=== PATIENT | female | born 1985 | race Caucasian/White ===

== ENCOUNTER 2020-03-25 18:42 | Emergency (ER) | payer OTHER, SELFPAY ==
--- NOTE | 2020-03-25 | ECG_ITS ---
Test Reason : CP Blood Pressure : / mmHG Vent. Rate : 082 BPM Atrial Rate : 082 BPM P-R Int : 146 ms QRS Dur : 080 ms QT Int : 382 ms P-R-T Axes : 068 072 067 degrees QTc Int : 446 ms Normal sinus rhythm with sinus arrhythmia Septal infarct , age undetermined Abnormal ECG No previous ECGs available Referred By: Kandis Gonsales Electronically Signed By:James Lozano
[2020-03-25 18:48] VITALS: BP 106/65; BP 114/85; PULSE 75; PULSE 90; RESP 18; TEMP 37.1; O2SAT 98; O2SAT 99; BMI 19.5
[2020-03-25 19:02] LABS: Glucose, Whole Blood 393 mg/dL (60-115)
--- NOTE | 2020-03-25 19:03 | XR_ITS ---
EXAMINATION: PORTABLE CHEST 1 VIEW CLINICAL INFORMATION: CP . COMPARISON: No recent pertinent prior studies are available for comparison. TECHNIQUE: Portable frontal view of the chest was obtained. FINDINGS: The lungs are well expanded. No focal infiltrate, effusion, edema, or pneumothorax. Cardiac and mediastinal silhouettes are within normal limits for technique. No acute bony abnormality seen. XR/XR chest 1V IMPRESSION: No evidence of acute disease.
--- NOTE | 2020-03-25 19:08 | ED_ITS ---
HPI - Chest Pain General Chief Complaint: Chest Pain Stated Complaint: MID STERNAL CHEST PAIN X'S 2 HOURS Time Seen by Provider: 03/25/20 18:52 Source: patient Mode of arrival: EMS Limitations: no limitations History of Present Illness HPI narrative: Patient comes to the emergency room complaining of substernal chest pain. Patient states it started 2 hours prior to arrival. Patient states that she knows that whenever she gets chest pain, it is likely that she is in diabetic ketoacidosis. Patient states that she has not had any insulin today because she has not been hungry and has not eaten anything today. On the way to the emergency room, EMS gave the patient 1 time dose of 325 aspirin. At this time, patient complaining of substernal chest pain, epigastric pain, generalized malaise. Patient also very anxious, states that if she has Coronavirus, ?her body won't taken and she will . Related Data Allergies Allergy/AdvReac Type Severity Reaction Status Date / Time No Known Allergies Allergy Verified 03/25/20 19:03 Review of Systems Review of Systems: Constitutional : Patient complaining fatigue, generalized malaise, no fever or chills ENT/Mouth : No Hearing loss, No Ear Pain, No Nasal Congestion, No Sinus Pain, No Hoarseness, No sore throat, No Rhinorrhea, No Swallowing Difficulty Eyes: No Eye Pain, No Swelling, No Redness, No Foreign Body, No Discharge, No Vision Changes Cardiovascular : Complaining of substernal Chest Pain, No SOB, No Dyspnea on Exertion, No Orthopnea, No Edema, No Palpitations Respiratory : No Cough, No Sputum, No Wheezing, No Smoke Exposure, No Dyspnea Gastrointestinal : No Nausea, No Vomiting, No Diarrhea, complaining of epigastric pain Genitourinary : no irregular bleeding, No Dysuria, No Urinary Frequency, No Hematuria, No Urinary Incontinence, No Urgency, No Flank Pain, No Urinary Flow Changes, No Hesitancy Musculoskeletal : No joint pain, No Myalgias, No Joint Swelling Skin : No Skin Lesions, No rash Neuro : No Weakness, No Numbness, No Paresthesias, No Loss of Consciousness, No Dizziness, No Headache Psych : Complaining of feeling anxious due to fear of possibly having COVID-19, No Depression, No SI/HI/AH/VH, No Social Issues, Heme/Lymph: No Bruising, No Bleeding,No Lymphadenopathy Endocrine : No Polyuria, No Polydipsia, No Temperature Intolerance [facility] Past Medical History Medical History (Updated 03/26/20 @ 00:00 by Shannan Mcfarlane) Diabetes DKA (diabetic ketoacidoses) Surgical History (Updated 03/25/20 @ 18:56 by Jessie Elaine) History of Social History Social History Alcohol intake: never Smoked in Last 30 Days: No Use of substances other than those prescribed or required for medical reasons: Yes Substance Use Type: Marijuana Substance Use Frequency: Daily Last Used Substance: Days (ago) Advance Directives: No Advance Directives Information Provided: No Physical Exam Vital Signs: Vital Signs: Last Vital Signs Temp 98.8 F 03/25/20 21:16 Pulse 91 03/25/20 21:16 Resp 18 03/25/20 21:16 BP 108/61 03/25/20 21:16 Pulse Ox 100 03/25/20 20:08 Body Mass Index 19.5 Appearance: Alert. Oriented X3. No acute distress but anxious. Eyes: Pupils equal, round and reactive to light. ENT: Pharynx normal. Neck: Normal inspection. Neck supple. No lymph nodes noted. No crepitus CVS: Normal heart rate and rhythm. Pulses normal. Normal S1 and S2, not reproducible chest pain on palpation on the chest Respiratory: No respiratory distress. Breath sounds normal. No Wheezing. No rales Abdomen: Soft , mildly tender in the epigastric area No rigidity. No distention. good BS x4 Skin: Skin warm, slightly pale, clammy Extremities: No lower extremity edema. No lower extremity edema. No Lacerations. No Rash Neuro: Oriented X 3. No motor deficit. No sensory deficit. Moving all extermities. No slurred speech. Course Course Course Narrative: I discussed the labs with the patient, she is not in DKA, current glucose level 215, patient states she feels better. Patient tested negative for COVID-19 MDM - Chest Pain Lab Data Result diagrams: 03/25/20 19:28 03/25/20 19:28 Labs: Lab Results 03/25/20 03/25/20 03/25/20 Range/Units 18:57 19:28 19:28 WBC 5.7 (4.8-10.8) X10*3/uL RBC 3.75 L (4.20-5.50) X10*6/uL Hgb 12.2 (12.0-16.0) g/dl Hct 34.8 L (37-47) % MCV 92.8 (80-98) fL MCH 32.5 (27.0-33.0) pg MCHC 35.1 H (31.0-35.0) g/dl RDW 11.6 (11.0-16.0) % Plt Count 173 (160-400) X10*3/uL MPV 10.6 (9.4-12.3) fL Immature Gran % (Auto) 0.2 (0.0-0.4) % Neut % (Auto) 48.6 (45-73) % Lymph % (Auto) 40.9 H (20-40) % Davison % (Auto) 8.2 (2-11) % Eos % (Auto) 1.6 (0-4) % Baso % (Auto) 0.5 (0-2) % Lymph # (Auto) 2.3 (1.2-4.9) X10*3/uL Davison # (Auto) 0.5 (0.1-1.2) X10*3/uL Eos # (Auto) 0.1 (0.0-0.4) X10*3/uL Baso # (Auto) 0.0 (0.0-0.2) X10*3/uL Abs Immat Gran (auto) 0.01 (0.00-0.03) X10*3/uL Absolute Neuts (auto) 2.8 (2.0-8.3) X10*3/uL Absolute Nucleated RBC 0.000 (0.0-0.012) X10*3/uL Nucleated RBC % (auto) 0.0 (0.0-0.2) /100WBC Sodium 132 L (135-145) mmol/L Potassium 4.6 (3.3-5.1) mmol/l Chloride 101 (96-108) mmol/L Carbon Dioxide 26 (22-29) mmol/L Anion Gap 10 L (12-20) BUN 10 (9-16) mg/dL Creatinine 0.82 (0.5-1.4) mg/dL Estim Creat Clear Calc 70.7 Estimated GFR > 60 POC Glucose 393 H* (60-115) mg/dL Random Glucose 430 H* (60-115) mg/dL Lactic Acid (0.5-2.0) mmol/L Calcium 8.4 (8.4-10.2) mg/dL Total Bilirubin 0.5 (0.0-1.0) mg/dL Direct Bilirubin 0.2 (0.0-0.5) mg/dL AST 18 (5-31) U/L ALT 15 (0-31) U/L Alkaline Phosphatase 64 (39-117) U/L Troponin I High Sens (<3.5-17.0) ng/L Total Protein 6.0 L (6.5-8.0) g/dL Albumin 3.7 (3.5-5.0) g/dL Lipase 28 (8-78) U/L Urine Color Urine Appearance Urine pH (5.0-8.0) Ur Specific [place] (1.005-1.025) Urine Protein (NEG-TRACE) MG/DL Urine Glucose (UA) (NEG) MG/DL Urine Ketones (NEG) MG/DL Urine Blood (NEG) Urine Nitrite (NEG) Ur Leukocyte Esterase (NEG) Urine RBC (0) /HPF Urine WBC (0-4) /HPF Ur Squamous Epith Cells /LPF Urine Bacteria /LPF Urine Test (NEGATIVE) Urine Opiates Screen (Not Detect) Ur Barbiturates Screen (Not Detect) Ur Phencyclidine Scrn (Not Detect) Ur Amphetamines Screen (Not Detect) U Benzodiazepines Scrn (Not Detect) Urine Cocaine Screen (Not Detect) U Marijuana (THC) Screen (Not Detect) Acetone, Qual Negative (Negative) COVID-19 (ISHA) (Negative) COVID-19 Clin Com 03/25/20 03/25/20 03/25/20 Range/Units 19:28 19:28 19:28 WBC (4.8-10.8) X10*3/uL RBC (4.20-5.50) X10*6/uL Hgb (12.0-16.0) g/dl Hct (37-47) % MCV (80-98) fL MCH (27.0-33.0) pg MCHC (31.0-35.0) g/dl RDW (11.0-16.0) % Plt Count (160-400) X10*3/uL MPV (9.4-12.3) fL Immature Gran % (Auto) (0.0-0.4) % Neut % (Auto) (45-73) % Lymph % (Auto) (20-40) % Davison % (Auto) (2-11) % Eos % (Auto) (0-4) % Baso % (Auto) (0-2) % Lymph # (Auto) (1.2-4.9) X10*3/uL Davison # (Auto) (0.1-1.2) X10*3/uL Eos # (Auto) (0.0-0.4) X10*3/uL Baso # (Auto) (0.0-0.2) X10*3/uL Abs Immat Gran (auto) (0.00-0.03) X10*3/uL Absolute Neuts (auto) (2.0-8.3) X10*3/uL Absolute Nucleated RBC (0.0-0.012) X10*3/uL Nucleated RBC % (auto) (0.0-0.2) /100WBC Sodium (135-145) mmol/L Potassium (3.3-5.1) mmol/l Chloride (96-108) mmol/L Carbon Dioxide (22-29) mmol/L Anion Gap (12-20) BUN (9-16) mg/dL Creatinine (0.5-1.4) mg/dL Estim Creat Clear Calc Estimated GFR POC Glucose (60-115) mg/dL Random Glucose (60-115) mg/dL Lactic Acid 1.2 (0.5-2.0) mmol/L Calcium (8.4-10.2) mg/dL Total Bilirubin (0.0-1.0) mg/dL Direct Bilirubin (0.0-0.5) mg/dL AST (5-31) U/L ALT (0-31) U/L Alkaline Phosphatase (39-117) U/L Troponin I High Sens < 3.5 (<3.5-17.0) ng/L Total Protein (6.5-8.0) g/dL Albumin (3.5-5.0) g/dL Lipase (8-78) U/L Urine Color Urine Appearance Urine pH (5.0-8.0) Ur Specific [place] (1.005-1.025) Urine Protein (NEG-TRACE) MG/DL Urine Glucose (UA) (NEG) MG/DL Urine Ketones (NEG) MG/DL Urine Blood (NEG) Urine Nitrite (NEG) Ur Leukocyte Esterase (NEG) Urine RBC (0) /HPF Urine WBC (0-4) /HPF Ur Squamous Epith Cells /LPF Urine Bacteria /LPF Urine Test (NEGATIVE) Urine Opiates Screen (Not Detect) Ur Barbiturates Screen (Not Detect) Ur Phencyclidine Scrn (Not Detect) Ur Amphetamines Screen (Not Detect) U Benzodiazepines Scrn (Not Detect) Urine Cocaine Screen (Not Detect) U Marijuana (THC) Screen (Not Detect) Acetone, Qual (Negative) COVID-19 (ISHA) Negative (Negative) COVID-19 Clin Com See Note 03/25/20 03/25/20 03/25/20 Range/Units 19:48 19:48 21:13 WBC (4.8-10.8) X10*3/uL RBC (4.20-5.50) X10*6/uL Hgb (12.0-16.0) g/dl Hct (37-47) % MCV (80-98) fL MCH (27.0-33.0) pg MCHC (31.0-35.0) g/dl RDW (11.0-16.0) % Plt Count (160-400) X10*3/uL MPV (9.4-12.3) fL Immature Gran % (Auto) (0.0-0.4) % Neut % (Auto) (45-73) % Lymph % (Auto) (20-40) % Davison % (Auto) (2-11) % Eos % (Auto) (0-4) % Baso % (Auto) (0-2) % Lymph # (Auto) (1.2-4.9) X10*3/uL Davison # (Auto) (0.1-1.2) X10*3/uL Eos # (Auto) (0.0-0.4) X10*3/uL Baso # (Auto) (0.0-0.2) X10*3/uL Abs Immat Gran (auto) (0.00-0.03) X10*3/uL Absolute Neuts (auto) (2.0-8.3) X10*3/uL Absolute Nucleated RBC (0.0-0.012) X10*3/uL Nucleated RBC % (auto) (0.0-0.2) /100WBC Sodium (135-145) mmol/L Potassium (3.3-5.1) mmol/l Chloride (96-108) mmol/L Carbon Dioxide (22-29) mmol/L Anion Gap (12-20) BUN (9-16) mg/dL Creatinine (0.5-1.4) mg/dL Estim Creat Clear Calc Estimated GFR POC Glucose 215 H (60-115) mg/dL Random Glucose (60-115) mg/dL Lactic Acid (0.5-2.0) mmol/L Calcium (8.4-10.2) mg/dL Total Bilirubin (0.0-1.0) mg/dL Direct Bilirubin (0.0-0.5) mg/dL AST (5-31) U/L ALT (0-31) U/L Alkaline Phosphatase (39-117) U/L Troponin I High Sens (<3.5-17.0) ng/L Total Protein (6.5-8.0) g/dL Albumin (3.5-5.0) g/dL Lipase (8-78) U/L Urine Color YELLOW Urine Appearance CLEAR Urine pH 6.5 (5.0-8.0) Ur Specific [place] 1.010 (1.005-1.025) Urine Protein NEG (NEG-TRACE) MG/DL Urine Glucose (UA) >=1000 H (NEG) MG/DL Urine Ketones NEG (NEG) MG/DL Urine Blood NEG (NEG) Urine Nitrite NEG (NEG) Ur Leukocyte Esterase NEG (NEG) Urine RBC 0 (0) /HPF Urine WBC 0 (0-4) /HPF Ur Squamous Epith Cells 1+ /LPF Urine Bacteria NONE /LPF Urine Test NEGATIVE (NEGATIVE) Urine Opiates Screen Not Detected (Not Detect) Ur Barbiturates Screen Not Detected (Not Detect) Ur Phencyclidine Scrn Not Detected (Not Detect) Ur Amphetamines Screen Not Detected (Not Detect) U Benzodiazepines Scrn Not Detected (Not Detect) Urine Cocaine Screen Not Detected (Not Detect) U Marijuana (THC) Screen POSITIVE H (Not Detect) Acetone, Qual (Negative) COVID-19 (ISHA) (Negative) COVID-19 Clin Com Imaging Data Chest x-ray: Radiologist's impression: The lungs are well expanded. No focal infiltrate, effusion, edema, or pneumothorax. Cardiac and mediastinal silhouettes are within normal limits for technique. No acute bony abnormality seen. XR/XR chest 1V IMPRESSION: No evidence of acute disease. ECG Data ECG #1: Attestation: I personally reviewed and interpreted this ECG as follows: (Heart rate 82, sinus rhythm, nonspecific ST segment changes, no T-wave inversions) Discharge Plan Discharge Clinical Impression: Hyperglycemia, Atypical chest pain Patient Disposition: Home, Self-Care Instructions: Chest Pain (ED), Diabetic Hyperglycemia (ED) Additional Instructions: You tested negative for COVID-19. Please follow-up with your primary care physician tomorrow. If you have any worsening or new symptoms, please return to the emergency room or call 911 Interventions: ED Discharge Assessment Last Done: 03/25/20 21:48 Discharge Date/Time: 03/25/20 21:48
[2020-03-25] MEDS: 0.9 % Sodium Chloride 1,000 ML 999 ML IVCONT ×2 (19:34)
[2020-03-25 19:35] LABS: Basophils Percent Auto 0.5 % (0-2); Eosinophils Absolute Auto 0.1 X10*3/uL (0.0-0.4); Eosinophils Percent Auto 1.6 % (0-4); Hematocrit 34.8 % (37-47); Hemoglobin 12.2 g/dl (12.0-16.0); Imm Gran Abs Auto 0.01 X10*3/uL (0.00-0.03); Imm Gran Pct Auto 0.2 % (0.0-0.4); Lymphocytes Absolute Auto 2.3 X10*3/uL (1.2-4.9); Lymphocytes Percent Auto 40.9 % (20-40); MANUAL DIFF FLAG NO; Mean Corpuscular HGB Conc 35.1 g/dl (31.0-35.0); Mean Corpuscular Hemoglobin 32.5 pg (27.0-33.0); Mean Corpuscular Volume 92.8 fL (80-98); Mean Platelet Volume 10.6 fL (9.4-12.3); Monocytes Absolute Auto 0.5 X10*3/uL (0.1-1.2); Monocytes Percent Auto 8.2 % (2-11); Neutrophils Absolute Auto 2.8 X10*3/uL (2.0-8.3); Neutrophils Percent Auto 48.6 % (45-73); Platelet Count 173 X10*3/uL (160-400); Red Blood Count 3.75 X10*6/uL (4.20-5.50); Red Cell Distribution Width 11.6 % (11.0-16.0); White Blood Count 5.7 X10*3/uL (4.8-10.8)
[2020-03-25] MEDS: Insulin Regular, Human 100 UNIT/ML 3 ML VIAL 10 UNIT IVPUSH (19:43)
--- NOTE | 2020-03-25 19:48 | PC.NURSE ---
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
[2020-03-25 19:52] LABS: COVID-19 Test Negative (Negative)
[2020-03-25 19:59] LABS: Glucose Urine UA >=1000 MG/DL (NEG); Leukocyte Esterase Urine NEG (NEG); Nitrite Urine NEG (NEG); PH 6.5 (5.0-8.0); Urine Blood NEG (NEG); Urine Ketones NEG (NEG); Urine Protein NEG (NEG-TRACE)
[2020-03-25 20:00] LABS: Appearance Urine CLEAR; Color Urine YELLOW
[2020-03-25 20:03] LABS: Lactic Acid 1.2 mmol/L (0.5-2.0)
[2020-03-25 20:08] VITALS: BP 104/60; PULSE 74; RESP 18; TEMP 36.8; O2SAT 100
[2020-03-25 20:08] LABS: RBC Urine 0 /HPF (0); Squamous Epithelial Cell Urine 1+ /LPF; WBC Urine 0 /HPF (0-4)
[2020-03-25 20:11] LABS: Troponin-I High Sensitivity < 3.5 ng/L (<3.5-17.0)
[2020-03-25 20:12] LABS: UPreg QC Valid YES; Urine Pregnancy NEGATIVE (NEGATIVE)
[2020-03-25 20:16] LABS: Alanine Aminotransferase 15 U/L (0-31); Albumin Level 3.7 g/dL (3.5-5.0); Alkaline Phosphatase 64 U/L (39-117); Anion Gap 10 (12-20); Aspartate Amino Transferase 18 U/L (5-31); Bilirubin Direct 0.2 mg/dL (0.0-0.5); Bilirubin Total 0.5 mg/dL (0.0-1.0); Blood Urea Nitrogen 10 mg/dL (9-16); Calcium 8.4 mg/dL (8.4-10.2); Carbon Dioxide 26 mmol/L (22-29); Chloride 101 mmol/L (96-108); Creatinine Clr Calc Pharmacy 70.7; Estimated Glomerular Filt Rate > 60; Glucose Random 430 mg/dL (60-115); Lipase 28 U/L (8-78); Potassium 4.6 mmol/l (3.3-5.1); Sodium 132 mmol/L (135-145)
[2020-03-25 20:21] LABS: Amphetamine Screen Urine Not Detected (Not Detect); Barbiturates, Urine Not Detected (Not Detect); Benzodiazepines Screen Urine Not Detected (Not Detect); Cannabinoid Screen Urine POSITIVE (Not Detect); Cocaine Screen Urine Not Detected (Not Detect); Opiate Screen Urine Not Detected (Not Detect); Phencyclidine Screen Urine Not Detected (Not Detect)
[2020-03-25 20:40] LABS: Acetone, serum QL Negative (Negative)
[2020-03-25 21:16] VITALS: BP 108/61; PULSE 91; RESP 18; TEMP 37.1
[2020-03-25 21:17] LABS: Glucose, Whole Blood 215 mg/dL (60-115)
--- NOTE | 2020-03-25 21:17 | PC.NURSE ---
patient a&ox3, pt currently denies pain, vitals stable, pt nsr 90s on monitor, poc repeated was 215, will continue to monitor
--- NOTE | 2020-03-25 21:28 | PC.NURSE ---
report given to [facility], will transport the patient [place]
== END 2020-03-25 21:48 | disposition home or self-care (01) ==
PROVIDERS: Emergency Provider Emergency Medicine
DX: R07.89 Other chest pain (principal); E11.65 Type 2 diabetes mellitus with hyperglycemia; Z20.828 Contact with and (suspected) exposure to other viral communicable diseases; F12.90 Cannabis use, unspecified, uncomplicated
CPT/HCPCS: 36415; 71045; 80048; 80076; 80307; 81001; 81025; 82009; 82947; 83605; 83690; 84484; 85025; 87635; 93005; 96361; 96374; 99284

== ENCOUNTER 2021-12-06 19:43 | Inpatient (IN) | payer OTHER, SELFPAY ==
--- NOTE | ~2021-12-06 | CT_ITS ---
EXAM: CT scan of the chest, abdomen, and pelvis. INDICATION: DKA. Intractable vomiting. COMPARISON: No similar prior imaging available for comparison at this institution. TECHNIQUE: Multidetector helical imaging of the chest, abdomen, and pelvis was obtained from the thoracic inlet through the pubic symphysis. Coronal and sagittal reformatted images that were obtained were also reviewed. Today's examination is limited by lack of IV contrast and paucity of intra-abdominal fat. DLP: 456 mGy-cm FINDINGS: CHEST: Central airways are patent. Lungs are well aerated. There is no lobar consolidation, pleural effusion or pneumothorax. Minimal biapical architectural distortion/scarring. No suspicious pulmonary nodules. The heart is normal in size. There is no pericardial effusion. Normal caliber thoracic aorta. No gross mediastinal or hilar lymphadenopathy appreciated on today's noncontrast imaging. No pathologically enlarged axillary lymph nodes. ABDOMEN/PELVIS: The liver is normal in size but demonstrates diffusely decreased attenuation. The gallbladder is not definitively visualized, likely contracted. The pancreas, spleen and adrenal glands are unremarkable. Symmetrically sized kidneys. No renal calculi or hydronephrosis bilaterally. Normal caliber loops of small and large bowel. Normal caliber abdominal aorta. The bladder is well-distended and normal in appearance. Unremarkable CT appearance of the uterus. Small amount of free pelvic fluid, often times physiologic. No inguinal lymphadenopathy. OSSEOUS STRUCTURES No acute osseous abnormality. CT/CT abdomen pelvis wo IV con IMPRESSION: No CT evidence for acute abnormality within the abdomen or pelvis. This CT examination was performed using dose optimization techniques as appropriate, variously including the following: *Automated exposure control *Adjustment of mA and/or kV according to patient size (this includes techniques or standardized protocols for targeted exams where dose is matched to indication/reason for exam; i.e. extremities or head) *Use of iterative reconstruction technique
[2021-12-06 19:51] VITALS: BP 108/68; PULSE 116; RESP 20; TEMP 36.7; O2SAT 100; BMI 18.8
[2021-12-06] MEDS: Ondansetron ODT 4 MG TAB.RAPDIS TRANSLINGU (20:03)
[2021-12-06 20:04] LABS: Glucose, Whole Blood 424 mg/dL (60-115)
[2021-12-06 20:40] VITALS: BP 129/68; PULSE 108; RESP 18; TEMP 36.7; O2SAT 100
--- NOTE | 2021-12-06 21:00 | ED.GENADULT ---
HPI - General Adult General Chief complaint: General Medical Stated complaint: abd pain Time Seen by Provider: 12/06/21 21:00 Source: patient Mode of arrival: ambulatory Limitations: no limitations History of Present Illness HPI narrative: Patient type 1 diabetic on insulin for last 4- 5 days not feeling well checked her sugar was less than 100 not eating because of nausea got worse for last 2 days started vomiting today patient with taking her Lantus insulin daily today patient had mid abdominal pain with vomiting, multiple episodes on arrival POC was 424. No fever no chills no urinary complaints Related Data Previous Rx's Medication Instructions Recorded metoclopramide HCl 10 mg tablet 10 mg PO Q6H PRN nausea and 12/07/21 (Reglan) vomiting #30 tabs Allergies Allergy/AdvReac Type Severity Reaction Status Date / Time No Known Allergies Allergy Verified 12/06/21 19:50 Review of Systems Review of Systems: Yes all other systems are reviewed and are negative PMFSH Past Medical History Medical History Diabetes DKA (diabetic ketoacidoses) Surgical History History of Social History Social History Alcohol intake: never Substance Use Type: Marijuana Advance Directives: No Advance Directives Information Provided: Yes Physical Exam ED Vital Signs: Vital Signs - 24 hr 12/06/21 19:51 12/06/21 20:40 12/07/21 00:40 Temperature 98.1 F 98.0 F 97.7 F Pulse Rate 116 H 108 H 110 H Respiratory Rate 20 18 15 Blood Pressure 108/68 129/68 98/56 L Pulse Oximetry 100 100 100 Oxygen Delivery Method Room Air Room Air Room Air BMI result Body Mass Index 18.8 Appearance: Alert. Oriented X3. Looks sick Eyes: PERRLA, No Nystagmus ENT: Pharynx normal. Oral Mucosa dry Neck: Normal inspection. Neck supple. CVS: Normal heart rate and rhythm. Pulses normal. Respiratory: No respiratory distress. Equal air entry bilateral, no wheezing/rales/rhonchi Abdomen: Soft mild epigastric tenderness. Bowel sounds are present, no mass palpable, no CVA tenderness Skin: Skin warm and dry. Normal skin color. Normal skin turgor. Extremities: No lower extremity edema. No calf tenderness Neuro: Oriented X 3. No motor deficit. No sensory deficit Course Reevaluation(s) Reevaluation #1: Patient received IV Versed and Compazine at this time patient is sleeping comfortable will try p.o. challenge after 3 L of IV fluid will check chemistry again anticipated discharge the patient, but if continues to vomit will plan to admit Time: 01:34 Medical Decision Making MDM Narrative Medical decision making narrative: Patient with anxiety, eating disorder with history of similar episodes of vomiting noncompliant to diet or insulin comes in with similar complaints for last few days patient smokes cannabis which she did yesterday very anxious in the ER refusing to accept cannabis as a role for vomiting has not seen a search marketing analyst yet possibly patient might a gastroparesis which getting worse with eating disorder and cannabis use. Patient already received 2 L of IV fluids no ketoacidosis was seen. Will give another L of fluid Compazine and Versed , patient has slight anion gap of 24 without ketoacidosis will repeat chemistry Lab Data Lab results reviewed: Yes I reviewed the patient's lab results. Result diagrams: 12/06/21 21:21 12/06/21 21:12 Labs: Lab Results 12/06/21 12/06/21 12/06/21 Range/Units 20:00 21:12 21:21 WBC 6.9 (4.8-10.8) X10*3/uL RBC 4.08 L (4.20-5.50) X10*6/uL Hgb 13.2 (12.0-16.0) g/dl Hct 38.0 (37.0-47.0) % MCV 93.1 (80.0-98.0) fL MCH 32.4 (27.0-33.0) pg MCHC 34.7 (31.0-35.0) g/dl RDW 11.9 (11.0-16.0) % Plt Count 182 (160-400) X10*3/uL MPV 10.7 (9.4-12.3) fL Immature Gran % (Auto) 0.3 (0.0-0.4) % Neut % (Auto) 74.0 H (45-73) % Lymph % (Auto) 19.0 L (20-40) % Bureau % (Auto) 6.0 (2-11) % Eos % (Auto) 0.0 (0-4) % Baso % (Auto) 0.7 (0-2) % Lymph # (Auto) 1.3 (1.2-4.9) X10*3/uL Bureau # (Auto) 0.4 (0.1-1.2) X10*3/uL Eos # (Auto) 0.0 (0.0-0.4) X10*3/uL Baso # (Auto) 0.1 (0.0-0.2) X10*3/uL Abs Immat Gran (auto) 0.02 (0.00-0.03) X10*3/uL Absolute Neuts (auto) 5.1 (2.0-8.3) x10*3/uL Absolute Nucleated RBC 0.000 (0.0-0.012) X10*3/uL Nucleated RBC % (auto) 0.0 (0.0-0.2) /100WBC VBG pH (7.32-7.43) VBG pCO2 mmHg VBG pO2 mmHg VBG HCO3 (22-26) mmol/L VBG O2 Saturation % VBG Base Excess mmol/L Sodium 138 (135-145) mmol/L Potassium 4.6 (3.3-5.1) mmol/L Chloride 101 (96-108) mmol/L Carbon Dioxide 18 L (22-29) mmol/L Anion Gap 24 H (12-20) BUN 11 (9-16) mg/dL Creatinine 1.00 (0.5-1.4) mg/dL Estim Creat Clear Calc 55.1 Estimated GFR > 60 POC Glucose 424 H* (60-115) mg/dL Random Glucose 491 H* (60-115) mg/dL Calcium 9.2 D (8.4-10.2) mg/dL Total Bilirubin 0.9 (0.0-1.0) mg/dL AST 26 D (5-31) U/L ALT 18 (0-31) U/L Alkaline Phosphatase 78 D (39-117) U/L Total Protein 6.9 (6.5-8.0) g/dL Albumin 4.1 (3.5-5.0) g/dL Lipase 12 (8-78) U/L Acetone, Qual Negative (Negative) COVID-19 (ISHA) (Negative) COVID-19 Clin Com 12/06/21 12/06/21 12/07/21 Range/Units 21:21 21:27 00:22 WBC (4.8-10.8) X10*3/uL RBC (4.20-5.50) X10*6/uL Hgb (12.0-16.0) g/dl Hct (37.0-47.0) % MCV (80.0-98.0) fL MCH (27.0-33.0) pg MCHC (31.0-35.0) g/dl RDW (11.0-16.0) % Plt Count (160-400) X10*3/uL MPV (9.4-12.3) fL Immature Gran % (Auto) (0.0-0.4) % Neut % (Auto) (45-73) % Lymph % (Auto) (20-40) % Bureau % (Auto) (2-11) % Eos % (Auto) (0-4) % Baso % (Auto) (0-2) % Lymph # (Auto) (1.2-4.9) X10*3/uL Bureau # (Auto) (0.1-1.2) X10*3/uL Eos # (Auto) (0.0-0.4) X10*3/uL Baso # (Auto) (0.0-0.2) X10*3/uL Abs Immat Gran (auto) (0.00-0.03) X10*3/uL Absolute Neuts (auto) (2.0-8.3) x10*3/uL Absolute Nucleated RBC (0.0-0.012) X10*3/uL Nucleated RBC % (auto) (0.0-0.2) /100WBC VBG pH 7.32 (7.32-7.43) VBG pCO2 38 mmHg VBG pO2 61 mmHg VBG HCO3 20 L (22-26) mmol/L VBG O2 Saturation 86.0 % VBG Base Excess -5.4 mmol/L Sodium (135-145) mmol/L Potassium (3.3-5.1) mmol/L Chloride (96-108) mmol/L Carbon Dioxide (22-29) mmol/L Anion Gap (12-20) BUN (9-16) mg/dL Creatinine (0.5-1.4) mg/dL Estim Creat Clear Calc Estimated GFR POC Glucose 241 H (60-115) mg/dL Random Glucose (60-115) mg/dL Calcium (8.4-10.2) mg/dL Total Bilirubin (0.0-1.0) mg/dL AST (5-31) U/L ALT (0-31) U/L Alkaline Phosphatase (39-117) U/L Total Protein (6.5-8.0) g/dL Albumin (3.5-5.0) g/dL Lipase (8-78) U/L Acetone, Qual (Negative) COVID-19 (ISHA) Negative (Negative) COVID-19 Clin Com See Note Discharge Plan Discharge Clinical Impression: Cyclical vomiting, intractable, Diabetic gastroparesis, Anxiety Patient Disposition: Still a Patient Instructions: Diabetic Gastroparesis (DC), Anxiety (ED), Cyclic Vomiting Syndrome (ED) Additional Instructions: Drink plenty of fluids Have proper diet as advised Take insulin as instructed by your PCP Follow-up with search marketing analyst and endocrinology for further workup Prescriptions: New metoclopramide HCl [Reglan] 10 mg tablet 10 mg PO Q6H PRN (Reason: nausea and vomiting) Qty: 30 0RF Referrals: Gerardo Kirk MD [Physician] - 2 weeks Khadijah Alanis MD [Physician] - 2 weeks
[2021-12-06 21:26] LABS: MANUAL DIFF FLAG NO
[2021-12-06] MEDS: ondansetron HCL 4 MG/2 ML VIAL IVPUSH (21:31)
[2021-12-06] MEDS: Insulin Regular, Human 100 UNIT/ML 3 ML VIAL 10 UNIT IVPUSH (21:31)
[2021-12-06 21:32] LABS: VBG Base Excess -5.4 mmol/L; VBG HCO3 20 mmol/L (22-26); VBG pCO2 38 mmHg; VBG pH 7.32 (7.32-7.43); VBG pO2 61 mmHg
[2021-12-06 21:33] LABS: Venous Blood Gas Refer to POC result
[2021-12-06] MEDS: 0.9 % Sodium Chloride 1,000 ML 999 ML IV ×2 (21:34)
[2021-12-06 21:52] LABS: COVID-19 Test Negative (Negative)
[2021-12-06 21:58] LABS: Acetone, serum QL Negative (Negative)
[2021-12-06 21:59] LABS: Basophils Absolute Auto 0.1 X10*3/uL (0.0-0.2); Basophils Percent Auto 0.7 % (0-2); Hemoglobin 13.2 g/dl (12.0-16.0); Imm Gran Abs Auto 0.02 X10*3/uL (0.00-0.03); Imm Gran Pct Auto 0.3 % (0.0-0.4); Lymphocytes Absolute Auto 1.3 X10*3/uL (1.2-4.9); Mean Corpuscular HGB Conc 34.7 g/dl (31.0-35.0); Mean Corpuscular Hemoglobin 32.4 pg (27.0-33.0); Mean Corpuscular Volume 93.1 fL (80.0-98.0); Mean Platelet Volume 10.7 fL (9.4-12.3); Monocytes Absolute Auto 0.4 X10*3/uL (0.1-1.2); Neutrophils Absolute Auto 5.1 x10*3/uL (2.0-8.3); Platelet Count 182 X10*3/uL (160-400); Red Blood Count 4.08 X10*6/uL (4.20-5.50); Red Cell Distribution Width 11.9 % (11.0-16.0); White Blood Count 6.9 X10*3/uL (4.8-10.8)
[2021-12-06 22:01] LABS: Alanine Aminotransferase 18 U/L (0-31); Albumin Level 4.1 g/dL (3.5-5.0); Alkaline Phosphatase 78 U/L (39-117); Anion Gap 24 (12-20); Aspartate Amino Transferase 26 U/L (5-31); Bilirubin Total 0.9 mg/dL (0.0-1.0); Blood Urea Nitrogen 11 mg/dL (9-16); Calcium 9.2 mg/dL (8.4-10.2); Carbon Dioxide 18 mmol/L (22-29); Chloride 101 mmol/L (96-108); Creatinine Clr Calc Pharmacy 55.1; Estimated Glomerular Filt Rate > 60; Glucose Random 491 mg/dL (60-115); Lipase 12 U/L (8-78); Potassium 4.6 mmol/L (3.3-5.1); Sodium 138 mmol/L (135-145); Total Protein 6.9 g/dL (6.5-8.0)
[2021-12-07] VITALS (17 sets, daily range): BP systolic 86–112; BP diastolic 41–59; PULSE 102–122; RESP 12–25; TEMP 36.5–37.6; O2SAT 94–100
[2021-12-07 00:26] LABS: Glucose, Whole Blood 241 mg/dL (60-115)
[2021-12-07] MEDS: Prochlorperazine Edisylate 10 MG/2 ML VIAL IVPUSH (00:50)
[2021-12-07] MEDS: Midazolam HCl/PF 2 MG/2 ML VIAL 1 MG IVPUSH ×2 (00:50→10:51)
[2021-12-07] MEDS: Famotidine/PF 20 MG/2 ML VIAL IVPUSH ×3 (00:51→22:32)
[2021-12-07] MEDS: 0.9 % Sodium Chloride 1,000 ML 999 ML IV (00:51)
[2021-12-07 02:30] LABS: Anion Gap 22 (12-20); Blood Urea Nitrogen 12 mg/dL (9-16); Calcium 7.9 mg/dL (8.4-10.2); Carbon Dioxide 14 mmol/L (22-29); Chloride 109 mmol/L (96-108); Creatinine Clr Calc Pharmacy 72.5; Estimated Glomerular Filt Rate > 60; Glucose Random 364 mg/dL (60-115); Potassium 4.3 mmol/L (3.3-5.1); Sodium 141 mmol/L (135-145)
[2021-12-07] MEDS: Insulin Regular, Human 100 UNIT/ML 3 ML VIAL 10 UNIT IVPUSH (03:49)
[2021-12-07] MEDS: 0.9 % Sodium Chloride 1,000 ML 999 ML IVCONT (03:51)
[2021-12-07] MEDS: ondansetron HCL 4 MG/2 ML VIAL IVPUSH ×2 (03:51→10:51)
[2021-12-07 03:54] LABS: Appearance Urine Clear; Color Urine Yellow; Glucose Urine UA >=1000 mg/dL (Negative); Leukocyte Esterase Urine Negative (Negative); Nitrite Urine Negative (Negative); Urine Blood Negative (Negative); Urine Ketones >=80 mg/dL (Negative); Urine Protein Negative (Neg-Trace)
[2021-12-07 03:56] LABS: Bacteria Urine None Seen (None Seen); Hyaline Casts Urine 0-2 /LPF (0-2); RBC Urine 0-2 /HPF (0-2); Squamous Epithelial Cell Urine 0-2 /HPF (0-2); WBC Urine 0-5 /HPF (0-5)
[2021-12-07 05:21] LABS: Anion Gap 22 (12-20); Blood Urea Nitrogen 13 mg/dL (9-16); Calcium 8.1 mg/dL (8.4-10.2); Carbon Dioxide 11 mmol/L (22-29); Chloride 111 mmol/L (96-108); Creatinine Clr Calc Pharmacy 69.8; Estimated Glomerular Filt Rate > 60; Glucose Random 331 mg/dL (60-115); Potassium 3.8 mmol/L (3.3-5.1); Sodium 140 mmol/L (135-145)
[2021-12-07 05:33] LABS: Amphetamine Screen Urine Not Detected (Not Detect); Barbiturates, Urine Not Detected (Not Detect); Benzodiazepines Screen Urine POSITIVE (Not Detect); Cannabinoid Screen Urine POSITIVE (Not Detect); Cocaine Screen Urine Not Detected (Not Detect); Fentanyl, urine Not Detected (Not Detect); Opiate Screen Urine Not Detected (Not Detect); Phencyclidine Screen Urine Not Detected (Not Detect)
[2021-12-07] MEDS: Insulin Regular, Human 100 UNIT/ML 3 ML VIAL IVPUSH (06:06)
[2021-12-07] MEDS: KCl 20 mEq in 0.45% Sod 20 MEQ/1,000 ML IV.SOLN 150 MEQ IVCONT (06:07)
[2021-12-07 06:26] LABS: Lactic Acid 1.9 mmol/L (0.5-2.0)
[2021-12-07 06:36] LABS: Acetaminophen LAB < 1 mcg/mL (<30); Salicylate < 5.0 mg/dL (15-30)
[2021-12-07 08:49] LABS: Glucose, Whole Blood 250 mg/dL (60-115)
[2021-12-07 09:01] LABS: Amylase 47 U/L (28-100); Lipase 8 U/L (8-78)
[2021-12-07 09:07] LABS: HCG Quantitative < 2 mIU/mL
[2021-12-07] MEDS: Insulin Regular/NS 100 UNIT/100 ML PLAST..BAG IVCONT (09:08)
--- NOTE | 2021-12-07 09:27 | PHA.MEDREC ---
Pharmacy Consult ? Medication Reconciliation Pharmacy has completed the medication reconciliation. Patient also reported gabapentin however per PDMP it has not been filled since march 2020. Jacey Herrera, PharmD
[2021-12-07 09:58] LABS: Glucose, Whole Blood 354 mg/dL (60-115)
[2021-12-07 10:43] LABS: Glucose, Whole Blood 351 mg/dL (60-115)
--- NOTE | 2021-12-07 11:45 | PC.NURSE ---
Patient has K+CL and insulin running. 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
[2021-12-07 11:53] LABS: Glucose, Whole Blood 361 mg/dL (60-115)
--- NOTE | 2021-12-07 11:55 | PC.NURSE ---
per dr. riggs he requested that we titrate the insulin drip to 5 and recheck poc in 1 hr
[2021-12-07 12:17] LABS: Venous Blood Gas Refer to POC result
[2021-12-07 12:18] LABS: VBG Base Excess -12.6 mmol/L; VBG HCO3 10 mmol/L (22-26); VBG pCO2 19 mmHg; VBG pH 7.34 (7.32-7.43); VBG pO2 199 mmHg
[2021-12-07 12:34] LABS: Anion Gap 22 (12-20); Blood Urea Nitrogen 14 mg/dL (9-16); Calcium 8.1 mg/dL (8.4-10.2); Carbon Dioxide 10 mmol/L (22-29); Chloride 110 mmol/L (96-108); Creatinine Clr Calc Pharmacy 61.2; Estimated Glomerular Filt Rate > 60; Glucose Random 375 mg/dL (60-115); Potassium 4.6 mmol/L (3.3-5.1); Sodium 137 mmol/L (135-145)
--- NOTE | 2021-12-07 12:49 | PM.CCHP ---
History of Present Illness Date of Service: 12/07/21 Attending physician on admission: Mony Castillo Chief Complaint: Weakness with nausea and vomiting 36-year-old female with a progressive weakness anorexia nausea and vomiting presents metabolically with diabetic ketoacidosis with just a mild increase in anion gap and a mild bicarb deficit which unfortunately is deteriorating while treating in the emergency room on currently half normal saline after several boluses of 1 L each of normal saline and after a boluses of IV insulin including a continuous IV insulin drip and part of the metabolic acidosis and diminishing neck bicarb store is on the basis of hyperchloremia but nonetheless fluids of course will be adjusted and IV insulin will continue to be administered she did not have any other specific complaints and I did a CT scan of her abdomen showing the hepatobiliary system and pancreas all normal and normal serum amylase she does have a nonspecific ileus pattern with a moderate distension of her transverse colon Bedside echo demonstrated normal left and right ventricular function with no significant primary valvular or pericardial disease but there was evidence of mitral and tricuspid regurgitation Review of Systems Review of Systems: No complaints of altered urinary or bowel function and no fever chills or constitutional complaints and no dyspnea no productive cough Yes all other systems are reviewed and are negative [facility] Past Medical History Medical History Diabetes DKA (diabetic ketoacidoses) Surgical History Surgical History History of Social History Social History Alcohol intake: never Substance Use Type: Marijuana Advance Directives: No Advance Directives Information Provided: Yes Patient : No Meds Allergies Allergy/AdvReac Type Severity Reaction Status Date / Time No Known Allergies Allergy Verified 12/06/21 19:50 Active Medications: Current Medications Famotidine (Famotidine/Pf 20 Mg/2 Ml Vial) 20 mg IVPUSH BID KWAKU Heparin Sodium (Porcine) (Heparin Sodium,Porcine 5,000 Unit/Ml Vial) 5,000 unit SUBCUT Q12H KW[facility] Insulin Human Regular (Myxredlin) 100 unit in 100 mls @ 0 mls/hr IVCONT .Q0M KWAKU; Protocol Last Titration: 12/07/21 11:53 Dose: 5 unit/hr, 5 mls/hr Lactated Ringer's (Lr) 1,000 mls @ 150 mls/hr IVCONT .Q6H40M KWAK[facility] Ondansetron HCl (Ondansetron Hcl 4 Mg/2 Ml Vial) 4 mg IVPUSH Q8H PRN PRN Reason: Nausea and Vomiting Home Medications Medication Instructions Recorded Confirmed Last Taken Type insulin glargine 100 unit/mL (3 15 unit subcut BEDTIME 12/07/21 12/07/21 Unknown History mL) subcutaneous pen (Lantus Solostar U-100 Insulin) insulin lispro 100 unit/mL 3 - 6 unit subcut TIDAC 12/07/21 12/07/21 Unknown History subcutaneous pen Physical Exam Vital Signs: Vital Signs: Last Vital Signs Temp 99.7 F 12/07/21 11:39 Pulse 109 H 12/07/21 12:03 Resp 21 H 12/07/21 12:03 BP 103/54 L 12/07/21 12:03 Pulse Ox 97 12/07/21 12:03 O2 Del Method 12/07/21 12:03 BMI result Body Mass Index 18.8 Awake but lethargic probably is is simply awake through the night in the emergency room but nonfocal neurologically and alert and oriented Skin was intact no cellulitis Abdomen soft with no organomegaly Lungs clear and clear by CT scan as well And cardiac exam with normal LV and RV function by bedside echo Results Labs CBC and Chem 7: 12/06/21 21:21 12/07/21 12:07 Labs: Laboratory Results - last 24 hr 12/06/21 12/06/21 12/06/21 20:00 21:12 21:21 MCV 93.1 MCH 32.4 MCHC 34.7 RDW 11.9 Plt Count 182 MPV 10.7 Immature Gran % (Auto) 0.3 Neut % (Auto) 74.0 H Lymph % (Auto) 19.0 L [place] % (Auto) 6.0 Eos % (Auto) 0.0 Baso % (Auto) 0.7 Lymph # (Auto) 1.3 [place] # (Auto) 0.4 Eos # (Auto) 0.0 Baso # (Auto) 0.1 Abs Immat Gran (auto) 0.02 Absolute Neuts (auto) 5.1 Absolute Nucleated RBC 0.000 Nucleated RBC % (auto) 0.0 O2 Saturation ABG pH at Pt Temp ABG pH (Temp Correct) ABG pCO2 at Pt Temp ABG pCO2 (Temp Corrct ABG pO2 at Pt Temp ABG pO2 (Temp Correct ABG HCO3 ABG Base Excess (Actual) VBG pH VBG pCO2 VBG pO2 VBG HCO3 VBG O2 Saturation VBG Base Excess Anion Gap 24 H Estim Creat Clear Calc 55.1 Estimated GFR > 60 POC Glucose 424 H* Random Glucose 491 H* Lactic Acid Calcium 9.2 D Total Bilirubin 0.9 AST 26 D ALT 18 Alkaline Phosphatase 78 D Total Protein 6.9 Albumin 4.1 Amylase Lipase 12 Beta HCG, Quant Urine Color Urine Appearance Urine pH Ur Specific [place] Urine Protein Urine Glucose (UA) Urine Ketones Urine Blood Urine Nitrite Ur Leukocyte Esterase Urine RBC Urine WBC Ur Squamous Epith Cells Urine Bacteria Hyaline Casts Salicylates Urine Opiates Screen Urine Fentanyl Screen Acetaminophen Ur Barbiturates Screen Ur Phencyclidine Scrn Ur Amphetamines Screen U Benzodiazepines Scrn Urine Cocaine Screen U Marijuana (THC) Screen Acetone, Qual Negative COVID-19 (ISHA) COVID-19 Clin Com 12/06/21 12/06/21 12/07/21 21:21 21:27 00:22 MCV MCH MCHC RDW Plt Count MPV Immature Gran % (Auto) Neut % (Auto) Lymph % (Auto) [place] % (Auto) Eos % (Auto) Baso % (Auto) Lymph # (Auto) [place] # (Auto) Eos # (Auto) Baso # (Auto) Abs Immat Gran (auto) Absolute Neuts (auto) Absolute Nucleated RBC Nucleated RBC % (auto) O2 Saturation ABG pH at Pt Temp ABG pH (Temp Correct) ABG pCO2 at Pt Temp ABG pCO2 (Temp Corrct ABG pO2 at Pt Temp ABG pO2 (Temp Correct ABG HCO3 ABG Base Excess (Actual) VBG pH 7.32 VBG pCO2 38 VBG pO2 61 VBG HCO3 20 L VBG O2 Saturation 86.0 VBG Base Excess -5.4 Anion Gap Estim Creat Clear Calc Estimated GFR POC Glucose 241 H Random Glucose Lactic Acid Calcium Total Bilirubin AST ALT Alkaline Phosphatase Total Protein Albumin Amylase Lipase Beta HCG, Quant Urine Color Urine Appearance Urine pH Ur Specific [place] Urine Protein Urine Glucose (UA) Urine Ketones Urine Blood Urine Nitrite Ur Leukocyte Esterase Urine RBC Urine WBC Ur Squamous Epith Cells Urine Bacteria Hyaline Casts Salicylates Urine Opiates Screen Urine Fentanyl Screen Acetaminophen Ur Barbiturates Screen Ur Phencyclidine Scrn Ur Amphetamines Screen U Benzodiazepines Scrn Urine Cocaine Screen U Marijuana (THC) Screen Acetone, Qual COVID-19 (ISHA) Negative COVID-19 Clin Com See Note 12/07/21 12/07/21 12/07/21 01:57 03:49 03:49 MCV MCH MCHC RDW Plt Count MPV Immature Gran % (Auto) Neut % (Auto) Lymph % (Auto) [place] % (Auto) Eos % (Auto) Baso % (Auto) Lymph # (Auto) [place] # (Auto) Eos # (Auto) Baso # (Auto) Abs Immat Gran (auto) Absolute Neuts (auto) Absolute Nucleated RBC Nucleated RBC % (auto) O2 Saturation ABG pH at Pt Temp ABG pH (Temp Correct) ABG pCO2 at Pt Temp ABG pCO2 (Temp Corrct ABG pO2 at Pt Temp ABG pO2 (Temp Correct ABG HCO3 ABG Base Excess (Actual) VBG pH VBG pCO2 VBG pO2 VBG HCO3 VBG O2 Saturation VBG Base Excess Anion Gap 22 H Estim Creat Clear Calc 72.5 Estimated GFR > 60 POC Glucose Random Glucose 364 H* Lactic Acid Calcium 7.9 L D Total Bilirubin AST ALT Alkaline Phosphatase Total Protein Albumin Amylase Lipase Beta HCG, Quant Urine Color Yellow Urine Appearance Clear Urine pH 6.0 Ur Specific [place] 1.020 Urine Protein Negative Urine Glucose (UA) >=1000 H Urine Ketones >=80 Urine Blood Negative Urine Nitrite Negative Ur Leukocyte Esterase Negative Urine RBC 0-2 Urine WBC 0-5 Ur Squamous Epith Cells 0-2 Urine Bacteria None Seen Hyaline Casts 0-2 Salicylates Urine Opiates Screen Not Detected Urine Fentanyl Screen Not Detected Acetaminophen Ur Barbiturates Screen Not Detected Ur Phencyclidine Scrn Not Detected Ur Amphetamines Screen Not Detected U Benzodiazepines Scrn POSITIVE H Urine Cocaine Screen Not Detected U Marijuana (THC) Screen POSITIVE H Acetone, Qual COVID-19 (ISHA) COVID-19 Clin Com 12/07/21 12/07/21 12/07/21 04:57 06:04 06:04 MCV MCH MCHC RDW Plt Count MPV Immature Gran % (Auto) Neut % (Auto) Lymph % (Auto) [place] % (Auto) Eos % (Auto) Baso % (Auto) Lymph # (Auto) [place] # (Auto) Eos # (Auto) Baso # (Auto) Abs Immat Gran (auto) Absolute Neuts (auto) Absolute Nucleated RBC Nucleated RBC % (auto) O2 Saturation ABG pH at Pt Temp ABG pH (Temp Correct) ABG pCO2 at Pt Temp ABG pCO2 (Temp Corrct ABG pO2 at Pt Temp ABG pO2 (Temp Correct ABG HCO3 ABG Base Excess (Actual) VBG pH VBG pCO2 VBG pO2 VBG HCO3 VBG O2 Saturation VBG Base Excess Anion Gap 22 H Estim Creat Clear Calc 69.8 Estimated GFR > 60 POC Glucose Random Glucose 331 H Lactic Acid 1.9 Calcium 8.1 L Total Bilirubin AST ALT Alkaline Phosphatase Total Protein Albumin Amylase Lipase Beta HCG, Quant Urine Color Urine Appearance Urine pH Ur Specific [place] Urine Protein Urine Glucose (UA) Urine Ketones Urine Blood Urine Nitrite Ur Leukocyte Esterase Urine RBC Urine WBC Ur Squamous Epith Cells Urine Bacteria Hyaline Casts Salicylates < 5.0 L Urine Opiates Screen Urine Fentanyl Screen Acetaminophen < 1 Ur Barbiturates Screen Ur Phencyclidine Scrn Ur Amphetamines Screen U Benzodiazepines Scrn Urine Cocaine Screen U Marijuana (THC) Screen Acetone, Qual COVID-19 (ISHA) COVID-19 Clin Com 12/07/21 12/07/21 12/07/21 08:37 08:37 08:43 MCV MCH MCHC RDW Plt Count MPV Immature Gran % (Auto) Neut % (Auto) Lymph % (Auto) [place] % (Auto) Eos % (Auto) Baso % (Auto) Lymph # (Auto) [place] # (Auto) Eos # (Auto) Baso # (Auto) Abs Immat Gran (auto) Absolute Neuts (auto) Absolute Nucleated RBC Nucleated RBC % (auto) O2 Saturation ABG pH at Pt Temp ABG pH (Temp Correct) ABG pCO2 at Pt Temp ABG pCO2 (Temp Corrct ABG pO2 at Pt Temp ABG pO2 (Temp Correct ABG HCO3 ABG Base Excess (Actual) VBG pH VBG pCO2 VBG pO2 VBG HCO3 VBG O2 Saturation VBG Base Excess Anion Gap Estim Creat Clear Calc Estimated GFR POC Glucose 250 H Random Glucose Lactic Acid Calcium Total Bilirubin AST ALT Alkaline Phosphatase Total Protein Albumin Amylase 47 Lipase 8 Beta HCG, Quant < 2 Urine Color Urine Appearance Urine pH Ur Specific [place] Urine Protein Urine Glucose (UA) Urine Ketones Urine Blood Urine Nitrite Ur Leukocyte Esterase Urine RBC Urine WBC Ur Squamous Epith Cells Urine Bacteria Hyaline Casts Salicylates Urine Opiates Screen Urine Fentanyl Screen Acetaminophen Ur Barbiturates Screen Ur Phencyclidine Scrn Ur Amphetamines Screen U Benzodiazepines Scrn Urine Cocaine Screen U Marijuana (THC) Screen Acetone, Qual COVID-19 (ISHA) COVID-19 [facility] Com 12/07/21 12/07/21 12/07/21 09:55 10:38 11:40 MCV MCH MCHC RDW Plt Count MPV Immature Gran % (Auto) Neut % (Auto) Lymph % (Auto) [place] % (Auto) Eos % (Auto) Baso % (Auto) Lymph # (Auto) [place] # (Auto) Eos # (Auto) Baso # (Auto) Abs Immat Gran (auto) Absolute Neuts (auto) Absolute Nucleated RBC Nucleated RBC % (auto) O2 Saturation ABG pH at Pt Temp ABG pH (Temp Correct) ABG pCO2 at Pt Temp ABG pCO2 (Temp Corrct ABG pO2 at Pt Temp ABG pO2 (Temp Correct ABG HCO3 ABG Base Excess (Actual) VBG pH VBG pCO2 VBG pO2 VBG HCO3 VBG O2 Saturation VBG Base Excess Anion Gap Estim Creat Clear Calc Estimated GFR POC Glucose 354 H* 351 H* 361 H* Random Glucose Lactic Acid Calcium Total Bilirubin AST ALT Alkaline Phosphatase Total Protein Albumin Amylase Lipase Beta HCG, Quant Urine Color Urine Appearance Urine pH Ur Specific [place] Urine Protein Urine Glucose (UA) Urine Ketones Urine Blood Urine Nitrite Ur Leukocyte Esterase Urine RBC Urine WBC Ur Squamous Epith Cells Urine Bacteria Hyaline Casts Salicylates Urine Opiates Screen Urine Fentanyl Screen Acetaminophen Ur Barbiturates Screen Ur Phencyclidine Scrn Ur Amphetamines Screen U Benzodiazepines Scrn Urine Cocaine Screen U Marijuana (THC) Screen Acetone, Qual COVID-19 (ISHA) COVID-19 [facility] 12/07/21 12/07/21 12/07/21 12:07 12:07 12:11 MCV MCH MCHC RDW Plt Count MPV Immature Gran % (Auto) Neut % (Auto) Lymph % (Auto) [place] % (Auto) Eos % (Auto) Baso % (Auto) Lymph # (Auto) [place] # (Auto) Eos # (Auto) Baso # (Auto) Abs Immat Gran (auto) Absolute Neuts (auto) Absolute Nucleated RBC Nucleated RBC % (auto) O2 Saturation Cancelled ABG pH at Pt Temp Cancelled ABG pH (Temp Correct) Cancelled ABG pCO2 at Pt Temp Cancelled ABG pCO2 (Temp Corrct Cancelled ABG pO2 at Pt Temp Cancelled ABG pO2 (Temp Correct Cancelled ABG HCO3 Cancelled ABG Base Excess (Actual) Cancelled VBG pH 7.34 VBG pCO2 19 VBG pO2 199 VBG HCO3 10 L VBG O2 Saturation 100.0 VBG Base Excess -12.6 Anion Gap 22 H Estim Creat Clear Calc 61.2 Estimated GFR > 60 POC Glucose Random Glucose 375 H* Lactic Acid Calcium 8.1 L Total Bilirubin AST ALT Alkaline Phosphatase Total Protein Albumin Amylase Lipase Beta HCG, Quant Urine Color Urine Appearance Urine pH Ur Specific [place] Urine Protein Urine Glucose (UA) Urine Ketones Urine Blood Urine Nitrite Ur Leukocyte Esterase Urine RBC Urine WBC Ur Squamous Epith Cells Urine Bacteria Hyaline Casts Salicylates Urine Opiates Screen Urine Fentanyl Screen Acetaminophen Ur Barbiturates Screen Ur Phencyclidine Scrn Ur Amphetamines Screen U Benzodiazepines Scrn Urine Cocaine Screen U Marijuana (THC) Screen Acetone, Qual COVID-19 (ISHA) COVID-19 Clin Com Imaging Radiologist's Impressions: Impressions Abdomen/Pelvis CT 12/07/21 09:37 IMPRESSION: No CT evidence for acute abnormality within the abdomen or pelvis. This CT examination was performed using dose optimization techniques as appropriate, variously including the following: *Automated exposure control *Adjustment of mA and/or kV according to patient size (this includes techniques or standardized protocols for targeted exams where dose is matched to indication/reason for exam; i.e. extremities or head) *Use of iterative reconstruction technique Chest CT 12/07/21 09:37 IMPRESSION: No CT evidence for acute abnormality within the abdomen or pelvis. This CT examination was performed using dose optimization techniques as appropriate, variously including the following: *Automated exposure control *Adjustment of mA and/or kV according to patient size (this includes techniques or standardized protocols for targeted exams where dose is matched to indication/reason for exam; i.e. extremities or head) *Use of iterative reconstruction technique Assessment and Plan (1) Diabetic ketoacidosis: Status: Acute (2) Hyperchloremic metabolic acidosis: Status: Acute Plan So the plan is to switch fluid to Ringer's lactate at increased the rate to 150 cc an hour and titrate up on her insulin drip and continue to follow her BMP and VBG
[2021-12-07 13:29] LABS: Glucose, Whole Blood 264 mg/dL (60-115)
[2021-12-07 13:39] LABS: Lactic Acid 1.2 mmol/L (0.5-2.0)
[2021-12-07 14:15] LABS: Glucose, Whole Blood 200 mg/dL (60-115)
[2021-12-07] MEDS: Lactated Ringers 1,000 ML 150 ML IVCONT (15:26)
[2021-12-07] MEDS: Heparin Sodium,Porcine 5,000 UNIT/ML VIAL 5000 UNIT SUBCUT ×2 (15:27→22:34)
[2021-12-07 15:40] LABS: Glucose, Whole Blood 219 mg/dL (60-115)
[2021-12-07 16:22] LABS: VBG Base Excess -10.6 mmol/L; VBG HCO3 12 mmol/L (22-26); VBG pCO2 21 mmHg; VBG pH 7.37 (7.32-7.43); VBG pO2 139 mmHg
[2021-12-07 16:28] LABS: Venous Blood Gas Refer to POC result
[2021-12-07 16:36] LABS: Glucose, Whole Blood 177 mg/dL (60-115)
[2021-12-07 16:40] LABS: Anion Gap 18 (12-20); Blood Urea Nitrogen 14 mg/dL (9-16); Carbon Dioxide 13 mmol/L (22-29); Chloride 110 mmol/L (96-108); Creatinine Clr Calc Pharmacy 66.4; Estimated Glomerular Filt Rate > 60; Glucose Random 210 mg/dL (60-115); Potassium 3.6 mmol/L (3.3-5.1); Sodium 137 mmol/L (135-145)
[2021-12-07 17:46] LABS: Glucose, Whole Blood 118 mg/dL (60-115)
[2021-12-07] MEDS: KCl 20 mEq in 5 % Dex/Lact Rin 20 MEQ/1,000 ML IV.SOLN 125 MEQ IVCONT (17:57)
[2021-12-07 18:36] LABS: Glucose, Whole Blood 108 mg/dL (60-115)
[2021-12-07 19:25] LABS: Venous Blood Gas Refer to POC result
[2021-12-07 19:26] LABS: VBG Base Excess -4.8 mmol/L; VBG HCO3 18 mmol/L (22-26); VBG pCO2 30 mmHg; VBG pH 7.39 (7.32-7.43); VBG pO2 46 mmHg
[2021-12-07 19:45] LABS: Anion Gap 14 (12-20); Blood Urea Nitrogen 13 mg/dL (9-16); Calcium 8.3 mg/dL (8.4-10.2); Carbon Dioxide 17 mmol/L (22-29); Chloride 110 mmol/L (96-108); Creatinine Clr Calc Pharmacy 66.4; Estimated Glomerular Filt Rate > 60; Glucose Random 121 mg/dL (60-115); Potassium 3.8 mmol/L (3.3-5.1); Sodium 137 mmol/L (135-145)
[2021-12-07 20:07] LABS: Glucose, Whole Blood 187 mg/dL (60-115)
[2021-12-07 20:54] LABS: Phosphorus 1.8 mg/dL (2.7-4.5)
[2021-12-07 21:34] LABS: Glucose, Whole Blood 142 mg/dL (60-115)
[2021-12-07 22:35] LABS: Glucose, Whole Blood 121 mg/dL (60-115)
[2021-12-08] VITALS (22 sets, daily range): BP systolic 81–130; BP diastolic 46–87; PULSE 70–111; RESP 11–29; TEMP 36.4–36.9; O2SAT 95–100; BMI 19.8
[2021-12-08 00:24] LABS: VBG Base Excess -3.9 mmol/L; VBG HCO3 19 mmol/L (22-26); VBG pCO2 29 mmHg; VBG pH 7.42 (7.32-7.43); VBG pO2 44 mmHg
[2021-12-08 00:47] LABS: Alanine Aminotransferase 11 U/L (0-31); Albumin Level 2.8 g/dL (3.5-5.0); Alkaline Phosphatase 51 U/L (39-117); Anion Gap 9 (12-20); Aspartate Amino Transferase 14 U/L (5-31); Bilirubin Total 0.5 mg/dL (0.0-1.0); Blood Urea Nitrogen 13 mg/dL (9-16); Calcium 7.9 mg/dL (8.4-10.2); Carbon Dioxide 21 mmol/L (22-29); Chloride 111 mmol/L (96-108); Creatinine Clr Calc Pharmacy 67.2; Estimated Glomerular Filt Rate > 60; Glucose Random 97 mg/dL (60-115); Magnesium 1.7 mg/dL (1.6-2.6); Phosphorus 1.4 mg/dL (2.7-4.5); Potassium 3.5 mmol/L (3.3-5.1); Sodium 137 mmol/L (135-145); Total Protein 4.5 g/dL (6.5-8.0)
[2021-12-08 01:02] LABS: Glucose, Whole Blood 85 mg/dL (60-115)
[2021-12-08] MEDS: Albumin Human 25 % 100 ML IV ×2 (01:41→03:02)
[2021-12-08] MEDS: KCl 20 mEq in 5 % Dex/Lact Rin 20 MEQ/1,000 ML IV.SOLN 125 MEQ IVCONT (01:45)
[2021-12-08 02:00] LABS: Venous Blood Gas Refer to POC result
[2021-12-08 02:12] LABS: Glucose, Whole Blood 73 mg/dL (60-115)
[2021-12-08 03:06] LABS: Glucose, Whole Blood 81 mg/dL (60-115)
[2021-12-08 04:03] LABS: Glucose, Whole Blood 84 mg/dL (60-115)
--- NOTE | 2021-12-08 05:03 | PC.NURSE ---
PT A&O X3. DENIES PAIN AND DENIES NAUSEA. ATE SOUP FOR DINNER AND TAKING SIPS OF KIM ABHAY. AT HS ATE A VANILLA PUDDING. INSULIN DRIP WAS RESTARTED AT 1999 AT 3 UNITS/HR. SEE INSULIN FLOW SHEET FOR POC. CHEM PROFILE WAS DONE AT 1900 AND REPEATED AT 0000. ANION GAP WAS 9. POC 70'S-90'S OVERNIGHT AND INSULIN DRIP INFUSING AT 0.5 UNITS/HR SINCE 0200. MARCE LOYD AWARE OF POC. D5LR WITH 20 MEQ KCL INFUSING AT 125 ML/HR. SHE RECEIVED 2 BOTTLES OF ALBUMIN OVERNIGHT FOR ALB LEVEL OF 2.8. SBP 80'S-90'S OVERNIGHT, PRESENTLY 101/55. AM LABS DRAWN AT THIS TIME. PLAN OF CARE WILL DEPEND ON LAB RESULTS.
[2021-12-08 05:09] LABS: Glucose, Whole Blood 172 mg/dL (60-115)
[2021-12-08 05:21] LABS: VBG Base Excess -7.7 mmol/L; VBG HCO3 15 mmol/L (22-26); VBG pCO2 22 mmHg; VBG pH 7.42 (7.32-7.43); VBG pO2 81 mmHg
[2021-12-08 05:25] LABS: Venous Blood Gas Refer to POC result
[2021-12-08 05:33] LABS: MANUAL DIFF FLAG NO
[2021-12-08 05:37] LABS: Basophils Percent Auto 0.3 % (0-2); Eosinophils Percent Auto 0.2 % (0-4); Hematocrit 26.1 % (37.0-47.0); Imm Gran Abs Auto 0.04 X10*3/uL (0.00-0.03); Imm Gran Pct Auto 0.4 % (0.0-0.4); Lymphocytes Absolute Auto 2.9 X10*3/uL (1.2-4.9); Lymphocytes Percent Auto 26.9 % (20-40); Mean Corpuscular HGB Conc 34.5 g/dl (31.0-35.0); Mean Corpuscular Hemoglobin 32.3 pg (27.0-33.0); Mean Corpuscular Volume 93.5 fL (80.0-98.0); Mean Platelet Volume 10.6 fL (9.4-12.3); Monocytes Absolute Auto 0.8 X10*3/uL (0.1-1.2); Monocytes Percent Auto 7.1 % (2-11); Neutrophils Percent Auto 65.1 % (45-73); Platelet Count 122 X10*3/uL (160-400); Red Blood Count 2.79 X10*6/uL (4.20-5.50); Red Cell Distribution Width 12.4 % (11.0-16.0); White Blood Count 10.8 X10*3/uL (4.8-10.8)
[2021-12-08 06:02] LABS: Alanine Aminotransferase 9 U/L (0-31); Albumin Level 3.5 g/dL (3.5-5.0); Alkaline Phosphatase 45 U/L (39-117); Anion Gap 14 (12-20); Aspartate Amino Transferase 12 U/L (5-31); Bilirubin Total 0.7 mg/dL (0.0-1.0); Blood Urea Nitrogen 12 mg/dL (9-16); Calcium 8.1 mg/dL (8.4-10.2); Carbon Dioxide 18 mmol/L (22-29); Chloride 110 mmol/L (96-108); Creatinine Clr Calc Pharmacy 70.7; Estimated Glomerular Filt Rate > 60; Glucose Random 190 mg/dL (60-115); Magnesium 1.8 mg/dL (1.6-2.6); Phosphorus 1.7 mg/dL (2.7-4.5); Potassium 4.1 mmol/L (3.3-5.1); Sodium 138 mmol/L (135-145)
[2021-12-08 06:04] LABS: Glucose, Whole Blood 176 mg/dL (60-115)
[2021-12-08 07:03] LABS: Glucose, Whole Blood 167 mg/dL (60-115)
[2021-12-08] MEDS: Potassium Phosphate/NS 15 MMOL/250 ML PLAST..BAG 62.5 MMOL IV (07:40)
[2021-12-08] MEDS: Famotidine/PF 20 MG/2 ML VIAL IVPUSH ×2 (07:41→20:35)
[2021-12-08] MEDS: Heparin Sodium,Porcine 5,000 UNIT/ML VIAL 5000 UNIT SUBCUT ×2 (07:41→20:37)
[2021-12-08] MEDS: Sodium Bicarbonate 8.4% 100 MEQ in Dextrose 5 % 900 ML IV ×2 (07:48→16:53)
[2021-12-08 07:58] LABS: Glucose, Whole Blood 137 mg/dL (60-115)
[2021-12-08 09:16] LABS: Glucose, Whole Blood 89 mg/dL (60-115)
[2021-12-08 10:07] LABS: Glucose, Whole Blood 94 mg/dL (60-115)
[2021-12-08 11:27] LABS: VBG Base Excess -5.9 mmol/L; VBG HCO3 16 mmol/L (22-26); VBG pCO2 23 mmHg; VBG pH 7.45 (7.32-7.43); VBG pO2 80 mmHg
[2021-12-08 11:38] LABS: Glucose, Whole Blood 249 mg/dL (60-115)
[2021-12-08] MEDS: ondansetron HCL 4 MG/2 ML VIAL IVPUSH ×2 (11:47→14:43)
--- NOTE | 2021-12-08 11:48 | P.PNCC_ITS ---
Subjective Subjective Date of Service: 12/08/21 Interval History: A 36-year-old type 1 diabetic presented with diabetic ketoacidosis with the associated intractable nausea and vomiting which have since resolved and she is tolerating oral intake who was mildly hypokalemic and hypophosphatemic that also has since been repleted no apparent precipitating event or infection and she had plain scans of chest and abdomen and pelvis all of which were benign and at this point she no longer has a positive anion gap that seems to have resolved but she is persistently in a non anion gap metabolic acidosis with a compensatory respiratory alkalosis compensated pH I believe she probably has a component of renal tubular acidosis and we changed fluids now to a bicarb drip and her last bicarb from her blood gas is at 16 which is slightly improved and I think as the hyperchloremia resolves the whole acidosis will but the degree of of negative base excess is diminishing and she certainly appears to be volume repleted and her pressure for the 1st time his exceeding 100 systolic and so will rate await the rest of the basic chemistry results and if it looks comfortable I think we can stop the IV insulin drip and switch her to a combination of Lantus and and short-acting coverage and let her go to the floor in continue the covert Critical Care Time (minutes): 35 Physical Exam Vital Signs: Vital Signs: Last Vital Signs Temp 97.6 F 12/08/21 08:00 Pulse 92 12/08/21 11:00 Resp 18 12/08/21 11:00 BP 107/58 L 12/08/21 11:00 Pulse Ox 97 12/08/21 11:00 O2 Del Method 12/08/21 11:00 BMI result Body Mass Index 19.8 Awake and nonfocal neurologically Abdomen benign no organomegaly Cardiac exam normal LV function by echo Lungs clear no adventitious sounds Objective Data Labs CBC & Chem 7: 12/08/21 05:11 12/08/21 05:11 Labs: Laboratory Results - last 24 hr 12/07/21 12/07/21 12/07/21 11:40 12:07 12:07 WBC RBC Hgb Hct MCV MCH MCHC RDW Plt Count MPV Immature Gran % (Auto) Neut % (Auto) Lymph % (Auto) [place] % (Auto) Eos % (Auto) Baso % (Auto) Lymph # (Auto) [place] # (Auto) Eos # (Auto) Baso # (Auto) Abs Immat Gran (auto) Absolute Neuts (auto) Absolute Nucleated RBC Nucleated RBC % (auto) O2 Saturation ABG pH at Pt Temp ABG pH (Temp Correct) ABG pCO2 at Pt Temp ABG pCO2 (Temp Corrct ABG pO2 at Pt Temp ABG pO2 (Temp Correct ABG HCO3 ABG Base Excess (Actual) VBG pH 7.34 VBG pCO2 19 VBG pO2 199 VBG HCO3 10 L VBG O2 Saturation 100.0 VBG Base Excess -12.6 Sodium 137 Potassium 4.6 D Chloride 110 H Carbon Dioxide 10 L* Anion Gap 22 H BUN 14 Creatinine 0.90 Estim Creat Clear Calc 61.2 Estimated GFR > 60 POC Glucose 361 H* Random Glucose 375 H* Lactic Acid Calcium 8.1 L Phosphorus Magnesium Total Bilirubin AST ALT Alkaline Phosphatase Total Protein Albumin 12/07/21 12/07/21 12/07/21 12:11 12:43 13:19 WBC RBC Hgb Hct MCV MCH MCHC RDW Plt Count MPV Immature Gran % (Auto) Neut % (Auto) Lymph % (Auto) [place] % (Auto) Eos % (Auto) Baso % (Auto) Lymph # (Auto) [place] # (Auto) Eos # (Auto) Baso # (Auto) Abs Immat Gran (auto) Absolute Neuts (auto) Absolute Nucleated RBC Nucleated RBC % (auto) O2 Saturation Cancelled ABG pH at Pt Temp Cancelled ABG pH (Temp Correct) Cancelled ABG pCO2 at Pt Temp Cancelled ABG pCO2 (Temp Corrct Cancelled ABG pO2 at Pt Temp Cancelled ABG pO2 (Temp Correct Cancelled ABG HCO3 Cancelled ABG Base Excess (Actual) Cancelled VBG pH VBG pCO2 VBG pO2 VBG HCO3 VBG O2 Saturation VBG Base Excess Sodium Potassium Chloride Carbon Dioxide Anion Gap BUN Creatinine Estim Creat Clear Calc Estimated GFR POC Glucose 264 H Random Glucose Lactic Acid 1.2 Calcium Phosphorus Magnesium Total Bilirubin AST ALT Alkaline Phosphatase Total Protein Albumin 12/07/21 12/07/21 12/07/21 14:12 15:37 16:12 WBC RBC Hgb Hct MCV MCH MCHC RDW Plt Count MPV Immature Gran % (Auto) Neut % (Auto) Lymph % (Auto) [place] % (Auto) Eos % (Auto) Baso % (Auto) Lymph # (Auto) [place] # (Auto) Eos # (Auto) Baso # (Auto) Abs Immat Gran (auto) Absolute Neuts (auto) Absolute Nucleated RBC Nucleated RBC % (auto) O2 Saturation ABG pH at Pt Temp ABG pH (Temp Correct) ABG pCO2 at Pt Temp ABG pCO2 (Temp Corrct ABG pO2 at Pt Temp ABG pO2 (Temp Correct ABG HCO3 ABG Base Excess (Actual) VBG pH VBG pCO2 VBG pO2 VBG HCO3 VBG O2 Saturation VBG Base Excess Sodium 137 Potassium 3.6 D Chloride 110 H Carbon Dioxide 13 L Anion Gap 18 BUN 14 Creatinine 0.83 Estim Creat Clear Calc 66.4 Estimated GFR > 60 POC Glucose 200 H 219 H Random Glucose 210 H Lactic Acid Calcium 8.0 L Phosphorus Magnesium Total Bilirubin AST ALT Alkaline Phosphatase Total Protein Albumin 12/07/21 12/07/21 12/07/21 16:17 16:32 17:42 WBC RBC Hgb Hct MCV MCH MCHC RDW Plt Count MPV Immature Gran % (Auto) Neut % (Auto) Lymph % (Auto) [place] % (Auto) Eos % (Auto) Baso % (Auto) Lymph # (Auto) [place] # (Auto) Eos # (Auto) Baso # (Auto) Abs Immat Gran (auto) Absolute Neuts (auto) Absolute Nucleated RBC Nucleated RBC % (auto) O2 Saturation ABG pH at Pt Temp ABG pH (Temp Correct) ABG pCO2 at Pt Temp ABG pCO2 (Temp Corrct ABG pO2 at Pt Temp ABG pO2 (Temp Correct ABG HCO3 ABG Base Excess (Actual) VBG pH 7.37 VBG pCO2 21 VBG pO2 139 VBG HCO3 12 L VBG O2 Saturation 100.0 VBG Base Excess -10.6 Sodium Potassium Chloride Carbon Dioxide Anion Gap BUN Creatinine Estim Creat Clear Calc Estimated GFR POC Glucose 177 H 118 H Random Glucose Lactic Acid Calcium Phosphorus Magnesium Total Bilirubin AST ALT Alkaline Phosphatase Total Protein Albumin 12/07/21 12/07/21 12/07/21 18:33 19:14 19:14 WBC RBC Hgb Hct MCV MCH MCHC RDW Plt Count MPV Immature Gran % (Auto) Neut % (Auto) Lymph % (Auto) [place] % (Auto) Eos % (Auto) Baso % (Auto) Lymph # (Auto) [place] # (Auto) Eos # (Auto) Baso # (Auto) Abs Immat Gran (auto) Absolute Neuts (auto) Absolute Nucleated RBC Nucleated RBC % (auto) O2 Saturation ABG pH at Pt Temp ABG pH (Temp Correct) ABG pCO2 at Pt Temp ABG pCO2 (Temp Corrct ABG pO2 at Pt Temp ABG pO2 (Temp Correct ABG HCO3 ABG Base Excess (Actual) VBG pH Cancelled VBG pCO2 Cancelled VBG pO2 Cancelled VBG HCO3 Cancelled VBG O2 Saturation Cancelled VBG Base Excess Cancelled Sodium 137 Potassium 3.8 Chloride 110 H Carbon Dioxide 17 L Anion Gap 14 BUN 13 Creatinine 0.83 Estim Creat Clear Calc 66.4 Estimated GFR > 60 POC Glucose 108 Random Glucose 121 H Lactic Acid Calcium 8.3 L Phosphorus 1.8 L Magnesium Total Bilirubin AST ALT Alkaline Phosphatase Total Protein Albumin 12/07/21 12/07/21 12/07/21 19:21 20:03 21:30 WBC RBC Hgb Hct MCV MCH MCHC RDW Plt Count MPV Immature Gran % (Auto) Neut % (Auto) Lymph % (Auto) [place] % (Auto) Eos % (Auto) Baso % (Auto) Lymph # (Auto) [place] # (Auto) Eos # (Auto) Baso # (Auto) Abs Immat Gran (auto) Absolute Neuts (auto) Absolute Nucleated RBC Nucleated RBC % (auto) O2 Saturation ABG pH at Pt Temp ABG pH (Temp Correct) ABG pCO2 at Pt Temp ABG pCO2 (Temp Corrct ABG pO2 at Pt Temp ABG pO2 (Temp Correct ABG HCO3 ABG Base Excess (Actual) VBG pH 7.39 VBG pCO2 30 VBG pO2 46 VBG HCO3 18 L VBG O2 Saturation 80.0 VBG Base Excess -4.8 Sodium Potassium Chloride Carbon Dioxide Anion Gap BUN Creatinine Estim Creat Clear Calc Estimated GFR POC Glucose 187 H 142 H Random Glucose Lactic Acid Calcium Phosphorus Magnesium Total Bilirubin AST ALT Alkaline Phosphatase Total Protein Albumin 12/07/21 12/08/21 12/08/21 22:32 00:15 00:18 WBC RBC Hgb Hct MCV MCH MCHC RDW Plt Count MPV Immature Gran % (Auto) Neut % (Auto) Lymph % (Auto) [place] % (Auto) Eos % (Auto) Baso % (Auto) Lymph # (Auto) [place] # (Auto) Eos # (Auto) Baso # (Auto) Abs Immat Gran (auto) Absolute Neuts (auto) Absolute Nucleated RBC Nucleated RBC % (auto) O2 Saturation ABG pH at Pt Temp ABG pH (Temp Correct) ABG pCO2 at Pt Temp ABG pCO2 (Temp Corrct ABG pO2 at Pt Temp ABG pO2 (Temp Correct ABG HCO3 ABG Base Excess (Actual) VBG pH 7.42 VBG pCO2 29 VBG pO2 44 VBG HCO3 19 L VBG O2 Saturation 79.0 VBG Base Excess -3.9 Sodium 137 Potassium 3.5 Chloride 111 H Carbon Dioxide 21 L Anion Gap 9 L BUN 13 Creatinine 0.82 Estim Creat Clear Calc 67.2 Estimated GFR > 60 POC Glucose 121 H Random Glucose 97 Lactic Acid Calcium 7.9 L Phosphorus 1.4 L Magnesium 1.7 Total Bilirubin 0.5 AST 14 D ALT 11 Alkaline Phosphatase 51 D Total Protein 4.5 L D Albumin 2.8 L D 12/08/21 12/08/21 12/08/21 00:59 02:08 03:03 WBC RBC Hgb Hct MCV MCH MCHC RDW Plt Count MPV Immature Gran % (Auto) Neut % (Auto) Lymph % (Auto) [place] % (Auto) Eos % (Auto) Baso % (Auto) Lymph # (Auto) [place] # (Auto) Eos # (Auto) Baso # (Auto) Abs Immat Gran (auto) Absolute Neuts (auto) Absolute Nucleated RBC Nucleated RBC % (auto) O2 Saturation ABG pH at Pt Temp ABG pH (Temp Correct) ABG pCO2 at Pt Temp ABG pCO2 (Temp Corrct ABG pO2 at Pt Temp ABG pO2 (Temp Correct ABG HCO3 ABG Base Excess (Actual) VBG pH VBG pCO2 VBG pO2 VBG HCO3 VBG O2 Saturation VBG Base Excess Sodium Potassium Chloride Carbon Dioxide Anion Gap BUN Creatinine Estim Creat Clear Calc Estimated GFR POC Glucose 85 73 81 Random Glucose Lactic Acid Calcium Phosphorus Magnesium Total Bilirubin AST ALT Alkaline Phosphatase Total Protein Albumin 12/08/21 12/08/21 12/08/21 03:59 05:04 05:11 WBC 10.8 RBC 2.79 L D Hgb 9.0 L D Hct 26.1 L D MCV 93.5 MCH 32.3 MCHC 34.5 RDW 12.4 Plt Count 122 L D MPV 10.6 Immature Gran % (Auto) 0.4 Neut % (Auto) 65.1 Lymph % (Auto) 26.9 [place] % (Auto) 7.1 Eos % (Auto) 0.2 Baso % (Auto) 0.3 Lymph # (Auto) 2.9 [place] # (Auto) 0.8 Eos # (Auto) 0.0 Baso # (Auto) 0.0 Abs Immat Gran (auto) 0.04 H Absolute Neuts (auto) 7.0 Absolute Nucleated RBC 0.000 Nucleated RBC % (auto) 0.0 O2 Saturation ABG pH at Pt Temp ABG pH (Temp Correct) ABG pCO2 at Pt Temp ABG pCO2 (Temp Corrct ABG pO2 at Pt Temp ABG pO2 (Temp Correct ABG HCO3 ABG Base Excess (Actual) VBG pH VBG pCO2 VBG pO2 VBG HCO3 VBG O2 Saturation VBG Base Excess Sodium Potassium Chloride Carbon Dioxide Anion Gap BUN Creatinine Estim Creat Clear Calc Estimated GFR POC Glucose 84 172 H Random Glucose Lactic Acid Calcium Phosphorus Magnesium Total Bilirubin AST ALT Alkaline Phosphatase Total Protein Albumin 12/08/21 12/08/21 12/08/21 05:11 05:16 05:58 WBC RBC Hgb Hct MCV MCH MCHC RDW Plt Count MPV Immature Gran % (Auto) Neut % (Auto) Lymph % (Auto) [place] % (Auto) Eos % (Auto) Baso % (Auto) Lymph # (Auto) [place] # (Auto) Eos # (Auto) Baso # (Auto) Abs Immat Gran (auto) Absolute Neuts (auto) Absolute Nucleated RBC Nucleated RBC % (auto) O2 Saturation ABG pH at Pt Temp ABG pH (Temp Correct) ABG pCO2 at Pt Temp ABG pCO2 (Temp Corrct ABG pO2 at Pt Temp ABG pO2 (Temp Correct ABG HCO3 ABG Base Excess (Actual) VBG pH 7.42 VBG pCO2 22 VBG pO2 81 VBG HCO3 15 L VBG O2 Saturation 99.0 VBG Base Excess -7.7 Sodium 138 Potassium 4.1 Chloride 110 H Carbon Dioxide 18 L Anion Gap 14 BUN 12 Creatinine 0.82 Estim Creat Clear Calc 70.7 Estimated GFR > 60 POC Glucose 176 H Random Glucose 190 H Lactic Acid Calcium 8.1 L Phosphorus 1.7 L Magnesium 1.8 Total Bilirubin 0.7 AST 12 ALT 9 Alkaline Phosphatase 45 Total Protein 5.0 L Albumin 3.5 D 12/08/21 12/08/21 12/08/21 06:58 07:55 09:12 WBC RBC Hgb Hct MCV MCH MCHC RDW Plt Count MPV Immature Gran % (Auto) Neut % (Auto) Lymph % (Auto) [place] % (Auto) Eos % (Auto) Baso % (Auto) Lymph # (Auto) [place] # (Auto) Eos # (Auto) Baso # (Auto) Abs Immat Gran (auto) Absolute Neuts (auto) Absolute Nucleated RBC Nucleated RBC % (auto) O2 Saturation ABG pH at Pt Temp ABG pH (Temp Correct) ABG pCO2 at Pt Temp ABG pCO2 (Temp Corrct ABG pO2 at Pt Temp ABG pO2 (Temp Correct ABG HCO3 ABG Base Excess (Actual) VBG pH VBG pCO2 VBG pO2 VBG HCO3 VBG O2 Saturation VBG Base Excess Sodium Potassium Chloride Carbon Dioxide Anion Gap BUN Creatinine Estim Creat Clear Calc Estimated GFR POC Glucose 167 H 137 H 89 Random Glucose Lactic Acid Calcium Phosphorus Magnesium Total Bilirubin AST ALT Alkaline Phosphatase Total Protein Albumin 12/08/21 12/08/21 12/08/21 10:03 11:21 11:34 WBC RBC Hgb Hct MCV MCH MCHC RDW Plt Count MPV Immature Gran % (Auto) Neut % (Auto) Lymph % (Auto) [place] % (Auto) Eos % (Auto) Baso % (Auto) Lymph # (Auto) [place] # (Auto) Eos # (Auto) Baso # (Auto) Abs Immat Gran (auto) Absolute Neuts (auto) Absolute Nucleated RBC Nucleated RBC % (auto) O2 Saturation ABG pH at Pt Temp ABG pH (Temp Correct) ABG pCO2 at Pt Temp ABG pCO2 (Temp Corrct ABG pO2 at Pt Temp ABG pO2 (Temp Correct ABG HCO3 ABG Base Excess (Actual) VBG pH 7.45 H VBG pCO2 23 VBG pO2 80 VBG HCO3 16 L VBG O2 Saturation 99.0 VBG Base Excess -5.9 Sodium Potassium Chloride Carbon Dioxide Anion Gap BUN Creatinine Estim Creat Clear Calc Estimated GFR POC Glucose 94 249 H Random Glucose Lactic Acid Calcium Phosphorus Magnesium Total Bilirubin AST ALT Alkaline Phosphatase Total Protein Albumin Progress Note: A&P Assessment and plan (1) Hyperchloremic metabolic acidosis: Status: Acute (2) Diabetic ketoacidosis: Status: Acute (3) Cyclical vomiting, intractable: Status: Acute (4) Diabetic gastroparesis: Status: Acute (5) Anxiety: Status: Acute Plan Plan is continuing bicarb drip and making a decision about at discontinuation of IV insulin drip in switching to subcutaneous long-acting and short-acting coverage Quality Stroke Does the patient have a stroke diagnosis?: No VTE Prior VTE?: No VTE Risk Level:: Medical - moderate - high VTE Device Contraindication: N/A - Device Ordered VTE Drug Contraindication: N/A - Med Ordered
[2021-12-08 11:56] LABS: Venous Blood Gas Refer to POC result
[2021-12-08 12:01] LABS: Anion Gap 14 (12-20); Blood Urea Nitrogen 12 mg/dL (9-16); Calcium 8.1 mg/dL (8.4-10.2); Carbon Dioxide 18 mmol/L (22-29); Chloride 109 mmol/L (96-108); Creatinine Clr Calc Pharmacy 78.4; Estimated Glomerular Filt Rate > 60; Glucose Random 203 mg/dL (60-115); Potassium 4.4 mmol/L (3.3-5.1); Sodium 137 mmol/L (135-145)
[2021-12-08 12:43] LABS: Glucose, Whole Blood 313 mg/dL (60-115)
[2021-12-08 13:32] LABS: Glucose, Whole Blood 293 mg/dL (60-115)
[2021-12-08 14:14] LABS: Anion Gap 16 (12-20); Blood Urea Nitrogen 11 mg/dL (9-16); Calcium 7.9 mg/dL (8.4-10.2); Carbon Dioxide 17 mmol/L (22-29); Chloride 106 mmol/L (96-108); Creatinine Clr Calc Pharmacy 75.3; Estimated Glomerular Filt Rate > 60; Glucose Random 322 mg/dL (60-115); Sodium 135 mmol/L (135-145)
[2021-12-08 14:39] LABS: Glucose, Whole Blood 239 mg/dL (60-115)
[2021-12-08] MEDS: Pantoprazole Sodium 40 MG/10 ML VIAL IVPUSH (14:42)
[2021-12-08] MEDS: Doxycycline Hyclate 100 MG in 0.9 % Sodium Chloride 250 ML 166.67 MG IV (14:47)
[2021-12-08] MEDS: Midazolam HCl/PF 2 MG/2 ML VIAL IVPUSH (15:40)
[2021-12-08 15:50] LABS: Glucose, Whole Blood 188 mg/dL (60-115)
[2021-12-08] MEDS: metroNIDAZOLE/NS 500 MG/100 ML PIGGYBACK 100 MG IV (15:56)
[2021-12-08 16:46] LABS: Glucose, Whole Blood 152 mg/dL (60-115)
[2021-12-08] MEDS: Insulin Regular/NS 100 UNIT/100 ML PLAST..BAG IVCONT (16:57)
[2021-12-08 17:47] LABS: Glucose, Whole Blood 125 mg/dL (60-115)
[2021-12-08 18:52] LABS: Glucose, Whole Blood 108 mg/dL (60-115)
[2021-12-08 20:02] LABS: Glucose, Whole Blood 105 mg/dL (60-115)
[2021-12-08] MEDS: LORazepam 1 MG TABLET PO (20:34)
[2021-12-08 21:09] LABS: Glucose, Whole Blood 113 mg/dL (60-115)
[2021-12-08 21:41] LABS: VBG Base Excess -3.1 mmol/L; VBG HCO3 20 mmol/L (22-26); VBG pCO2 31 mmHg; VBG pH 7.41 (7.32-7.43); VBG pO2 37 mmHg
[2021-12-08 22:02] LABS: Glucose, Whole Blood 130 mg/dL (60-115)
[2021-12-08 22:04] LABS: Alanine Aminotransferase 18 U/L (0-31); Albumin Level 3.8 g/dL (3.5-5.0); Alkaline Phosphatase 56 U/L (39-117); Anion Gap 15 (12-20); Aspartate Amino Transferase 25 U/L (5-31); Bilirubin Total 0.8 mg/dL (0.0-1.0); Blood Urea Nitrogen 11 mg/dL (9-16); Calcium 8.3 mg/dL (8.4-10.2); Carbon Dioxide 23 mmol/L (22-29); Chloride 105 mmol/L (96-108); Creatinine Clr Calc Pharmacy 80.5; Estimated Glomerular Filt Rate > 60; Glucose Random 125 mg/dL (60-115); Sodium 139 mmol/L (135-145); Total Protein 5.7 g/dL (6.5-8.0)
[2021-12-08] MEDS: Insulin Glargine,Hum.rec.anlog 100 UNIT/ML 10 ML VIAL 15 UNIT SUBCUT (22:40)
[2021-12-08] MEDS: Lactated Ringers 1,000 ML 125 ML IVCONT (22:42)
[2021-12-08 23:18] LABS: Venous Blood Gas Refer to POC result
[2021-12-09] VITALS (7 sets, daily range): BP systolic 113–142; BP diastolic 55–88; PULSE 58–73; RESP 14–22; TEMP 36.2–37.1; O2SAT 93–99; BMI 19.8
[2021-12-09 01:03] LABS: Glucose, Whole Blood 110 mg/dL (60-115)
[2021-12-09] MEDS: Doxycycline Hyclate 100 MG in 0.9 % Sodium Chloride 250 ML 166.67 MG IV ×2 (04:40→15:14)
[2021-12-09] MEDS: metroNIDAZOLE/NS 500 MG/100 ML PIGGYBACK 100 MG IV ×2 (04:40→13:45)
[2021-12-09 05:44] LABS: Basophils Percent Auto 0.2 % (0-2); Hemoglobin 9.5 g/dl (12.0-16.0); Imm Gran Abs Auto 0.04 X10*3/uL (0.00-0.03); Imm Gran Pct Auto 0.4 % (0.0-0.4); Mean Corpuscular Hemoglobin 32.1 pg (27.0-33.0); PLT CLUMP 1; Red Blood Count 2.96 X10*6/uL (4.20-5.50); SCAN SMEAR FLAG 1
[2021-12-09 05:46] LABS: Hematocrit 27.2 % (37.0-47.0); Lymphocytes Absolute Auto 2.6 X10*3/uL (1.2-4.9); Lymphocytes Percent Auto 26.6 % (20-40); Mean Corpuscular HGB Conc 34.9 g/dl (31.0-35.0); Mean Corpuscular Volume 91.9 fL (80.0-98.0); Mean Platelet Volume 10.7 fL (9.4-12.3); Monocytes Absolute Auto 0.8 X10*3/uL (0.1-1.2); Monocytes Percent Auto 7.9 % (2-11); Neutrophils Absolute Auto 6.3 x10*3/uL (2.0-8.3); Neutrophils Percent Auto 64.9 % (45-73); Red Cell Distribution Width 12.2 % (11.0-16.0)
[2021-12-09 05:50] LABS: VBG Base Excess 0.1 mmol/L; VBG HCO3 21 mmol/L (22-26); VBG pCO2 26 mmHg; VBG pH 7.52 (7.32-7.43); VBG pO2 122 mmHg
[2021-12-09 05:52] LABS: MANUAL DIFF FLAG NO; Platelet Count 102 X10*3/uL (160-400); White Blood Count 9.8 X10*3/uL (4.8-10.8)
[2021-12-09 06:05] LABS: Alanine Aminotransferase 15 U/L (0-31); Alkaline Phosphatase 43 U/L (39-117); Anion Gap 12 (12-20); Aspartate Amino Transferase 24 U/L (5-31); Bilirubin Direct 0.2 mg/dL (0.0-0.5); Bilirubin Total 0.6 mg/dL (0.0-1.0); Blood Urea Nitrogen 8 mg/dL (9-16); Calcium 7.7 mg/dL (8.4-10.2); Carbon Dioxide 23 mmol/L (22-29); Chloride 106 mmol/L (96-108); Creatinine Clr Calc Pharmacy 85.3; Estimated Glomerular Filt Rate > 60; Glucose Random 64 mg/dL (60-115); Magnesium 1.5 mg/dL (1.6-2.6); Phosphorus 3.3 mg/dL (2.7-4.5); Sodium 137 mmol/L (135-145); Total Protein 4.8 g/dL (6.5-8.0)
--- NOTE | 2021-12-09 06:39 | PC.NURSE ---
ASSUMED CARE OF PT AT 1900. PT NAUSEOUS. PER MARCE CRESPO, THIS CYCLIC N&V IS SECONDARY TO MARIJUANA WITHDRAWAL. PT HAD SCHEDULED PEPCID IV AND THEN RECEIVED ATIVAN 1 MG SUBLINGUAL. SHE FELT BETTER AND NO FURTHER NAUSEA OR VOMITTING. LABS WERE DRAWN THIS MORNING AND RESULTS WITHIN NORMAL LIMITS. PT STARTED ON LANTUS INSULIN AND THEN INSULIN GTT OFF AT 2245. REPEAT POC AT 0100 WAS 110. PT SLEPT MOST OF NIGHT. USED COMMODE TO VOID ONCE FOR 150 ML. SPONGE BATH GIVEN AT THAT TIME.
--- NOTE | 2021-12-09 06:58 | PM.CCPN ---
Subjective Subjective Date of Service: 12/09/21 Interval History: 36-year-old type 1 diabetic brought in with mild DKA in addition to a non-anion gap metabolic acidosis from a probable renal tubular acidosis contribution who has finally normalized her serum bicarb at 23 no longer has an anion gap and the physical issue that she came in with was intractable nausea and vomiting with upper abdominal pain with a negative exam and negative CT scan of her abdomen pelvis and chest and she has carried a diagnosis of course of a diabetic got gastropathy but is never really responded to Reglan also here did not respond to just antacids and I sent off a workup for H pylori in just empirically started her at least on partial treatment with Pepto-Bismol and metronidazole and doxycycline but in addition was giving her IV Versed but thinking of just trying to put her to sleep to avoid the nausea but she and she is also very heavy marijuana user and she might have 1 of those hyperemesis syndromes from withdrawing from the marijuana so the benzodiazepine which is now a sublingual form of Ativan seems to be working well for her and so she has been off the IV insulin drip and is now taking Lantus and lispro Critical Care Time (minutes): 35 Physical Exam Vital Signs: Vital Signs: Last Vital Signs Temp 98.0 F 12/09/21 00:00 Pulse 73 12/09/21 03:53 Resp 14 12/09/21 03:53 BP 118/71 12/09/21 03:53 Pulse Ox 99 12/09/21 03:53 O2 Del Method 12/09/21 03:53 BMI result Body Mass Index 19.8 Alert oriented and nonfocal neurologically Cardiovascular is normal but bedside echo Abdomen with benign exam soft no organomegaly HS without adventitious sounds Objective Data Labs CBC & Chem 7: 12/09/21 05:27 12/09/21 05:27 Labs: Laboratory Results - last 24 hr 12/08/21 12/08/21 12/08/21 06:58 07:55 09:12 WBC RBC Hgb Hct MCV MCH MCHC RDW Plt Count MPV Immature Gran % (Auto) Neut % (Auto) Lymph % (Auto) [place] % (Auto) Eos % (Auto) Baso % (Auto) Lymph # (Auto) [place] # (Auto) Eos # (Auto) Baso # (Auto) Abs Immat Gran (auto) Absolute Neuts (auto) Absolute Nucleated RBC Nucleated RBC % (auto) VBG pH VBG pCO2 VBG pO2 VBG HCO3 VBG O2 Saturation VBG Base Excess Sodium Potassium Chloride Carbon Dioxide Anion Gap BUN Creatinine Estim Creat Clear Calc Estimated GFR POC Glucose 167 H 137 H 89 Random Glucose Calcium Phosphorus Magnesium Total Bilirubin Direct Bilirubin AST ALT Alkaline Phosphatase Total Protein Albumin H. pylori Source H. pylori Cult Result 12/08/21 12/08/21 12/08/21 10:03 11:18 11:21 WBC RBC Hgb Hct MCV MCH MCHC RDW Plt Count MPV Immature Gran % (Auto) Neut % (Auto) Lymph % (Auto) [place] % (Auto) Eos % (Auto) Baso % (Auto) Lymph # (Auto) [place] # (Auto) Eos # (Auto) Baso # (Auto) Abs Immat Gran (auto) Absolute Neuts (auto) Absolute Nucleated RBC Nucleated RBC % (auto) VBG pH 7.45 H VBG pCO2 23 VBG pO2 80 VBG HCO3 16 L VBG O2 Saturation 99.0 VBG Base Excess -5.9 Sodium 137 Potassium 4.4 Chloride 109 H Carbon Dioxide 18 L Anion Gap 14 BUN 12 Creatinine 0.74 Estim Creat Clear Calc 78.4 Estimated GFR > 60 POC Glucose 94 Random Glucose 203 H Calcium 8.1 L Phosphorus Magnesium Total Bilirubin Direct Bilirubin AST ALT Alkaline Phosphatase Total Protein Albumin H. pylori Source H. pylori Cult Result 12/08/21 12/08/21 12/08/21 11:34 12:39 13:28 WBC RBC Hgb Hct MCV MCH MCHC RDW Plt Count MPV Immature Gran % (Auto) Neut % (Auto) Lymph % (Auto) [place] % (Auto) Eos % (Auto) Baso % (Auto) Lymph # (Auto) [place] # (Auto) Eos # (Auto) Baso # (Auto) Abs Immat Gran (auto) Absolute Neuts (auto) Absolute Nucleated RBC Nucleated RBC % (auto) VBG pH VBG pCO2 VBG pO2 VBG HCO3 VBG O2 Saturation VBG Base Excess Sodium Potassium Chloride Carbon Dioxide Anion Gap BUN Creatinine Estim Creat Clear Calc Estimated GFR POC Glucose 249 H 313 H 293 H Random Glucose Calcium Phosphorus Magnesium Total Bilirubin Direct Bilirubin AST ALT Alkaline Phosphatase Total Protein Albumin H. pylori Source H. pylori Cult Result 12/08/21 12/08/21 12/08/21 13:40 14:33 14:40 WBC RBC Hgb Hct MCV MCH MCHC RDW Plt Count MPV Immature Gran % (Auto) Neut % (Auto) Lymph % (Auto) [place] % (Auto) Eos % (Auto) Baso % (Auto) Lymph # (Auto) [place] # (Auto) Eos # (Auto) Baso # (Auto) Abs Immat Gran (auto) Absolute Neuts (auto) Absolute Nucleated RBC Nucleated RBC % (auto) VBG pH VBG pCO2 VBG pO2 VBG HCO3 VBG O2 Saturation VBG Base Excess Sodium 135 Potassium 4.0 Chloride 106 Carbon Dioxide 17 L Anion Gap 16 BUN 11 Creatinine 0.77 Estim Creat Clear Calc 75.3 Estimated GFR > 60 POC Glucose 239 H Random Glucose 322 H Calcium 7.9 L Phosphorus Magnesium Total Bilirubin Direct Bilirubin AST ALT Alkaline Phosphatase Total Protein Albumin H. pylori Source Cancelled H. pylori Cult Result Cancelled 12/08/21 12/08/21 12/08/21 15:47 16:43 17:44 WBC RBC Hgb Hct MCV MCH MCHC RDW Plt Count MPV Immature Gran % (Auto) Neut % (Auto) Lymph % (Auto) [place] % (Auto) Eos % (Auto) Baso % (Auto) Lymph # (Auto) [place] # (Auto) Eos # (Auto) Baso # (Auto) Abs Immat Gran (auto) Absolute Neuts (auto) Absolute Nucleated RBC Nucleated RBC % (auto) VBG pH VBG pCO2 VBG pO2 VBG HCO3 VBG O2 Saturation VBG Base Excess Sodium Potassium Chloride Carbon Dioxide Anion Gap BUN Creatinine Estim Creat Clear Calc Estimated GFR POC Glucose 188 H 152 H 125 H Random Glucose Calcium Phosphorus Magnesium Total Bilirubin Direct Bilirubin AST ALT Alkaline Phosphatase Total Protein Albumin H. pylori Source H. pylori Cult Result 12/08/21 12/08/21 12/08/21 18:47 19:58 21:06 WBC RBC Hgb Hct MCV MCH MCHC RDW Plt Count MPV Immature Gran % (Auto) Neut % (Auto) Lymph % (Auto) [place] % (Auto) Eos % (Auto) Baso % (Auto) Lymph # (Auto) [place] # (Auto) Eos # (Auto) Baso # (Auto) Abs Immat Gran (auto) Absolute Neuts (auto) Absolute Nucleated RBC Nucleated RBC % (auto) VBG pH VBG pCO2 VBG pO2 VBG HCO3 VBG O2 Saturation VBG Base Excess Sodium Potassium Chloride Carbon Dioxide Anion Gap BUN Creatinine Estim Creat Clear Calc Estimated GFR POC Glucose 108 105 113 Random Glucose Calcium Phosphorus Magnesium Total Bilirubin Direct Bilirubin AST ALT Alkaline Phosphatase Total Protein Albumin H. pylori Source H. pylori Cult Result 12/08/21 12/08/21 12/08/21 21:30 21:35 21:58 WBC RBC Hgb Hct MCV MCH MCHC RDW Plt Count MPV Immature Gran % (Auto) Neut % (Auto) Lymph % (Auto) [place] % (Auto) Eos % (Auto) Baso % (Auto) Lymph # (Auto) [place] # (Auto) Eos # (Auto) Baso # (Auto) Abs Immat Gran (auto) Absolute Neuts (auto) Absolute Nucleated RBC Nucleated RBC % (auto) VBG pH 7.41 VBG pCO2 31 VBG pO2 37 VBG HCO3 20 L VBG O2 Saturation 64.0 VBG Base Excess -3.1 Sodium 139 Potassium 4.0 Chloride 105 Carbon Dioxide 23 Anion Gap 15 BUN 11 Creatinine 0.72 Estim Creat Clear Calc 80.5 Estimated GFR > 60 POC Glucose 130 H Random Glucose 125 H Calcium 8.3 L Phosphorus Magnesium Total Bilirubin 0.8 Direct Bilirubin AST 25 D ALT 18 Alkaline Phosphatase 56 D Total Protein 5.7 L Albumin 3.8 H. pylori Source H. pylori Cult Result 12/09/21 12/09/21 12/09/21 00:59 05:27 05:27 WBC 9.8 RBC 2.96 L Hgb 9.5 L Hct 27.2 L MCV 91.9 MCH 32.1 MCHC 34.9 RDW 12.2 Plt Count 102 L MPV 10.7 Immature Gran % (Auto) 0.4 Neut % (Auto) 64.9 Lymph % (Auto) 26.6 [place] % (Auto) 7.9 Eos % (Auto) 0.0 Baso % (Auto) 0.2 Lymph # (Auto) 2.6 [place] # (Auto) 0.8 Eos # (Auto) 0.0 Baso # (Auto) 0.0 Abs Immat Gran (auto) 0.04 H Absolute Neuts (auto) 6.3 Absolute Nucleated RBC 0.000 Nucleated RBC % (auto) 0.0 VBG pH VBG pCO2 VBG pO2 VBG HCO3 VBG O2 Saturation VBG Base Excess Sodium 137 Potassium 4.0 Chloride 106 Carbon Dioxide 23 Anion Gap 12 BUN 8 L Creatinine 0.68 Estim Creat Clear Calc 85.3 Estimated GFR > 60 POC Glucose 110 Random Glucose 64 Calcium 7.7 L D Phosphorus 3.3 Magnesium 1.5 L Total Bilirubin 0.6 Direct Bilirubin 0.2 AST 24 ALT 15 Alkaline Phosphatase 43 D Total Protein 4.8 L Albumin 3.0 L D H. pylori Source H. pylori Cult Result 12/09/21 05:42 WBC RBC Hgb Hct MCV MCH MCHC RDW Plt Count MPV Immature Gran % (Auto) Neut % (Auto) Lymph % (Auto) [place] % (Auto) Eos % (Auto) Baso % (Auto) Lymph # (Auto) [place] # (Auto) Eos # (Auto) Baso # (Auto) Abs Immat Gran (auto) Absolute Neuts (auto) Absolute Nucleated RBC Nucleated RBC % (auto) VBG pH 7.52 H VBG pCO2 26 VBG pO2 122 VBG HCO3 21 L VBG O2 Saturation 99.0 VBG Base Excess 0.1 Sodium Potassium Chloride Carbon Dioxide Anion Gap BUN Creatinine Estim Creat Clear Calc Estimated GFR POC Glucose Random Glucose Calcium Phosphorus Magnesium Total Bilirubin Direct Bilirubin AST ALT Alkaline Phosphatase Total Protein Albumin H. pylori Source H. pylori Cult Result Progress Note: A&P Assessment and plan (1) Hyperchloremic metabolic acidosis: Status: Acute (2) Diabetic ketoacidosis: Status: Acute (3) Cyclical vomiting, intractable: Status: Acute (4) Diabetic gastroparesis: Status: Acute (5) Anxiety: Status: Acute Plan Encourage slowly p.o. intake and discharged to the floor and with p.r.n. use of benzodiazepines for her emesis Quality Stroke Does the patient have a stroke diagnosis?: No VTE Prior VTE?: No VTE Risk Level:: Medical - moderate - high VTE Device Contraindication: N/A - Device Ordered VTE Drug Contraindication: N/A - Med Ordered
[2021-12-09 07:18] LABS: Glucose, Whole Blood 43 mg/dL (60-115)
[2021-12-09] MEDS: Lactated Ringers 1,000 ML 80 ML IVCONT ×2 (07:18→19:54)
[2021-12-09 07:41] LABS: Glucose, Whole Blood 55 mg/dL (60-115)
[2021-12-09 07:54] LABS: Glucose, Whole Blood 72 mg/dL (60-115)
[2021-12-09 08:14] LABS: Glucose, Whole Blood 117 mg/dL (60-115)
[2021-12-09] MEDS: Heparin Sodium,Porcine 5,000 UNIT/ML VIAL 5000 UNIT SUBCUT ×2 (08:44→19:51)
[2021-12-09] MEDS: Famotidine/PF 20 MG/2 ML VIAL IVPUSH ×2 (08:44→19:57)
[2021-12-09] MEDS: Magnesium Sulfate/D5W 1 GM/100 ML PIGGYBACK IV (08:44)
[2021-12-09 08:46] LABS: Glucose, Whole Blood 109 mg/dL (60-115)
[2021-12-09] MEDS: LORazepam 1 MG TABLET PO ×2 (08:50→18:04)
--- NOTE | 2021-12-09 09:02 | PM.EVENT ---
Event Note Date of Service: 12/09/21 Event Note: 36F with pmh DMI, presented with intractable N/V found to have DKA, admitted to ICU, gap closed, vomitting improved, downgraded to medicine
[2021-12-09 09:23] LABS: Venous Blood Gas Refer to POC result
[2021-12-09] MEDS: ondansetron HCL 4 MG/2 ML VIAL IVPUSH ×2 (10:51→19:50)
[2021-12-09 11:04] LABS: Glucose, Whole Blood 102 mg/dL (60-115)
[2021-12-09 15:09] LABS: Glucose, Whole Blood 72 mg/dL (60-115)
[2021-12-09 16:38] LABS: Glucose, Whole Blood 104 mg/dL (60-115)
[2021-12-09] MEDS: Bismuth Subsalicylate Liquid 524 MG/30 ML ORAL.SUSP 262 MG PO (17:59)
[2021-12-09 18:31] LABS: Glucose, Whole Blood 85 mg/dL (60-115)
[2021-12-09 20:52] LABS: Glucose, Whole Blood 87 mg/dL (60-115)
[2021-12-10] MEDS: metroNIDAZOLE/NS 500 MG/100 ML PIGGYBACK 100 MG IV (01:02)
[2021-12-10] MEDS: Doxycycline Hyclate 100 MG in 0.9 % Sodium Chloride 250 ML 166.67 MG IV (01:57)
[2021-12-10 04:00] VITALS: BP 156/81; PULSE 66; RESP 17; TEMP 37.2; O2SAT 95
[2021-12-10] MEDS: LORazepam 1 MG TABLET PO ×2 (06:12→15:03)
[2021-12-10] MEDS: ondansetron HCL 4 MG/2 ML VIAL IVPUSH ×2 (06:14→15:03)
[2021-12-10 06:16] LABS: Hematocrit 28.2 % (37.0-47.0); Mean Corpuscular HGB Conc 35.5 g/dl (31.0-35.0); Mean Corpuscular Hemoglobin 32.7 pg (27.0-33.0); Mean Corpuscular Volume 92.2 fL (80.0-98.0); Mean Platelet Volume 10.8 fL (9.4-12.3); Platelet Count 103 X10*3/uL (160-400); Red Blood Count 3.06 X10*6/uL (4.20-5.50); Red Cell Distribution Width 12.1 % (11.0-16.0); White Blood Count 6.5 X10*3/uL (4.8-10.8)
[2021-12-10 06:30] LABS: Anion Gap 12 (12-20); Blood Urea Nitrogen 9 mg/dL (9-16); Calcium 7.8 mg/dL (8.4-10.2); Carbon Dioxide 23 mmol/L (22-29); Chloride 107 mmol/L (96-108); Creatinine Clr Calc Pharmacy 87.5; Estimated Glomerular Filt Rate > 60; Glucose Fasting 62 mg/dL (60-99); Potassium 3.4 mmol/L (3.3-5.1); Sodium 139 mmol/L (135-145)
[2021-12-10 06:55] VITALS: BP 158/79; PULSE 68; RESP 16; TEMP 36.1; O2SAT 98
[2021-12-10 07:16] LABS: Glucose, Whole Blood 67 mg/dL (60-115)
[2021-12-10] MEDS: Famotidine/PF 20 MG/2 ML VIAL IVPUSH ×2 (08:51→19:32)
[2021-12-10] MEDS: Lactated Ringers 1,000 ML 80 ML IVCONT (08:51)
[2021-12-10] MEDS: Heparin Sodium,Porcine 5,000 UNIT/ML VIAL 5000 UNIT SUBCUT ×2 (08:51→19:32)
--- NOTE | 2021-12-10 09:10 | P.PNIM_ITS ---
Subjective Subjective Date of Service: 12/10/21 Interval History: cc: n/v interval history: still no appetite Cardiovascular Cardiovascular: Reports no additional cardiovascular complaints Respiratory Respiratory: Reports no additional respiratory complaints Physical Exam Vital Signs: Vital Signs: Last Vital Signs Temp 97 F 12/10/21 06:55 Pulse 68 12/10/21 06:55 Resp 16 12/10/21 06:55 BP 158/79 H 12/10/21 06:55 Pulse Ox 98 12/10/21 06:55 O2 Del Method 12/10/21 06:55 BMI result Body Mass Index 19.8 General: AO X 3, no acute distress Resp: CTA bilateral, no accessory muscles used CVS: S1,S2,RRR GI: soft, non tender, non distended Neuro: motor grossly intact, alert Psych: appropriate affect, appropriate insight Objective Data Active Medications Bismuth Subsalicylate (Bismuth Subsalicylate Liquid 524 Mg/30 Ml Oral.Susp) 262 mg PO QID PRN PRN Reason: Nausea Last Admin: 12/09/21 17:59 Dose: 262 mg Documented By: BRENDAN Capsaicin (Capsaicin 0.025% Cream 60 Gm Tube) 1 appl TOPICAL TID PRN; Protocol PRN Reason: nausea Dextrose (Dextrose 50 % 25 Gm/50 Ml Syringe) 25 gm IVPUSH Q15M PRN; Protocol PRN Reason: per Hypoglycemia Standing Ord. Famotidine (Famotidine/Pf 20 Mg/2 Ml Vial) 20 mg IVPUSH BID [facility] Last Admin: 12/10/21 08:51 Dose: 20 mg Documented By: ELA Glucose (Glucose Gel 15 Gm Gel..Gram.) 15 gm PO Q15M PRN; Protocol PRN Reason: per Hypoglycemia Standing Ord. Heparin Sodium (Porcine) (Heparin Sodium,Porcine 5,000 Unit/Ml Vial) 5,000 unit SUBCUT BID [facility] Last Admin: 12/10/21 08:51 Dose: 5,000 unit Documented By: ELA Lactated Ringer's (Lr) 1,000 mls @ 80 mls/hr IVCONT .[id number] [facility] Last Admin: 12/10/21 08:51 Dose: 80 mls/hr Documented By: ELA Insulin Glargine (Insulin Glargine,Hum.Rec.Anlog 100 Unit/Ml 10 Ml Vial) 15 unit SUBCUT BEDTIME [facility] Last Admin: 12/09/21 20:50 Dose: Not Given Documented By: XENA Non-Admin Reason: Patient Refused Insulin Human Lispro (Insulin Lispro 100 Unit/Ml 3 Ml Vial) 0 unit SUBCUT QIDACHS [facility]; Protocol Last Admin: 12/10/21 07:25 Dose: Not Given Documented By: ELA Non-Admin Reason: No Insulin Coverage Lorazepam (Lorazepam 1 Mg Tablet) 1 mg PO Q4H PRN PRN Reason: Anxiety Last Admin: 12/10/21 06:12 Dose: 1 mg Documented By: XENA Ondansetron HCl (Ondansetron Hcl 4 Mg/2 Ml Vial) 4 mg IVPUSH Q8H PRN PRN Reason: Nausea and Vomiting Last Admin: 12/10/21 06:14 Dose: 4 mg Documented By: XENA Labs CBC & Chem 7: 12/10/21 05:49 12/10/21 05:49 Labs: Laboratory Results - last 24 hr 12/09/21 12/09/21 12/09/21 10:52 15:05 16:34 MCV MCH MCHC RDW Plt Count MPV Absolute Nucleated RBC Nucleated RBC % (auto) Anion Gap Estim Creat Clear Calc Estimated GFR POC Glucose 102 72 104 Fasting Glucose Calcium 12/09/21 12/09/21 12/10/21 18:27 20:47 05:49 MCV 92.2 MCH 32.7 MCHC 35.5 H RDW 12.1 Plt Count 103 L MPV 10.8 Absolute Nucleated RBC 0.000 Nucleated RBC % (auto) 0.0 Anion Gap Estim Creat Clear Calc Estimated GFR POC Glucose 85 87 Fasting Glucose Calcium 12/10/21 12/10/21 05:49 06:54 MCV MCH MCHC RDW Plt Count MPV Absolute Nucleated RBC Nucleated RBC % (auto) Anion Gap 12 Estim Creat Clear Calc 87.5 Estimated GFR > 60 POC Glucose 67 Fasting Glucose 62 Calcium 7.8 L Assessment and Plan (1) Hyperchloremic metabolic acidosis: Status: Acute Plan 36F presented with N/V found to be in DKA, now closed and downgraded to medical floor DKA in DM1 gap closed, continue insulin, advance diet cyclic vomitting capsacin, avoid cannabis reason for continued hospitalization: not tolerating po Quality Stroke Does the patient have a stroke diagnosis?: No VTE Prior VTE?: No VTE Risk Level:: Medical - moderate - high VTE Device Contraindication: N/A - Device Ordered VTE Drug Contraindication: N/A - Med Ordered
[2021-12-10] MEDS: Capsaicin 0.025% Cream 60 GM TUBE 1 APPL TOPICAL ×3 (10:23→19:42)
--- NOTE | 2021-12-10 10:37 | MHC.CM.PN ---
PT REPORTS SHE LIVES WITH HER S/O AND KIDS SHE REPORTS SHE IS INDEPENDENT SHE REPORTS SHE USES DM SUPPLIES AND HAS NO SERVICES SHE REPORTS SHE SEES A PCP AT [address] [place] [address] IN [place], SHE DOES NOT KNOW THE NAME SHE REPORTS SHE IS COVID VACCINATED PT DECLINES TO COMPLETE A HCP DCP HOME NO SERVICES PT WILL ARRANGE TRANSPORT
[2021-12-10 11:14] VITALS: BP 152/78; PULSE 71; RESP 16; TEMP 36.6; O2SAT 97
[2021-12-10 11:20] LABS: Glucose, Whole Blood 130 mg/dL (60-115)
--- NOTE | 2021-12-10 14:03 | P.CNGI_ITS ---
History of Present Illness Data of Consult Service Date: 12/10/21 Requesting physician: Jamie An Primary Care Provider: Nonstaff Physician HPI Reason for consult: nausea, vomiting 36-year-old female with hx of self confessed poorly controlled DM type 1 who I am seeing for assessment for nausea and vomiting She said she has had issues with nausea, vomiting and epigastric twisting pain going into the back for months, but got worse within the last week. She came to the ED and was found to be in DKA so she went to ICU for treatment and monitoring with eventual closing of anion gap. She has been down graded to medicine floor. She has ongoing issues with severe epigastric pain as above, and satiety with nausea, vomiting and regurgitation. Pain is worse with food, temporarily reli eved with capsaicin cream which she got only once. She does have hx of daily THC use at night for 17 yrsor so to help her sleep at night. she had diarrhea and admission but now no stools for last few days, passing gas. She said her DM has never been in control and sugars always high prior to admission her weight had been stable. She had been told she has eating d/o, sees psychiatrist for stress. Imaging: ct chest, abdo, pelvis no acute findings Review of Systems Review of Systems: Constitutional : No Weight loss, No Fever, No Chills ENT/Mouth : No sore throat, No Rhinorrhea Eyes: No Swelling, No Redness Cardiovascular : No Chest Pain, No SOB, No Edema Respiratory : No Cough, No Sputum, No Wheezing Gastrointestinal : see HPI Genitourinary : NO Dysuria, No Urinary Frequency, No Hematuria, No Urgency Musculoskeletal : No joint pain, No Myalgias, No Joint Swelling Skin : No Skin Lesions, No rash Neuro : + Weakness, No Numbness, No Dizziness, No Headache Psych : No Anxiety/Panic, No Depression, + stress Heme/Lymph: No Bruising, No Lymphadenopathy Endocrine : No Polyuria, No Polydipsia All other systems reviewed and are negative.l [facility] Past Medical History Medical History Diabetes DKA (diabetic ketoacidoses) Family History Pertinent family history: No family hx of gastric cancer Surgical History Surgical History History of Social History Social History Household Members: Children and Other Household Members Other:: Son's father Housing: Apartment Do you presently have visiting nurse or other home services: No Unable to assess alcohol history related to: Refusing to respond Alcohol intake: never Patient Tobacco Use Status: Never used Tobacco e-Cigarette/Vaping Use: Never Used Substance Use Type: Marijuana service: No Current occupational status: unemployed Meds Allergies Allergy/AdvReac Type Severity Reaction Status Date / Time No Known Allergies Allergy Verified 12/06/21 19:50 Active Medications: Current Medications Bismuth Subsalicylate (Bismuth Subsalicylate Liquid 524 Mg/30 Ml Oral.Susp) 262 mg PO QID PRN PRN Reason: Nausea Last Admin: 12/09/21 17:59 Dose: 262 mg Capsaicin (Capsaicin 0.025% Cream 60 Gm Tube) 1 appl TOPICAL Q4H [facility]; Protocol Last Admin: 12/10/21 12:26 Dose: Not Given Dextrose (Dextrose 50 % 25 Gm/50 Ml Syringe) 25 gm IVPUSH Q15M PRN; Protocol PRN Reason: per Hypoglycemia Standing Ord. Famotidine (Famotidine/Pf 20 Mg/2 Ml Vial) 20 mg IVPUSH BID [facility] Last Admin: 12/10/21 08:51 Dose: 20 mg Glucose (Glucose Gel 15 Gm Gel..Gram.) 15 gm PO Q15M PRN; Protocol PRN Reason: per Hypoglycemia Standing Ord. Heparin Sodium (Porcine) (Heparin Sodium,Porcine 5,000 Unit/Ml Vial) 5,000 unit SUBCUT BID [facility] Last Admin: 12/10/21 08:51 Dose: 5,000 unit Lactated Ringer's (Lr) 1,000 mls @ 80 mls/hr IVCONT .[id number] [facility] Last Admin: 12/10/21 08:51 Dose: 80 mls/hr Insulin Glargine (Insulin Glargine,Hum.Rec.Anlog 100 Unit/Ml 10 Ml Vial) 15 unit SUBCUT BEDTIME [facility] Last Admin: 12/09/21 20:50 Dose: Not Given Insulin Human Lispro (Insulin Lispro 100 Unit/Ml 3 Ml Vial) 0 unit SUBCUT QIDACHS [facility]; Protocol Last Admin: 12/10/21 11:39 Dose: Not Given Lorazepam (Lorazepam 1 Mg Tablet) 1 mg PO Q4H PRN PRN Reason: Anxiety Last Admin: 12/10/21 06:12 Dose: 1 mg Ondansetron HCl (Ondansetron Hcl 4 Mg/2 Ml Vial) 4 mg IVPUSH Q8H PRN PRN Reason: Nausea and Vomiting Last Admin: 12/10/21 06:14 Dose: 4 mg Pantoprazole Sodium (Pantoprazole Sodium 40 Mg/10 Ml Vial) 40 mg IVPUSH BID@0630,1630 [facility] Prochlorperazine (Prochlorperazine 25 Mg Supp.Rect) 25 mg PA Q12H PRN PRN Reason: nasuea Sucralfate (Sucralfate Oral Suspension 1 Gm/10 Ml [facility].Susp) [facility] Medications Medication Instructions Recorded Confirmed Last Taken Type insulin glargine 100 unit/mL (3 15 unit subcut BEDTIME 12/07/21 12/07/21 Unknown History mL) subcutaneous pen (Lantus Solostar U-100 Insulin) insulin lispro 100 unit/mL 3 - 6 unit subcut TIDAC 12/07/21 12/07/21 Unknown History subcutaneous pen Physical Exam Vital Signs: Vital Signs: Last Vital Signs Temp 98 F 12/10/21 11:14 Pulse 71 12/10/21 11:14 Resp 16 12/10/21 11:14 BP 152/78 H 12/10/21 11:14 Pulse Ox 97 12/10/21 11:14 O2 Del Method 12/10/21 11:14 BMI result Body Mass Index 19.8 EXAM: GENERAL: The patient is thin, ill looking, uncomfortable VITAL SIGNS:see workflow HEENT: Nonicteric sclerae, PERRLA, EOMI. Oropharynx clear. Moist mucous membr anes. Conjunctivae appear well perfused. No thyroid mass. CHEST: Chest wall is nontender. HEART: Regular rate and rhythm without murmurs. LUNGS: Clear to auscultation bilaterally. ABDOMEN: Soft, positive bowel sounds, tender epigastrium, no organomegaly.no flank tenderness SKIN: No rash, no excessive bruising, petechiae, or purpura. NEUROLOGIC: Cranial nerves II-XII intact without motor/sensory deficit. psych- low affect Results Labs CBC & Chem 7: 12/10/21 05:49 12/10/21 05:49 Labs: Short CBC 12/10/21 Range/Units 05:49 WBC 6.5 (4.8-10.8) X10*3/uL Hgb 10.0 L (12.0-16.0) g/dl Hct 28.2 L (37.0-47.0) % Plt Count 103 L (160-400) X10*3/uL BMP 12/10/21 05:49 Sodium 139 Potassium 3.4 Chloride 107 Carbon Dioxide 23 BUN 9 Creatinine 0.66 Calcium 7.8 L Assessment and Plan (1) Nausea & vomiting: Qualifiers: Vomiting type: unspecified Qualified Code(s): R11.2 - Nausea with vomiting, unspecified Status: Acute Plan 1/ Persistent nausea, vomiting, satiety ddx: canniboid hyperemesis, GOO, PUD< esophagitis, gastroparesis, pancreatic disease, addisons disease 2/ low plts and HGB, possibly dilutional or due to heparin, nutritional defc, less likely HIV< SLE, bone marrow failure PLAN: 1/ recommend stop reglan for the moment, scheduled anti emetic, can use stemetil and zofran IV or ODT 2/ High dose PPI e.g pantoprazole 40 mg bid, wih carafate 1 g QID 3/ EGD tomorrow if neg then GES 4/ check folate, b12, iron studies, Hep B,C, HIV< [facility] Procedures Date of Service Date of Service: 12/10/21
[2021-12-10 15:03] VITALS: BP 149/89; PULSE 80; RESP 15; TEMP 37.2; O2SAT 97
[2021-12-10] MEDS: Pantoprazole Sodium 40 MG/10 ML VIAL IVPUSH (15:32)
[2021-12-10] MEDS: Sucralfate Oral Suspension 1 GM/10 ML ORAL.SUSP PO ×2 (15:33→19:32)
[2021-12-10 15:56] LABS: Glucose, Whole Blood 233 mg/dL (60-115)
[2021-12-10] MEDS: Insulin Lispro 100 UNIT/ML 3 ML VIAL SUBCUT (17:02)
[2021-12-10 19:18] VITALS: BP 134/85; PULSE 79; RESP 15; TEMP 36.6; O2SAT 98
[2021-12-10 20:39] LABS: Glucose, Whole Blood 125 mg/dL (60-115)
[2021-12-10] MEDS: Insulin Glargine,Hum.rec.anlog 100 UNIT/ML 10 ML VIAL 15 UNIT SUBCUT (20:59)
[2021-12-10 23:14] VITALS: BP 121/73; PULSE 81; RESP 17; TEMP 37.1; O2SAT 95
[2021-12-11] VITALS (8 sets, daily range): BP systolic 112–157; BP diastolic 63–84; PULSE 66–95; RESP 16–20; TEMP 36.6–37.6; O2SAT 96–99
[2021-12-11 04:58] LABS: Glucose, Whole Blood 96 mg/dL (60-115)
[2021-12-11] MEDS: ondansetron HCL 4 MG/2 ML VIAL IVPUSH ×2 (05:01→17:25)
--- NOTE | 2021-12-11 05:03 | PC.NURSE ---
Pt woke up at 0448 with diaphoresis, random POC done=96, pt given apple juice and tolerated, no other symptom presented.
[2021-12-11] MEDS: Pantoprazole Sodium 40 MG/10 ML VIAL IVPUSH ×2 (06:00→16:16)
[2021-12-11 06:29] LABS: Hematocrit 31.3 % (37.0-47.0); Hemoglobin 11.3 g/dl (12.0-16.0); Mean Corpuscular HGB Conc 36.1 g/dl (31.0-35.0); Mean Corpuscular Hemoglobin 32.6 pg (27.0-33.0); Mean Corpuscular Volume 90.2 fL (80.0-98.0); Mean Platelet Volume 11.1 fL (9.4-12.3); Platelet Count 128 X10*3/uL (160-400); Red Blood Count 3.47 X10*6/uL (4.20-5.50); Red Cell Distribution Width 11.6 % (11.0-16.0); White Blood Count 6.6 X10*3/uL (4.8-10.8)
[2021-12-11 06:45] LABS: Anion Gap 13 (12-20); Blood Urea Nitrogen 6 mg/dL (9-16); Carbon Dioxide 25 mmol/L (22-29); Chloride 104 mmol/L (96-108); Creatinine Clr Calc Pharmacy 84.9; Estimated Glomerular Filt Rate > 60; Glucose Fasting 92 mg/dL (60-99); Potassium 3.4 mmol/L (3.3-5.1); Sodium 139 mmol/L (135-145)
[2021-12-11 07:01] LABS: Glucose, Whole Blood 98 mg/dL (60-115)
[2021-12-11] MEDS: Capsaicin 0.025% Cream 60 GM TUBE 1 APPL TOPICAL ×2 (07:56→11:32)
[2021-12-11] MEDS: Famotidine/PF 20 MG/2 ML VIAL IVPUSH ×2 (07:56→19:22)
--- NOTE | 2021-12-11 08:40 | HO.PM.IMPN ---
Subjective Subjective Date of Service: 12/11/21 Interval History: cc: n/v interval history: still with nausea, though some improvement over last 24hrs Cardiovascular Cardiovascular: Reports no additional cardiovascular complaints Respiratory Respiratory: Reports no additional respiratory complaints Physical Exam Vital Signs: Vital Signs: Last Vital Signs Temp 99.6 F 12/11/21 06:43 Pulse 75 12/11/21 06:43 Resp 18 12/11/21 06:43 BP 112/74 12/11/21 06:43 Pulse Ox 97 12/11/21 06:43 O2 Del Method 12/11/21 06:43 BMI result Body Mass Index 19.8 General: AO X 3, no acute distress Resp: CTA bilateral, no accessory muscles used CVS: S1,S2,RRR GI: soft, non tender, non distended Neuro: motor grossly intact, alert Psych: appropriate affect, appropriate insight Objective Data Active Medications Bismuth Subsalicylate (Bismuth Subsalicylate Liquid 524 Mg/30 Ml Oral.Susp) 262 mg PO QID PRN PRN Reason: Nausea Last Admin: 12/09/21 17:59 Dose: 262 mg Documented By: BRENDAN Capsaicin (Capsaicin 0.025% Cream 60 Gm Tube) 1 appl TOPICAL Q4H [facility]; Protocol Last Admin: 12/11/21 07:56 Dose: 1 appl Documented By: RAY Dextrose (Dextrose 50 % 25 Gm/50 Ml Syringe) 25 gm IVPUSH Q15M PRN; Protocol PRN Reason: per Hypoglycemia Standing Ord. Famotidine (Famotidine/Pf 20 Mg/2 Ml Vial) 20 mg IVPUSH BID [facility] Last Admin: 12/11/21 07:56 Dose: 20 mg Documented By: RAY Glucose (Glucose Gel 15 Gm Gel..Gram.) 15 gm PO Q15M PRN; Protocol PRN Reason: per Hypoglycemia Standing Ord. Heparin Sodium (Porcine) (Heparin Sodium,Porcine 5,000 Unit/Ml Vial) 5,000 unit SUBCUT BID [facility] Last Admin: 12/11/21 08:06 Dose: Not Given Documented By: RAY Non-Admin Reason: pre op Insulin Glargine (Insulin Glargine,Hum.Rec.Anlog 100 Unit/Ml 10 Ml Vial) 15 unit SUBCUT BEDTIME [facility] Last Admin: 12/10/21 20:59 Dose: 15 unit Documented By: EDWAR Insulin Human Lispro (Insulin Lispro 100 Unit/Ml 3 Ml Vial) 0 unit SUBCUT [facility]; Protocol Last Admin: 12/11/21 07:46 Dose: Not Given Documented By: RAY Non-Admin Reason: No Insulin Coverage Lorazepam (Lorazepam 1 Mg Tablet) 1 mg PO Q4H PRN PRN Reason: Anxiety Last Admin: 12/10/21 15:03 Dose: 1 mg Documented By: ELA Ondansetron HCl (Ondansetron Hcl 4 Mg/2 Ml Vial) 4 mg IVPUSH Q8H PRN PRN Reason: Nausea and Vomiting Last Admin: 12/11/21 05:01 Dose: 4 mg Documented By: EDWAR Pantoprazole Sodium (Pantoprazole Sodium 40 Mg/10 Ml Vial) 40 mg IVPUSH BID@0630,1630 [facility] Last Admin: 12/11/21 06:00 Dose: 40 mg Documented By: EDWAR Prochlorperazine (Prochlorperazine 25 Mg Supp.Rect) 25 mg DC Q12H PRN PRN Reason: nasuea Sucralfate (Sucralfate Oral Suspension 1 Gm/10 Ml Oral.Susp) 1 gm PO [facility] Last Admin: 12/11/21 08:06 Dose: Not Given Documented By: RAY Non-Admin Reason: NPO Labs CBC & Chem 7: 12/11/21 05:11 12/11/21 05:11 Labs: Laboratory Results - last 24 hr 12/10/21 12/10/21 12/10/21 11:14 15:51 20:29 MCV MCH MCHC RDW Plt Count MPV Absolute Nucleated RBC Nucleated RBC % (auto) Anion Gap Estim Creat Clear Calc Estimated GFR POC Glucose 130 H 233 H 125 H Fasting Glucose Calcium 12/11/21 12/11/21 12/11/21 04:52 05:11 05:11 MCV 90.2 MCH 32.6 MCHC 36.1 H RDW 11.6 Plt Count 128 L MPV 11.1 Absolute Nucleated RBC 0.000 Nucleated RBC % (auto) 0.0 Anion Gap 13 Estim Creat Clear Calc 84.9 Estimated GFR > 60 POC Glucose 96 Fasting Glucose 92 Calcium 8.0 L 12/11/21 06:44 MCV MCH MCHC RDW Plt Count MPV Absolute Nucleated RBC Nucleated RBC % (auto) Anion Gap Estim Creat Clear Calc Estimated GFR POC Glucose 98 Fasting Glucose Calcium Assessment and Plan (1) Hyperchloremic metabolic acidosis: Status: Acute Plan 36F presented with N/V found to be in DKA, now closed and downgraded to medical floor, patient continues to have nausea and vomitting with poor po intake DKA in DM1 gap closed, continue insulin, advance diet as tolerated cyclic vomitting likely multifactorial, with diabetic gastroparesis, cannabis hyperemesis, GI appreciated, capsacin, avoid cannabis, ppi, compazine, carafate, plan for EGD today reason for continued hospitalization: not tolerating po Quality Stroke Does the patient have a stroke diagnosis?: No VTE Prior VTE?: No VTE Risk Level:: Medical - moderate - high VTE Device Contraindication: N/A - Device Ordered VTE Drug Contraindication: N/A - Med Ordered
[2021-12-11 11:09] LABS: Glucose, Whole Blood 65 mg/dL (60-115)
[2021-12-11] MEDS: Dextrose 5 % and 0.45 % NaCl 1,000 ML 80 ML IVCONT (11:27)
[2021-12-11] MEDS: Sucralfate Oral Suspension 1 GM/10 ML ORAL.SUSP PO ×3 (11:27→20:43)
[2021-12-11 13:14] LABS: Glucose, Whole Blood 94 mg/dL (60-115)
--- NOTE | 2021-12-11 13:19 | MHC.SHP ---
Pre-Procedural Eval Section A Date of Service: 12/11/21 The patient is an INPATIENT: Yes The History & Physical has been completed within 30 days and I have reviewed it.: Yes Section B Chief Complaint: Diabetic ketoacidosis Allergies: Allergies Allergy/AdvReac Type Severity Reaction Status Date / Time No Known Allergies Allergy Verified 12/06/21 19:50 Plan I have reviewed the history and physical and performed a pertinent physical examination on my patient. No changes have occurred unless specified.
[2021-12-11 13:56] LABS: Glucose, Whole Blood 82 mg/dL (60-115)
--- NOTE | 2021-12-11 14:32 | W.PM.OPN ---
Operative Note Operative Note Date of Service: 12/11/21 Narrative: Procedure Description: EGD Indication: nausea, vomiting Anesthesia: MAC FLEXIBLE TRANSORAL UPPER GASTROINTESTINAL ENDOSCOPY UPPER ENDOSCOPY Consent: Indications for the procedure and potential complications of bleeding, perforation, reaction to medications and missed diagnosis were discussed with the patient and informed consent was obtained. Instrument: Olympus GIF H 190 J mid size upper endoscope Monitoring: Vital signs and clinical assessment, continuous EKG monitoring, Pulse oximetry, Carbon Dioxide monitoring and blood pressure monitoring were done throughout the procedure. Procedure: The patient was placed in the left lateral decubitis position and pre-procedure medications were administered and a bite block was placed. The endoscope was inserted into the mouth and advanced under direct vision to the third part of duodenum. A careful inspection was made as the upper endoscope was withdrawn including a retroflexed examination of the proximal stomach; Findings and interventions are described below. Findings: Larynx:normal Esophagus: GE junction at 35 cm, diaphragm hiatus at 35 cm, mild esophagitis, bx taken from GEJ, distal and proximal esophagus in separate jars. Stomach: Patchy gastric erythema. Biopsies were obtained. Grade 2 flap valve on retroflexed examination of the cardia. The distal stomach seemed to be compressed. Duodenum: Normal bulb and descending duodenum, bx taken Intervention: Biopsies as noted above Impression/Findings: gastritis esophagitis PLAN: recommend gastric emtpying study if ongoing sx as well as mesenteric duplex to r/o SMA syndrome should be on PPI
--- NOTE | 2021-12-11 14:44 | HO.ANESPROP2 ---
Documented by User: Harmeet Morrow MD 12/11/21 15:03 [facility] Past Medical History Medical History Diabetes DKA (diabetic ketoacidoses) Family History Family history of problems with anesthesia: No Surgical History Surgical History History of History of Problems with Anesthesia: No Social History Social History Household Members: Children and Other Household Members Other:: Son's father Housing: Apartment Do you presently have visiting nurse or other home services: No Unable to assess alcohol history related to: Refusing to respond Alcohol intake: never Patient Tobacco Use Status: Former Tobacco user Quit Date: 3 years ago Tobacco use type: Cigarette e-Cigarette/Vaping Use: Never Used Second Hand Smoke Exposure: No Substance Use Type: Marijuana service: No Current occupational status: unemployed Meds Allergies Allergy/AdvReac Type Severity Reaction Status Date / Time No Known Allergies Allergy Verified 12/06/21 19:50 Home Medications Medication Instructions Recorded Confirmed Last Taken Type insulin glargine 100 unit/mL (3 15 unit subcut BEDTIME 12/07/21 12/07/21 Unknown History mL) subcutaneous pen (Lantus Solostar U-100 Insulin) insulin lispro 100 unit/mL 3 - 6 unit subcut TIDAC 12/07/21 12/07/21 Unknown History subcutaneous pen Exam Airway Mallampati Class: II Neck ROM: Full Loose/Missing/Broken Teeth: No Heart: [id number] Lungs: cta b/l Assessment and Plan Assessment Anesthesia Assessment: Anesthesia Plan Discussed and Chart Reviewed Final Anesthetic Review Family History of Problems with Anesthesia: No History of Problems with Anesthesia: No NPO: Yes ASA Class: III Final Preanesthetic Review: No Changes in Pt Med Stat, Meds/Allgs Chart Reviewed, Consent Obtained/Reviewed and Anes Risks/Benef Reviewed Patient Risk: Intermediate Procedure Risk: Intermediate Assessment/Block/Sedation in SS: Assess/Block/Sedation-SS Anesthetic Plan Anesthetic Plan: MAC: and Agree w/ Assess. and Plan Disposition: Standard PACU Documented by User: Alan Nichols MD [facility] Active Problems Active Problems: All Active Problems (Updated 12/10/21 @ 14:21 by Gerardo Kirk MD) Nausea & vomiting (Acute) Hyperchloremic metabolic acidosis (Acute) Diabetic ketoacidosis (Acute) Cyclical vomiting, intractable (Acute) Diabetic gastroparesis (Acute) Anxiety (Acute) Past Medical History Medical History Diabetes DKA (diabetic ketoacidoses) Surgical History Surgical History History of Social History Social History Household Members: Children and Other Household Members Other:: Son's father Housing: Apartment Do you presently have visiting nurse or other home services: No Unable to assess alcohol history related to: Refusing to respond Alcohol intake: never Patient Tobacco Use Status: Former Tobacco user Quit Date: 3 years ago Tobacco use type: Cigarette e-Cigarette/Vaping Use: Never Used Second Hand Smoke Exposure: No Substance Use Type: Marijuana service: No Current occupational status: unemployed Meds Allergies Allergy/AdvReac Type Severity Reaction Status Date / Time No Known Allergies Allergy Verified 12/06/21 19:50 Active Medications: Current Medications Bismuth Subsalicylate (Bismuth Subsalicylate Liquid 524 Mg/30 Ml Oral.Susp) 262 mg PO QID PRN PRN Reason: Nausea Last Admin: 12/09/21 17:59 Dose: 262 mg Capsaicin (Capsaicin 0.025% Cream 60 Gm Tube) 1 appl TOPICAL Q4H KWAKU; Protocol Last Admin: 12/11/21 11:32 Dose: 1 appl Dextrose (Dextrose 50 % 25 Gm/50 Ml Syringe) 25 gm IVPUSH Q15M PRN; Protocol PRN Reason: per Hypoglycemia Standing Ord. Famotidine (Famotidine/Pf 20 Mg/2 Ml Vial) 20 mg IVPUSH BID [facility] Last Admin: 12/11/21 07:56 Dose: 20 mg Glucose (Glucose Gel 15 Gm Gel..Gram.) 15 gm PO Q15M PRN; Protocol PRN Reason: per Hypoglycemia Standing Ord. Heparin Sodium (Porcine) (Heparin Sodium,Porcine 5,000 Unit/Ml Vial) 5,000 unit SUBCUT BID [facility] Last Admin: 12/11/21 08:06 Dose: Not Given Dextrose/Sodium Chloride (D51/2ns) 1,000 mls @ 80 mls/hr IVCONT .[id number] [facility] Last Admin: 12/11/21 11:27 Dose: 80 mls/hr Insulin Glargine (Insulin Glargine,Hum.Rec.Anlog 100 Unit/Ml 10 Ml Vial) 15 unit SUBCUT BEDTIME [facility] Last Admin: 12/10/21 20:59 Dose: 15 unit Insulin Human Lispro (Insulin Lispro 100 Unit/Ml 3 Ml Vial) 0 unit SUBCUT QIDACHS [facility]; Protocol Last Admin: 12/11/21 11:33 Dose: Not Given Lorazepam (Lorazepam 1 Mg Tablet) 1 mg PO Q4H PRN PRN Reason: Anxiety Last Admin: 12/10/21 15:03 Dose: 1 mg Ondansetron HCl (Ondansetron Hcl 4 Mg/2 Ml Vial) 4 mg IVPUSH Q8H PRN PRN Reason: Nausea and Vomiting Last Admin: 12/11/21 05:01 Dose: 4 mg Pantoprazole Sodium (Pantoprazole Sodium 40 Mg/10 Ml Vial) 40 mg IVPUSH BID@0630,1630 [facility] Last Admin: 12/11/21 06:00 Dose: 40 mg Prochlorperazine (Prochlorperazine 25 Mg Supp.Rect) 25 mg MA Q12H PRN PRN Reason: nasuea Sucralfate (Sucralfate Oral Suspension 1 Gm/10 Ml Oral.Susp) 1 gm PO QIDACHS [facility] Last Admin: 12/11/21 11:27 Dose: 1 gm Home Medications Medication Instructions Recorded Confirmed Last Taken Type insulin glargine 100 unit/mL (3 15 unit subcut BEDTIME 12/07/21 12/07/21 Unknown History mL) subcutaneous pen (Lantus Solostar U-100 Insulin) insulin lispro 100 unit/mL 3 - 6 unit subcut TIDAC 12/07/21 12/07/21 Unknown History subcutaneous pen Exam Exam Date and Time: December 11, 2021 1444 Height,Weight and Vital Signs: Height 5 ft 1 in Weight 47.5 kg Last Vital Signs Temp 98.5 F 12/11/21 13:24 Pulse 66 12/11/21 13:24 Resp 18 12/11/21 13:24 BP 121/77 12/11/21 13:24 Pulse Ox 98 12/11/21 13:24 O2 Del Method 12/11/21 13:24 Pertinent Lab Results Pertinent Lab Results: Laboratory Tests 12/06/21 12/06/21 12/06/21 20:00 21:12 21:21 WBC 6.9 RBC 4.08 L Hgb 13.2 Hct 38.0 MCV 93.1 MCH 32.4 MCHC 34.7 RDW 11.9 Plt Count 182 MPV 10.7 Immature Gran % (Auto) 0.3 Neut % (Auto) 74.0 H Lymph % (Auto) 19.0 L [place] % (Auto) 6.0 Eos % (Auto) 0.0 Baso % (Auto) 0.7 Lymph # (Auto) 1.3 [place] # (Auto) 0.4 Eos # (Auto) 0.0 Baso # (Auto) 0.1 Abs Immat Gran (auto) 0.02 Absolute Neuts (auto) 5.1 Absolute Nucleated RBC 0.000 Nucleated RBC % (auto) 0.0 O2 Saturation ABG pH at Pt Temp ABG pH (Temp Correct) ABG pCO2 at Pt Temp ABG pCO2 (Temp Corrct ABG pO2 at Pt Temp ABG pO2 (Temp Correct ABG HCO3 ABG Base Excess (Actual) VBG pH VBG pCO2 VBG pO2 VBG HCO3 VBG O2 Saturation VBG Base Excess Sodium 138 Potassium 4.6 Chloride 101 Carbon Dioxide 18 L Anion Gap 24 H BUN 11 Creatinine 1.00 Estim Creat Clear Calc 55.1 Estimated GFR > 60 POC Glucose 424 H* Random Glucose 491 H* Fasting Glucose Lactic Acid Calcium 9.2 D Phosphorus Magnesium Total Bilirubin 0.9 Direct Bilirubin AST 26 D ALT 18 Alkaline Phosphatase 78 D Total Protein 6.9 Albumin 4.1 Amylase Lipase 12 Beta HCG, Quant Urine Color Urine Appearance Urine pH Ur Specific [place] Urine Protein Urine Glucose (UA) Urine Ketones Urine Blood Urine Nitrite Ur Leukocyte Esterase Urine RBC Urine WBC Ur Squamous Epith Cells Urine Bacteria Hyaline Casts Salicylates Urine Opiates Screen Urine Fentanyl Screen Acetaminophen Ur Barbiturates Screen Ur Phencyclidine Scrn Ur Amphetamines Screen U Benzodiazepines Scrn Urine Cocaine Screen U Marijuana (THC) Screen Acetone, Qual Negative COVID-19 ([facility]HA) COVID-19 Clin Com H. pylori Source H. pylori Cult Result 12/06/21 12/06/21 12/07/21 21:21 21:27 00:22 WBC RBC Hgb Hct MCV MCH MCHC RDW Plt Count MPV Immature Gran % (Auto) Neut % (Auto) Lymph % (Auto) [place] % (Auto) Eos % (Auto) Baso % (Auto) Lymph # (Auto) [place] # (Auto) Eos # (Auto) Baso # (Auto) Abs Immat Gran (auto) Absolute Neuts (auto) Absolute Nucleated RBC Nucleated RBC % (auto) O2 Saturation ABG pH at Pt Temp ABG pH (Temp Correct) ABG pCO2 at Pt Temp ABG pCO2 (Temp Corrct ABG pO2 at Pt Temp ABG pO2 (Temp Correct ABG HCO3 ABG Base Excess (Actual) VBG pH 7.32 VBG pCO2 38 VBG pO2 61 VBG HCO3 20 L VBG O2 Saturation 86.0 VBG Base Excess -5.4 Sodium Potassium Chloride Carbon Dioxide Anion Gap BUN Creatinine Estim Creat Clear Calc Estimated GFR POC Glucose 241 H Random Glucose Fasting Glucose Lactic Acid Calcium Phosphorus Magnesium Total Bilirubin Direct Bilirubin AST ALT Alkaline Phosphatase Total Protein Albumin Amylase Lipase Beta HCG, Quant Urine Color Urine Appearance Urine pH Ur Specific [place] Urine Protein Urine Glucose (UA) Urine Ketones Urine Blood Urine Nitrite Ur Leukocyte Esterase Urine RBC Urine WBC Ur Squamous Epith Cells Urine Bacteria Hyaline Casts Salicylates Urine Opiates Screen Urine Fentanyl Screen Acetaminophen Ur Barbiturates Screen Ur Phencyclidine Scrn Ur Amphetamines Screen U Benzodiazepines Scrn Urine Cocaine Screen U Marijuana (THC) Screen Acetone, Qual COVID-19 (ISHA) Negative COVID-19 Clin Com See Note H. pylori Source H. pylori Cult Result 12/07/21 12/07/21 12/07/21 01:57 03:49 03:49 WBC RBC Hgb Hct MCV MCH MCHC RDW Plt Count MPV Immature Gran % (Auto) Neut % (Auto) Lymph % (Auto) [place] % (Auto) Eos % (Auto) Baso % (Auto) Lymph # (Auto) [place] # (Auto) Eos # (Auto) Baso # (Auto) Abs Immat Gran (auto) Absolute Neuts (auto) Absolute Nucleated RBC Nucleated RBC % (auto) O2 Saturation ABG pH at Pt Temp ABG pH (Temp Correct) ABG pCO2 at Pt Temp ABG pCO2 (Temp Corrct ABG pO2 at Pt Temp ABG pO2 (Temp Correct ABG HCO3 ABG Base Excess (Actual) VBG pH VBG pCO2 VBG pO2 VBG HCO3 VBG O2 Saturation VBG Base Excess Sodium 141 Potassium 4.3 Chloride 109 H Carbon Dioxide 14 L Anion Gap 22 H BUN 12 Creatinine 0.76 Estim Creat Clear Calc 72.5 Estimated GFR > 60 POC Glucose Random Glucose 364 H* Fasting Glucose Lactic Acid Calcium 7.9 L D Phosphorus Magnesium Total Bilirubin Direct Bilirubin AST ALT Alkaline Phosphatase Total Protein Albumin Amylase Lipase Beta HCG, Quant Urine Color Yellow Urine Appearance Clear Urine pH 6.0 Ur Specific [place] 1.020 Urine Protein Negative Urine Glucose (UA) >=1000 H Urine Ketones >=80 Urine Blood Negative Urine Nitrite Negative Ur Leukocyte Esterase Negative Urine RBC 0-2 Urine WBC 0-5 Ur Squamous Epith Cells 0-2 Urine Bacteria None Seen Hyaline Casts 0-2 Salicylates Urine Opiates Screen Not Detected Urine Fentanyl Screen Not Detected Acetaminophen Ur Barbiturates Screen Not Detected Ur Phencyclidine Scrn Not Detected Ur Amphetamines Screen Not Detected U Benzodiazepines Scrn POSITIVE H Urine Cocaine Screen Not Detected U Marijuana (THC) Screen POSITIVE H Acetone, Qual COVID-19 (ISHA) COVID-19 Clin Com H. pylori Source H. pylori Cult Result 12/07/21 12/07/21 12/07/21 04:57 06:04 06:04 WBC RBC Hgb Hct MCV MCH MCHC RDW Plt Count MPV Immature Gran % (Auto) Neut % (Auto) Lymph % (Auto) [place] % (Auto) Eos % (Auto) Baso % (Auto) Lymph # (Auto) [place] # (Auto) Eos # (Auto) Baso # (Auto) Abs Immat Gran (auto) Absolute Neuts (auto) Absolute Nucleated RBC Nucleated RBC % (auto) O2 Saturation ABG pH at Pt Temp ABG pH (Temp Correct) ABG pCO2 at Pt Temp ABG pCO2 (Temp Corrct ABG pO2 at Pt Temp ABG pO2 (Temp Correct ABG HCO3 ABG Base Excess (Actual) VBG pH VBG pCO2 VBG pO2 VBG HCO3 VBG O2 Saturation VBG Base Excess Sodium 140 Potassium 3.8 Chloride 111 H Carbon Dioxide 11 L Anion Gap 22 H BUN 13 Creatinine 0.79 Estim Creat Clear Calc 69.8 Estimated GFR > 60 POC Glucose Random Glucose 331 H Fasting Glucose Lactic Acid 1.9 Calcium 8.1 L Phosphorus Magnesium Total Bilirubin Direct Bilirubin AST ALT Alkaline Phosphatase Total Protein Albumin Amylase Lipase Beta HCG, Quant Urine Color Urine Appearance Urine pH Ur Specific [place] Urine Protein Urine Glucose (UA) Urine Ketones Urine Blood Urine Nitrite Ur Leukocyte Esterase Urine RBC Urine WBC Ur Squamous Epith Cells Urine Bacteria Hyaline Casts Salicylates < 5.0 L Urine Opiates Screen Urine Fentanyl Screen Acetaminophen < 1 Ur Barbiturates Screen Ur Phencyclidine Scrn Ur Amphetamines Screen U Benzodiazepines Scrn Urine Cocaine Screen U Marijuana (THC) Screen Acetone, Qual COVID-19 (ISHA) COVID-19 Clin Com H. pylori Source H. pylori Cult Result 12/07/21 12/07/21 12/07/21 08:37 08:37 08:43 WBC RBC Hgb Hct MCV MCH MCHC RDW Plt Count MPV Immature Gran % (Auto) Neut % (Auto) Lymph % (Auto) [place] % (Auto) Eos % (Auto) Baso % (Auto) Lymph # (Auto) [place] # (Auto) Eos # (Auto) Baso # (Auto) Abs Immat Gran (auto) Absolute Neuts (auto) Absolute Nucleated RBC Nucleated RBC % (auto) O2 Saturation ABG pH at Pt Temp ABG pH (Temp Correct) ABG pCO2 at Pt Temp ABG pCO2 (Temp Corrct ABG pO2 at Pt Temp ABG pO2 (Temp Correct ABG HCO3 ABG Base Excess (Actual) VBG pH VBG pCO2 VBG pO2 VBG HCO3 VBG O2 Saturation VBG Base Excess Sodium Potassium Chloride Carbon Dioxide Anion Gap BUN Creatinine Estim Creat Clear Calc Estimated GFR POC Glucose 250 H Random Glucose Fasting Glucose Lactic Acid Calcium Phosphorus Magnesium Total Bilirubin Direct Bilirubin AST ALT Alkaline Phosphatase Total Protein Albumin Amylase 47 Lipase 8 Beta HCG, Quant < 2 Urine Color Urine Appearance Urine pH Ur Specific [place] Urine Protein Urine Glucose (UA) Urine Ketones Urine Blood Urine Nitrite Ur Leukocyte Esterase Urine RBC Urine WBC Ur Squamous Epith Cells Urine Bacteria Hyaline Casts Salicylates Urine Opiates Screen Urine Fentanyl Screen Acetaminophen Ur Barbiturates Screen Ur Phencyclidine Scrn Ur Amphetamines Screen U Benzodiazepines Scrn Urine Cocaine Screen U Marijuana (THC) Screen Acetone, Qual COVID-19 (ISHA) COVID-19 Clin Com H. pylori Source H. pylori Cult Result 12/07/21 12/07/21 12/07/21 09:55 10:38 11:40 WBC RBC Hgb Hct MCV MCH MCHC RDW Plt Count MPV Immature Gran % (Auto) Neut % (Auto) Lymph % (Auto) [place] % (Auto) Eos % (Auto) Baso % (Auto) Lymph # (Auto) [place] # (Auto) Eos # (Auto) Baso # (Auto) Abs Immat Gran (auto) Absolute Neuts (auto) Absolute Nucleated RBC Nucleated RBC % (auto) O2 Saturation ABG pH at Pt Temp ABG pH (Temp Correct) ABG pCO2 at Pt Temp ABG pCO2 (Temp Corrct ABG pO2 at Pt Temp ABG pO2 (Temp Correct ABG HCO3 ABG Base Excess (Actual) VBG pH VBG pCO2 VBG pO2 VBG HCO3 VBG O2 Saturation VBG Base Excess Sodium Potassium Chloride Carbon Dioxide Anion Gap BUN Creatinine Estim Creat Clear Calc Estimated GFR POC Glucose 354 H* 351 H* 361 H* Random Glucose Fasting Glucose Lactic Acid Calcium Phosphorus Magnesium Total Bilirubin Direct Bilirubin AST ALT Alkaline Phosphatase Total Protein Albumin Amylase Lipase Beta HCG, Quant Urine Color Urine Appearance Urine pH Ur Specific [place] Urine Protein Urine Glucose (UA) Urine Ketones Urine Blood Urine Nitrite Ur Leukocyte Esterase Urine RBC Urine WBC Ur Squamous Epith Cells Urine Bacteria Hyaline Casts Salicylates Urine Opiates Screen Urine Fentanyl Screen Acetaminophen Ur Barbiturates Screen Ur Phencyclidine Scrn Ur Amphetamines Screen U Benzodiazepines Scrn Urine Cocaine Screen U Marijuana (THC) Screen Acetone, Qual COVID-19 (ISHA) COVID-19 Clin Com H. pylori Source H. pylori Cult Result 12/07/21 12/07/21 12/07/21 12:07 12:07 12:11 WBC RBC Hgb Hct MCV MCH MCHC RDW Plt Count MPV Immature Gran % (Auto) Neut % (Auto) Lymph % (Auto) [place] % (Auto) Eos % (Auto) Baso % (Auto) Lymph # (Auto) [place] # (Auto) Eos # (Auto) Baso # (Auto) Abs Immat Gran (auto) Absolute Neuts (auto) Absolute Nucleated RBC Nucleated RBC % (auto) O2 Saturation Cancelled ABG pH at Pt Temp Cancelled ABG pH (Temp Correct) Cancelled ABG pCO2 at Pt Temp Cancelled ABG pCO2 (Temp Corrct Cancelled ABG pO2 at Pt Temp Cancelled ABG pO2 (Temp Correct Cancelled ABG HCO3 Cancelled ABG Base Excess (Actual) Cancelled VBG pH 7.34 VBG pCO2 19 VBG pO2 199 VBG HCO3 10 L VBG O2 Saturation 100.0 VBG Base Excess -12.6 Sodium 137 Potassium 4.6 D Chloride 110 H Carbon Dioxide 10 L* Anion Gap 22 H BUN 14 Creatinine 0.90 Estim Creat Clear Calc 61.2 Estimated GFR > 60 POC Glucose Random Glucose 375 H* Fasting Glucose Lactic Acid Calcium 8.1 L Phosphorus Magnesium Total Bilirubin Direct Bilirubin AST ALT Alkaline Phosphatase Total Protein Albumin Amylase Lipase Beta HCG, Quant Urine Color Urine Appearance Urine pH Ur Specific [place] Urine Protein Urine Glucose (UA) Urine Ketones Urine Blood Urine Nitrite Ur Leukocyte Esterase Urine RBC Urine WBC Ur Squamous Epith Cells Urine Bacteria Hyaline Casts Salicylates Urine Opiates Screen Urine Fentanyl Screen Acetaminophen Ur Barbiturates Screen Ur Phencyclidine Scrn Ur Amphetamines Screen U Benzodiazepines Scrn Urine Cocaine Screen U Marijuana (THC) Screen Acetone, Qual COVID-19 (ISHA) COVID-19 Clin Com H. pylori Source H. pylori Cult Result 12/07/21 12/07/21 12/07/21 12:43 13:19 14:12 WBC RBC Hgb Hct MCV MCH MCHC RDW Plt Count MPV Immature Gran % (Auto) Neut % (Auto) Lymph % (Auto) [place] % (Auto) Eos % (Auto) Baso % (Auto) Lymph # (Auto) [place] # (Auto) Eos # (Auto) Baso # (Auto) Abs Immat Gran (auto) Absolute Neuts (auto) Absolute Nucleated RBC Nucleated RBC % (auto) O2 Saturation ABG pH at Pt Temp ABG pH (Temp Correct) ABG pCO2 at Pt Temp ABG pCO2 (Temp Corrct ABG pO2 at Pt Temp ABG pO2 (Temp Correct ABG HCO3 ABG Base Excess (Actual) VBG pH VBG pCO2 VBG pO2 VBG HCO3 VBG O2 Saturation VBG Base Excess Sodium Potassium Chloride Carbon Dioxide Anion Gap BUN Creatinine Estim Creat Clear Calc Estimated GFR POC Glucose 264 H 200 H Random Glucose Fasting Glucose Lactic Acid 1.2 Calcium Phosphorus Magnesium Total Bilirubin Direct Bilirubin AST ALT Alkaline Phosphatase Total Protein Albumin Amylase Lipase Beta HCG, Quant Urine Color Urine Appearance Urine pH Ur Specific [place] Urine Protein Urine Glucose (UA) Urine Ketones Urine Blood Urine Nitrite Ur Leukocyte Esterase Urine RBC Urine WBC Ur Squamous Epith Cells Urine Bacteria Hyaline Casts Salicylates Urine Opiates Screen Urine Fentanyl Screen Acetaminophen Ur Barbiturates Screen Ur Phencyclidine Scrn Ur Amphetamines Screen U Benzodiazepines Scrn Urine Cocaine Screen U Marijuana (THC) Screen Acetone, Qual COVID-19 (ISHA) COVID-19 Clin Com H. pylori Source H. pylori Cult Result 12/07/21 12/07/21 12/07/21 15:37 16:12 16:17 WBC RBC Hgb Hct MCV MCH MCHC RDW Plt Count MPV Immature Gran % (Auto) Neut % (Auto) Lymph % (Auto) [place] % (Auto) Eos % (Auto) Baso % (Auto) Lymph # (Auto) [place] # (Auto) Eos # (Auto) Baso # (Auto) Abs Immat Gran (auto) Absolute Neuts (auto) Absolute Nucleated RBC Nucleated RBC % (auto) O2 Saturation ABG pH at Pt Temp ABG pH (Temp Correct) ABG pCO2 at Pt Temp ABG pCO2 (Temp Corrct ABG pO2 at Pt Temp ABG pO2 (Temp Correct ABG HCO3 ABG Base Excess (Actual) VBG pH 7.37 VBG pCO2 21 VBG pO2 139 VBG HCO3 12 L VBG O2 Saturation 100.0 VBG Base Excess -10.6 Sodium 137 Potassium 3.6 D Chloride 110 H Carbon Dioxide 13 L Anion Gap 18 BUN 14 Creatinine 0.83 Estim Creat Clear Calc 66.4 Estimated GFR > 60 POC Glucose 219 H Random Glucose 210 H Fasting Glucose Lactic Acid Calcium 8.0 L Phosphorus Magnesium Total Bilirubin Direct Bilirubin AST ALT Alkaline Phosphatase Total Protein Albumin Amylase Lipase Beta HCG, Quant Urine Color Urine Appearance Urine pH Ur Specific [place] Urine Protein Urine Glucose (UA) Urine Ketones Urine Blood Urine Nitrite Ur Leukocyte Esterase Urine RBC Urine WBC Ur Squamous Epith Cells Urine Bacteria Hyaline Casts Salicylates Urine Opiates Screen Urine Fentanyl Screen Acetaminophen Ur Barbiturates Screen Ur Phencyclidine Scrn Ur Amphetamines Screen U Benzodiazepines Scrn Urine Cocaine Screen U Marijuana (THC) Screen Acetone, Qual COVID-19 (ISHA) COVID-19 Clin Com H. pylori Source H. pylori Cult Result 12/07/21 12/07/21 12/07/21 16:32 17:42 18:33 WBC RBC Hgb Hct MCV MCH MCHC RDW Plt Count MPV Immature Gran % (Auto) Neut % (Auto) Lymph % (Auto) [place] % (Auto) Eos % (Auto) Baso % (Auto) Lymph # (Auto) [place] # (Auto) Eos # (Auto) Baso # (Auto) Abs Immat Gran (auto) Absolute Neuts (auto) Absolute Nucleated RBC Nucleated RBC % (auto) O2 Saturation ABG pH at Pt Temp ABG pH (Temp Correct) ABG pCO2 at Pt Temp ABG pCO2 (Temp Corrct ABG pO2 at Pt Temp ABG pO2 (Temp Correct ABG HCO3 ABG Base Excess (Actual) VBG pH VBG pCO2 VBG pO2 VBG HCO3 VBG O2 Saturation VBG Base Excess Sodium Potassium Chloride Carbon Dioxide Anion Gap BUN Creatinine Estim Creat Clear Calc Estimated GFR POC Glucose 177 H 118 H 108 Random Glucose Fasting Glucose Lactic Acid Calcium Phosphorus Magnesium Total Bilirubin Direct Bilirubin AST ALT Alkaline Phosphatase Total Protein Albumin Amylase Lipase Beta HCG, Quant Urine Color Urine Appearance Urine pH Ur Specific [place] Urine Protein Urine Glucose (UA) Urine Ketones Urine Blood Urine Nitrite Ur Leukocyte Esterase Urine RBC Urine WBC Ur Squamous Epith Cells Urine Bacteria Hyaline Casts Salicylates Urine Opiates Screen Urine Fentanyl Screen Acetaminophen Ur Barbiturates Screen Ur Phencyclidine Scrn Ur Amphetamines Screen U Benzodiazepines Scrn Urine Cocaine Screen U Marijuana (THC) Screen Acetone, Qual COVID-19 (ISHA) COVID-19 Clin Com H. pylori Source H. pylori Cult Result 12/07/21 12/07/21 12/07/21 19:14 19:14 19:21 WBC RBC Hgb Hct MCV MCH MCHC RDW Plt Count MPV Immature Gran % (Auto) Neut % (Auto) Lymph % (Auto) [place] % (Auto) Eos % (Auto) Baso % (Auto) Lymph # (Auto) [place] # (Auto) Eos # (Auto) Baso # (Auto) Abs Immat Gran (auto) Absolute Neuts (auto) Absolute Nucleated RBC Nucleated RBC % (auto) O2 Saturation ABG pH at Pt Temp ABG pH (Temp Correct) ABG pCO2 at Pt Temp ABG pCO2 (Temp Corrct ABG pO2 at Pt Temp ABG pO2 (Temp Correct ABG HCO3 ABG Base Excess (Actual) VBG pH Cancelled 7.39 VBG pCO2 Cancelled 30 VBG pO2 Cancelled 46 VBG HCO3 Cancelled 18 L VBG O2 Saturation Cancelled 80.0 VBG Base Excess Cancelled -4.8 Sodium 137 Potassium 3.8 Chloride 110 H Carbon Dioxide 17 L Anion Gap 14 BUN 13 Creatinine 0.83 Estim Creat Clear Calc 66.4 Estimated GFR > 60 POC Glucose Random Glucose 121 H Fasting Glucose Lactic Acid Calcium 8.3 L Phosphorus 1.8 L Magnesium Total Bilirubin Direct Bilirubin AST ALT Alkaline Phosphatase Total Protein Albumin Amylase Lipase Beta HCG, Quant Urine Color Urine Appearance Urine pH Ur Specific [place] Urine Protein Urine Glucose (UA) Urine Ketones Urine Blood Urine Nitrite Ur Leukocyte Esterase Urine RBC Urine WBC Ur Squamous Epith Cells Urine Bacteria Hyaline Casts Salicylates Urine Opiates Screen Urine Fentanyl Screen Acetaminophen Ur Barbiturates Screen Ur Phencyclidine Scrn Ur Amphetamines Screen U Benzodiazepines Scrn Urine Cocaine Screen U Marijuana (THC) Screen Acetone, Qual COVID-19 (ISHA) COVID-19 Clin Com H. pylori Source H. pylori Cult Result 12/07/21 12/07/21 12/07/21 20:03 21:30 22:32 WBC RBC Hgb Hct MCV MCH MCHC RDW Plt Count MPV Immature Gran % (Auto) Neut % (Auto) Lymph % (Auto) [place] % (Auto) Eos % (Auto) Baso % (Auto) Lymph # (Auto) [place] # (Auto) Eos # (Auto) Baso # (Auto) Abs Immat Gran (auto) Absolute Neuts (auto) Absolute Nucleated RBC Nucleated RBC % (auto) O2 Saturation ABG pH at Pt Temp ABG pH (Temp Correct) ABG pCO2 at Pt Temp ABG pCO2 (Temp Corrct ABG pO2 at Pt Temp ABG pO2 (Temp Correct ABG HCO3 ABG Base Excess (Actual) VBG pH VBG pCO2 VBG pO2 VBG HCO3 VBG O2 Saturation VBG Base Excess Sodium Potassium Chloride Carbon Dioxide Anion Gap BUN Creatinine Estim Creat Clear Calc Estimated GFR POC Glucose 187 H 142 H 121 H Random Glucose Fasting Glucose Lactic Acid Calcium Phosphorus Magnesium Total Bilirubin Direct Bilirubin AST ALT Alkaline Phosphatase Total Protein Albumin Amylase Lipase Beta HCG, Quant Urine Color Urine Appearance Urine pH Ur Specific [place] Urine Protein Urine Glucose (UA) Urine Ketones Urine Blood Urine Nitrite Ur Leukocyte Esterase Urine RBC Urine WBC Ur Squamous Epith Cells Urine Bacteria Hyaline Casts Salicylates Urine Opiates Screen Urine Fentanyl Screen Acetaminophen Ur Barbiturates Screen Ur Phencyclidine Scrn Ur Amphetamines Screen U Benzodiazepines Scrn Urine Cocaine Screen U Marijuana (THC) Screen Acetone, Qual COVID-19 (ISHA) COVID-19 Clin Com H. pylori Source H. pylori Cult Result 12/08/21 12/08/21 12/08/21 00:15 00:18 00:59 WBC RBC Hgb Hct MCV MCH MCHC RDW Plt Count MPV Immature Gran % (Auto) Neut % (Auto) Lymph % (Auto) [place] % (Auto) Eos % (Auto) Baso % (Auto) Lymph # (Auto) [place] # (Auto) Eos # (Auto) Baso # (Auto) Abs Immat Gran (auto) Absolute Neuts (auto) Absolute Nucleated RBC Nucleated RBC % (auto) O2 Saturation ABG pH at Pt Temp ABG pH (Temp Correct) ABG pCO2 at Pt Temp ABG pCO2 (Temp Corrct ABG pO2 at Pt Temp ABG pO2 (Temp Correct ABG HCO3 ABG Base Excess (Actual) VBG pH 7.42 VBG pCO2 29 VBG pO2 44 VBG HCO3 19 L VBG O2 Saturation 79.0 VBG Base Excess -3.9 Sodium 137 Potassium 3.5 Chloride 111 H Carbon Dioxide 21 L Anion Gap 9 L BUN 13 Creatinine 0.82 Estim Creat Clear Calc 67.2 Estimated GFR > 60 POC Glucose 85 Random Glucose 97 Fasting Glucose Lactic Acid Calcium 7.9 L Phosphorus 1.4 L Magnesium 1.7 Total Bilirubin 0.5 Direct Bilirubin AST 14 D ALT 11 Alkaline Phosphatase 51 D Total Protein 4.5 L D Albumin 2.8 L D Amylase Lipase Beta HCG, Quant Urine Color Urine Appearance Urine pH Ur Specific [place] Urine Protein Urine Glucose (UA) Urine Ketones Urine Blood Urine Nitrite Ur Leukocyte Esterase Urine RBC Urine WBC Ur Squamous Epith Cells Urine Bacteria Hyaline Casts Salicylates Urine Opiates Screen Urine Fentanyl Screen Acetaminophen Ur Barbiturates Screen Ur Phencyclidine Scrn Ur Amphetamines Screen U Benzodiazepines Scrn Urine Cocaine Screen U Marijuana (THC) Screen Acetone, Qual COVID-19 (ISHA) COVID-19 Clin Com H. pylori Source H. pylori Cult Result 12/08/21 12/08/21 12/08/21 02:08 03:03 03:59 WBC RBC Hgb Hct MCV MCH MCHC RDW Plt Count MPV Immature Gran % (Auto) Neut % (Auto) Lymph % (Auto) [place] % (Auto) Eos % (Auto) Baso % (Auto) Lymph # (Auto) [place] # (Auto) Eos # (Auto) Baso # (Auto) Abs Immat Gran (auto) Absolute Neuts (auto) Absolute Nucleated RBC Nucleated RBC % (auto) O2 Saturation ABG pH at Pt Temp ABG pH (Temp Correct) ABG pCO2 at Pt Temp ABG pCO2 (Temp Corrct ABG pO2 at Pt Temp ABG pO2 (Temp Correct ABG HCO3 ABG Base Excess (Actual) VBG pH VBG pCO2 VBG pO2 VBG HCO3 VBG O2 Saturation VBG Base Excess Sodium Potassium Chloride Carbon Dioxide Anion Gap BUN Creatinine Estim Creat Clear Calc Estimated GFR POC Glucose 73 81 84 Random Glucose Fasting Glucose Lactic Acid Calcium Phosphorus Magnesium Total Bilirubin Direct Bilirubin AST ALT Alkaline Phosphatase Total Protein Albumin Amylase Lipase Beta HCG, Quant Urine Color Urine Appearance Urine pH Ur Specific [place] Urine Protein Urine Glucose (UA) Urine Ketones Urine Blood Urine Nitrite Ur Leukocyte Esterase Urine RBC Urine WBC Ur Squamous Epith Cells Urine Bacteria Hyaline Casts Salicylates Urine Opiates Screen Urine Fentanyl Screen Acetaminophen Ur Barbiturates Screen Ur Phencyclidine Scrn Ur Amphetamines Screen U Benzodiazepines Scrn Urine Cocaine Screen U Marijuana (THC) Screen Acetone, Qual COVID-19 (ISHA) COVID-19 Clin Com H. pylori Source H. pylori Cult Result 12/08/21 12/08/21 12/08/21 05:04 05:11 05:11 WBC 10.8 RBC 2.79 L D Hgb 9.0 L D Hct 26.1 L D MCV 93.5 MCH 32.3 MCHC 34.5 RDW 12.4 Plt Count 122 L D MPV 10.6 Immature Gran % (Auto) 0.4 Neut % (Auto) 65.1 Lymph % (Auto) 26.9 [place] % (Auto) 7.1 Eos % (Auto) 0.2 Baso % (Auto) 0.3 Lymph # (Auto) 2.9 [place] # (Auto) 0.8 Eos # (Auto) 0.0 Baso # (Auto) 0.0 Abs Immat Gran (auto) 0.04 H Absolute Neuts (auto) 7.0 Absolute Nucleated RBC 0.000 Nucleated RBC % (auto) 0.0 O2 Saturation ABG pH at Pt Temp ABG pH (Temp Correct) ABG pCO2 at Pt Temp ABG pCO2 (Temp Corrct ABG pO2 at Pt Temp ABG pO2 (Temp Correct ABG HCO3 ABG Base Excess (Actual) VBG pH VBG pCO2 VBG pO2 VBG HCO3 VBG O2 Saturation VBG Base Excess Sodium 138 Potassium 4.1 Chloride 110 H Carbon Dioxide 18 L Anion Gap 14 BUN 12 Creatinine 0.82 Estim Creat Clear Calc 70.7 Estimated GFR > 60 POC Glucose 172 H Random Glucose 190 H Fasting Glucose Lactic Acid Calcium 8.1 L Phosphorus 1.7 L Magnesium 1.8 Total Bilirubin 0.7 Direct Bilirubin AST 12 ALT 9 Alkaline Phosphatase 45 Total Protein 5.0 L Albumin 3.5 D Amylase Lipase Beta HCG, Quant Urine Color Urine Appearance Urine pH Ur Specific [place] Urine Protein Urine Glucose (UA) Urine Ketones Urine Blood Urine Nitrite Ur Leukocyte Esterase Urine RBC Urine WBC Ur Squamous Epith Cells Urine Bacteria Hyaline Casts Salicylates Urine Opiates Screen Urine Fentanyl Screen Acetaminophen Ur Barbiturates Screen Ur Phencyclidine Scrn Ur Amphetamines Screen U Benzodiazepines Scrn Urine Cocaine Screen U Marijuana (THC) Screen Acetone, Qual COVID-19 (ISHA) COVID-19 Clin Com H. pylori Source H. pylori Cult Result 12/08/21 12/08/21 12/08/21 05:16 05:58 06:58 WBC RBC Hgb Hct MCV MCH MCHC RDW Plt Count MPV Immature Gran % (Auto) Neut % (Auto) Lymph % (Auto) [place] % (Auto) Eos % (Auto) Baso % (Auto) Lymph # (Auto) [place] # (Auto) Eos # (Auto) Baso # (Auto) Abs Immat Gran (auto) Absolute Neuts (auto) Absolute Nucleated RBC Nucleated RBC % (auto) O2 Saturation ABG pH at Pt Temp ABG pH (Temp Correct) ABG pCO2 at Pt Temp ABG pCO2 (Temp Corrct ABG pO2 at Pt Temp ABG pO2 (Temp Correct ABG HCO3 ABG Base Excess (Actual) VBG pH 7.42 VBG pCO2 22 VBG pO2 81 VBG HCO3 15 L VBG O2 Saturation 99.0 VBG Base Excess -7.7 Sodium Potassium Chloride Carbon Dioxide Anion Gap BUN Creatinine Estim Creat Clear Calc Estimated GFR POC Glucose 176 H 167 H Random Glucose Fasting Glucose Lactic Acid Calcium Phosphorus Magnesium Total Bilirubin Direct Bilirubin AST ALT Alkaline Phosphatase Total Protein Albumin Amylase Lipase Beta HCG, Quant Urine Color Urine Appearance Urine pH Ur Specific [place] Urine Protein Urine Glucose (UA) Urine Ketones Urine Blood Urine Nitrite Ur Leukocyte Esterase Urine RBC Urine WBC Ur Squamous Epith Cells Urine Bacteria Hyaline Casts Salicylates Urine Opiates Screen Urine Fentanyl Screen Acetaminophen Ur Barbiturates Screen Ur Phencyclidine Scrn Ur Amphetamines Screen U Benzodiazepines Scrn Urine Cocaine Screen U Marijuana (THC) Screen Acetone, Qual COVID-19 (ISHA) COVID-19 Clin Com H. pylori Source H. pylori Cult Result 12/08/21 12/08/21 12/08/21 07:55 09:12 10:03 WBC RBC Hgb Hct MCV MCH MCHC RDW Plt Count MPV Immature Gran % (Auto) Neut % (Auto) Lymph % (Auto) [place] % (Auto) Eos % (Auto) Baso % (Auto) Lymph # (Auto) [place] # (Auto) Eos # (Auto) Baso # (Auto) Abs Immat Gran (auto) Absolute Neuts (auto) Absolute Nucleated RBC Nucleated RBC % (auto) O2 Saturation ABG pH at Pt Temp ABG pH (Temp Correct) ABG pCO2 at Pt Temp ABG pCO2 (Temp Corrct ABG pO2 at Pt Temp ABG pO2 (Temp Correct ABG HCO3 ABG Base Excess (Actual) VBG pH VBG pCO2 VBG pO2 VBG HCO3 VBG O2 Saturation VBG Base Excess Sodium Potassium Chloride Carbon Dioxide Anion Gap BUN Creatinine Estim Creat Clear Calc Estimated GFR POC Glucose 137 H 89 94 Random Glucose Fasting Glucose Lactic Acid Calcium Phosphorus Magnesium Total Bilirubin Direct Bilirubin AST ALT Alkaline Phosphatase Total Protein Albumin Amylase Lipase Beta HCG, Quant Urine Color Urine Appearance Urine pH Ur Specific [place] Urine Protein Urine Glucose (UA) Urine Ketones Urine Blood Urine Nitrite Ur Leukocyte Esterase Urine RBC Urine WBC Ur Squamous Epith Cells Urine Bacteria Hyaline Casts Salicylates Urine Opiates Screen Urine Fentanyl Screen Acetaminophen Ur Barbiturates Screen Ur Phencyclidine Scrn Ur Amphetamines Screen U Benzodiazepines Scrn Urine Cocaine Screen U Marijuana (THC) Screen Acetone, Qual COVID-19 (ISHA) COVID-19 Clin Com H. pylori Source H. pylori Cult Result 12/08/21 12/08/21 12/08/21 11:18 11:21 11:34 WBC RBC Hgb Hct MCV MCH MCHC RDW Plt Count MPV Immature Gran % (Auto) Neut % (Auto) Lymph % (Auto) [place] % (Auto) Eos % (Auto) Baso % (Auto) Lymph # (Auto) [place] # (Auto) Eos # (Auto) Baso # (Auto) Abs Immat Gran (auto) Absolute Neuts (auto) Absolute Nucleated RBC Nucleated RBC % (auto) O2 Saturation ABG pH at Pt Temp ABG pH (Temp Correct) ABG pCO2 at Pt Temp ABG pCO2 (Temp Corrct ABG pO2 at Pt Temp ABG pO2 (Temp Correct ABG HCO3 ABG Base Excess (Actual) VBG pH 7.45 H VBG pCO2 23 VBG pO2 80 VBG HCO3 16 L VBG O2 Saturation 99.0 VBG Base Excess -5.9 Sodium 137 Potassium 4.4 Chloride 109 H Carbon Dioxide 18 L Anion Gap 14 BUN 12 Creatinine 0.74 Estim Creat Clear Calc 78.4 Estimated GFR > 60 POC Glucose 249 H Random Glucose 203 H Fasting Glucose Lactic Acid Calcium 8.1 L Phosphorus Magnesium Total Bilirubin Direct Bilirubin AST ALT Alkaline Phosphatase Total Protein Albumin Amylase Lipase Beta HCG, Quant Urine Color Urine Appearance Urine pH Ur Specific [place] Urine Protein Urine Glucose (UA) Urine Ketones Urine Blood Urine Nitrite Ur Leukocyte Esterase Urine RBC Urine WBC Ur Squamous Epith Cells Urine Bacteria Hyaline Casts Salicylates Urine Opiates Screen Urine Fentanyl Screen Acetaminophen Ur Barbiturates Screen Ur Phencyclidine Scrn Ur Amphetamines Screen U Benzodiazepines Scrn Urine Cocaine Screen U Marijuana (THC) Screen Acetone, Qual COVID-19 (ISHA) COVID-19 Clin Com H. pylori Source H. pylori Cult Result 12/08/21 12/08/21 12/08/21 12:39 13:28 13:40 WBC RBC Hgb Hct MCV MCH MCHC RDW Plt Count MPV Immature Gran % (Auto) Neut % (Auto) Lymph % (Auto) [place] % (Auto) Eos % (Auto) Baso % (Auto) Lymph # (Auto) [place] # (Auto) Eos # (Auto) Baso # (Auto) Abs Immat Gran (auto) Absolute Neuts (auto) Absolute Nucleated RBC Nucleated RBC % (auto) O2 Saturation ABG pH at Pt Temp ABG pH (Temp Correct) ABG pCO2 at Pt Temp ABG pCO2 (Temp Corrct ABG pO2 at Pt Temp ABG pO2 (Temp Correct ABG HCO3 ABG Base Excess (Actual) VBG pH VBG pCO2 VBG pO2 VBG HCO3 VBG O2 Saturation VBG Base Excess Sodium 135 Potassium 4.0 Chloride 106 Carbon Dioxide 17 L Anion Gap 16 BUN 11 Creatinine 0.77 Estim Creat Clear Calc 75.3 Estimated GFR > 60 POC Glucose 313 H 293 H Random Glucose 322 H Fasting Glucose Lactic Acid Calcium 7.9 L Phosphorus Magnesium Total Bilirubin Direct Bilirubin AST ALT Alkaline Phosphatase Total Protein Albumin Amylase Lipase Beta HCG, Quant Urine Color Urine Appearance Urine pH Ur Specific [place] Urine Protein Urine Glucose (UA) Urine Ketones Urine Blood Urine Nitrite Ur Leukocyte Esterase Urine RBC Urine WBC Ur Squamous Epith Cells Urine Bacteria Hyaline Casts Salicylates Urine Opiates Screen Urine Fentanyl Screen Acetaminophen Ur Barbiturates Screen Ur Phencyclidine Scrn Ur Amphetamines Screen U Benzodiazepines Scrn Urine Cocaine Screen U Marijuana (THC) Screen Acetone, Qual COVID-19 (ISHA) COVID-19 Clin Com H. pylori Source H. pylori Cult Result 12/08/21 12/08/21 12/08/21 14:33 14:40 15:47 WBC RBC Hgb Hct MCV MCH MCHC RDW Plt Count MPV Immature Gran % (Auto) Neut % (Auto) Lymph % (Auto) [place] % (Auto) Eos % (Auto) Baso % (Auto) Lymph # (Auto) [place] # (Auto) Eos # (Auto) Baso # (Auto) Abs Immat Gran (auto) Absolute Neuts (auto) Absolute Nucleated RBC Nucleated RBC % (auto) O2 Saturation ABG pH at Pt Temp ABG pH (Temp Correct) ABG pCO2 at Pt Temp ABG pCO2 (Temp Corrct ABG pO2 at Pt Temp ABG pO2 (Temp Correct ABG HCO3 ABG Base Excess (Actual) VBG pH VBG pCO2 VBG pO2 VBG HCO3 VBG O2 Saturation VBG Base Excess Sodium Potassium Chloride Carbon Dioxide Anion Gap BUN Creatinine Estim Creat Clear Calc Estimated GFR POC Glucose 239 H 188 H Random Glucose Fasting Glucose Lactic Acid Calcium Phosphorus Magnesium Total Bilirubin Direct Bilirubin AST ALT Alkaline Phosphatase Total Protein Albumin Amylase Lipase Beta HCG, Quant Urine Color Urine Appearance Urine pH Ur Specific [place] Urine Protein Urine Glucose (UA) Urine Ketones Urine Blood Urine Nitrite Ur Leukocyte Esterase Urine RBC Urine WBC Ur Squamous Epith Cells Urine Bacteria Hyaline Casts Salicylates Urine Opiates Screen Urine Fentanyl Screen Acetaminophen Ur Barbiturates Screen Ur Phencyclidine Scrn Ur Amphetamines Screen U Benzodiazepines Scrn Urine Cocaine Screen U Marijuana (THC) Screen Acetone, Qual COVID-19 (ISHA) COVID-19 Clin Com H. pylori Source Cancelled H. pylori Cult Result Cancelled 12/08/21 12/08/21 12/08/21 16:43 17:44 18:47 WBC RBC Hgb Hct MCV MCH MCHC RDW Plt Count MPV Immature Gran % (Auto) Neut % (Auto) Lymph % (Auto) [place] % (Auto) Eos % (Auto) Baso % (Auto) Lymph # (Auto) [place] # (Auto) Eos # (Auto) Baso # (Auto) Abs Immat Gran (auto) Absolute Neuts (auto) Absolute Nucleated RBC Nucleated RBC % (auto) O2 Saturation ABG pH at Pt Temp ABG pH (Temp Correct) ABG pCO2 at Pt Temp ABG pCO2 (Temp Corrct ABG pO2 at Pt Temp ABG pO2 (Temp Correct ABG HCO3 ABG Base Excess (Actual) VBG pH VBG pCO2 VBG pO2 VBG HCO3 VBG O2 Saturation VBG Base Excess Sodium Potassium Chloride Carbon Dioxide Anion Gap BUN Creatinine Estim Creat Clear Calc Estimated GFR POC Glucose 152 H 125 H 108 Random Glucose Fasting Glucose Lactic Acid Calcium Phosphorus Magnesium Total Bilirubin Direct Bilirubin AST ALT Alkaline Phosphatase Total Protein Albumin Amylase Lipase Beta HCG, Quant Urine Color Urine Appearance Urine pH Ur Specific [place] Urine Protein Urine Glucose (UA) Urine Ketones Urine Blood Urine Nitrite Ur Leukocyte Esterase Urine RBC Urine WBC Ur Squamous Epith Cells Urine Bacteria Hyaline Casts Salicylates Urine Opiates Screen Urine Fentanyl Screen Acetaminophen Ur Barbiturates Screen Ur Phencyclidine Scrn Ur Amphetamines Screen U Benzodiazepines Scrn Urine Cocaine Screen U Marijuana (THC) Screen Acetone, Qual COVID-19 (ISHA) COVID-19 Clin Com H. pylori Source H. pylori Cult Result 12/08/21 12/08/21 12/08/21 19:58 21:06 21:30 WBC RBC Hgb Hct MCV MCH MCHC RDW Plt Count MPV Immature Gran % (Auto) Neut % (Auto) Lymph % (Auto) [place] % (Auto) Eos % (Auto) Baso % (Auto) Lymph # (Auto) [place] # (Auto) Eos # (Auto) Baso # (Auto) Abs Immat Gran (auto) Absolute Neuts (auto) Absolute Nucleated RBC Nucleated RBC % (auto) O2 Saturation ABG pH at Pt Temp ABG pH (Temp Correct) ABG pCO2 at Pt Temp ABG pCO2 (Temp Corrct ABG pO2 at Pt Temp ABG pO2 (Temp Correct ABG HCO3 ABG Base Excess (Actual) VBG pH VBG pCO2 VBG pO2 VBG HCO3 VBG O2 Saturation VBG Base Excess Sodium 139 Potassium 4.0 Chloride 105 Carbon Dioxide 23 Anion Gap 15 BUN 11 Creatinine 0.72 Estim Creat Clear Calc 80.5 Estimated GFR > 60 POC Glucose 105 113 Random Glucose 125 H Fasting Glucose Lactic Acid Calcium 8.3 L Phosphorus Magnesium Total Bilirubin 0.8 Direct Bilirubin AST 25 D ALT 18 Alkaline Phosphatase 56 D Total Protein 5.7 L Albumin 3.8 Amylase Lipase Beta HCG, Quant Urine Color Urine Appearance Urine pH Ur Specific [place] Urine Protein Urine Glucose (UA) Urine Ketones Urine Blood Urine Nitrite Ur Leukocyte Esterase Urine RBC Urine WBC Ur Squamous Epith Cells Urine Bacteria Hyaline Casts Salicylates Urine Opiates Screen Urine Fentanyl Screen Acetaminophen Ur Barbiturates Screen Ur Phencyclidine Scrn Ur Amphetamines Screen U Benzodiazepines Scrn Urine Cocaine Screen U Marijuana (THC) Screen Acetone, Qual COVID-19 (ISHA) COVID-19 Clin Com H. pylori Source H. pylori Cult Result 12/08/21 12/08/21 12/09/21 21:35 21:58 00:59 WBC RBC Hgb Hct MCV MCH MCHC RDW Plt Count MPV Immature Gran % (Auto) Neut % (Auto) Lymph % (Auto) [place] % (Auto) Eos % (Auto) Baso % (Auto) Lymph # (Auto) [place] # (Auto) Eos # (Auto) Baso # (Auto) Abs Immat Gran (auto) Absolute Neuts (auto) Absolute Nucleated RBC Nucleated RBC % (auto) O2 Saturation ABG pH at Pt Temp ABG pH (Temp Correct) ABG pCO2 at Pt Temp ABG pCO2 (Temp Corrct ABG pO2 at Pt Temp ABG pO2 (Temp Correct ABG HCO3 ABG Base Excess (Actual) VBG pH 7.41 VBG pCO2 31 VBG pO2 37 VBG HCO3 20 L VBG O2 Saturation 64.0 VBG Base Excess -3.1 Sodium Potassium Chloride Carbon Dioxide Anion Gap BUN Creatinine Estim Creat Clear Calc Estimated GFR POC Glucose 130 H 110 Random Glucose Fasting Glucose Lactic Acid Calcium Phosphorus Magnesium Total Bilirubin Direct Bilirubin AST ALT Alkaline Phosphatase Total Protein Albumin Amylase Lipase Beta HCG, Quant Urine Color Urine Appearance Urine pH Ur Specific [place] Urine Protein Urine Glucose (UA) Urine Ketones Urine Blood Urine Nitrite Ur Leukocyte Esterase Urine RBC Urine WBC Ur Squamous Epith Cells Urine Bacteria Hyaline Casts Salicylates Urine Opiates Screen Urine Fentanyl Screen Acetaminophen Ur Barbiturates Screen Ur Phencyclidine Scrn Ur Amphetamines Screen U Benzodiazepines Scrn Urine Cocaine Screen U Marijuana (THC) Screen Acetone, Qual COVID-19 (ISHA) COVID-19 Clin Com H. pylori Source H. pylori Cult Result 12/09/21 12/09/21 12/09/21 05:27 05:27 05:42 WBC 9.8 RBC 2.96 L Hgb 9.5 L Hct 27.2 L MCV 91.9 MCH 32.1 MCHC 34.9 RDW 12.2 Plt Count 102 L MPV 10.7 Immature Gran % (Auto) 0.4 Neut % (Auto) 64.9 Lymph % (Auto) 26.6 [place] % (Auto) 7.9 Eos % (Auto) 0.0 Baso % (Auto) 0.2 Lymph # (Auto) 2.6 [place] # (Auto) 0.8 Eos # (Auto) 0.0 Baso # (Auto) 0.0 Abs Immat Gran (auto) 0.04 H Absolute Neuts (auto) 6.3 Absolute Nucleated RBC 0.000 Nucleated RBC % (auto) 0.0 O2 Saturation ABG pH at Pt Temp ABG pH (Temp Correct) ABG pCO2 at Pt Temp ABG pCO2 (Temp Corrct ABG pO2 at Pt Temp ABG pO2 (Temp Correct ABG HCO3 ABG Base Excess (Actual) VBG pH 7.52 H VBG pCO2 26 VBG pO2 122 VBG HCO3 21 L VBG O2 Saturation 99.0 VBG Base Excess 0.1 Sodium 137 Potassium 4.0 Chloride 106 Carbon Dioxide 23 Anion Gap 12 BUN 8 L Creatinine 0.68 Estim Creat Clear Calc 85.3 Estimated GFR > 60 POC Glucose Random Glucose 64 Fasting Glucose Lactic Acid Calcium 7.7 L D Phosphorus 3.3 Magnesium 1.5 L Total Bilirubin 0.6 Direct Bilirubin 0.2 AST 24 ALT 15 Alkaline Phosphatase 43 D Total Protein 4.8 L Albumin 3.0 L D Amylase Lipase Beta HCG, Quant Urine Color Urine Appearance Urine pH Ur Specific [place] Urine Protein Urine Glucose (UA) Urine Ketones Urine Blood Urine Nitrite Ur Leukocyte Esterase Urine RBC Urine WBC Ur Squamous Epith Cells Urine Bacteria Hyaline Casts Salicylates Urine Opiates Screen Urine Fentanyl Screen Acetaminophen Ur Barbiturates Screen Ur Phencyclidine Scrn Ur Amphetamines Screen U Benzodiazepines Scrn Urine Cocaine Screen U Marijuana (THC) Screen Acetone, Qual COVID-19 (ISHA) COVID-19 Clin Com H. pylori Source H. pylori Cult Result 12/09/21 12/09/21 12/09/21 07:13 07:37 07:50 WBC RBC Hgb Hct MCV MCH MCHC RDW Plt Count MPV Immature Gran % (Auto) Neut % (Auto) Lymph % (Auto) [place] % (Auto) Eos % (Auto) Baso % (Auto) Lymph # (Auto) [place] # (Auto) Eos # (Auto) Baso # (Auto) Abs Immat Gran (auto) Absolute Neuts (auto) Absolute Nucleated RBC Nucleated RBC % (auto) O2 Saturation ABG pH at Pt Temp ABG pH (Temp Correct) ABG pCO2 at Pt Temp ABG pCO2 (Temp Corrct ABG pO2 at Pt Temp ABG pO2 (Temp Correct ABG HCO3 ABG Base Excess (Actual) VBG pH VBG pCO2 VBG pO2 VBG HCO3 VBG O2 Saturation VBG Base Excess Sodium Potassium Chloride Carbon Dioxide Anion Gap BUN Creatinine Estim Creat Clear Calc Estimated GFR POC Glucose 43 L* 55 L* 72 Random Glucose Fasting Glucose Lactic Acid Calcium Phosphorus Magnesium Total Bilirubin Direct Bilirubin AST ALT Alkaline Phosphatase Total Protein Albumin Amylase Lipase Beta HCG, Quant Urine Color Urine Appearance Urine pH Ur Specific [place] Urine Protein Urine Glucose (UA) Urine Ketones Urine Blood Urine Nitrite Ur Leukocyte Esterase Urine RBC Urine WBC Ur Squamous Epith Cells Urine Bacteria Hyaline Casts Salicylates Urine Opiates Screen Urine Fentanyl Screen Acetaminophen Ur Barbiturates Screen Ur Phencyclidine Scrn Ur Amphetamines Screen U Benzodiazepines Scrn Urine Cocaine Screen U Marijuana (THC) Screen Acetone, Qual COVID-19 (ISHA) COVID-19 Clin Com H. pylori Source H. pylori Cult Result 12/09/21 12/09/21 12/09/21 08:09 08:42 10:52 WBC RBC Hgb Hct MCV MCH MCHC RDW Plt Count MPV Immature Gran % (Auto) Neut % (Auto) Lymph % (Auto) [place] % (Auto) Eos % (Auto) Baso % (Auto) Lymph # (Auto) [place] # (Auto) Eos # (Auto) Baso # (Auto) Abs Immat Gran (auto) Absolute Neuts (auto) Absolute Nucleated RBC Nucleated RBC % (auto) O2 Saturation ABG pH at Pt Temp ABG pH (Temp Correct) ABG pCO2 at Pt Temp ABG pCO2 (Temp Corrct ABG pO2 at Pt Temp ABG pO2 (Temp Correct ABG HCO3 ABG Base Excess (Actual) VBG pH VBG pCO2 VBG pO2 VBG HCO3 VBG O2 Saturation VBG Base Excess Sodium Potassium Chloride Carbon Dioxide Anion Gap BUN Creatinine Estim Creat Clear Calc Estimated GFR POC Glucose 117 H 109 102 Random Glucose Fasting Glucose Lactic Acid Calcium Phosphorus Magnesium Total Bilirubin Direct Bilirubin AST ALT Alkaline Phosphatase Total Protein Albumin Amylase Lipase Beta HCG, Quant Urine Color Urine Appearance Urine pH Ur Specific [place] Urine Protein Urine Glucose (UA) Urine Ketones Urine Blood Urine Nitrite Ur Leukocyte Esterase Urine RBC Urine WBC Ur Squamous Epith Cells Urine Bacteria Hyaline Casts Salicylates Urine Opiates Screen Urine Fentanyl Screen Acetaminophen Ur Barbiturates Screen Ur Phencyclidine Scrn Ur Amphetamines Screen U Benzodiazepines Scrn Urine Cocaine Screen U Marijuana (THC) Screen Acetone, Qual COVID-19 (ISHA) COVID-19 Clin Com H. pylori Source H. pylori Cult Result 12/09/21 12/09/21 12/09/21 15:05 16:34 18:27 WBC RBC Hgb Hct MCV MCH MCHC RDW Plt Count MPV Immature Gran % (Auto) Neut % (Auto) Lymph % (Auto) [place] % (Auto) Eos % (Auto) Baso % (Auto) Lymph # (Auto) [place] # (Auto) Eos # (Auto) Baso # (Auto) Abs Immat Gran (auto) Absolute Neuts (auto) Absolute Nucleated RBC Nucleated RBC % (auto) O2 Saturation ABG pH at Pt Temp ABG pH (Temp Correct) ABG pCO2 at Pt Temp ABG pCO2 (Temp Corrct ABG pO2 at Pt Temp ABG pO2 (Temp Correct ABG HCO3 ABG Base Excess (Actual) VBG pH VBG pCO2 VBG pO2 VBG HCO3 VBG O2 Saturation VBG Base Excess Sodium Potassium Chloride Carbon Dioxide Anion Gap BUN Creatinine Estim Creat Clear Calc Estimated GFR POC Glucose 72 104 85 Random Glucose Fasting Glucose Lactic Acid Calcium Phosphorus Magnesium Total Bilirubin Direct Bilirubin AST ALT Alkaline Phosphatase Total Protein Albumin Amylase Lipase Beta HCG, Quant Urine Color Urine Appearance Urine pH Ur Specific [place] Urine Protein Urine Glucose (UA) Urine Ketones Urine Blood Urine Nitrite Ur Leukocyte Esterase Urine RBC Urine WBC Ur Squamous Epith Cells Urine Bacteria Hyaline Casts Salicylates Urine Opiates Screen Urine Fentanyl Screen Acetaminophen Ur Barbiturates Screen Ur Phencyclidine Scrn Ur Amphetamines Screen U Benzodiazepines Scrn Urine Cocaine Screen U Marijuana (THC) Screen Acetone, Qual COVID-19 (ISHA) COVID-19 Clin Com H. pylori Source H. pylori Cult Result 12/09/21 12/10/21 12/10/21 20:47 05:49 05:49 WBC 6.5 RBC 3.06 L Hgb 10.0 L Hct 28.2 L MCV 92.2 MCH 32.7 MCHC 35.5 H RDW 12.1 Plt Count 103 L MPV 10.8 Immature Gran % (Auto) Neut % (Auto) Lymph % (Auto) [place] % (Auto) Eos % (Auto) Baso % (Auto) Lymph # (Auto) [place] # (Auto) Eos # (Auto) Baso # (Auto) Abs Immat Gran (auto) Absolute Neuts (auto) Absolute Nucleated RBC 0.000 Nucleated RBC % (auto) 0.0 O2 Saturation ABG pH at Pt Temp ABG pH (Temp Correct) ABG pCO2 at Pt Temp ABG pCO2 (Temp Corrct ABG pO2 at Pt Temp ABG pO2 (Temp Correct ABG HCO3 ABG Base Excess (Actual) VBG pH VBG pCO2 VBG pO2 VBG HCO3 VBG O2 Saturation VBG Base Excess Sodium 139 Potassium 3.4 Chloride 107 Carbon Dioxide 23 Anion Gap 12 BUN 9 Creatinine 0.66 Estim Creat Clear Calc 87.5 Estimated GFR > 60 POC Glucose 87 Random Glucose Fasting Glucose 62 Lactic Acid Calcium 7.8 L Phosphorus Magnesium Total Bilirubin Direct Bilirubin AST ALT Alkaline Phosphatase Total Protein Albumin Amylase Lipase Beta HCG, Quant Urine Color Urine Appearance Urine pH Ur Specific [place] Urine Protein Urine Glucose (UA) Urine Ketones Urine Blood Urine Nitrite Ur Leukocyte Esterase Urine RBC Urine WBC Ur Squamous Epith Cells Urine Bacteria Hyaline Casts Salicylates Urine Opiates Screen Urine Fentanyl Screen Acetaminophen Ur Barbiturates Screen Ur Phencyclidine Scrn Ur Amphetamines Screen U Benzodiazepines Scrn Urine Cocaine Screen U Marijuana (THC) Screen Acetone, Qual COVID-19 (ISHA) COVID-19 Clin Com H. pylori Source H. pylori Cult Result 12/10/21 12/10/21 12/10/21 06:54 11:14 15:51 WBC RBC Hgb Hct MCV MCH MCHC RDW Plt Count MPV Immature Gran % (Auto) Neut % (Auto) Lymph % (Auto) [place] % (Auto) Eos % (Auto) Baso % (Auto) Lymph # (Auto) [place] # (Auto) Eos # (Auto) Baso # (Auto) Abs Immat Gran (auto) Absolute Neuts (auto) Absolute Nucleated RBC Nucleated RBC % (auto) O2 Saturation ABG pH at Pt Temp ABG pH (Temp Correct) ABG pCO2 at Pt Temp ABG pCO2 (Temp Corrct ABG pO2 at Pt Temp ABG pO2 (Temp Correct ABG HCO3 ABG Base Excess (Actual) VBG pH VBG pCO2 VBG pO2 VBG HCO3 VBG O2 Saturation VBG Base Excess Sodium Potassium Chloride Carbon Dioxide Anion Gap BUN Creatinine Estim Creat Clear Calc Estimated GFR POC Glucose 67 130 H 233 H Random Glucose Fasting Glucose Lactic Acid Calcium Phosphorus Magnesium Total Bilirubin Direct Bilirubin AST ALT Alkaline Phosphatase Total Protein Albumin Amylase Lipase Beta HCG, Quant Urine Color Urine Appearance Urine pH Ur Specific [place] Urine Protein Urine Glucose (UA) Urine Ketones Urine Blood Urine Nitrite Ur Leukocyte Esterase Urine RBC Urine WBC Ur Squamous Epith Cells Urine Bacteria Hyaline Casts Salicylates Urine Opiates Screen Urine Fentanyl Screen Acetaminophen Ur Barbiturates Screen Ur Phencyclidine Scrn Ur Amphetamines Screen U Benzodiazepines Scrn Urine Cocaine Screen U Marijuana (THC) Screen Acetone, Qual COVID-19 (ISHA) COVID-19 Clin Com H. pylori Source H. pylori Cult Result 12/10/21 12/11/21 12/11/21 20:29 04:52 05:11 WBC 6.6 RBC 3.47 L Hgb 11.3 L Hct 31.3 L MCV 90.2 MCH 32.6 MCHC 36.1 H RDW 11.6 Plt Count 128 L MPV 11.1 Immature Gran % (Auto) Neut % (Auto) Lymph % (Auto) [place] % (Auto) Eos % (Auto) Baso % (Auto) Lymph # (Auto) [place] # (Auto) Eos # (Auto) Baso # (Auto) Abs Immat Gran (auto) Absolute Neuts (auto) Absolute Nucleated RBC 0.000 Nucleated RBC % (auto) 0.0 O2 Saturation ABG pH at Pt Temp ABG pH (Temp Correct) ABG pCO2 at Pt Temp ABG pCO2 (Temp Corrct ABG pO2 at Pt Temp ABG pO2 (Temp Correct ABG HCO3 ABG Base Excess (Actual) VBG pH VBG pCO2 VBG pO2 VBG HCO3 VBG O2 Saturation VBG Base Excess Sodium Potassium Chloride Carbon Dioxide Anion Gap BUN Creatinine Estim Creat Clear Calc Estimated GFR POC Glucose 125 H 96 Random Glucose Fasting Glucose Lactic Acid Calcium Phosphorus Magnesium Total Bilirubin Direct Bilirubin AST ALT Alkaline Phosphatase Total Protein Albumin Amylase Lipase Beta HCG, Quant Urine Color Urine Appearance Urine pH Ur Specific [place] Urine Protein Urine Glucose (UA) Urine Ketones Urine Blood Urine Nitrite Ur Leukocyte Esterase Urine RBC Urine WBC Ur Squamous Epith Cells Urine Bacteria Hyaline Casts Salicylates Urine Opiates Screen Urine Fentanyl Screen Acetaminophen Ur Barbiturates Screen Ur Phencyclidine Scrn Ur Amphetamines Screen U Benzodiazepines Scrn Urine Cocaine Screen U Marijuana (THC) Screen Acetone, Qual COVID-19 (ISHA) COVID-19 Clin Com H. pylori Source H. pylori Cult Result 12/11/21 12/11/21 12/11/21 05:11 06:44 10:56 WBC RBC Hgb Hct MCV MCH MCHC RDW Plt Count MPV Immature Gran % (Auto) Neut % (Auto) Lymph % (Auto) [place] % (Auto) Eos % (Auto) Baso % (Auto) Lymph # (Auto) [place] # (Auto) Eos # (Auto) Baso # (Auto) Abs Immat Gran (auto) Absolute Neuts (auto) Absolute Nucleated RBC Nucleated RBC % (auto) O2 Saturation ABG pH at Pt Temp ABG pH (Temp Correct) ABG pCO2 at Pt Temp ABG pCO2 (Temp Corrct ABG pO2 at Pt Temp ABG pO2 (Temp Correct ABG HCO3 ABG Base Excess (Actual) VBG pH VBG pCO2 VBG pO2 VBG HCO3 VBG O2 Saturation VBG Base Excess Sodium 139 Potassium 3.4 Chloride 104 Carbon Dioxide 25 Anion Gap 13 BUN 6 L Creatinine 0.68 Estim Creat Clear Calc 84.9 Estimated GFR > 60 POC Glucose 98 65 Random Glucose Fasting Glucose 92 Lactic Acid Calcium 8.0 L Phosphorus Magnesium Total Bilirubin Direct Bilirubin AST ALT Alkaline Phosphatase Total Protein Albumin Amylase Lipase Beta HCG, Quant Urine Color Urine Appearance Urine pH Ur Specific [place] Urine Protein Urine Glucose (UA) Urine Ketones Urine Blood Urine Nitrite Ur Leukocyte Esterase Urine RBC Urine WBC Ur Squamous Epith Cells Urine Bacteria Hyaline Casts Salicylates Urine Opiates Screen Urine Fentanyl Screen Acetaminophen Ur Barbiturates Screen Ur Phencyclidine Scrn Ur Amphetamines Screen U Benzodiazepines Scrn Urine Cocaine Screen U Marijuana (THC) Screen Acetone, Qual COVID-19 (ISHA) COVID-19 Clin Com H. pylori Source H. pylori Cult Result 12/11/21 12/11/21 13:07 13:37 WBC RBC Hgb Hct MCV MCH MCHC RDW Plt Count MPV Immature Gran % (Auto) Neut % (Auto) Lymph % (Auto) [place] % (Auto) Eos % (Auto) Baso % (Auto) Lymph # (Auto) [place] # (Auto) Eos # (Auto) Baso # (Auto) Abs Immat Gran (auto) Absolute Neuts (auto) Absolute Nucleated RBC Nucleated RBC % (auto) O2 Saturation ABG pH at Pt Temp ABG pH (Temp Correct) ABG pCO2 at Pt Temp ABG pCO2 (Temp Corrct ABG pO2 at Pt Temp ABG pO2 (Temp Correct ABG HCO3 ABG Base Excess (Actual) VBG pH VBG pCO2 VBG pO2 VBG HCO3 VBG O2 Saturation VBG Base Excess Sodium Potassium Chloride Carbon Dioxide Anion Gap BUN Creatinine Estim Creat Clear Calc Estimated GFR POC Glucose 94 82 Random Glucose Fasting Glucose Lactic Acid Calcium Phosphorus Magnesium Total Bilirubin Direct Bilirubin AST ALT Alkaline Phosphatase Total Protein Albumin Amylase Lipase Beta HCG, Quant Urine Color Urine Appearance Urine pH Ur Specific [place] Urine Protein Urine Glucose (UA) Urine Ketones Urine Blood Urine Nitrite Ur Leukocyte Esterase Urine RBC Urine WBC Ur Squamous Epith Cells Urine Bacteria Hyaline Casts Salicylates Urine Opiates Screen Urine Fentanyl Screen Acetaminophen Ur Barbiturates Screen Ur Phencyclidine Scrn Ur Amphetamines Screen U Benzodiazepines Scrn Urine Cocaine Screen U Marijuana (THC) Screen Acetone, Qual COVID-19 (ISHA) COVID-19 Clin Com H. pylori Source H. pylori Cult Result
[2021-12-11 16:35] LABS: Glucose, Whole Blood 70 mg/dL (60-115)
[2021-12-11] MEDS: Prochlorperazine 25 MG SUPP.RECT PR (19:32)
[2021-12-11 20:12] LABS: Glucose, Whole Blood 147 mg/dL (60-115)
[2021-12-11] MEDS: Heparin Sodium,Porcine 5,000 UNIT/ML VIAL 5000 UNIT SUBCUT (20:44)
[2021-12-11] MEDS: Insulin Glargine,Hum.rec.anlog 100 UNIT/ML 10 ML VIAL 15 UNIT SUBCUT (20:44)
[2021-12-11 23:55] LABS: Glucose, Whole Blood 192 mg/dL (60-115)
[2021-12-12] VITALS: BP 155/81; PULSE 73; RESP 18; TEMP 36.6; O2SAT 99
[2021-12-12] MEDS: Dextrose 5 % and 0.45 % NaCl 1,000 ML 80 ML IVCONT (00:05)
[2021-12-12 03:30] VITALS: BP 135/74; PULSE 76; RESP 18; TEMP 36.8; O2SAT 97
[2021-12-12] MEDS: Pantoprazole Sodium 40 MG/10 ML VIAL IVPUSH (06:01)
[2021-12-12 06:34] LABS: Hematocrit 29.7 % (37.0-47.0); Hemoglobin 10.7 g/dl (12.0-16.0); Mean Corpuscular Hemoglobin 32.4 pg (27.0-33.0); Mean Platelet Volume 10.5 fL (9.4-12.3); Platelet Count 134 X10*3/uL (160-400); Red Cell Distribution Width 11.9 % (11.0-16.0); White Blood Count 7.7 X10*3/uL (4.8-10.8)
[2021-12-12 06:47] VITALS: BP 119/63; PULSE 80; RESP 18; TEMP 36.6; O2SAT 97
[2021-12-12 07:04] LABS: Anion Gap 12 (12-20); Blood Urea Nitrogen 4 mg/dL (9-16); Calcium 8.1 mg/dL (8.4-10.2); Carbon Dioxide 26 mmol/L (22-29); Chloride 104 mmol/L (96-108); Creatinine Clr Calc Pharmacy 87.5; Estimated Glomerular Filt Rate > 60; Glucose Fasting 170 mg/dL (60-99); Sodium 139 mmol/L (135-145)
[2021-12-12 07:15] LABS: Glucose, Whole Blood 157 mg/dL (60-115)
[2021-12-12] MEDS: Heparin Sodium,Porcine 5,000 UNIT/ML VIAL 5000 UNIT SUBCUT (07:41)
[2021-12-12] MEDS: Sucralfate Oral Suspension 1 GM/10 ML ORAL.SUSP PO ×2 (07:41→12:03)
[2021-12-12] MEDS: Famotidine/PF 20 MG/2 ML VIAL IVPUSH (07:41)
[2021-12-12] MEDS: Insulin Lispro 100 UNIT/ML 3 ML VIAL SUBCUT ×2 (07:41→12:03)
[2021-12-12] MEDS: ondansetron HCL 4 MG/2 ML VIAL IVPUSH (07:50)
--- NOTE | 2021-12-12 08:43 | HO.POSTANES ---
Post Anesthesia Evaluation Post Anesthesia Evaluation Vital Signs: Vital Signs Temp Pulse Resp BP Pulse Ox O2 Del Method 12/12/21 06:47 98 F 80 18 119/63 97 Room Air 12/12/21 03:30 98.3 F 76 18 135/74 97 Room Air 12/12/21 00:00 98 F 73 18 155/81 H 99 Room Air Anesthesia: Monitored Mental Status: Awake Pain Control: Satisfactory Nausea/Vomiting: None Hydration: Adequate Anesthesia-Related Issues: No Anes. Related Issues
[2021-12-12 11:15] VITALS: BP 124/70; PULSE 84; RESP 16; TEMP 36; O2SAT 100
[2021-12-12 11:31] LABS: Glucose, Whole Blood 171 mg/dL (60-115)
--- NOTE | 2021-12-12 12:12 | PM.DS ---
DS: Providers Provider Date of Service: 12/12/21 Date of admission: 12/07/21 12:43 Primary care physician: Nonstaff Physician Consults: 12/10/21 12:02 Consult to Gastroenterology Routine Consulting Provider: Gerardo Kirk Reason for consultation: DM1, cyclic vomitting, unable to tolerate po DS: Diagnosis Discharge Diagnosis (1) Hyperchloremic metabolic acidosis: Status: Acute (2) Diabetic ketoacidosis: Status: Acute (3) Cyclical vomiting, intractable: Status: Acute (4) Diabetic gastroparesis: Status: Acute DS: Summary Hospital Course Hospital Course: Admission note HPI by ICU attending 36-year-old female with a progressive weakness anorexia nausea and vomiting presents metabolically with diabetic ketoacidosis with just a mild increase in anion gap and a mild bicarb deficit which unfortunately is deteriorating while treating in the emergency room on currently half normal saline after several boluses of 1 L each of normal saline and after a boluses of IV insulin including a continuous IV insulin drip and part of the metabolic acidosis and diminishing neck bicarb store is on the basis of hyperchloremia but nonetheless fluids of course will be adjusted and IV insulin will continue to be administered she did not have any other specific complaints and I did a CT scan of her abdomen showing the hepatobiliary system and pancreas all normal and normal serum amylase she does have a nonspecific ileus pattern with a moderate distension of her transverse colon Bedside echo demonstrated normal left and right ventricular function with no significant primary valvular or pericardial disease but there was evidence of mitral and tricuspid regurgitation Hospital course A 36 years old lady with PMH of type 1 diabetes who presented to the hospital with nausea and vomiting and found to have an evidence of diabetic ketoacidosis. Admitted to ICU for IV fluid and IV insulin treatment until the gap closed and vomiting improved. Restarted on diet and home dose insulin. Evaluated by equal opportunity assistant for cycling vomiting which believed to be related to gastroparesis. EGD was done showing and evidence of gastritis and esophagitis. GI recommended PPI treatment and uses of Reglan for nausea and gastroparesis with a plan to follow-up as outpatient for gastric motility testing. The patient symptoms improved significantly as she was able to tolerate diet and ambulate around. GI recommended to hold on any further duplex for SMA given patient improvement. Take omeprazole twice Daily Use Reglan for nausea Use Reglan with meals to help with gastroparesis To follow-up as outpatient with Dr. Kirk To do gastric emptying study Time Spent with Patient Time attestation: Total time spent providing and/or coordinating discharge services: Discharge coordination time: Greater than 30 minutes Quality: Safe Use of Opioids Does Pt have an Active Cancer Diagnosis on the Problem List?: No Quality: Stroke Does the patient have a stroke diagnosis?: No Physical Exam Vital Signs: Vital Signs: Last Vital Signs Temp 96.8 F 12/12/21 11:15 Pulse 84 12/12/21 11:15 Resp 16 12/12/21 11:15 BP 124/70 12/12/21 11:15 Pulse Ox 100 12/12/21 11:15 O2 Del Method 12/12/21 11:15 BMI result Body Mass Index 19.8 Const: Other: Constitutional : Alert, oriented, not in distress Neck : Normal inspection, Supple Cardiovascular : RRR, no JVP, no lower extremity edema Respiratory : fair bilateral air entry, no crackles, wheezes or rhonchi Gastrointestinal: soft, lax, Normal bowel sounds, Non tender Skin : Warm, Dry Neurological : Alert & oriented x3, No focal deficit , CN 2-12 within normal DS: Data Data Completed and Pending Pending studies at discharge: Pending at discharge 12/11/21 15:27 Surgical [PTH] Routine Labs on day of discharge: Laboratory Results - last 24 hr 12/11/21 12/11/21 12/11/21 13:07 13:37 16:23 WBC RBC Hgb Hct MCV MCH MCHC RDW Plt Count MPV Absolute Nucleated RBC Nucleated RBC % (auto) Sodium Potassium Chloride Carbon Dioxide Anion Gap BUN Creatinine Estim Creat Clear Calc Estimated GFR POC Glucose 94 82 70 Fasting Glucose Calcium 12/11/21 12/11/21 12/12/21 19:42 23:46 05:10 WBC 7.7 RBC 3.30 L Hgb 10.7 L Hct 29.7 L MCV 90.0 MCH 32.4 MCHC 36.0 H RDW 11.9 Plt Count 134 L MPV 10.5 Absolute Nucleated RBC 0.000 Nucleated RBC % (auto) 0.0 Sodium Potassium Chloride Carbon Dioxide Anion Gap BUN Creatinine Estim Creat Clear Calc Estimated GFR POC Glucose 147 H 192 H Fasting Glucose Calcium 12/12/21 12/12/21 12/12/21 05:10 06:47 11:14 WBC RBC Hgb Hct MCV MCH MCHC RDW Plt Count MPV Absolute Nucleated RBC Nucleated RBC % (auto) Sodium 139 Potassium 3.0 L Chloride 104 Carbon Dioxide 26 Anion Gap 12 BUN 4 L Creatinine 0.66 Estim Creat Clear Calc 87.5 Estimated GFR > 60 POC Glucose 157 H 171 H Fasting Glucose 170 H Calcium 8.1 L Imaging Chest x-ray: Radiologist's impression: ITS Impressions Abdomen/Pelvis CT 12/07/21 09:37 IMPRESSION: No CT evidence for acute abnormality within the abdomen or pelvis. This CT examination was performed using dose optimization techniques as appropriate, variously including the following: *Automated exposure control *Adjustment of mA and/or kV according to patient size (this includes techniques or standardized protocols for targeted exams where dose is matched to indication/reason for exam; i.e. extremities or head) *Use of iterative reconstruction technique Chest CT 12/07/21 09:37 IMPRESSION: No CT evidence for acute abnormality within the abdomen or pelvis. This CT examination was performed using dose optimization techniques as appropriate, variously including the following: *Automated exposure control *Adjustment of mA and/or kV according to patient size (this includes techniques or standardized protocols for targeted exams where dose is matched to indication/reason for exam; i.e. extremities or head) *Use of iterative reconstruction technique Discharge Plan Discharge Patient Disposition: Home, Self-Care Discharge Diagnosis: Diabetic ketoacidosis Referrals: Physician,Nonstaff [Primary Care Provider] - 1 Week Gerardo Kirk MD [Physician] - 2 weeks Khadijah Alanis MD [Physician] - 2 weeks Discharge Medications: New metoclopramide HCl [Reglan] 10 mg tablet 10 mg PO Q6H PRN (Reason: nausea and vomiting) Qty: 30 0RF omeprazole 40 mg capsule,delayed release(DR/EC) 40 mg PO BID Qty: 60 0RF Continued insulin lispro 100 unit/mL insulin pen 3 - 6 unit subcut TIDAC insulin glargine [Lantus Solostar U-100 Insulin] 100 unit/mL (3 mL) insulin pen 15 unit subcut BEDTIME Discharge Orders: Discharge Order (Routine); Ordered 12/12/21 Ordered By: Sal Chao Diet: Advance to usual diet Activity on Discharge: As tolerated Stand Alone Forms: Patient Portal Discharge page Other Ambulatory Orders: NM gastric emptying study (Routine) Timeframe: 2 Weeks Facility: [facility] - Location: Nuclear Medicine Ordered By: Sal Chao Activity Restrictions/Additional Instructions: Drink plenty of fluids Have proper diet as advised Take insulin as instructed by your PCP Follow-up with equal opportunity assistant and endocrinology for further workup Care Plan Goals: Read below Health Concerns: Read below Plan of Treatment: Read below Assessment: You were admitted to the hospital for evaluation of nausea and vomiting. Found to have diabetic ketoacidosis that was treated with IV fluids and insulin with good response. Evaluated by equal opportunity assistant who did an upper endoscopy recommending omeprazole and Reglan. Take omeprazole twice Daily Use Reglan for nausea Use Reglan with meals to help with gastroparesis To follow-up as outpatient with Dr. Kirk To do gastric emptying study Patient Instructions: Diabetic Gastroparesis (DC), Anxiety (ED), Cyclic Vomiting Syndrome (ED)
[2021-12-12] MEDS: Potassium Chloride ER 20 MEQ TAB.ER.PRT PO (12:26)
--- NOTE | 2021-12-12 12:37 | MHC.CM.PN ---
PATIENT HAS BEEN MEDICALLY CLEARED FOR DISCHARGE TODAY; DISCHARGE DISPOSITION IS HOME SELF-CARE. PATIENT WILL ARRANGE TRANSPORT.
== END 2021-12-12 12:58 | disposition home or self-care (01) | DRG 420 ==
LOC: HO.ED 12-07 01:41 → HO.EDOVER 12-07 12:54 → HO.ICU 12-07 13:02 → HO.S3 12-09 17:05
PROVIDERS: Internal Medicine; Internal Medicine Gastroenterology; Physician Assistant; Admitting Provider Internal Medicine Cardiovascular Disease; Emergency Provider Emergency Medicine; PCP Student in an Organized Health Care Education/Training Program; Visit Provider Student in an Organized Health Care Education/Training Program
PROC: 0DJ08ZZ Inspection of Upper Intestinal Tract, Via Natural or Artificial Opening Endoscopic (ICD-10-PCS; CPT 43235; principal; 2021-12-11 15:30)
DX: E10.10 Type 1 diabetes mellitus with ketoacidosis without coma (principal); E10.43 Type 1 diabetes mellitus with diabetic autonomic (poly)neuropathy; K31.84 Gastroparesis; E83.39 Other disorders of phosphorus metabolism; Z56.0 Unemployment, unspecified; Z20.822 Contact with and (suspected) exposure to COVID-19; E87.6 Hypokalemia; F17.210 Nicotine dependence, cigarettes, uncomplicated; Z71.6 Tobacco abuse counseling; K29.70 Gastritis, unspecified, without bleeding; K20.90 Esophagitis, unspecified without bleeding
CPT/HCPCS: 36415; 71250; 74176; 80048; 80053; 80143; 80179; 80307; 81001; 82009; 82150; 82248; 82803; 82947; 83605; 83690; 83735; 84100; 84702; 85025; 85027; 87635; 88305; 88342; 99285; J2250; J2405; J3475; P9047

== ENCOUNTER 2023-09-24 15:31 | Emergency (ER) | payer OTHER, SELFPAY ==
[2023-09-24 15:39] VITALS: BP 111/77; BP 118/78; PULSE 105; PULSE 106; RESP 16; TEMP 36.9; O2SAT 100; O2SAT 96; BMI 18.7
--- NOTE | 2023-09-24 16:21 | PC.NURSE ---
Pt comes from home for nausea/vomiting/abdominal pain since this morning. Pt states she is unable to keep food/liquids down, denies cp/sob/dizziness, endorses 8/10 abdominal pain that feels like pressure radiating to her back, last night had fried pork for dinner and thinks it possibly wasn't fully cooked. Vomiting yellow/clear emesis. A/ox4, lung sounds cta bilaterally, S1 and S2 heard, abdomen soft, tender with palpation. Resting quietly in bed, call santillan within reach, awaiting lab results at this time.
[2023-09-24 16:36] LABS: MANUAL DIFF FLAG NO
[2023-09-24] MEDS: Famotidine/PF 20 MG/2 ML VIAL IVPUSH (16:38)
[2023-09-24] MEDS: ondansetron HCL 4 MG/2 ML VIAL IVPUSH (16:38)
[2023-09-24] MEDS: Magnesium Hydrox/Alum Hydrox 30 ML ORAL.SUSP PO (16:39)
[2023-09-24] MEDS: Lidocaine HCl Viscous 2 % 15 ML SOLUTION MUCOUS MEM (16:39)
[2023-09-24] MEDS: 0.9 % Sodium Chloride 1,000 ML 999 ML IV (16:39)
[2023-09-24 16:43] LABS: Basophils Percent Auto 0.7 % (0-2); Eosinophils Absolute Auto 0.1 X10*3/uL (0.0-0.4); Eosinophils Percent Auto 1.5 % (0-4); Hematocrit 36.4 % (37.0-47.0); Hemoglobin 13.1 g/dl (12.0-16.0); Imm Gran Abs Auto 0.01 X10*3/uL (0.00-0.03); Imm Gran Pct Auto 0.2 % (0.0-0.4); Lymphocytes Absolute Auto 1.1 X10*3/uL (1.2-4.9); Lymphocytes Percent Auto 21.1 % (20-40); Mean Corpuscular Hemoglobin 32.8 pg (27.0-33.0); Mean Platelet Volume 10.6 fL (9.4-12.3); Monocytes Absolute Auto 0.2 X10*3/uL (0.1-1.2); Monocytes Percent Auto 4.4 % (2-11); Neutrophils Absolute Auto 3.9 x10*3/uL (2.0-8.3); Neutrophils Percent Auto 72.1 % (45-73); Platelet Count 180 X10*3/uL (160-400); Red Cell Distribution Width 11.9 % (11.0-16.0); White Blood Count 5.4 X10*3/uL (4.8-10.8)
[2023-09-24 16:52] LABS: Alanine Aminotransferase 17 U/L (0-31); Albumin Level 3.9 g/dL (3.5-5.0); Alkaline Phosphatase 65 U/L (39-117); Anion Gap 14 (12-20); Aspartate Amino Transferase 21 U/L (5-31); Bilirubin Total 1.1 mg/dL (0.0-1.0); Blood Urea Nitrogen 17 mg/dL (9-16); Calcium 9.1 mg/dL (8.4-10.2); Carbon Dioxide 23 mmol/L (22-29); Chloride 106 mmol/L (96-108); Creatinine Clr Calc Pharmacy 73.9; Estimated Glomerular Filt Rate > 60; Glucose Random 278 mg/dL (60-115); Magnesium 1.7 mg/dL (1.6-2.6); Potassium 3.9 mmol/L (3.3-5.1); Sodium 139 mmol/L (135-145); Total Protein 6.6 g/dL (6.5-8.0)
[2023-09-24 17:00] LABS: HCG Quantitative < 2 mIU/mL
--- NOTE | 2023-09-24 17:01 | ED.GENADULT ---
HPI - General Adult General Chief complaint: Nausea/Vomiting/Diarrhea Stated complaint: abd pain,vomiting Time Seen by Provider: 09/24/23 16:18 Source: patient Mode of arrival: EMS Limitations: no limitations History of Present Illness HPI narrative: Patient is a 37-year-old female who presents to the emergency department for evaluation of vomiting. She reports at least 10 episodes of large volume biliary emesis today, reporting ?it has like a faucet?, with onset of symptoms at 0500. She has attempted to drink water as well as eliminate today but is unable to tolerate either, she attempted to eat a sandwich from [employer] but was vomiting afterwards. She does state that last night she cooked pork for dinner, she states she is uncertain whether she cooked it long enough and thinks that this may be attributing to her symptoms. She endorses epigastric discomfort that she feels into her back, and pain across the lateral upper sides of her abdomen that is made worse while she is vomiting. When asked, she reports a history of similar symptoms in the past, she states that she was supposed to have a procedure with Gastroenterology, but they were ?tube hooked up? and this was approximately 2 years ago and she never followed up as she ?did not have been number?. She denies associated fevers, chills, URI symptoms, chest pain, shortness of breath, symptoms, known sick contacts. Related Data Home Medications ?Medication ?Instructions ?Recorded ?Confirmed insulin glargine 100 unit/mL (3 15 unit subcut BEDTIME 12/07/21 12/07/21 mL) subcutaneous pen (Lantus Solostar U-100 Insulin) insulin lispro 100 unit/mL 3 - 6 unit subcut TIDAC 12/07/21 12/07/21 subcutaneous pen Previous Rx's ?Medication ?Instructions ?Recorded metoclopramide HCl 10 mg tablet 10 mg PO Q6H PRN nausea and 12/07/21 (Reglan) vomiting #30 tabs omeprazole 40 mg capsule,delayed 40 mg PO BID #60 caps 12/12/21 release ondansetron 4 mg disintegrating 4 mg PO Q8H PRN nausea and 09/24/23 tablet vomiting #10 tabs Allergies Allergy/AdvReac Type Severity Reaction Status Date / Time No Known Allergies Allergy Verified 09/24/23 15:42 Review of Systems Review of Systems: Yes all other systems are reviewed and are negative [facility] Past Medical History Attestation statement: The following information was validated with the patient. Source: old records reviewed Medical History Anxiety Diabetic gastroparesis DKA (diabetic ketoacidoses) Diabetes Surgical History History of Social History Social History Household Members: Children and Other Household Members Other:: Son's father Housing: Apartment Do you presently have visiting nurse or other home services: No Unable to assess alcohol history related to: Refusing to respond Alcohol intake: never Patient Tobacco Use Status: Former Tobacco user Tobacco use type: Cigarette e-Cigarette/Vaping Use: Never Used Second Hand Smoke Exposure: No Substance Use Type: Marijuana Advance Directives: No Advance Directives Information Provided: No service: No Current occupational status: unemployed Physical Exam ED Vital Signs: Vital Signs - 24 hr 09/24/23 15:39 09/24/23 18:09 Temperature 98.5 F 99.0 F Pulse Rate 105 H 104 H Respiratory Rate 16 14 Blood Pressure 111/77 95/53 L Pulse Oximetry 100 99 Oxygen Delivery Method Room Air BMI result Body Mass Index 18.7 Appearance: Alert.?Oriented to person, place and time. No acute distress.?Normal affect. Eyes: Pupils equal, round and reactive to light.? ENT: Pharynx normal.?? Neck: Normal inspection.? Neck supple.?? CVS: Heart sounds normal. Normal heart rate and rhythm.? Pulses normal.?? Respiratory: No respiratory distress.? Lung sounds clear to auscultation bilaterally?? Abdomen: Soft with tenderness over the epigastrium. Negative Miller sign. No rebound tenderness. No rigidity. No guarding. No CVA tenderness. Normoactive bowel sounds. No pulsatile mass.?? Skin: Skin warm and dry.? Normal skin color.??? Extremities: No lower extremity edema.? Neuro: Moves all extremities spontaneously. Sensation intact bilaterally. Ambulates with normal steady gait. Course Reevaluation(s) Reevaluation #1: She reports improvement in her symptoms after receiving medications. Tolerated p.o. trial without vomiting. Requesting discharge home which I feel is reasonable at this time. Will send a prescription for Sebastian to pharmacy, advised that she should follow-up with gastroenterology if her symptoms continue to persist, as they may consider again having gastric motility studies. Discussed worrisome signs and symptoms that would warrant re-evaluation in the emergency department. All questions answered. Time: 19:03 Medications Administered Discontinued Medications Generic Name Dose Route Start Last Admin Trade Name Toribio PRN Reason Stop Dose Admin Al Hydroxide/Mg Hydroxide 30 ml 09/24/23 16:30 09/24/23 16:39 Magnesium Hydrox/Alum Hydrox 30 Ml Oral.Susp PO 09/24/23 16:31 30 ml ONCE ONE Administration Famotidine 20 mg 09/24/23 16:30 09/24/23 16:38 Famotidine/Pf 20 Mg/2 Ml Vial IVPUSH 09/24/23 16:31 20 mg ONCE ONE Administration Sodium Chloride 1,000 mls @ 999 mls/hr 09/24/23 16:30 09/24/23 17:48 Ns IV 09/24/23 17:30 Infused .Q1H1M KWAKU Infusion Lidocaine HCl 15 ml 09/24/23 16:30 09/24/23 16:39 Lidocaine Hcl Viscous 2 % 15 Ml Solution MUCOUS MEM 09/24/23 16:31 15 ml ONCE ONE Administration Ondansetron HCl 4 mg 09/24/23 16:30 09/24/23 16:38 Ondansetron Hcl 4 Mg/2 Ml Vial IVPUSH 09/24/23 16:31 4 mg ONCE ONE Administration Medical Decision Making Medical Decision Making MDM Narrative: Patient is a 37-year-old female with past medical history of diabetes, DKA, gastroparesis, anxiety presenting to emergency department for evaluation of vomiting and mild epigastric pain as per HPI. Overall she appears fatigued, she is afebrile without hypoxia or tachypnea, arrived mildly tachycardic. She is mild tenderness over the epigastrium upon palpation otherwise unremarkable abdominal examination. Discussed with patient's symptoms may be secondary to food-borne illness versus gastroparesis versus gastritis versus pancreatitis. Will review prior documentation from GI as she is experienced similar symptoms in the past. Will trial antiemetic in addition to GI cocktail for symptom management at this time. Differential Diagnosis Differential Diagnoses: The differential diagnosis associated with the presentation includes (See narrative above) Admission/Observation Consideration of admission/observation: Escalation of care including admission/observation considered Lab Data MDM Lab Attestation statement: I reviewed the patient's lab results. CBC is without leukocytosis or left shift or thrombocytopenia. Electrolytes within normal range non-anion gap hyperglycemia of 278. No SANIA. Mildly elevated total bili Garcia 1.1 otherwise unremarkable LFTs. 09/24/23 16:31 09/24/23 16:31 Labs: Lab Results 09/24/23 09/24/23 Range/Units 16:31 18:21 WBC 5.4 (4.8-10.8) X10*3/uL RBC 4.00 L D (4.20-5.50) X10*6/uL Hgb 13.1 D (12.0-16.0) g/dl Hct 36.4 L D (37.0-47.0) % MCV 91.0 (80.0-98.0) fL MCH 32.8 (27.0-33.0) pg MCHC 36.0 H (31.0-35.0) g/dl RDW 11.9 (11.0-16.0) % Plt Count 180 D (160-400) X10*3/uL MPV 10.6 (9.4-12.3) fL Immature Gran % (Auto) 0.2 (0.0-0.4) % Neut % (Auto) 72.1 (45-73) % Lymph % (Auto) 21.1 (20-40) % Page % (Auto) 4.4 (2-11) % Eos % (Auto) 1.5 (0-4) % Baso % (Auto) 0.7 (0-2) % Lymph # (Auto) 1.1 L (1.2-4.9) X10*3/uL Page # (Auto) 0.2 (0.1-1.2) X10*3/uL Eos # (Auto) 0.1 (0.0-0.4) X10*3/uL Baso # (Auto) 0.0 (0.0-0.2) X10*3/uL Abs Immat Gran (auto) 0.01 (0.00-0.03) X10*3/uL Absolute Neuts (auto) 3.9 (2.0-8.3) x10*3/uL Absolute Nucleated RBC 0.000 (0.0-0.012) X10*3/uL Nucleated RBC % (auto) 0.0 (0.0-0.2) /100WBC Sodium 139 (135-145) mmol/L Potassium 3.9 (3.3-5.1) mmol/L Chloride 106 (96-108) mmol/L Carbon Dioxide 23 (22-29) mmol/L Anion Gap 14 (12-20) BUN 17 H (9-16) mg/dL Creatinine 0.73 (0.5-1.4) mg/dL Estim Creat Clear Calc 73.9 Estimated GFR > 60 Random Glucose 278 H (60-115) mg/dL Calcium 9.1 D (8.4-10.2) mg/dL Magnesium 1.7 (1.6-2.6) mg/dL Total Bilirubin 1.1 H (0.0-1.0) mg/dL AST 21 (5-31) U/L ALT 17 (0-31) U/L Alkaline Phosphatase 65 (39-117) U/L Total Protein 6.6 (6.5-8.0) g/dL Albumin 3.9 (3.5-5.0) g/dL Lipase 14 (8-78) U/L Beta HCG, Quant < 2 mIU/mL Urine Color Yellow Urine Appearance Clear Urine pH 5.5 (5.0-9.0) Ur Specific [place] >= 1.030 H (1.005-1.025) Urine Protein Trace (Neg-Trace) mg/dL Urine Glucose (UA) >=1000 H (Negative) mg/dL Urine Ketones >=160 (Negative) mg/dL Urine Blood Negative (Negative) Urine Nitrite Negative (Negative) Ur Leukocyte Esterase Negative (Negative) Urine RBC 0-2 (0-2) /HPF Urine WBC 0-5 (0-5) /HPF Ur Squamous Epith Cells 0-2 (0-2) /HPF Urine Bacteria None Seen (None Seen) Hyaline Casts 0-2 (0-2) /LPF Influenza Type A (PCR) NEGATIVE (Negative) Influenza Type B (PCR) NEGATIVE (Negative) RSV RNA Qual (PCR) NEGATIVE (Negative) SARS-CoV-2 RNA (RT-PCR) NEGATIVE (Negative) External Record Review External record reviewed: Inpatient record and Outpatient record 12/2021 - had hospital admission for nausea vomiting weakness anorexia; GI evaluation for cyclical vomiting thought to be related to gastroparesis, she underwent upper endoscopy; findings consistent with gastritis esophagitis, recommended gastric emptying study is she continued to have ongoing symptoms as well as mesenteric duplex to rule out SMA syndrome, and recommended that she be on a PPI; discharged on Reglan [address] and om[address] 40 mg daily. Prescription Management I considered prescription management with: Other Discharge Plan Discharge Clinical Impression: Nausea and vomiting Patient Disposition: Home, Self-Care Instructions: Acute Nausea and Vomiting (ED) Additional Instructions: As discussed, your symptoms may be due to food-borne illness. However, as you have experienced similar symptoms in the past, if your symptoms do not improve over the next few days I would consider following up with GI. I have provided their contact information. Introduce a bland diet including crackers, bananas, rice, soup, toast, and boiled vegetables. This may progress to plain baked or boiled chicken or turkey. Avoid dairy products or foods high in fat or grease. Return back to emergency department any new or worsening symptoms or concerns. Prescriptions: New ondansetron 4 mg tablet,disintegrating 4 mg PO Q8H PRN (Reason: nausea and vomiting) Qty: 10 0RF No Action metoclopramide HCl [Reglan] 10 mg tablet 10 mg PO Q6H PRN (Reason: nausea and vomiting) Qty: 30 0RF insulin lispro 100 unit/mL insulin pen 3 - 6 unit subcut TIDAC insulin glargine [Lantus Solostar U-100 Insulin] 100 unit/mL (3 mL) insulin pen 15 unit subcut BEDTIME omeprazole 40 mg capsule,delayed release(DR/EC) 40 mg PO BID Qty: 60 0RF Referrals: Gerardo Kirk MD [Physician] - Print Language: Barbadian
[2023-09-24 17:22] LABS: Influenza A PCR NEGATIVE (Negative); Influenza B PCR NEGATIVE (Negative); Resp Syncy Virus RNA Qual PCR NEGATIVE (Negative); SARS COV2 PCR INHOUSE NEGATIVE (Negative)
[2023-09-24 17:29] LABS: Lipase 14 U/L (8-78)
[2023-09-24 18:09] VITALS: BP 95/53; PULSE 104; RESP 14; TEMP 37.2; O2SAT 99
[2023-09-24 18:28] LABS: Appearance Urine Clear; Color Urine Yellow; Glucose Urine UA >=1000 mg/dL (Negative); Leukocyte Esterase Urine Negative (Negative); Nitrite Urine Negative (Negative); PH 5.5 (5.0-9.0); Specific Gravity - Urine >= 1.030 (1.005-1.025); UMIC TRIGGER UACC YES; Urine Blood Negative (Negative); Urine Ketones >=160 mg/dL (Negative); Urine Protein Trace mg/dL (Neg-Trace)
[2023-09-24 18:45] LABS: Bacteria Urine None Seen (None Seen); Hyaline Casts Urine 0-2 /LPF (0-2); RBC Urine 0-2 /HPF (0-2); Squamous Epithelial Cell Urine 0-2 /HPF (0-2); WBC Urine 0-5 /HPF (0-5)
[2023-09-24 19:14] VITALS: BP 95/53; PULSE 104; RESP 14; TEMP 37.2
== END 2023-09-24 19:15 | disposition home or self-care (01) ==
PROVIDERS: Nurse Practitioner Family; Physician Assistant Medical; Emergency Provider Internal Medicine
DX: R11.2 Nausea with vomiting, unspecified (principal); E11.9 Type 2 diabetes mellitus without complications; R10.13 Epigastric pain; Z79.4 Long term (current) use of insulin; Z03.818 Encounter for observation for suspected exposure to other biological agents ruled out; Z87.891 Personal history of nicotine dependence
CPT/HCPCS: 0241U; 36415; 80053; 81001; 83690; 83735; 84702; 85025; 96361; 96374; 96375; 99284; J2405

== ENCOUNTER 2023-09-25 20:46 | Emergency (ER) | payer OTHER, SELFPAY ==
[2023-09-25 20:51] VITALS: BP 120/77; BP 122/74; PULSE 106; PULSE 98; RESP 18; TEMP 37.3; O2SAT 99; BMI 18.5
--- NOTE | 2023-09-25 20:51 | ED.NAVMDI ---
HPI - Nausea/Vomiting/Diarrhea General Chief complaint: Nausea/Vomiting/Diarrhea Stated complaint: N/V X48 HRS, NO RELIEF FROM [facility] Time Seen by Provider: 09/25/23 23:04 Source: patient Mode of arrival: ambulatory Limitations: no limitations History of Present Illness ED Provider: kailee MILLAN Narrative: Patient with history of eating disorder with cyclic vomiting syndrome for while with increased anxiety was seen here yesterday for similar episode of increased anxiety and vomiting for last few days unable to hold any food down not eating at all also smokes marijuana which she smoked 3 days ago Related Data Home Medications ?Medication ?Instructions ?Recorded ?Confirmed insulin glargine 100 unit/mL (3 15 unit subcut BEDTIME 12/07/21 12/07/21 mL) subcutaneous pen (Lantus Solostar U-100 Insulin) insulin lispro 100 unit/mL 3 - 6 unit subcut TIDAC 12/07/21 12/07/21 subcutaneous pen Previous Rx's ?Medication ?Instructions ?Recorded metoclopramide HCl 10 mg tablet 10 mg PO Q6H PRN nausea and 12/07/21 (Reglan) vomiting #30 tabs omeprazole 40 mg capsule,delayed 40 mg PO BID #60 caps 12/12/21 release ondansetron 4 mg disintegrating 4 mg PO Q8H PRN nausea and 09/24/23 tablet vomiting #10 tabs lorazepam 1 mg tablet (Ativan) 1 mg PO BEDTIME PRN anxiety #14 09/26/23 tabs Allergies Allergy/AdvReac Type Severity Reaction Status Date / Time No Known Allergies Allergy Verified 09/25/23 20:53 Review of Systems Review of Systems: Yes all other systems are reviewed and are negative [facility] Past Medical History Medical History Anxiety Diabetic gastroparesis DKA (diabetic ketoacidoses) Diabetes Surgical History History of Social History Social History Household Members: Children and Other Household Members Other:: Son's father Housing: Apartment Do you presently have visiting nurse or other home services: No Unable to assess alcohol history related to: Refusing to respond Alcohol intake: never Patient Tobacco Use Status: Former Tobacco user Tobacco use type: Cigarette e-Cigarette/Vaping Use: Never Used Second Hand Smoke Exposure: No Substance Use Type: Marijuana Advance Directives: No Advance Directives Information Provided: No Do you have a plan to hurt others: No Plan service: No Current occupational status: unemployed Physical Exam Vital Signs: Vital Signs: Last Vital Signs Temp 99.7 F 09/25/23 22:31 Pulse 95 09/25/23 22:31 Resp 18 09/25/23 22:31 BP 118/72 09/25/23 22:31 Pulse Ox 99 09/25/23 22:31 O2 Del Method Room Air 09/25/23 22:31 BMI result Body Mass Index 18.5 Appearance: Alert. Oriented X3. No acute distress. Thin emaciated Eyes: PERRLA, No Nystagmus ENT: Pharynx normal. Oral Mucosa dry Neck: Normal inspection. Neck supple. CVS: Normal heart rate and rhythm. Pulses normal. Respiratory: No respiratory distress. Equal air entry bilateral, no wheezing/rales/rhonchi Abdomen: Soft and nontender. Bowel sounds are present, no mass palpable, no CVA tenderness Skin: Skin warm and dry. Normal skin color. Normal skin turgor. Extremities: No lower extremity edema. No calf tenderness Neuro: Oriented X 3. No motor deficit. Course Course Course Narrative: This is a Rapid Medical Exam performed in triage by Tiffanie Guan PA-C. Full HPI, ROS and PE to be performed by primary ED provider. 37 year-old F w/ PMHx DM presenting to the ED c/o persistent N/V since yesterday w/abdominal pain and constipation x5 days. Was seen in ED last night for similar sx. Is passing gas. Admits to Marijuana use, hasnt smoked in 2 days. PE: in wheelchair, abdomen soft w/epigastric ttp Plan: Labs, UA, tox screen ordered Medications Administered Discontinued Medications Generic Name Dose Route Start Last Admin Trade Name Freq PRN Reason Stop Dose Admin Sodium Chloride 1,000 mls @ 999 mls/hr 09/25/23 23:31 09/25/23 23:50 Ns IV 09/26/23 00:31 999 mls/hr .Q1H1M ONE Administration Sodium Chloride 1,000 mls @ 999 mls/hr 09/25/23 23:31 09/25/23 23:50 Ns IV 09/26/23 00:31 999 mls/hr .Q1H1M ONE Administration Lorazepam 2 mg 09/25/23 23:31 09/25/23 23:51 Lorazepam 2 Mg/Ml Vial IVPUSH 09/25/23 23:32 2 mg ONCE ONE Administration Prochlorperazine Edisylate 10 mg 09/25/23 23:31 09/25/23 23:50 Prochlorperazine Edisylate 10 Mg/2 Ml Vial IVPUSH 09/25/23 23:32 10 mg ONCE ONE Administration Medical Decision Making Medical Decision Making MDM Narrative: Patient diabetic with cyclic vomiting syndrome will give her IV Compazine and Ativan and IV fluids labs are stable urine showed ketones no acidosis Lab Data [facility] Lab Attestation statement: I reviewed the patient's lab results. 09/25/23 21:12 09/25/23 21:12 Labs: Lab Results 09/25/23 Range/Units 21:12 WBC 5.2 (4.8-10.8) X10*3/uL RBC 4.03 L (4.20-5.50) X10*6/uL Hgb 13.2 (12.0-16.0) g/dl Hct 36.5 L (37.0-47.0) % MCV 90.6 (80.0-98.0) fL MCH 32.8 (27.0-33.0) pg MCHC 36.2 H (31.0-35.0) g/dl RDW 11.9 (11.0-16.0) % Plt Count 195 (160-400) X10*3/uL MPV 10.3 (9.4-12.3) fL Immature Gran % (Auto) 0.2 (0.0-0.4) % Neut % (Auto) 56.0 (45-73) % Lymph % (Auto) 33.7 (20-40) % Cassia % (Auto) 9.3 (2-11) % Eos % (Auto) 0.2 (0-4) % Baso % (Auto) 0.6 (0-2) % Lymph # (Auto) 1.7 (1.2-4.9) X10*3/uL Cassia # (Auto) 0.5 (0.1-1.2) X10*3/uL Eos # (Auto) 0.0 (0.0-0.4) X10*3/uL Baso # (Auto) 0.0 (0.0-0.2) X10*3/uL Abs Immat Gran (auto) 0.01 (0.00-0.03) X10*3/uL Absolute Neuts (auto) 2.9 (2.0-8.3) x10*3/uL Absolute Nucleated RBC 0.000 (0.0-0.012) X10*3/uL Nucleated RBC % (auto) 0.0 (0.0-0.2) /100WBC Sodium 138 (135-145) mmol/L Potassium 3.9 (3.3-5.1) mmol/L Chloride 104 (96-108) mmol/L Carbon Dioxide 22 (22-29) mmol/L Anion Gap 16 (12-20) BUN 15 (9-16) mg/dL Creatinine 0.78 (0.5-1.4) mg/dL Estim Creat Clear Calc 68.6 Estimated GFR > 60 Random Glucose 219 H (60-115) mg/dL Calcium 9.1 (8.4-10.2) mg/dL Magnesium 1.9 (1.6-2.6) mg/dL Total Bilirubin 1.2 H (0.0-1.0) mg/dL Direct Bilirubin 0.3 (0.0-0.5) mg/dL AST 18 (5-31) U/L ALT 15 (0-31) U/L Alkaline Phosphatase 65 (39-117) U/L Total Protein 6.9 (6.5-8.0) g/dL Albumin 4.1 (3.5-5.0) g/dL Lipase 14 (8-78) U/L Urine Color Dark Yellow Urine Appearance Cloudy Urine pH 6.0 (5.0-9.0) Ur Specific [place] >= 1.030 H (1.005-1.025) Urine Protein 30 (1+) H (Neg-Trace) mg/dL Urine Glucose (UA) >=1000 H (Negative) mg/dL Urine Ketones 80 (Negative) mg/dL Urine Blood Negative (Negative) Urine Nitrite Negative (Negative) Ur Leukocyte Esterase Negative (Negative) Urine RBC 0-2 (0-2) /HPF Urine WBC 0-5 (0-5) /HPF Ur Squamous Epith Cells 3-5 (0-2) /HPF Calcium Oxalate Crystal Present Urine Bacteria None Seen (None Seen) Hyaline Casts 0-2 (0-2) /LPF Urine Test NEGATIVE (NEGATIVE) Urine Opiates Screen Not Detected (Not Detect) Ur Buprenorphine Scrn Not Detected (Not Detect) ng/mL Ur Oxycodone Screen Not Detected (Not Detect) ng/mL Urine Methadone Screen Not Detected (Not Detect) ng/mL Urine Fentanyl Screen Not Detected (Not Detect) Ur Barbiturates Screen Not Detected (Not Detect) Ur Phencyclidine Scrn Not Detected (Not Detect) Ur Amphetamines Screen Not Detected (Not Detect) U Benzodiazepines Scrn Not Detected (Not Detect) Urine Cocaine Screen Not Detected (Not Detect) U Marijuana (THC) Screen POSITIVE H (Not Detect) Discharge Plan Discharge Clinical Impression: Cyclic vomiting syndrome, Anxiety Patient Disposition: Home, Self-Care Instructions: Anxiety (ED), Cyclic Vomiting Syndrome (ED) Additional Instructions: Drink plenty of fluids Take medication for anxiety and nausea as prescribed Follow up with your PCP Prescriptions: New lorazepam [Ativan] 1 mg tablet 1 mg PO BEDTIME PRN (Reason: anxiety) Qty: 14 0RF No Action metoclopramide HCl [Reglan] 10 mg tablet 10 mg PO Q6H PRN (Reason: nausea and vomiting) Qty: 30 0RF insulin lispro 100 unit/mL insulin pen 3 - 6 unit subcut TIDAC insulin glargine [Lantus Solostar U-100 Insulin] 100 unit/mL (3 mL) insulin pen 15 unit subcut BEDTIME omeprazole 40 mg capsule,delayed release(DR/EC) 40 mg PO BID Qty: 60 0RF ondansetron 4 mg tablet,disintegrating 4 mg PO Q8H PRN (Reason: nausea and vomiting) Qty: 10 0RF Print Language: Icelandic
[2023-09-25 21:19] LABS: MANUAL DIFF FLAG NO
[2023-09-25 21:26] LABS: Appearance Urine Cloudy; Color Urine Dark Yellow; Glucose Urine UA >=1000 mg/dL (Negative); Leukocyte Esterase Urine Negative (Negative); Nitrite Urine Negative (Negative); Specific Gravity - Urine >= 1.030 (1.005-1.025); UMIC TRIGGER UACC YES; Urine Blood Negative (Negative); Urine Ketones 80 mg/dL (Negative); Urine Protein 30 (1+) mg/dL (Neg-Trace)
[2023-09-25 21:27] LABS: Basophils Percent Auto 0.6 % (0-2); Eosinophils Percent Auto 0.2 % (0-4); Hematocrit 36.5 % (37.0-47.0); Hemoglobin 13.2 g/dl (12.0-16.0); Imm Gran Abs Auto 0.01 X10*3/uL (0.00-0.03); Imm Gran Pct Auto 0.2 % (0.0-0.4); Lymphocytes Absolute Auto 1.7 X10*3/uL (1.2-4.9); Lymphocytes Percent Auto 33.7 % (20-40); Mean Corpuscular HGB Conc 36.2 g/dl (31.0-35.0); Mean Corpuscular Hemoglobin 32.8 pg (27.0-33.0); Mean Corpuscular Volume 90.6 fL (80.0-98.0); Mean Platelet Volume 10.3 fL (9.4-12.3); Monocytes Absolute Auto 0.5 X10*3/uL (0.1-1.2); Monocytes Percent Auto 9.3 % (2-11); Neutrophils Absolute Auto 2.9 x10*3/uL (2.0-8.3); Platelet Count 195 X10*3/uL (160-400); Red Blood Count 4.03 X10*6/uL (4.20-5.50); Red Cell Distribution Width 11.9 % (11.0-16.0); White Blood Count 5.2 X10*3/uL (4.8-10.8)
[2023-09-25 21:28] LABS: UPreg QC Valid YES; Urine Pregnancy NEGATIVE (NEGATIVE)
[2023-09-25 21:31] LABS: Amphetamine Screen Urine Not Detected (Not Detect); Barbiturates, Urine Not Detected (Not Detect); Benzodiazepines Screen Urine Not Detected (Not Detect); Buprenorphine Scr Not Detected (Not Detect); Cannabinoid Screen Urine POSITIVE (Not Detect); Cocaine Screen Urine Not Detected (Not Detect); Fentanyl, urine Not Detected (Not Detect); Methadone Screen, Urine Not Detected (Not Detect); Opiate Screen Urine Not Detected (Not Detect); Oxycodone Screen Urine Not Detected (Not Detect); Phencyclidine Screen Urine Not Detected (Not Detect)
[2023-09-25 21:35] LABS: Alanine Aminotransferase 15 U/L (0-31); Albumin Level 4.1 g/dL (3.5-5.0); Alkaline Phosphatase 65 U/L (39-117); Anion Gap 16 (12-20); Aspartate Amino Transferase 18 U/L (5-31); Bilirubin Direct 0.3 mg/dL (0.0-0.5); Bilirubin Total 1.2 mg/dL (0.0-1.0); Blood Urea Nitrogen 15 mg/dL (9-16); Calcium 9.1 mg/dL (8.4-10.2); Carbon Dioxide 22 mmol/L (22-29); Chloride 104 mmol/L (96-108); Creatinine Clr Calc Pharmacy 68.6; Estimated Glomerular Filt Rate > 60; Glucose Random 219 mg/dL (60-115); Lipase 14 U/L (8-78); Magnesium 1.9 mg/dL (1.6-2.6); Potassium 3.9 mmol/L (3.3-5.1); Sodium 138 mmol/L (135-145); Total Protein 6.9 g/dL (6.5-8.0)
[2023-09-25 21:41] LABS: Bacteria Urine None Seen (None Seen); Calcium Oxalate Crystals Urine Present; Hyaline Casts Urine 0-2 /LPF (0-2); RBC Urine 0-2 /HPF (0-2); WBC Urine 0-5 /HPF (0-5)
[2023-09-25 22:31] VITALS: BP 118/72; PULSE 95; RESP 18; TEMP 37.6; O2SAT 99
[2023-09-25] MEDS: Prochlorperazine Edisylate 10 MG/2 ML VIAL IVPUSH (23:50)
[2023-09-25] MEDS: 0.9 % Sodium Chloride 1,000 ML 999 ML IV ×2 (23:50)
[2023-09-25] MEDS: LORazepam 2 MG/ML VIAL IVPUSH (23:51)
[2023-09-26 04:14] VITALS: BP 104/62; PULSE 83; RESP 16; TEMP 36.9; O2SAT 96
[2023-09-26 04:24] LABS: Glucose, Whole Blood 47 mg/dL (60-115)
[2023-09-26 04:57] LABS: Glucose, Whole Blood 145 mg/dL (60-115)
[2023-09-26 06:04] VITALS: BP 112/68; PULSE 76; RESP 16; TEMP 36.6; O2SAT 99
== END 2023-09-26 05:45 | disposition home or self-care (01) ==
PROVIDERS: Physician Assistant; Emergency Provider Internal Medicine
DX: R11.15 Cyclical vomiting syndrome unrelated to migraine (principal); F41.9 Anxiety disorder, unspecified; E11.9 Type 2 diabetes mellitus without complications; Z79.4 Long term (current) use of insulin
CPT/HCPCS: 36415; 80048; 80076; 80307; 81001; 81025; 82947; 83690; 83735; 85025; 96361; 96374; 96375; 99285; J0737; J2060

== ENCOUNTER 2023-12-24 16:44 | Emergency (ER) | payer OTHER, SELFPAY ==
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
[2023-12-24 17:17] VITALS: BP 107/70; BP 114/73; PULSE 97; PULSE 98; RESP 16; TEMP 37.2; O2SAT 100; O2SAT 99; BMI 17.5
[2023-12-24 19:19] LABS: Glucose, Whole Blood 115 mg/dL (60-115)
[2023-12-24 19:31] LABS: MANUAL DIFF FLAG NO
[2023-12-24 19:49] LABS: Basophils Percent Auto 0.5 % (0-2); Eosinophils Percent Auto 0.1 % (0-4); Hematocrit 40.6 % (37.0-47.0); Hemoglobin 14.6 g/dl (12.0-16.0); Imm Gran Abs Auto 0.03 X10*3/uL (0.00-0.03); Imm Gran Pct Auto 0.4 % (0.0-0.4); Lymphocytes Absolute Auto 2.9 X10*3/uL (1.2-4.9); Lymphocytes Percent Auto 35.3 % (20-40); Mean Corpuscular Hemoglobin 33.1 pg (27.0-33.0); Mean Corpuscular Volume 92.1 fL (80.0-98.0); Mean Platelet Volume 10.4 fL (9.4-12.3); Monocytes Absolute Auto 0.4 X10*3/uL (0.1-1.2); Monocytes Percent Auto 4.9 % (2-11); Neutrophils Absolute Auto 4.8 x10*3/uL (2.0-8.3); Neutrophils Percent Auto 58.8 % (45-73); Platelet Count 215 X10*3/uL (160-400); Red Blood Count 4.41 X10*6/uL (4.20-5.50); Red Cell Distribution Width 12.1 % (11.0-16.0); White Blood Count 8.2 X10*3/uL (4.8-10.8)
[2023-12-24 19:53] LABS: Alanine Aminotransferase 16 U/L (0-31); Albumin Level 4.6 g/dL (3.5-5.0); Alkaline Phosphatase 75 U/L (39-117); Anion Gap 16 (12-20); Aspartate Amino Transferase 20 U/L (5-31); Beta-Hydroxybutyrate 0.51 mmol/L (0.02-0.27); Bilirubin Total 1.1 mg/dL (0.0-1.0); Blood Urea Nitrogen 14 mg/dL (9-16); Calcium 9.8 mg/dL (8.4-10.2); Carbon Dioxide 24 mmol/L (22-29); Chloride 107 mmol/L (96-108); Creatinine Clr Calc Pharmacy 68.7; Estimated Glomerular Filt Rate > 60; Glucose Random 123 mg/dL (60-115); Potassium 3.5 mmol/L (3.3-5.1); Sodium 143 mmol/L (135-145); Total Protein 7.9 g/dL (6.5-8.0)
[2023-12-24 20:03] LABS: HCG Quantitative < 2 mIU/mL
== END 2023-12-24 23:11 | disposition left against medical advice (07) ==
PROVIDERS: Registered Nurse Emergency; Emergency Provider Emergency Medicine
DX: R11.2 Nausea with vomiting, unspecified (principal); F43.20 Adjustment disorder, unspecified; Z79.899 Other long term (current) drug therapy; Z87.891 Personal history of nicotine dependence
CPT/HCPCS: 36415; 80053; 82010; 82947; 83735; 84702; 85025; 99281; 99283

== ENCOUNTER 2023-12-24 22:53 | Emergency (ER) | payer OTHER, SELFPAY ==
[2023-12-24 23:31] VITALS: BP 108/72; BP 148/88; PULSE 104; PULSE 107; RESP 20; TEMP 36.8; O2SAT 98; BMI 17.0
== END 2023-12-25 05:50 | disposition left against medical advice (07) ==
LOC: HO.ED 12-25 04:40
PROVIDERS: Emergency Provider Emergency Medicine
DX: R10.9 Unspecified abdominal pain (principal); R11.2 Nausea with vomiting, unspecified; R19.7 Diarrhea, unspecified
CPT/HCPCS: 99281

== ENCOUNTER 2024-04-22 14:56 | Emergency (ER) | payer OTHER, SELFPAY ==
[2024-04-22 15:06] VITALS: BP 142/89; PULSE 110; O2SAT 99
[2024-04-22 15:15] VITALS: BP 138/77; PULSE 92; RESP 16; TEMP 36.7; O2SAT 99; BMI 20.7
--- NOTE | 2024-04-22 15:20 | ECG_ITS ---
Test Reason : ABD PAIN Blood Pressure : */* mmHG Vent. Rate : 94 BPM Atrial Rate : 94 BPM P-R Int : 134 ms QRS Dur : 82 ms QT Int : 356 ms P-R-T Axes : 73 64 40 degrees QTcB Int : 445 ms Normal sinus rhythm Septal infarct (cited on or before 25-Mar-2020) Abnormal ECG When compared with ECG of 25-Mar-2020 18:51, No significant change was found Referred By: Generic ED Physician Electronically Signed By: GABY DEL ROSARIO MD
[2024-04-22 15:26] LABS: MANUAL DIFF FLAG NO
[2024-04-22 15:29] LABS: Basophils Absolute Auto 0.1 X10*3/uL (0.0-0.2); Eosinophils Percent Auto 0.6 % (0-4); Hematocrit 37.6 % (37.0-47.0); Imm Gran Abs Auto 0.01 X10*3/uL (0.00-0.03); Imm Gran Pct Auto 0.2 % (0.0-0.4); Lymphocytes Absolute Auto 1.3 X10*3/uL (1.2-4.9); Lymphocytes Percent Auto 25.7 % (20-40); Mean Corpuscular HGB Conc 34.6 g/dl (31.0-35.0); Mean Corpuscular Hemoglobin 32.2 pg (27.0-33.0); Mean Corpuscular Volume 93.1 fL (80.0-98.0); Monocytes Absolute Auto 0.4 X10*3/uL (0.1-1.2); Monocytes Percent Auto 6.9 % (2-11); Neutrophils Absolute Auto 3.4 x10*3/uL (2.0-8.3); Neutrophils Percent Auto 65.6 % (45-73); Platelet Count 217 X10*3/uL (160-400); Red Blood Count 4.04 X10*6/uL (4.20-5.50); Red Cell Distribution Width 12.3 % (11.0-16.0); White Blood Count 5.1 X10*3/uL (4.8-10.8)
[2024-04-22 17:22] LABS: Influenza A PCR NEGATIVE (Negative); Influenza B PCR NEGATIVE (Negative); Resp Syncy Virus RNA Qual PCR NEGATIVE (Negative); SARS COV2 PCR INHOUSE NEGATIVE (Negative)
[2024-04-22 17:50] LABS: Alanine Aminotransferase 15 U/L (0-31); Alkaline Phosphatase 86 U/L (39-117); Anion Gap 12 (12-20); Aspartate Amino Transferase 25 U/L (5-31); Beta-Hydroxybutyrate 1.13 mmol/L (0.02-0.27); Blood Urea Nitrogen 12 mg/dL (9-16); Calcium 8.8 mg/dL (8.4-10.2); Carbon Dioxide 25 mmol/L (22-29); Chloride 107 mmol/L (96-108); Creatinine Clr Calc Pharmacy 80.2; Estimated Glomerular Filt Rate > 60; Glucose Random 287 mg/dL (60-115); Lipase 13 U/L (8-78); Potassium 3.9 mmol/L (3.3-5.1); Sodium 140 mmol/L (135-145); Total Protein 7.2 g/dL (6.5-8.0)
--- NOTE | 2024-04-22 18:41 | ED_ITS ---
HPI - Nausea/Vomiting/Diarrhea General Chief complaint: Nausea/Vomiting/Diarrhea Stated complaint: ABD PAIN,NAUSEA,NO PO INTAKE X3D PER EMS Time Seen by Provider: 04/22/24 15:57 History of Present Illness ED Provider: Gene Lao MD HPI Narrative: 38-year-old female with history of type 1 diabetes says her glucometer fell off yesterday she reports being nauseated with nonbloody nonbilious vomiting for several days at least. She is unsure if her sugars have been controlled well over the past few days. She has a history of gastroparesis diagnosed by gastric emptying study. She denies any lower abdominal pain but has some upper abdominal discomfort/GERD like cramping symptoms. She feels subjectively dehydrated Related Data Home Medications ?Medication ?Instructions ?Recorded ?Confirmed insulin glargine 100 unit/mL (3 15 unit subcut BEDTIME 12/07/21 12/07/21 mL) subcutaneous pen (Lantus Solostar U-100 Insulin) insulin lispro 100 unit/mL 3 - 6 unit subcut TIDAC 12/07/21 12/07/21 subcutaneous pen Previous Rx's ?Medication ?Instructions ?Recorded metoclopramide HCl 10 mg tablet 10 mg PO Q6H PRN nausea and 12/07/21 (Reglan) vomiting #30 tabs omeprazole 40 mg capsule,delayed 40 mg PO BID #60 caps 12/12/21 release ondansetron 4 mg disintegrating 4 mg PO Q8H PRN nausea and 09/24/23 tablet vomiting #10 tabs lorazepam 1 mg tablet (Ativan) 1 mg PO BEDTIME PRN anxiety #14 09/26/23 tabs metoclopramide HCl 10 mg tablet 10 mg PO Q6H PRN nausea and 04/22/24 (Reglan) vomiting 3 weeks #14 tabs Allergies Allergy/AdvReac Type Severity Reaction Status Date / Time No Known Allergies Allergy Verified 04/22/24 15:19 [facility] Past Medical History Medical History Anxiety Diabetic gastroparesis DKA (diabetic ketoacidoses) Diabetes Surgical History History of Social History Social History Household Members: Children and Other Household Members Other:: Son's father Housing: Apartment Do you presently have visiting nurse or other home services: No Unable to assess alcohol history related to: Refusing to respond Alcohol intake: never Patient Tobacco Use Status: Former Tobacco user Tobacco use type: Cigarette Smoked in Last 30 Days: No e-Cigarette/Vaping Use: Never Used Second Hand Smoke Exposure: No Use of substances other than those prescribed or required for medical reasons: No Substance Use Type: Marijuana Advance Directives: No Advance Directives Information Provided: No service: No Current occupational status: unemployed Physical Exam 2 Vital Signs: Vital Signs: Last Vital Signs Temp 98.6 F 04/22/24 22:26 Pulse 101 H 04/22/24 22:26 Resp 20 04/22/24 22:26 BP 113/70 04/22/24 22:26 Pulse Ox 96 04/22/24 22:26 O2 Del Method Room Air 04/22/24 22:26 BMI result Body Mass Index 20.7 Const: Other: EXAM: Gen: Alert, awake, oriented, mildly pale Head: Atraumatic Eyes: Anicteric, mildly pale ENT: Moist mucosa, no pallor. ? Neck: Supple. Respiratory: Breathing comfortably, No distress.Clear to auscultation bilaterally, symmetric chest expansion, No wheeze, rales, ronchi. Cardiovascular: Tachycardic, regular rate is 110.. No murmurs or rub. Well perfused periphery, warm extremities. No edema. ? Abdominal: Soft, no objective distension. No palpable masses or obvious organomegaly. No focal tenderness, no guarding, no rebound tenderness or other peritoneal findings. : No flank tenderness. Neuro: Alert. Gross movement of all extremities intact. ? Vital signs: See flowsheet Medications Administered Discontinued Medications Generic Name Dose Route Start Last Admin Trade Name Freq PRN Reason Stop Dose Admin Droperidol 0.625 mg 04/22/24 18:43 04/22/24 19:28 Droperidol 5 Mg/2 Ml Vial IVPUSH 04/22/24 18:44 Not Given ONCE ONE Sodium Chloride 1,000 mls @ 999 mls/hr 04/22/24 18:45 04/22/24 21:08 Ns IV 04/22/24 19:45 Infused .Q1H1M KWAKU Infusion Metoclopramide HCl 10 mg 04/22/24 19:37 04/22/24 19:42 Metoclopramide Hcl 10 Mg/2 Ml Vial IVPUSH 04/22/24 19:38 10 mg ONCE ONE Administration Medical Decision Making Medical Decision Making [facility] Narrative: [age] female type 1 diabetes with nausea vomiting nonbloody nonbilious no diarrhea. No blood in the stool Patient's lab work is reassuring there is hyperglycemia no evidence of DKA no actionable electrolyte derangements. Her abdomen is minimally tender in the epigastric region mostly consistent with her underlying gastroparesis. Doubt acute surgical pathology. She has no rigidity. No indication at this time for imaging. The patient felt much better after IV fluid and IV Reglan. Given the underlying gastroparesis I will prescribe her this and advised close follow up with PCP and GI Admission/Observation Consideration of admission/observation: Escalation of care including admission/observation considered Lab Data [facility] Lab Attestation statement: I reviewed the patient's lab results. 04/22/24 15:21 04/22/24 15:21 Labs: Lab Results 04/22/24 04/22/24 04/22/24 Range/Units 15:21 16:26 19:45 WBC 5.1 (4.8-10.8) X10*3/uL RBC 4.04 L (4.20-5.50) X10*6/uL Hgb 13.0 (12.0-16.0) g/dl Hct 37.6 (37.0-47.0) % MCV 93.1 (80.0-98.0) fL MCH 32.2 (27.0-33.0) pg MCHC 34.6 (31.0-35.0) g/dl RDW 12.3 (11.0-16.0) % Plt Count 217 (160-400) X10*3/uL MPV 10.0 (9.4-12.3) fL Immature Gran % (Auto) 0.2 (0.0-0.4) % Neut % (Auto) 65.6 (45-73) % Lymph % (Auto) 25.7 (20-40) % Clarke % (Auto) 6.9 (2-11) % Eos % (Auto) 0.6 (0-4) % Baso % (Auto) 1.0 (0-2) % Lymph # (Auto) 1.3 (1.2-4.9) X10*3/uL Clarke # (Auto) 0.4 (0.1-1.2) X10*3/uL Eos # (Auto) 0.0 (0.0-0.4) X10*3/uL Baso # (Auto) 0.1 (0.0-0.2) X10*3/uL Abs Immat Gran (auto) 0.01 (0.00-0.03) X10*3/uL Absolute Neuts (auto) 3.4 (2.0-8.3) x10*3/uL Absolute Nucleated RBC 0.000 (0.0-0.012) X10*3/uL Nucleated RBC % (auto) 0.0 (0.0-0.2) /100WBC Sodium 140 (135-145) mmol/L Potassium 3.9 (3.3-5.1) mmol/L Chloride 107 (96-108) mmol/L Carbon Dioxide 25 (22-29) mmol/L Anion Gap 12 (12-20) BUN 12 (9-16) mg/dL Creatinine 0.71 (0.5-1.4) mg/dL Estim Creat Clear Calc 80.2 Estimated GFR > 60 Random Glucose 287 H (60-115) mg/dL Calcium 8.8 D (8.4-10.2) mg/dL Total Bilirubin 1.0 (0.0-1.0) mg/dL Direct Bilirubin 0.3 (0.0-0.5) mg/dL AST 25 (5-31) U/L ALT 15 (0-31) U/L Alkaline Phosphatase 86 (39-117) U/L Total Protein 7.2 (6.5-8.0) g/dL Albumin 4.0 (3.5-5.0) g/dL Lipase 13 (8-78) U/L Beta-Hydroxybutyrate 1.13 H (0.02-0.27) mmol/L Urine Color Yellow Urine Appearance Clear Urine pH 6.5 (5.0-9.0) Ur Specific Xenia >= 1.030 H (1.005-1.025) Urine Protein Negative (Neg-Trace) mg/dL Urine Glucose (UA) >=1000 H (Negative) mg/dL Urine Ketones 80 (Negative) mg/dL Urine Blood Negative (Negative) Urine Nitrite Negative (Negative) Ur Leukocyte Esterase Negative (Negative) Urine RBC 0-2 (0-2) /HPF Urine WBC 0-5 (0-5) /HPF Ur Squamous Epith Cells 0-2 (0-2) /HPF Urine Bacteria None Seen (None Seen) Hyaline Casts 0-2 (0-2) /LPF Influenza Type A (PCR) NEGATIVE (Negative) Influenza Type B (PCR) NEGATIVE (Negative) RSV RNA Qual (PCR) NEGATIVE (Negative) SARS-CoV-2 RNA (RT-PCR) NEGATIVE (Negative) Independent Interpretation I performed an independent interpretation of an: EKG Interpretation: Sinus rhythm no prolonged QT. No ischemic changes External Record Review External record reviewed: Outpatient record Chronic Conditions Patient?s care impacted by: Diabetes Discharge Plan Discharge Clinical Impression: Nausea and vomiting, Dehydration Patient Disposition: Home, Self-Care Instructions: Dehydration (ED) Additional Instructions: _ DISCHARGE DIAGNOSES: Viral syndrome, dehydration Probable exacerbation of diabetes and gastroparesis HISTORY OF PRESENTATION: ?Abdominal pain nausea vomiting several days EMERGENCY DEPARTMENT COURSE,TESTS, TREATMENTS: While in the ED today you were found to be dehydrated with mild upper abdominal tenderness. We gave you intravenous metoclopramide this is also called Reglan we will prescribe this for you going home. Call your GI doctor. DISCHARGE MEDICATIONS: ?We prescribed you metoclopramide. Drink small amounts of fluid frequently over the next few days. FOLLOW-UP: ?Call your primary or general physician soon as possible to discuss your symptoms, your ED visit and to discuss follow up plans Call your primary doctor and/or GI doctor for close follow-up within 1 week. INSTRUCTIONS ?& RETURN PRECAUTIONS: If any symptoms change first call your primary physician, if it is after-hours your primary doctors office should have a provider professional bondsman you can speak with. If the symptoms are severe or very concerning to you then call 911 or return to the ED. Geen Lao MD Emergency Physician [facility] Prescriptions: New metoclopramide HCl [Reglan] 10 mg tablet 10 mg PO Q6H PRN (Reason: nausea and vomiting) 21 Days Qty: 14 0RF No Action metoclopramide HCl [Reglan] 10 mg tablet 10 mg PO Q6H PRN (Reason: nausea and vomiting) Qty: 30 0RF insulin lispro 100 unit/mL insulin pen 3 - 6 unit subcut TIDAC insulin glargine [Lantus Solostar U-100 Insulin] 100 unit/mL (3 mL) insulin pen 15 unit subcut BEDTIME omeprazole 40 mg capsule,delayed release(DR/EC) 40 mg PO BID Qty: 60 0RF ondansetron 4 mg tablet,disintegrating 4 mg PO Q8H PRN (Reason: nausea and vomiting) Qty: 10 0RF lorazepam [Ativan] 1 mg tablet 1 mg PO BEDTIME PRN (Reason: anxiety) Qty: 14 0RF Interventions: ED Discharge Assessment Last Done: 04/22/24 22:26 Discharge Date/Time: 04/22/24 22:27 Print Language: Uzbek
[2024-04-22 18:50] VITALS: BP 118/74; PULSE 103; RESP 20; TEMP 37.2; O2SAT 99
--- NOTE | 2024-04-22 19:15 | PC.NURSE ---
Called lab, okay to add of additional lab work, will add on no need to order per Smiley
[2024-04-22] MEDS: Metoclopramide HCl 10 MG/2 ML VIAL IVPUSH (19:42)
[2024-04-22] MEDS: 0.9 % Sodium Chloride 1,000 ML 999 ML IV (19:43)
[2024-04-22 20:05] LABS: Bilirubin Direct 0.3 mg/dL (0.0-0.5)
[2024-04-22 20:17] VITALS: BP 117/78; PULSE 102; RESP 112; TEMP 36.9; O2SAT 98
[2024-04-22 20:39] LABS: Appearance Urine Clear; Color Urine Yellow; Glucose Urine UA >=1000 mg/dL (Negative); Leukocyte Esterase Urine Negative (Negative); Nitrite Urine Negative (Negative); PH 6.5 (5.0-9.0); Specific Gravity - Urine >= 1.030 (1.005-1.025); UMIC TRIGGER UACC YES; Urine Blood Negative (Negative); Urine Ketones 80 mg/dL (Negative); Urine Protein Negative (Neg-Trace)
[2024-04-22 22:02] VITALS: BP 113/70; PULSE 101; RESP 20; TEMP 37; O2SAT 96
[2024-04-22 22:04] LABS: Bacteria Urine None Seen (None Seen); Hyaline Casts Urine 0-2 /LPF (0-2); RBC Urine 0-2 /HPF (0-2); Squamous Epithelial Cell Urine 0-2 /HPF (0-2); WBC Urine 0-5 /HPF (0-5)
[2024-04-22 22:26] VITALS: BP 113/70; PULSE 101; RESP 20; TEMP 37; O2SAT 96
== END 2024-04-22 22:27 | disposition home or self-care (01) ==
PROVIDERS: Emergency Provider Emergency Medicine
DX: E86.0 Dehydration (principal); R11.2 Nausea with vomiting, unspecified; R10.10 Upper abdominal pain, unspecified; E10.9 Type 1 diabetes mellitus without complications; R10.2 Pelvic and perineal pain; R94.31 Abnormal electrocardiogram [ECG] [EKG]; Z79.4 Long term (current) use of insulin; Z79.899 Other long term (current) drug therapy; Z03.818 Encounter for observation for suspected exposure to other biological agents ruled out
CPT/HCPCS: 0241U; 36415; 80053; 81001; 81003; 82010; 82248; 83690; 85025; 93005; 96361; 96374; 99284; 99285; J2765

== ENCOUNTER → 2024-04-22 15:20 | Outpatient (BNV) | payer OTHER, SELFPAY | PROVIDERS: Emergency Provider Emergency Medicine; Visit Provider Internal Medicine Cardiovascular Disease | DX: R94.31 Abnormal electrocardiogram [ECG] [EKG] (principal) | CPT/HCPCS: 93010 ==

== ENCOUNTER 2024-04-29 22:22 | Emergency (ER) | payer OTHER, SELFPAY ==
[2024-04-29 22:30] VITALS: BP 107/66; BP 125/78; PULSE 110; PULSE 96; RESP 12; TEMP 36.9; O2SAT 98; O2SAT 99; BMI 19.4
[2024-04-29 22:36] VITALS: BP 107/66; PULSE 96; RESP 12; TEMP 36.9; O2SAT 99
[2024-04-29 22:49] LABS: MANUAL DIFF FLAG NO
[2024-04-29 22:51] LABS: Basophils Percent Auto 0.6 % (0-2); Hemoglobin 13.3 g/dl (12.0-16.0); Imm Gran Abs Auto 0.02 X10*3/uL (0.00-0.03); Imm Gran Pct Auto 0.3 % (0.0-0.4); Lymphocytes Absolute Auto 1.7 X10*3/uL (1.2-4.9); Lymphocytes Percent Auto 25.2 % (20-40); Mean Corpuscular HGB Conc 35.9 g/dl (31.0-35.0); Mean Corpuscular Hemoglobin 32.7 pg (27.0-33.0); Mean Corpuscular Volume 90.9 fL (80.0-98.0); Mean Platelet Volume 9.7 fL (9.4-12.3); Monocytes Absolute Auto 0.5 X10*3/uL (0.1-1.2); Monocytes Percent Auto 6.9 % (2-11); Neutrophils Absolute Auto 4.6 x10*3/uL (2.0-8.3); Platelet Count 222 X10*3/uL (160-400); Red Blood Count 4.07 X10*6/uL (4.20-5.50); Red Cell Distribution Width 12.3 % (11.0-16.0); White Blood Count 6.8 X10*3/uL (4.8-10.8)
[2024-04-29 23:04] LABS: Alanine Aminotransferase 12 U/L (0-31); Albumin Level 3.8 g/dL (3.5-5.0); Alkaline Phosphatase 75 U/L (39-117); Anion Gap 13 (12-20); Aspartate Amino Transferase 19 U/L (5-31); Bilirubin Total 0.7 mg/dL (0.0-1.0); Blood Urea Nitrogen 10 mg/dL (9-16); Carbon Dioxide 23 mmol/L (22-29); Chloride 104 mmol/L (96-108); Creatinine Clr Calc Pharmacy 76.9; Estimated Glomerular Filt Rate > 60; Glucose Random 318 mg/dL (60-115); Magnesium 1.9 mg/dL (1.6-2.6); Potassium 4.4 mmol/L (3.3-5.1); Sodium 136 mmol/L (135-145); Total Protein 6.7 g/dL (6.5-8.0)
--- NOTE | 2024-04-30 00:16 | ED.GENADULT ---
HPI - General Adult General Chief complaint: Nausea/Vomiting/Diarrhea Stated complaint: n/v x months diabetic & hyperglycemic Time Seen by Provider: 04/30/24 00:15 History of Present Illness ED Provider: Claudia MILLAN narrative: The patient is a 38-year-old female who was a type 1 diabetic. She says that she also has a history of gastroparesis. She says that she has a great deal of nausea and vomiting because of her gastroparesis. She feels that the oral medications that she uses at home are not helpful. The patient was here 1 week ago on April 22 with similar complaints. She says that she gets relief from IV metoclopramide but gets less relief at home with the oral metoclopramide. She is frustrated that she is not able to manage her symptoms at home. Last bowel movement was this morning. No diarrhea. Related Data Home Medications ?Medication ?Instructions ?Recorded ?Confirmed insulin glargine 100 unit/mL (3 15 unit subcut BEDTIME 12/07/21 12/07/21 mL) subcutaneous pen (Lantus Solostar U-100 Insulin) insulin lispro 100 unit/mL 3 - 6 unit subcut TIDAC 12/07/21 12/07/21 subcutaneous pen Previous Rx's ?Medication ?Instructions ?Recorded metoclopramide HCl 10 mg tablet 10 mg PO Q6H PRN nausea and 12/07/21 (Reglan) vomiting #30 tabs omeprazole 40 mg capsule,delayed 40 mg PO BID #60 caps 12/12/21 release ondansetron 4 mg disintegrating 4 mg PO Q8H PRN nausea and 09/24/23 tablet vomiting #10 tabs lorazepam 1 mg tablet (Ativan) 1 mg PO BEDTIME PRN anxiety #14 09/26/23 tabs metoclopramide HCl 10 mg tablet 10 mg PO Q6H PRN nausea and 04/22/24 (Reglan) vomiting 3 weeks #14 tabs ondansetron 4 mg disintegrating 4 mg PO Q6H PRN nausea and 04/30/24 tablet vomiting #14 tabs Allergies Allergy/AdvReac Type Severity Reaction Status Date / Time No Known Allergies Allergy Verified 04/29/24 22:33 Review of Systems Review of Systems: Yes all other systems are reviewed and are negative PMFSH Past Medical History Medical History Anxiety Diabetic gastroparesis DKA (diabetic ketoacidoses) Diabetes Surgical History History of Social History Social History Household Members: Children and Other Household Members Other:: Son's father Housing: Apartment Do you presently have visiting nurse or other home services: No Unable to assess alcohol history related to: Refusing to respond Alcohol intake: never Patient Tobacco Use Status: Former Tobacco user Tobacco use type: Cigarette Smoked in Last 30 Days: No e-Cigarette/Vaping Use: Never Used Second Hand Smoke Exposure: No Use of substances other than those prescribed or required for medical reasons: No Substance Use Type: Marijuana Advance Directives: No Advance Directives Information Provided: No Patient : No service: No Current occupational status: unemployed Physical Exam ED Vital Signs: Vital Signs - 24 hr 04/29/24 22:30 04/29/24 22:36 04/30/24 00:25 Temperature 98.5 F 98.5 F 98.8 F Pulse Rate 96 96 104 H Respiratory Rate 12 12 16 Blood Pressure 107/66 107/66 117/73 Pulse Oximetry 99 99 97 Oxygen Delivery Method Room Air Room Air Room Air 04/30/24 00:37 04/30/24 02:53 04/30/24 03:00 Temperature 97.4 F 97.4 F Pulse Rate 97 94 94 Respiratory Rate 16 16 16 Blood Pressure 110/73 128/82 128/82 Pulse Oximetry 97 97 97 Oxygen Delivery Method Room Air Room Air Room Air BMI result Body Mass Index 19.4 Const Other: The patient is a very slim 38-year-old. She looks somewhat chronically ill. She is awake and alert with a normal mental status. She does not appear in obvious discomfort. HENMT Other: The face is symmetrical. ?Mucous membranes moist. Eyes Other: Pupils are round equal, conjunctivae are clear, extraocular movements intact Neck Neck: Yes full ROM Resp Effort & Inspection: normal respiratory effort Auscultation: clear to auscultation bilaterally Cardio Rate: regular rate Rhythm: regular rhythm Heart sounds: S1 normal heart sound present and S2 normal heart sound present GI Other: The abdomen is flat, soft, and nontender. Skin General skin exam: no rashes or lesions noted Neuro Other: The patient is awake and alert with a normal mental status. Cranial nerves are intact. She moves all extremities normally. Extrem Other: No peripheral edema Medications Administered Discontinued Medications Generic Name Dose Route Start Last Admin Trade Name Toribio PRN Reason Stop Dose Admin Diphenhydramine HCl 12.5 mg 04/30/24 00:23 04/30/24 00:36 Diphenhydramine Hcl 50 Mg/Ml Vial IVPUSH 04/30/24 00:24 12.5 mg ONCE ONE Administration Famotidine 20 mg 04/30/24 00:23 04/30/24 00:37 Famotidine/Pf 20 Mg/2 Ml Vial IVPUSH 04/30/24 00:24 20 mg ONCE ONE Administration Sodium Chloride 1,000 mls @ 999 mls/hr 04/30/24 00:30 04/30/24 01:50 Ns IV 04/30/24 01:30 Infused .Q1H1M KWAKU Infusion Metoclopramide HCl 10 mg 04/30/24 00:23 04/30/24 00:37 Metoclopramide Hcl 10 Mg/2 Ml Vial IVPUSH 04/30/24 00:24 10 mg ONCE ONE Administration Medical Decision Making Medical Decision Making [facility] Narrative: The patient is a type 1 diabetic comes to the emergency room for the 2nd time in about a week with a complaint of nausea and vomiting. She says she has gastroparesis. She gets her primary care at the [address] She says that she had some kind of gastric emptying study that confirmed the diagnosis of gastroparesis but she does not have an appointment with a electric frying pan repairer for a couple of months. She comes today saying she has had a great deal of vomiting over the last few days. She has remarkably normal labs. No sign of DKA. The patient was treated symptomatically with IV metoclopramide, diphenhydramine, and IV fluids. She felt better. She looked well enough for discharge. She says that she has metoclopramide at home. I will write a prescription for ondansetron. Lab Data 04/29/24 22:43 04/29/24 22:43 Labs: Lab Results 04/29/24 Range/Units 22:43 WBC 6.8 (4.8-10.8) X10*3/uL RBC 4.07 L (4.20-5.50) X10*6/uL Hgb 13.3 (12.0-16.0) g/dl Hct 37.0 (37.0-47.0) % MCV 90.9 (80.0-98.0) fL MCH 32.7 (27.0-33.0) pg MCHC 35.9 H (31.0-35.0) g/dl RDW 12.3 (11.0-16.0) % Plt Count 222 (160-400) X10*3/uL MPV 9.7 (9.4-12.3) fL Immature Gran % (Auto) 0.3 (0.0-0.4) % Neut % (Auto) 67.0 (45-73) % Lymph % (Auto) 25.2 (20-40) % [place] % (Auto) 6.9 (2-11) % Eos % (Auto) 0.0 (0-4) % Baso % (Auto) 0.6 (0-2) % Lymph # (Auto) 1.7 (1.2-4.9) X10*3/uL [place] # (Auto) 0.5 (0.1-1.2) X10*3/uL Eos # (Auto) 0.0 (0.0-0.4) X10*3/uL Baso # (Auto) 0.0 (0.0-0.2) X10*3/uL Abs Immat Gran (auto) 0.02 (0.00-0.03) X10*3/uL Absolute Neuts (auto) 4.6 (2.0-8.3) x10*3/uL Absolute Nucleated RBC 0.000 (0.0-0.012) X10*3/uL Nucleated RBC % (auto) 0.0 (0.0-0.2) /100WBC Sodium 136 (135-145) mmol/L Potassium 4.4 (3.3-5.1) mmol/L Chloride 104 (96-108) mmol/L Carbon Dioxide 23 (22-29) mmol/L Anion Gap 13 (12-20) BUN 10 (9-16) mg/dL Creatinine 0.72 (0.5-1.4) mg/dL Estim Creat Clear Calc 76.9 Estimated GFR > 60 Random Glucose 318 H (60-115) mg/dL Calcium 9.0 (8.4-10.2) mg/dL Magnesium 1.9 (1.6-2.6) mg/dL Total Bilirubin 0.7 (0.0-1.0) mg/dL AST 19 (5-31) U/L ALT 12 (0-31) U/L Alkaline Phosphatase 75 (39-117) U/L Total Protein 6.7 (6.5-8.0) g/dL Albumin 3.8 (3.5-5.0) g/dL Discharge Plan Discharge Clinical Impression: Nausea and vomiting, Type 1 diabetes Patient Disposition: Home, Self-Care Additional Instructions: If you have metoclopramide (Reglan) at home in 5 mg tablets you can try increasing the dose to 2 tablets so that you take 10 mg per dose as needed for nausea. Alternatively I have sent a prescription for ondansetron to your pharmacy which you may use instead. Please stay in touch with your regular doctor for additional advice and also continue your efforts to get in to see a electric frying pan repairer. Return to the emergency room if significantly worse. Prescriptions: New ondansetron 4 mg tablet,disintegrating 4 mg PO Q6H PRN (Reason: nausea and vomiting) Qty: 14 0RF No Action metoclopramide HCl [Reglan] 10 mg tablet 10 mg PO Q6H PRN (Reason: nausea and vomiting) Qty: 30 0RF insulin lispro 100 unit/mL insulin pen 3 - 6 unit subcut TIDAC insulin glargine [Lantus Solostar U-100 Insulin] 100 unit/mL (3 mL) insulin pen 15 unit subcut BEDTIME omeprazole 40 mg capsule,delayed release(DR/EC) 40 mg PO BID Qty: 60 0RF ondansetron 4 mg tablet,disintegrating 4 mg PO Q8H PRN (Reason: nausea and vomiting) Qty: 10 0RF lorazepam [Ativan] 1 mg tablet 1 mg PO BEDTIME PRN (Reason: anxiety) Qty: 14 0RF metoclopramide HCl [Reglan] 10 mg tablet 10 mg PO Q6H PRN (Reason: nausea and vomiting) 21 Days Qty: 14 0RF Referrals: [facility] [Provider Group] (Persistent nausea and vomiting) Interventions: ED Discharge Assessment Last Done: 04/30/24 03:00 Discharge Date/Time: 04/30/24 03:14 Print Language: Mongolian
[2024-04-30 00:25] VITALS: BP 117/73; PULSE 104; RESP 16; TEMP 37.1; O2SAT 97
[2024-04-30] MEDS: diphenhydrAMINE HCL 50 MG/ML VIAL 12.5 MG IVPUSH (00:36)
[2024-04-30 00:37] VITALS: BP 110/73; PULSE 97; RESP 16; O2SAT 97
[2024-04-30] MEDS: 0.9 % Sodium Chloride 1,000 ML 999 ML IV (00:37)
[2024-04-30] MEDS: Famotidine/PF 20 MG/2 ML VIAL IVPUSH (00:37)
[2024-04-30] MEDS: Metoclopramide HCl 10 MG/2 ML VIAL IVPUSH (00:37)
[2024-04-30 02:53] VITALS: BP 128/82; PULSE 94; RESP 16; TEMP 36.3; O2SAT 97
[2024-04-30 03:00] VITALS: BP 128/82; PULSE 94; RESP 16; TEMP 36.3; O2SAT 97
== END 2024-04-30 03:14 | disposition home or self-care (01) ==
PROVIDERS: Emergency Provider Emergency Medicine
DX: R11.2 Nausea with vomiting, unspecified (principal); E10.9 Type 1 diabetes mellitus without complications; Z79.4 Long term (current) use of insulin; Z79.899 Other long term (current) drug therapy
CPT/HCPCS: 36415; 80053; 83735; 85025; 96361; 96374; 96375; 99284; J1200; J2765

== ENCOUNTER 2024-07-26 15:22 | Emergency (ER) | payer OTHER, SELFPAY ==
[2024-07-26 16:06] VITALS: PULSE 108; RESP 16; TEMP 36.5; O2SAT 98; BMI 16.5
--- NOTE | 2024-07-26 16:06 | ED.GENADULT ---
HPI - General Adult General Chief complaint: Nausea/Vomiting/Diarrhea Stated complaint: vomiting Time Seen by Provider: 07/26/24 16:19 History of Present Illness ED Provider: Claudia MILLAN narrative: The patient is a 38-year-old woman with a history of type 1 diabetes who developed vomiting 3 hours prior to arrival. The vomiting seemed intractable and so she came to the emergency room. She has a history of previous episodes of severe vomiting. She says that she has diabetic gastroparesis and she feels that approximately every 2 weeks she has a buildup of stool that leads to an episode of significant diarrhea as well as nausea and vomiting. She says that she had just such an episode earlier today. No fever, sweats, chills. She has been taking her insulin. However she has lost her glucose meter a few nights ago. No fever, sweats, chills. Related Data Home Medications ?Medication ?Instructions ?Recorded ?Confirmed insulin glargine 100 unit/mL (3 15 unit subcut BEDTIME 12/07/21 12/07/21 mL) subcutaneous pen (Lantus Solostar U-100 Insulin) insulin lispro 100 unit/mL 3 - 6 unit subcut TIDAC 12/07/21 12/07/21 subcutaneous pen Previous Rx's ?Medication ?Instructions ?Recorded metoclopramide HCl 10 mg tablet 10 mg PO Q6H PRN nausea and 12/07/21 (Reglan) vomiting #30 tabs omeprazole 40 mg capsule,delayed 40 mg PO BID #60 caps 12/12/21 release ondansetron 4 mg disintegrating 4 mg PO Q8H PRN nausea and 09/24/23 tablet vomiting #10 tabs lorazepam 1 mg tablet (Ativan) 1 mg PO BEDTIME PRN anxiety #14 09/26/23 tabs metoclopramide HCl 10 mg tablet 10 mg PO Q6H PRN nausea and 04/22/24 (Reglan) vomiting 3 weeks #14 tabs ondansetron 4 mg disintegrating 4 mg PO Q6H PRN nausea and 04/30/24 tablet vomiting #14 tabs Allergies Allergy/AdvReac Type Severity Reaction Status Date / Time No Known Allergies Allergy Verified 07/26/24 16:09 Review of Systems Review of Systems: Yes all other systems are reviewed and are negative PMFSH Past Medical History Medical History Anxiety Diabetic gastroparesis DKA (diabetic ketoacidoses) Diabetes Surgical History History of Social History Social History Household Members: Children and Other Household Members Other:: Son's father Housing: Apartment Do you presently have visiting nurse or other home services: No Unable to assess alcohol history related to: Refusing to respond Alcohol intake: never Patient Tobacco Use Status: Former Tobacco user Tobacco use type: Cigarette e-Cigarette/Vaping Use: Never Used Second Hand Smoke Exposure: No Substance Use Type: Marijuana Advance Directives: No Advance Directives Information Provided: No Patient : No service: No Current occupational status: unemployed Physical Exam ED Vital Signs: Vital Signs - 24 hr 07/26/24 16:06 07/26/24 16:16 07/26/24 18:24 Temperature 97.7 F 98.3 F Pulse Rate 108 H 102 H 106 H Respiratory Rate 16 30 H 16 Blood Pressure 131/82 98/62 Pulse Oximetry 98 100 97 Oxygen Delivery Method Room Air Room Air Room Air 07/26/24 22:06 07/26/24 23:14 Temperature 99.4 F 99.4 F Pulse Rate 107 H 107 H Respiratory Rate 12 12 Blood Pressure 107/64 107/64 Pulse Oximetry 97 97 Oxygen Delivery Method Room Air Room Air BMI result Body Mass Index 16.5 Const Other: The patient is a 38-year-old female who was awake and alert and seemed extremely anxious. She seemed to be hyperventilating and retching. HENMT Other: Face is symmetrical. Mucous membranes moist, airway clear. Eyes General: appearance normal, both eyes and all related structures Neck Neck: Yes full ROM and Yes no lymphadenopathy Resp Effort & Inspection: normal respiratory effort Auscultation: clear to auscultation bilaterally Cardio Rate: tachycardic Rhythm: regular rhythm Heart sounds: S1 normal heart sound present and S2 normal heart sound present GI Other: The patient seemed to have some diffuse abdominal tenderness without rebound or guarding. Skin Other: Skin is pale and dry Neuro Other: The patient was awake and alert but seemed to be distracted by her symptoms. She seemed uncomfortable and nauseated. However she seemed to have intact cranial nerves and seemed to be moving her extremities symmetrically and appropriately. No obvious focal deficit. Extrem Other: No peripheral edema Course Course Course Narrative: This is a rapid medical exam performed by Prem Goode NP: Additional HPI, ROS, PE not included below will be deferred to primary provider. Patient is a 38-year-old female with history of T1DM, DKA, diabetic gastroparesis presenting with complaint of nausea and vomiting. Lost her glucose meter Sat night. Pale, diaphoretic in triage. POC glucose 234. Plan: EKG, labs, charge master specialist notified, pt brought directly to room 5 Medications Administered Discontinued Medications Generic Name Dose Route Start Last Admin Trade Name Freq PRN Reason Stop Dose Admin Diphenhydramine HCl 25 mg 07/26/24 17:04 07/26/24 17:13 Diphenhydramine Hcl 50 Mg/Ml Vial IVPUSH 07/26/24 17:05 25 mg ONCE ONE Administration Haloperidol Lactate 5 mg 07/26/24 17:04 07/26/24 17:16 Haloperidol Lactate 5 Mg/Ml Vial IVPUSH 07/26/24 17:05 5 mg ONCE ONE Administration Sodium Chloride 1,000 mls @ 999 mls/hr 07/26/24 16:30 07/26/24 18:06 Ns IV 07/26/24 17:30 Infused .Q1H1M KWAKU Infusion Lactated Ringer's 1,000 mls @ 999 mls/hr 07/26/24 19:00 07/26/24 21:21 Lr IV 07/26/24 20:00 Infused .Q1H1M KWAKU Infusion Lactated Ringer's 1,000 mls @ 999 mls/hr 07/26/24 22:00 07/26/24 23:05 Lr IV 07/26/24 23:00 Infused .Q1H1M KWAKU Infusion Insulin Glargine 14 unit 07/26/24 22:27 07/26/24 22:43 Insulin Glargine,Hum.Rec.Anlog 100 Unit/Ml 10 Ml Vial SUBCUT 07/26/24 22:28 14 unit ONCE ONE Administration Medical Decision Making Medical Decision Making [facility] Narrative: The patient is a 38-year-old female with a history of type 1 diabetes who may also have a history of diabetic gastroparesis. She presents with the acute vomiting that started 3 hours prior to arrival. When I 1st saw her she seemed extremely uncomfortable and upset and I could not tell if she was exhibiting hyperventilation or Kussmaul breathing. IV access was somewhat difficult but ultimately we obtained peripheral access. She was given IV fluids. For her severe nausea she was given 5 mg of IV haloperidol and 25 mg of IV diphenhydramine. These medications seemed very effective at controlling her nausea. She fell asleep and her respiratory rate normalized. The patient's labs showed a normal white count of 8.8 with 77.5 neutrophils. A venous blood gas showed a pH of 7.33 with a pCO2 of 52. Her basic metabolic panel showed normal electrolytes with a carbon dioxide of 24. Anion gap is normal at 17. Renal function is normal with a creatinine of 0.76 and a BUN of 13. Her blood sugar was 254. CRP was undetectable. Beta hydroxybutyrate was slightly elevated serum 0.64. My overall impression is that the patient does not have diabetic ketoacidosis. She had a great deal of vomiting which could be related to gastroparesis but could also be related to her use of marijuana. She uses marijuana nightly. Given her normal white count and a normal CRP I do not think she requires abdominal imaging. Ultimately I felt that after 3 L of crystalloid that the patient could be discharged. She was given her usual evening dose of Lantus, 14 units. She should follow up with her primary care doctor or return to the ER if worse. Lab Data 07/26/24 16:26 07/26/24 16:26 Labs: Lab Results 07/26/24 07/26/24 07/26/24 Range/Units 16:11 16:21 16:26 WBC 8.8 (4.8-10.8) X10*3/uL RBC 4.39 (4.20-5.50) X10*6/uL Hgb 13.9 (12.0-16.0) g/dl Hct 40.3 (37.0-47.0) % MCV 91.8 (80.0-98.0) fL MCH 31.7 (27.0-33.0) pg MCHC 34.5 (31.0-35.0) g/dl RDW 11.9 (11.0-16.0) % Plt Count 225 (160-400) X10*3/uL MPV 10.0 (9.4-12.3) fL Immature Gran % (Auto) 0.3 (0.0-0.4) % Neut % (Auto) 77.5 H (45-73) % Lymph % (Auto) 17.5 L (20-40) % Wilson % (Auto) 3.9 (2-11) % Eos % (Auto) 0.1 (0-4) % Baso % (Auto) 0.7 (0-2) % Lymph # (Auto) 1.5 (1.2-4.9) X10*3/uL Wilson # (Auto) 0.3 (0.1-1.2) X10*3/uL Eos # (Auto) 0.0 (0.0-0.4) X10*3/uL Baso # (Auto) 0.1 (0.0-0.2) X10*3/uL Abs Immat Gran (auto) 0.03 (0.00-0.03) X10*3/uL Absolute Neuts (auto) 6.8 (2.0-8.3) x10*3/uL Absolute Nucleated RBC 0.000 (0.0-0.012) X10*3/uL Nucleated RBC % (auto) 0.0 (0.0-0.2) /100WBC VBG pH (7.32-7.43) VBG pCO2 mmHg VBG pO2 mmHg VBG HCO3 (22-26) mmol/L VBG O2 Saturation % VBG Base Excess mmol/L Sodium 141 (135-145) mmol/L Potassium 3.5 D (3.3-5.1) mmol/L Chloride 104 (96-108) mmol/L Carbon Dioxide 24 (22-29) mmol/L Anion Gap 17 (12-20) BUN 13 (9-16) mg/dL Creatinine 0.76 (0.5-1.4) mg/dL Estim Creat Clear Calc 64.0 Estimated GFR > 60 POC Glucose 234 H 232 H (60-115) mg/dL Random Glucose 253 H (60-115) mg/dL Calcium 9.4 (8.4-10.2) mg/dL Magnesium 1.9 (1.6-2.6) mg/dL Total Bilirubin 1.0 (0.0-1.0) mg/dL AST 23 (5-31) U/L ALT 15 (0-31) U/L Alkaline Phosphatase 84 (39-117) U/L C-Reactive Protein < 0.04 (< or = 0.50) mg/dL Total Protein 7.3 (6.5-8.0) g/dL Albumin 4.4 (3.5-5.0) g/dL Lipase 13 (8-78) U/L Beta-Hydroxybutyrate 0.64 H (0.02-0.27) mmol/L Beta HCG, Quant < 2 mIU/mL Urine Color Urine Appearance Urine pH (5.0-9.0) Ur Specific [place] (1.005-1.025) Urine Protein (Neg-Trace) mg/dL Urine Glucose (UA) (Negative) mg/dL Urine Ketones (Negative) mg/dL Urine Blood (Negative) Urine Nitrite (Negative) Ur Leukocyte Esterase (Negative) Urine RBC (0-2) /HPF Urine WBC (0-5) /HPF Ur Squamous Epith Cells (0-2) /HPF Urine Bacteria (None Seen) Hyaline Casts (0-2) /LPF Influenza Type A (PCR) NEGATIVE (Negative) Influenza Type B (PCR) NEGATIVE (Negative) RSV RNA Qual (PCR) NEGATIVE (Negative) SARS-CoV-2 RNA (RT-PCR) NEGATIVE (Negative) 07/26/24 07/26/24 07/26/24 Range/Units 16:38 22:34 22:36 WBC (4.8-10.8) X10*3/uL RBC (4.20-5.50) X10*6/uL Hgb (12.0-16.0) g/dl Hct (37.0-47.0) % MCV (80.0-98.0) fL MCH (27.0-33.0) pg MCHC (31.0-35.0) g/dl RDW (11.0-16.0) % Plt Count (160-400) X10*3/uL MPV (9.4-12.3) fL Immature Gran % (Auto) (0.0-0.4) % Neut % (Auto) (45-73) % Lymph % (Auto) (20-40) % Wilson % (Auto) (2-11) % Eos % (Auto) (0-4) % Baso % (Auto) (0-2) % Lymph # (Auto) (1.2-4.9) X10*3/uL Wilson # (Auto) (0.1-1.2) X10*3/uL Eos # (Auto) (0.0-0.4) X10*3/uL Baso # (Auto) (0.0-0.2) X10*3/uL Abs Immat Gran (auto) (0.00-0.03) X10*3/uL Absolute Neuts (auto) (2.0-8.3) x10*3/uL Absolute Nucleated RBC (0.0-0.012) X10*3/uL Nucleated RBC % (auto) (0.0-0.2) /100WBC VBG pH 7.33 (7.32-7.43) VBG pCO2 52 mmHg VBG pO2 27 mmHg VBG HCO3 28 H (22-26) mmol/L VBG O2 Saturation 38.0 % VBG Base Excess 1.6 mmol/L Sodium (135-145) mmol/L Potassium (3.3-5.1) mmol/L Chloride (96-108) mmol/L Carbon Dioxide (22-29) mmol/L Anion Gap (12-20) BUN (9-16) mg/dL Creatinine (0.5-1.4) mg/dL Estim Creat Clear Calc Estimated GFR POC Glucose 206 H (60-115) mg/dL Random Glucose (60-115) mg/dL Calcium (8.4-10.2) mg/dL Magnesium (1.6-2.6) mg/dL Total Bilirubin (0.0-1.0) mg/dL AST (5-31) U/L ALT (0-31) U/L Alkaline Phosphatase (39-117) U/L C-Reactive Protein (< or = 0.50) mg/dL Total Protein (6.5-8.0) g/dL Albumin (3.5-5.0) g/dL Lipase (8-78) U/L Beta-Hydroxybutyrate (0.02-0.27) mmol/L Beta HCG, Quant mIU/mL Urine Color Yellow Urine Appearance Clear Urine pH 6.5 (5.0-9.0) Ur Specific [place] >= 1.030 H (1.005-1.025) Urine Protein Trace (Neg-Trace) mg/dL Urine Glucose (UA) >=1000 H (Negative) mg/dL Urine Ketones >=160 (Negative) mg/dL Urine Blood Negative (Negative) Urine Nitrite Negative (Negative) Ur Leukocyte Esterase Negative (Negative) Urine RBC 0-2 (0-2) /HPF Urine WBC 6-10 H (0-5) /HPF Ur Squamous Epith Cells 3-5 (0-2) /HPF Urine Bacteria 4+ (None Seen) Hyaline Casts 0-2 (0-2) /LPF Influenza Type A (PCR) (Negative) Influenza Type B (PCR) (Negative) RSV RNA Qual (PCR) (Negative) SARS-CoV-2 RNA (RT-PCR) (Negative) Discharge Plan Discharge Clinical Impression: Nausea and vomiting, Type 1 diabetes Patient Disposition: Home, Self-Care Additional Instructions: Please resume your normal diabetes regimen tomorrow. Please contact your regular doctor's office for a follow up appointment. Sometimes episodes of severe vomiting can be related to marijuana use. 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 Return to the emergency room if significantly worse. Prescriptions: No Action metoclopramide HCl [Reglan] 10 mg tablet 10 mg PO Q6H PRN (Reason: nausea and vomiting) Qty: 30 0RF insulin lispro 100 unit/mL insulin pen 3 - 6 unit subcut TIDAC insulin glargine [Lantus Solostar U-100 Insulin] 100 unit/mL (3 mL) insulin pen 15 unit subcut BEDTIME omeprazole 40 mg capsule,delayed release(DR/EC) 40 mg PO BID Qty: 60 0RF ondansetron 4 mg tablet,disintegrating 4 mg PO Q8H PRN (Reason: nausea and vomiting) Qty: 10 0RF lorazepam [Ativan] 1 mg tablet 1 mg PO BEDTIME PRN (Reason: anxiety) Qty: 14 0RF metoclopramide HCl [Reglan] 10 mg tablet 10 mg PO Q6H PRN (Reason: nausea and vomiting) 21 Days Qty: 14 0RF ondansetron 4 mg tablet,disintegrating 4 mg PO Q6H PRN (Reason: nausea and vomiting) Qty: 14 0RF Referrals: [facility] [Provider Group] (Recurrent vomiting) Interventions: ED Discharge Assessment Last Done: 07/26/24 23:14 Discharge Date/Time: 07/26/24 23:22 Print Language: Yoruba
--- NOTE | 2024-07-26 16:09 | ECG_ITS ---
Test Reason : NAUSEA Blood Pressure : */* mmHG Vent. Rate : 111 BPM Atrial Rate : 111 BPM P-R Int : 128 ms QRS Dur : 74 ms QT Int : 364 ms P-R-T Axes : 72 77 47 degrees QTcB Int : 495 ms Sinus tachycardia Septal infarct (cited on or before 25-Mar-2020) Abnormal ECG When compared with ECG of 22-Apr-2024 15:31, No significant change was found Referred By: Hilda Goode Electronically Signed By: CRYSTAL PALMER
[2024-07-26 16:14] LABS: Glucose, Whole Blood 234 mg/dL (60-115)
[2024-07-26 16:16] VITALS: BP 131/82; PULSE 102; RESP 30; O2SAT 100
[2024-07-26 16:25] LABS: Glucose, Whole Blood 232 mg/dL (60-115)
[2024-07-26 16:32] LABS: MANUAL DIFF FLAG NO
[2024-07-26 16:38] LABS: Basophils Absolute Auto 0.1 X10*3/uL (0.0-0.2); Basophils Percent Auto 0.7 % (0-2); Eosinophils Percent Auto 0.1 % (0-4); Hematocrit 40.3 % (37.0-47.0); Hemoglobin 13.9 g/dl (12.0-16.0); Imm Gran Abs Auto 0.03 X10*3/uL (0.00-0.03); Imm Gran Pct Auto 0.3 % (0.0-0.4); Lymphocytes Absolute Auto 1.5 X10*3/uL (1.2-4.9); Lymphocytes Percent Auto 17.5 % (20-40); Mean Corpuscular HGB Conc 34.5 g/dl (31.0-35.0); Mean Corpuscular Hemoglobin 31.7 pg (27.0-33.0); Mean Corpuscular Volume 91.8 fL (80.0-98.0); Monocytes Absolute Auto 0.3 X10*3/uL (0.1-1.2); Monocytes Percent Auto 3.9 % (2-11); Neutrophils Absolute Auto 6.8 x10*3/uL (2.0-8.3); Neutrophils Percent Auto 77.5 % (45-73); Platelet Count 225 X10*3/uL (160-400); Red Blood Count 4.39 X10*6/uL (4.20-5.50); Red Cell Distribution Width 11.9 % (11.0-16.0); White Blood Count 8.8 X10*3/uL (4.8-10.8)
[2024-07-26 16:52] LABS: Alanine Aminotransferase 15 U/L (0-31); Albumin Level 4.4 g/dL (3.5-5.0); Alkaline Phosphatase 84 U/L (39-117); Anion Gap 17 (12-20); Aspartate Amino Transferase 23 U/L (5-31); Blood Urea Nitrogen 13 mg/dL (9-16); Calcium 9.4 mg/dL (8.4-10.2); Carbon Dioxide 24 mmol/L (22-29); Chloride 104 mmol/L (96-108); Estimated Glomerular Filt Rate > 60; Glucose Random 253 mg/dL (60-115); Lipase 13 U/L (8-78); Magnesium 1.9 mg/dL (1.6-2.6); Potassium 3.5 mmol/L (3.3-5.1); Sodium 141 mmol/L (135-145); Total Protein 7.3 g/dL (6.5-8.0)
[2024-07-26 16:57] LABS: Beta-Hydroxybutyrate 0.64 mmol/L (0.02-0.27)
[2024-07-26 17:06] LABS: HCG Quantitative < 2 mIU/mL
[2024-07-26 17:07] LABS: VBG Base Excess 1.6 mmol/L; VBG HCO3 28 mmol/L (22-26); VBG pCO2 52 mmHg; VBG pH 7.33 (7.32-7.43); VBG pO2 27 mmHg
[2024-07-26] MEDS: 0.9 % Sodium Chloride 1,000 ML 999 ML IV (17:13)
[2024-07-26] MEDS: diphenhydrAMINE HCL 50 MG/ML VIAL 25 MG IVPUSH (17:13)
[2024-07-26] MEDS: Haloperidol Lactate 5 MG/ML VIAL IVPUSH (17:16)
[2024-07-26 17:25] LABS: Influenza A PCR NEGATIVE (Negative); Influenza B PCR NEGATIVE (Negative); Resp Syncy Virus RNA Qual PCR NEGATIVE (Negative); SARS COV2 PCR INHOUSE NEGATIVE (Negative)
[2024-07-26 17:38] LABS: C Reactive Protein < 0.04 mg/dL (< or = 0.50)
[2024-07-26 18:18] LABS: Venous Blood Gas Refer to POC result
[2024-07-26 18:24] VITALS: BP 98/62; PULSE 106; RESP 16; TEMP 36.8; O2SAT 97
[2024-07-26] MEDS: Lactated Ringers 1,000 ML 999 ML IV ×2 (18:51→22:04)
--- NOTE | 2024-07-26 19:27 | PC.NURSE ---
This RN assumed pt care @ 1900. Pt a&ox4, no signs of distress Pt denies pain at this time Plan of care ongoing.
--- NOTE | 2024-07-26 19:53 | PC.NURSE ---
Pt requested and given her phone back from charging at the membership secretary desk. Plan of care ongoing.
[2024-07-26 22:06] VITALS: BP 107/64; PULSE 107; RESP 12; TEMP 37.4; O2SAT 97
--- NOTE | 2024-07-26 22:08 | PC.NURSE ---
Pt medicated per mar Pts family at bedside Pt denies pain at this time Plan of care ongoing.
[2024-07-26 22:40] LABS: Glucose, Whole Blood 206 mg/dL (60-115)
[2024-07-26 22:43] LABS: Appearance Urine Clear; Color Urine Yellow; Glucose Urine UA >=1000 mg/dL (Negative); Leukocyte Esterase Urine Negative (Negative); Nitrite Urine Negative (Negative); PH 6.5 (5.0-9.0); Specific Gravity - Urine >= 1.030 (1.005-1.025); UMIC TRIGGER UACC YES; Urine Blood Negative (Negative); Urine Ketones >=160 mg/dL (Negative); Urine Protein Trace mg/dL (Neg-Trace)
[2024-07-26] MEDS: Insulin Glargine,Hum.rec.anlog 100 UNIT/ML 10 ML VIAL 14 UNIT SUBCUT (22:43)
--- NOTE | 2024-07-26 22:47 | PC.NURSE ---
Pt medicated per [facility] Plan of care ongoing.
[2024-07-26 23:00] LABS: Bacteria Urine 4+ (None Seen); Hyaline Casts Urine 0-2 /LPF (0-2); RBC Urine 0-2 /HPF (0-2); UACC Culture Trigger YES
[2024-07-26 23:14] VITALS: BP 107/64; PULSE 107; RESP 12; TEMP 37.4; O2SAT 97
== END 2024-07-26 23:22 | disposition home or self-care (01) ==
PROVIDERS: Registered Nurse Emergency; Emergency Provider Emergency Medicine
DX: K31.84 Gastroparesis (principal); E10.43 Type 1 diabetes mellitus with diabetic autonomic (poly)neuropathy; R11.2 Nausea with vomiting, unspecified; R00.0 Tachycardia, unspecified; R11.0 Nausea; Z03.818 Encounter for observation for suspected exposure to other biological agents ruled out; Z87.891 Personal history of nicotine dependence; Z79.899 Other long term (current) drug therapy
CPT/HCPCS: 0241U; 36415; 80053; 81001; 82010; 82803; 82947; 83690; 83735; 84702; 85025; 86140; 87086; 87088; 87186; 93005; 96361; 96374; 96375; 99285; J1200; J1630; J7120

== ENCOUNTER → 2024-07-26 16:09 | Outpatient (BNV) | payer OTHER, SELFPAY | PROVIDERS: Emergency Provider Emergency Medicine; Visit Provider Internal Medicine | DX: R00.0 Tachycardia, unspecified (principal) | CPT/HCPCS: 93010 ==

== ENCOUNTER 2024-09-04 13:02 | Emergency (ER) | payer OTHER, SELFPAY ==
[2024-09-04 13:18] VITALS: BP 103/61; PULSE 102; PULSE 104; RESP 20; TEMP 36.1; O2SAT 97; O2SAT 99; BMI 17.0
[2024-09-04 13:20] VITALS: BP 103/69; PULSE 101; RESP 18; TEMP 36.1; O2SAT 98
--- NOTE | 2024-09-04 13:33 | ED.GENADULT ---
HPI - General Adult General Chief complaint: Abdominal Pain Stated complaint: DIFF BREATHING, ANXIETY PER EMS Time Seen by Provider: 09/04/24 13:33 Source: patient Mode of arrival: ambulatory Limitations: no limitations History of Present Illness ED Provider: Ottoniel Sepulveda DO HPI narrative: 38-year-old female with past medical history of type 1 insulin-dependent diabetes with gastroparesis and previous DKA, anxiety, GERD, presents to the ED with anxiety and abdominal pain as well as multiple episodes of nonbilious / nonbloody emesis since 06:00 this morning. Patient lives with her son and has had no sick contacts. She has been using a continuous glucose monitoring device and insulin pump the soft prior to arrival as she reports she needs to exchange it today but was feeling too unwell to do this. She reports decreased bowel movements recently and use an enema this morning without relief. She denies fevers, headache, chest pain, difficulty breathing, abdominal pain or urinary symptoms. she endorses continued nausea. Related Data Home Medications ?Medication ?Instructions ?Recorded ?Confirmed insulin glargine 100 unit/mL (3 15 unit subcut BEDTIME 12/07/21 12/07/21 mL) subcutaneous pen (Lantus Solostar U-100 Insulin) insulin lispro 100 unit/mL 3 - 6 unit subcut TIDAC 12/07/21 12/07/21 subcutaneous pen Previous Rx's ?Medication ?Instructions ?Recorded metoclopramide HCl 10 mg tablet 10 mg PO Q6H PRN nausea and 12/07/21 (Reglan) vomiting #30 tabs omeprazole 40 mg capsule,delayed 40 mg PO BID #60 caps 12/12/21 release ondansetron 4 mg disintegrating 4 mg PO Q8H PRN nausea and 09/24/23 tablet vomiting #10 tabs lorazepam 1 mg tablet (Ativan) 1 mg PO BEDTIME PRN anxiety #14 09/26/23 tabs metoclopramide HCl 10 mg tablet 10 mg PO Q6H PRN nausea and 04/22/24 (Reglan) vomiting 3 weeks #14 tabs ondansetron 4 mg disintegrating 4 mg PO Q6H PRN nausea and 04/30/24 tablet vomiting #14 tabs nitrofurantoin macrocrystal 100 mg 100 mg PO BID #10 caps 07/31/24 capsule Allergies Allergy/AdvReac Type Severity Reaction Status Date / Time No Known Allergies Allergy Verified 09/04/24 13:21 Review of Systems Review of Systems: Yes all other systems are reviewed and are negative [facility] Past Medical History Medical History Anxiety Diabetic gastroparesis DKA (diabetic ketoacidoses) Diabetes Surgical History History of Social History Social History Household Members: Children and Other Household Members Other:: Son's father Housing: Apartment Do you presently have visiting nurse or other home services: No Unable to assess alcohol history related to: Refusing to respond Alcohol intake: never Patient Tobacco Use Status: Former Tobacco user Tobacco use type: Cigarette Smoked in Last 30 Days: No e-Cigarette/Vaping Use: Never Used Second Hand Smoke Exposure: No Use of substances other than those prescribed or required for medical reasons: Yes Substance Use Type: Marijuana Substance Use Frequency: Occasionally Advance Directives: No Advance Directives Information Provided: Yes Do you have a plan to hurt others: No Plan Patient : No service: No Current occupational status: unemployed Physical Exam ED Vital Signs: Vital Signs - 24 hr 09/04/24 13:18 09/04/24 13:20 Temperature 97.0 F 97.0 F Pulse Rate 102 H 101 H Respiratory Rate 20 18 Blood Pressure 103/61 103/69 Pulse Oximetry 99 98 Oxygen Delivery Method Room Air Room Air BMI result Body Mass Index 17.0 Constitutional: Alert, oriented, speaking in full sentences, appears somewhat uncomfortable HEENT: Normocephalic, atraumatic. tacky mucous membranes Eyes: PERRL, EOMI Neck: Supple, nontender Chest: No chest wall tenderness Respiratory: Lungs clear to auscultation, no increased work of breathing Cardio: Regular rate and rhythm, no murmur, 2+ radial and DP pulses symmetrically GI: Soft, nondistended, nontender Back: Normal range of motion, nontender Skin: No rash, no lesions Neuro: Alert and oriented to person, place and time, moves all 4 extremities, no focal deficits Extremities: No swelling or tenderness, full range of motion Psych: Calm, alert and cooperative, appropriate behavior Medications Administered Discontinued Medications Generic Name Dose Route Start Last Admin Trade Name Toribio PRN Reason Stop Dose Admin Sodium Chloride 1,000 mls @ 999 mls/hr 09/04/24 14:00 09/04/24 14:22 Ns IV 09/04/24 15:00 999 mls/hr .Q1H1M KWAKU Administration Metoclopramide HCl 10 mg 09/04/24 14:00 09/04/24 14:25 Metoclopramide Hcl 10 Mg/2 Ml Vial IVPUSH 09/04/24 14:01 10 mg ONCE ONE Administration Medical Decision Making Medical Decision Making [facility] Narrative: Patient presenting with abdominal pain and nausea vomiting episodes that started today. She is nontender on exam and has no peritoneal signs. Differential diagnosis includes early diabetic ketoacidosis, recurrent gastroparesis, or viral gastroenteritis. We will address her symptoms with IV fluids and metoclopramide. We will further evaluate with lab work. CT imaging is not indicated at this time. We will monitor for inability to tolerate p.o. fluids. Patient has significant improvement with IV fluids and metoclopramide. Tolerated p.o. without difficulty and no recurrent emesis. I thoroughly reviewed her labs and although she has some elevation in beta hydroxybutyrate and glucose levels, I interpret her labs as hyperglycemia with mild dehydration and review of her bicarbonate and anion gap does not show evidence of DKA. The patient states she wants to return to home and I feel this is reasonable. She states she will put on her insulin pump and administer according to the measurements at home. She voices clear understanding to return with any worsening symptoms. Admission/Observation Consideration of admission/observation: Escalation of care including admission/observation considered Lab Data 09/04/24 14:20 09/04/24 14:20 Labs: Lab Results 09/04/24 Range/Units 14:20 WBC 6.1 (4.8-10.8) X10*3/uL RBC 3.91 L (4.20-5.50) X10*6/uL Hgb 12.6 (12.0-16.0) g/dl Hct 35.0 L (37.0-47.0) % MCV 89.5 (80.0-98.0) fL MCH 32.2 (27.0-33.0) pg MCHC 36.0 H (31.0-35.0) g/dl RDW 12.2 (11.0-16.0) % Plt Count 190 (160-400) X10*3/uL MPV 10.1 (9.4-12.3) fL Immature Gran % (Auto) 0.3 (0.0-0.4) % Neut % (Auto) 79.4 H (45-73) % Lymph % (Auto) 15.4 L (20-40) % [place] % (Auto) 4.1 (2-11) % Eos % (Auto) 0.0 (0-4) % Baso % (Auto) 0.8 (0-2) % Lymph # (Auto) 0.9 L (1.2-4.9) X10*3/uL [place] # (Auto) 0.3 (0.1-1.2) X10*3/uL Eos # (Auto) 0.0 (0.0-0.4) X10*3/uL Baso # (Auto) 0.1 (0.0-0.2) X10*3/uL Abs Immat Gran (auto) 0.02 (0.00-0.03) X10*3/uL Absolute Neuts (auto) 4.9 (2.0-8.3) x10*3/uL Absolute Nucleated RBC 0.000 (0.0-0.012) X10*3/uL Nucleated RBC % (auto) 0.0 (0.0-0.2) /100WBC Sodium 138 (135-145) mmol/L Potassium 4.2 (3.3-5.1) mmol/L Chloride 106 (96-108) mmol/L Carbon Dioxide 20 L (22-29) mmol/L Anion Gap 16 (12-20) BUN 14 (9-16) mg/dL Creatinine 0.59 (0.5-1.4) mg/dL Estim Creat Clear Calc 82.5 Estimated GFR > 60 Random Glucose 366 H* (60-115) mg/dL Calcium 9.5 (8.4-10.2) mg/dL Total Bilirubin 1.2 H (0.0-1.0) mg/dL Direct Bilirubin 0.3 (0.0-0.5) mg/dL AST 23 (5-31) U/L ALT 10 (0-31) U/L Alkaline Phosphatase 75 (39-117) U/L Total Protein 6.9 (6.5-8.0) g/dL Albumin 4.2 (3.5-5.0) g/dL Lipase 12 (8-78) U/L Beta-Hydroxybutyrate 1.38 H (0.02-0.27) mmol/L Beta HCG, Quant < 2 mIU/mL Discharge Plan Discharge Clinical Impression: Nausea and vomiting, Acute hyperglycemia, Acute dehydration Patient Disposition: Home, Self-Care Instructions: Dehydration (ED), Diabetic Hyperglycemia (ED), Acute Nausea and Vomiting (ED) Additional Instructions: return if you have any new or worsening symptoms or if you are unable to tolerate any thing to eat or drink at home. Please be sure to place Your insulin pump on and administer the appropriate dose when you get home. Prescriptions: No Action metoclopramide HCl [Reglan] 10 mg tablet 10 mg PO Q6H PRN (Reason: nausea and vomiting) Qty: 30 0RF insulin lispro 100 unit/mL insulin pen 3 - 6 unit subcut TIDAC insulin glargine [Lantus Solostar U-100 Insulin] 100 unit/mL (3 mL) insulin pen 15 unit subcut BEDTIME omeprazole 40 mg capsule,delayed release(DR/EC) 40 mg PO BID Qty: 60 0RF ondansetron 4 mg tablet,disintegrating 4 mg PO Q8H PRN (Reason: nausea and vomiting) Qty: 10 0RF lorazepam [Ativan] 1 mg tablet 1 mg PO BEDTIME PRN (Reason: anxiety) Qty: 14 0RF nitrofurantoin macrocrystal 100 mg capsule 100 mg PO BID Qty: 10 0RF Rx Instructions: must administer with a meal/food metoclopramide HCl [Reglan] 10 mg tablet 10 mg PO Q6H PRN (Reason: nausea and vomiting) 21 Days Qty: 14 0RF ondansetron 4 mg tablet,disintegrating 4 mg PO Q6H PRN (Reason: nausea and vomiting) Qty: 14 0RF Print Language: Mohawk
--- NOTE | 2024-09-04 13:55 | PC.NURSE ---
Pt comes to ED today with c/o abd pain, no BM x2 week, and no food intake x3 days. Pt states she has an eating disorder and this is a regular occurrence for he, last time being 2-3 weeks ago. States this AM she woke up with 10/10 pain. She reports she feels like she needs to have a BM but cannot pass on and this causes her to become diaphoretic and anxious. She reports attempting administer an at home enema with no relief. She is A&Ox3, VSS, and Pt is calm and cooperative. She denies any ETOH abuse and states she uses occasional marijuana. Pt resting comfortably on stretcher. NAD noted at this time. Awaiting ED provider.
[2024-09-04] MEDS: 0.9 % Sodium Chloride 1,000 ML 999 ML IV (14:22)
[2024-09-04 14:24] LABS: MANUAL DIFF FLAG NO
[2024-09-04] MEDS: Metoclopramide HCl 10 MG/2 ML VIAL IVPUSH (14:25)
[2024-09-04 14:27] LABS: Basophils Absolute Auto 0.1 X10*3/uL (0.0-0.2); Basophils Percent Auto 0.8 % (0-2); Hemoglobin 12.6 g/dl (12.0-16.0); Imm Gran Abs Auto 0.02 X10*3/uL (0.00-0.03); Imm Gran Pct Auto 0.3 % (0.0-0.4); Lymphocytes Absolute Auto 0.9 X10*3/uL (1.2-4.9); Lymphocytes Percent Auto 15.4 % (20-40); Mean Corpuscular Hemoglobin 32.2 pg (27.0-33.0); Mean Corpuscular Volume 89.5 fL (80.0-98.0); Mean Platelet Volume 10.1 fL (9.4-12.3); Monocytes Absolute Auto 0.3 X10*3/uL (0.1-1.2); Monocytes Percent Auto 4.1 % (2-11); Neutrophils Absolute Auto 4.9 x10*3/uL (2.0-8.3); Neutrophils Percent Auto 79.4 % (45-73); Platelet Count 190 X10*3/uL (160-400); Red Blood Count 3.91 X10*6/uL (4.20-5.50); Red Cell Distribution Width 12.2 % (11.0-16.0); White Blood Count 6.1 X10*3/uL (4.8-10.8)
[2024-09-04 14:59] LABS: Alanine Aminotransferase 10 U/L (0-31); Albumin Level 4.2 g/dL (3.5-5.0); Anion Gap 16 (12-20); Aspartate Amino Transferase 23 U/L (5-31); Bilirubin Direct 0.3 mg/dL (0.0-0.5); Bilirubin Total 1.2 mg/dL (0.0-1.0); Blood Urea Nitrogen 14 mg/dL (9-16); Calcium 9.5 mg/dL (8.4-10.2); Carbon Dioxide 20 mmol/L (22-29); Chloride 106 mmol/L (96-108); Creatinine Clr Calc Pharmacy 82.5; Estimated Glomerular Filt Rate > 60; Glucose Random 366 mg/dL (60-115); Lipase 12 U/L (8-78); Potassium 4.2 mmol/L (3.3-5.1); Sodium 138 mmol/L (135-145); Total Protein 6.9 g/dL (6.5-8.0)
[2024-09-04 15:00] LABS: Alkaline Phosphatase 75 U/L (39-117); HCG Quantitative < 2 mIU/mL
[2024-09-04 15:18] LABS: Beta-Hydroxybutyrate 1.38 mmol/L (0.02-0.27)
--- NOTE | 2024-09-04 15:41 | PC.NURSE ---
PO challenge with success. Provider aware.
[2024-09-04 15:52] VITALS: BP 103/69; PULSE 101; RESP 18; TEMP 36.1; O2SAT 98
== END 2024-09-04 15:53 | disposition home or self-care (01) ==
PROVIDERS: Emergency Provider Emergency Medicine
DX: R11.2 Nausea with vomiting, unspecified (principal); E10.65 Type 1 diabetes mellitus with hyperglycemia; E86.0 Dehydration; Z79.4 Long term (current) use of insulin; Z79.899 Other long term (current) drug therapy; Z87.891 Personal history of nicotine dependence
CPT/HCPCS: 36415; 80048; 80076; 82010; 83690; 84702; 85025; 96361; 96374; 99284; 99285; J2765

== ENCOUNTER 2024-09-05 11:30 | Emergency (ER) | payer OTHER, SELFPAY ==
--- NOTE | 2024-09-05 11:36 | ED_ITS ---
HPI - Nausea/Vomiting/Diarrhea General Chief complaint: Nausea/Vomiting/Diarrhea Stated complaint: N/V FOR MONTHS,SEEN FOR SAME T-1/NO RELIEF PER EMS Time Seen by Provider: 09/05/24 11:35 Source: patient, EMS, RN notes reviewed and old records reviewed Mode of arrival: EMS History of Present Illness ED Provider: Tiffanie Guan PA-C HPI Narrative: 38-year-old female with a past medical history of anxiety, diabetes, gastroparesis, DKA, presenting to the ED via EMS complaining of acute on chronic abdominal pain, nausea, vomiting, diarrhea, and decreased p.o. intake x months. Patient admits she was seen and treated in our ED yesterday for similar symptoms. States symptoms are the same as yesterday, has been unable to tolerate p.o. Denies any fever, chills, sick contacts, dysuria/hematuria. Admits she currently has insulin pump. Denies CP/SOB Related Data Home Medications ?Medication ?Instructions ?Recorded ?Confirmed insulin glargine 100 unit/mL (3 15 unit subcut BEDTIME 12/07/21 12/07/21 mL) subcutaneous pen (Lantus Solostar U-100 Insulin) insulin lispro 100 unit/mL 3 - 6 unit subcut TIDAC 12/07/21 12/07/21 subcutaneous pen Previous Rx's ?Medication ?Instructions ?Recorded metoclopramide HCl 10 mg tablet 10 mg PO Q6H PRN nausea and 12/07/21 (Reglan) vomiting #30 tabs omeprazole 40 mg capsule,delayed 40 mg PO BID #60 caps 12/12/21 release ondansetron 4 mg disintegrating 4 mg PO Q8H PRN nausea and 09/24/23 tablet vomiting #10 tabs lorazepam 1 mg tablet (Ativan) 1 mg PO BEDTIME PRN anxiety #14 09/26/23 tabs metoclopramide HCl 10 mg tablet 10 mg PO Q6H PRN nausea and 04/22/24 (Reglan) vomiting 3 weeks #14 tabs ondansetron 4 mg disintegrating 4 mg PO Q6H PRN nausea and 04/30/24 tablet vomiting #14 tabs nitrofurantoin macrocrystal 100 mg 100 mg PO BID #10 caps 07/31/24 capsule Allergies Allergy/AdvReac Type Severity Reaction Status Date / Time No Known Allergies Allergy Verified 09/05/24 11:46 Review of Systems 2 Review of Systems: Yes all other systems are reviewed and are negative Constitutional: Constitutional: Reports as per [facility] Past Medical History Attestation statement: The following information was validated with the patient. Source: old records reviewed Medical History Anxiety Diabetic gastroparesis DKA (diabetic ketoacidoses) Diabetes Surgical History History of Social History Social History Household Members: Children and Other Household Members Other:: Son's father Housing: Apartment Do you presently have visiting nurse or other home services: No Unable to assess alcohol history related to: Refusing to respond Alcohol intake: never Patient Tobacco Use Status: Former Tobacco user Tobacco use type: Cigarette e-Cigarette/Vaping Use: Never Used Second Hand Smoke Exposure: No Substance Use Type: Marijuana Advance Directives: No Advance Directives Information Provided: Yes Do you have a plan to hurt others: No Plan service: No Current occupational status: unemployed Physical Exam 2 Vital Signs: Vital Signs: Last Vital Signs Temp 98.1 F 09/05/24 12:01 Pulse 103 H 09/05/24 12:01 Resp 12 09/05/24 12:01 BP 122/80 09/05/24 12:01 Pulse Ox 95 09/05/24 12:01 O2 Del Method Room Air 09/05/24 12:01 BMI result Body Mass Index 17.0 Const: General: cooperative, healthy appearing and no acute distress O rientation/consciousness: patient oriented x3 Limitations: no limitations HEENT: Head: Yes normal to inspection and Yes atraumatic Ears: hearing grossly normal bilaterally General nose exam: Normal external nose present Face and sinus: Yes normal facial exam Eyes: General: appearance normal, both eyes and all related structures EOM: EOMs intact bilaterally Neck: Neck: Yes normal visual inspection and Yes no meningeal signs Resp: Effort & Inspection: normal respiratory effort and no respiratory distress Cardio: Rate: regular rate GI: Inspection: Yes normal to inspection Palpation (GI): Soft to palpation, nontender, no guarding and not rigid : General: Yes no CVA tenderness Back/Spine/Pelvis: Back: no CVA tenderness Skin: Rashes: no rashes Wounds: no wounds Neuro: General: patient oriented x3, tone normal and no meningeal signs C ranial nerves: Yes CN's II-XII intact bilaterally Gait exam (Neuro): Normal gait present Extrem: General: Yes normal to inspection Course Course Course Narrative: -labs reassuring. Glucose 196. No anion gap. Beta hydroxybutyrate negative -UA contaminated will wait on initiating antibiotics until culture results > patient asymptomatic -tox screen positive for THC >1402--on re-evaluation patient reports symptomatic improvement, sitting up in stretcher, eating saltines, cheese stick, and drinking [place]. Reports symptomatic improvement. Feels safe for discharge home at this time. Would like IVF to finish. Plan to DC when IVF completed Results discussed with patient including worrisome signs and symptoms and strict return precautions, and when to return to the emergency department. They verbalized understanding and feel safe for discharge at this time. Medications Administered Discontinued Medications Generic Name Dose Route Start Last Admin Trade Name Toribio PRN Reason Stop Dose Admin Diphenhydramine HCl 50 mg 09/05/24 11:52 09/05/24 11:59 Diphenhydramine Hcl 50 Mg/Ml Vial IVPUSH 09/05/24 11:53 50 mg ONCE ONE Administration Lactated Ringer's 1,000 mls @ 999 mls/hr 09/05/24 12:00 09/05/24 13:26 Lr IV 09/05/24 13:00 Infused .Q1H1M KWAKU Infusion Lactated Ringer's 1,000 mls @ 999 mls/hr 09/05/24 12:30 09/05/24 13:18 Lr IV 09/05/24 13:30 999 mls/hr .Q1H1M KWAKU Administration Metoclopramide HCl 10 mg 09/05/24 11:52 09/05/24 11:59 Metoclopramide Hcl 10 Mg/2 Ml Vial IVPUSH 09/05/24 11:53 10 mg ONCE ONE Administration Medical Decision Making Medical Decision Making MDM Narrative: 38-year-old female with a past medical history of anxiety, diabetes, gastroparesis, DKA, presenting to the ED via EMS complaining of acute on chronic abdominal pain, nausea, vomiting, diarrhea, and decreased p.o. intake x months. On exam VSS, NAD, nontoxic appearing, abdomen soft and nontender. Concern for dehydration/ketosis/metabolic abnormalities vs DKA/hyperglycemia vs gastroparesis vs gastroenteritis. Lower suspicion for acute appendicitis/diverticulitis, pancreatitis or cholecystitis/lithiasis at this time Plan: Labs, UA, tox screen, IVF, antiemetics, re-evaluate/p.o. challenge Abdomen is soft and nontender, CT imaging not indicated at this time Please refer to course for remaining clinical decision making, interpretation of labs/imaging results, and discussions with consultants and/or family members. Differential Diagnosis Differential Diagnoses: The differential diagnosis associated with the presentation includes As above Admission/Observation Consideration of admission/observation: Escalation of care including admission/observation considered Lab Data MDM Lab Attestation statement: I reviewed the patient's lab results. 09/05/24 11:54 09/05/24 11:54 Labs: Lab Results 09/05/24 09/05/24 09/05/24 Range/Units 11:46 11:54 12:20 WBC 5.3 (4.8-10.8) X10*3/uL RBC 3.78 L (4.20-5.50) X10*6/uL Hgb 12.1 (12.0-16.0) g/dl Hct 34.9 L (37.0-47.0) % MCV 92.3 (80.0-98.0) fL MCH 32.0 (27.0-33.0) pg MCHC 34.7 (31.0-35.0) g/dl RDW 12.2 (11.0-16.0) % Plt Count 193 (160-400) X10*3/uL MPV 9.8 (9.4-12.3) fL Immature Gran % (Auto) 0.2 (0.0-0.4) % Neut % (Auto) 63.6 (45-73) % Lymph % (Auto) 28.8 (20-40) % Smith % (Auto) 6.4 (2-11) % Eos % (Auto) 0.2 (0-4) % Baso % (Auto) 0.8 (0-2) % Lymph # (Auto) 1.5 (1.2-4.9) X10*3/uL Smith # (Auto) 0.3 (0.1-1.2) X10*3/uL Eos # (Auto) 0.0 (0.0-0.4) X10*3/uL Baso # (Auto) 0.0 (0.0-0.2) X10*3/uL Abs Immat Gran (auto) 0.01 (0.00-0.03) X10*3/uL Absolute Neuts (auto) 3.4 (2.0-8.3) x10*3/uL Absolute Nucleated RBC 0.000 (0.0-0.012) X10*3/uL Nucleated RBC % (auto) 0.0 (0.0-0.2) /100WBC Sodium 139 (135-145) mmol/L Potassium 3.5 (3.3-5.1) mmol/L Chloride 107 (96-108) mmol/L Carbon Dioxide 23 (22-29) mmol/L Anion Gap 13 (12-20) BUN 15 (9-16) mg/dL Creatinine 0.63 (0.5-1.4) mg/dL Estim Creat Clear Calc 77.2 Estimated GFR > 60 POC Glucose 179 H (60-115) mg/dL Random Glucose 196 H (60-115) mg/dL Calcium 9.0 (8.4-10.2) mg/dL Magnesium 1.8 (1.6-2.6) mg/dL Total Bilirubin 1.3 H (0.0-1.0) mg/dL Direct Bilirubin 0.4 (0.0-0.5) mg/dL AST 21 (5-31) U/L ALT 14 (0-31) U/L Alkaline Phosphatase 71 (39-117) U/L Total Protein 6.7 (6.5-8.0) g/dL Albumin 4.1 (3.5-5.0) g/dL Lipase 14 (8-78) U/L Beta-Hydroxybutyrate 0.23 (0.02-0.27) mmol/L Urine Color Dark Yellow Urine Appearance Cloudy Urine pH 6.0 (5.0-9.0) Ur Specific [place] >= 1.030 H (1.005-1.025) Urine Protein 30 (1+) H (Neg-Trace) mg/dL Urine Glucose (UA) 500 H (Negative) mg/dL Urine Ketones 40 (Negative) mg/dL Urine Blood Negative (Negative) Urine Nitrite Negative (Negative) Ur Leukocyte Esterase Trace H (Negative) Urine RBC 0-2 (0-2) /HPF Urine WBC 6-10 H (0-5) /HPF Ur Squamous Epith Cells >20 (0-2) /HPF Urine Bacteria 1+ (None Seen) Hyaline Casts 0-2 (0-2) /LPF Urine Test NEGATIVE (NEGATIVE) Urine Opiates Screen Not Detected (Not Detect) Ur Buprenorphine Scrn Not Detected (Not Detect) ng/mL Ur Oxycodone Screen Not Detected (Not Detect) ng/mL Urine Methadone Screen Not Detected (Not Detect) ng/mL Urine Fentanyl Screen Not Detected (Not Detect) Ur Barbiturates Screen Not Detected (Not Detect) Ur Phencyclidine Scrn Not Detected (Not Detect) Ur Amphetamines Screen Not Detected (Not Detect) U Benzodiazepines Scrn Not Detected (Not Detect) Urine Cocaine Screen Not Detected (Not Detect) U Marijuana (THC) Screen POSITIVE H (Not Detect) Radiology Impression Discussion of test interpretation with radiology: I have reviewed the radiologist's reading. Independent Historian Clinical information obtained from an independent historian. History obtained from or confirmed by: EMS External Record Review External record reviewed: Inpatient record, Office record, Outpatient record, Prior outpatient labs, Prior outpatient radiology, Primary care record and Outside ED record Tests considered The following testing was considered but not selected: As above Prescription Management I considered prescription management with: Other Chronic Conditions Patient?s care impacted by: Diabetes Social Determinants Patient?s care significantly limited by Social Determinants of Health including: Problems related to primary support group and Other Social Determinant of Health Discharge Plan Discharge Clinical Impression: Nausea and vomiting Patient Disposition: Home, Self-Care Instructions: Acute Nausea and Vomiting (DC) Additional Instructions: Your blood work is reassuring Please avoid marijuana use as this likely contributes to your symptoms Please have close follow up with your prepared foods team leader and primary care doctor If your symptoms persist or worsen, you are unable to eat or drink have persistent nausea, vomiting or pain return to the ED Prescriptions: No Action metoclopramide HCl [Reglan] 10 mg tablet 10 mg PO Q6H PRN (Reason: nausea and vomiting) Qty: 30 0RF insulin lispro 100 unit/mL insulin pen 3 - 6 unit subcut TIDAC insulin glargine [Lantus Solostar U-100 Insulin] 100 unit/mL (3 mL) insulin pen 15 unit subcut BEDTIME omeprazole 40 mg capsule,delayed release(DR/EC) 40 mg PO BID Qty: 60 0RF ondansetron 4 mg tablet,disintegrating 4 mg PO Q8H PRN (Reason: nausea and vomiting) Qty: 10 0RF lorazepam [Ativan] 1 mg tablet 1 mg PO BEDTIME PRN (Reason: anxiety) Qty: 14 0RF nitrofurantoin macrocrystal 100 mg capsule 100 mg PO BID Qty: 10 0RF Rx Instructions: must administer with a meal/food metoclopramide HCl [Reglan] 10 mg tablet 10 mg PO Q6H PRN (Reason: nausea and vomiting) 21 Days Qty: 14 0RF ondansetron 4 mg tablet,disintegrating 4 mg PO Q6H PRN (Reason: nausea and vomiting) Qty: 14 0RF Referrals: [facility] [place] Gastroenterology Services [Provider Group] - 5 days Print Language: Azeri
[2024-09-05 11:43] VITALS: BP 117/80; BP 123/79; PULSE 102; PULSE 91; RESP 20; TEMP 36.7; O2SAT 100; BMI 17.0
[2024-09-05 11:50] LABS: Glucose, Whole Blood 179 mg/dL (60-115)
[2024-09-05] MEDS: Lactated Ringers 1,000 ML 999 ML IV ×2 (11:56→13:18)
--- OUTSIDE RECORDS SUMMARY | 2024-09-05 11:58 | XMS_ITS | Clinical Summary ---
Author Organization [facility] ity Address [address] [place] [address] Care Team Providers Care Splicing Supervisor Name Role Phone Unavailable Primary Care Provider Unavailabl e Social History Tobacco Use Types Packs/Day Years Used Date Smoking Tobacco: Never Assessed Comments Unknown Sex and Gender Information Value Date Recorded Sex Assigned at Not on file Legal Sex Female 3:42 PM EDT Gender Identity Not on file Sexual Orientation Not on file Plan of Treatment Health Maintenance Due Date Last Done Comments DTaP,Tdap,and Td Vaccines (1 - Tdap) 10/21/2003 Hepatitis B Vaccines (1 of 3 - 19+ 3-dose series) 10/21/2003 Pneumococcal Vaccine: Pediat rics (0 to 5 Years) and At-Risk Patients (6 to 64 Years) (1 of 2 - PCV) 10/21/2003 Cervical Cancer Screening: P ap Smear 2005 COVID-19 Vaccine (2023-2 5 season) 2023 Depression Screening 01/15/2024 HIV Screening 01/15/2024 Hepatitis C Screening 01/15/2024 Social Influencers of Health Screening 01/15/2024 Influenza Vaccine (Season Ended) 2024 HIB Vaccines Aged Out No longer eligi ble based on patient's age to complete this topic HPV Vaccines Aged Out No longer eligi ble based on patient's age to complete this topic Hepatitis A Vaccines Aged Out No long er eligible based on patient's age to complete this topic IPV Vaccines Aged Out No longer eligi ble based on patient's age to complete this topic MMR Vaccines Aged Out No longer eligi ble based on patient's age to complete this topic Meningococcal ACWY Vaccine Aged Out N o longer eligible based on patient's age to complete this topic Meningococcal B Vaccine Aged Out No l onger eligible based on patient's age to complete this topic RSV Immunization Patients Un ariela 20 months Aged Out No longer eligible b ased on patient's age to complete this topic Varicella Vaccines Aged Out No longer eligible based on patient's age to complete this topic
[2024-09-05 11:59] LABS: Basophils Percent Auto 0.8 % (0-2); Eosinophils Percent Auto 0.2 % (0-4); Hematocrit 34.9 % (37.0-47.0); Hemoglobin 12.1 g/dl (12.0-16.0); Imm Gran Abs Auto 0.01 X10*3/uL (0.00-0.03); Imm Gran Pct Auto 0.2 % (0.0-0.4); Lymphocytes Absolute Auto 1.5 X10*3/uL (1.2-4.9); Lymphocytes Percent Auto 28.8 % (20-40); MANUAL DIFF FLAG NO; Mean Corpuscular HGB Conc 34.7 g/dl (31.0-35.0); Mean Corpuscular Volume 92.3 fL (80.0-98.0); Mean Platelet Volume 9.8 fL (9.4-12.3); Monocytes Absolute Auto 0.3 X10*3/uL (0.1-1.2); Monocytes Percent Auto 6.4 % (2-11); Neutrophils Absolute Auto 3.4 x10*3/uL (2.0-8.3); Neutrophils Percent Auto 63.6 % (45-73); Platelet Count 193 X10*3/uL (160-400); Red Blood Count 3.78 X10*6/uL (4.20-5.50); Red Cell Distribution Width 12.2 % (11.0-16.0); White Blood Count 5.3 X10*3/uL (4.8-10.8)
[2024-09-05] MEDS: Metoclopramide HCl 10 MG/2 ML VIAL IVPUSH (11:59)
[2024-09-05] MEDS: diphenhydrAMINE HCL 50 MG/ML VIAL IVPUSH (11:59)
[2024-09-05 12:01] VITALS: BP 122/80; PULSE 103; RESP 12; TEMP 36.7; O2SAT 95
[2024-09-05 12:15] LABS: Alanine Aminotransferase 14 U/L (0-31); Albumin Level 4.1 g/dL (3.5-5.0); Alkaline Phosphatase 71 U/L (39-117); Anion Gap 13 (12-20); Aspartate Amino Transferase 21 U/L (5-31); Beta-Hydroxybutyrate 0.23 mmol/L (0.02-0.27); Bilirubin Direct 0.4 mg/dL (0.0-0.5); Bilirubin Total 1.3 mg/dL (0.0-1.0); Blood Urea Nitrogen 15 mg/dL (9-16); Carbon Dioxide 23 mmol/L (22-29); Chloride 107 mmol/L (96-108); Creatinine Clr Calc Pharmacy 77.2; Estimated Glomerular Filt Rate > 60; Glucose Random 196 mg/dL (60-115); Lipase 14 U/L (8-78); Magnesium 1.8 mg/dL (1.6-2.6); Potassium 3.5 mmol/L (3.3-5.1); Sodium 139 mmol/L (135-145); Total Protein 6.7 g/dL (6.5-8.0)
[2024-09-05 12:27] LABS: UPreg QC Valid YES
[2024-09-05 12:28] LABS: Appearance Urine Cloudy; Color Urine Dark Yellow; Glucose Urine UA 500 mg/dL (Negative); Leukocyte Esterase Urine Trace (Negative); Nitrite Urine Negative (Negative); Specific Gravity - Urine >= 1.030 (1.005-1.025); UMIC TRIGGER UACC YES; Urine Blood Negative (Negative); Urine Ketones 40 mg/dL (Negative); Urine Pregnancy NEGATIVE (NEGATIVE); Urine Protein 30 (1+) mg/dL (Neg-Trace)
[2024-09-05 12:32] LABS: Bacteria Urine 1+ (None Seen); Hyaline Casts Urine 0-2 /LPF (0-2); RBC Urine 0-2 /HPF (0-2); Squamous Epithelial Cell Urine >20 /HPF (0-2); UACC Culture Trigger YES
[2024-09-05 12:37] LABS: Amphetamine Screen Urine Not Detected (Not Detect); Barbiturates, Urine Not Detected (Not Detect); Benzodiazepines Screen Urine Not Detected (Not Detect); Buprenorphine Scr Not Detected (Not Detect); Cannabinoid Screen Urine POSITIVE (Not Detect); Cocaine Screen Urine Not Detected (Not Detect); Fentanyl, urine Not Detected (Not Detect); Methadone Screen, Urine Not Detected (Not Detect); Opiate Screen Urine Not Detected (Not Detect); Oxycodone Screen Urine Not Detected (Not Detect); Phencyclidine Screen Urine Not Detected (Not Detect)
[2024-09-05] MEDS: Prochlorperazine Edisylate 10 MG/2 ML VIAL 5 MG IVPUSH (14:42)
[2024-09-05 14:59] VITALS: BP 110/69; PULSE 85; RESP 16; TEMP 36.9; O2SAT 99
[2024-09-05 15:05] VITALS: BP 110/69; PULSE 85; RESP 16; TEMP 36.9; O2SAT 99
== END 2024-09-05 15:07 | disposition home or self-care (01) ==
PROVIDERS: Physician Assistant; Emergency Provider Emergency Medicine
DX: R11.2 Nausea with vomiting, unspecified (principal); R10.9 Unspecified abdominal pain; R19.7 Diarrhea, unspecified; E11.9 Type 2 diabetes mellitus without complications; Z79.4 Long term (current) use of insulin
CPT/HCPCS: 36415; 80048; 80076; 80307; 81001; 81025; 82010; 82947; 83690; 83735; 85025; 87086; 96361; 96374; 96375; 99284; J0737; J1200; J2765; J7120

== ENCOUNTER 2024-09-09 11:29 | Emergency (ER) | payer OTHER, SELFPAY ==
[2024-09-09 11:38] VITALS: BP 134/87; PULSE 84; O2SAT 97
[2024-09-09 11:45] VITALS: BP 120/60; PULSE 110; RESP 16; TEMP 36.7; O2SAT 100; BMI 17.0
--- NOTE | 2024-09-09 11:46 | ECG_ITS ---
Test Reason : NAUSEA/ VOMITTING Blood Pressure : */* mmHG Vent. Rate : 105 BPM Atrial Rate : 105 BPM P-R Int : 138 ms QRS Dur : 78 ms QT Int : 338 ms P-R-T Axes : 64 73 52 degrees QTcB Int : 446 ms Sinus tachycardia Septal infarct (cited on or before 25-Mar-2020) Abnormal ECG When compared with ECG of 26-Jul-2024 17:22, No significant change was found Referred By: Ignacio Montez Electronically Signed By: CRYSTAL PALMER
[2024-09-09 11:52] LABS: Glucose, Whole Blood 250 mg/dL (60-115)
--- NOTE | 2024-09-09 11:53 | ED_ITS ---
HPI - General Adult General Chief complaint: Nausea/Vomiting/Diarrhea Stated complaint: N/V X4 HRS PER EMS Time Seen by Provider: 09/09/24 11:37 Source: patient Mode of arrival: ambulatory Limitations: no limitations History of Present Illness ED Provider: Ignacio Beavers HPI narrative: 38 yold female with pmh of DM, DKA, Gastroperesisi, chronic nausea and vomiting presents to the ED for nausea and vomitting. patient has past medical history of chronic nausea vomiting due to gastroparesis. Patient has been seen here multiple times for same presentation. Patient states unable to keep anything down. Patient denies any abdominal pain. Patient states she smoked weed but does not believe weight contributes to her symptoms and has not smoked waiting couple of days. Related Data Home Medications ?Medication ?Instructions ?Recorded ?Confirmed insulin glargine 100 unit/mL (3 15 unit subcut BEDTIME 12/07/21 12/07/21 mL) subcutaneous pen (Lantus Solostar U-100 Insulin) insulin lispro 100 unit/mL 3 - 6 unit subcut TIDAC 12/07/21 12/07/21 subcutaneous pen Previous Rx's ?Medication ?Instructions ?Recorded metoclopramide HCl 10 mg tablet 10 mg PO Q6H PRN nausea and 12/07/21 (Reglan) vomiting #30 tabs omeprazole 40 mg capsule,delayed 40 mg PO BID #60 caps 12/12/21 release ondansetron 4 mg disintegrating 4 mg PO Q8H PRN nausea and 09/24/23 tablet vomiting #10 tabs lorazepam 1 mg tablet (Ativan) 1 mg PO BEDTIME PRN anxiety #14 09/26/23 tabs metoclopramide HCl 10 mg tablet 10 mg PO Q6H PRN nausea and 04/22/24 (Reglan) vomiting 3 weeks #14 tabs ondansetron 4 mg disintegrating 4 mg PO Q6H PRN nausea and 04/30/24 tablet vomiting #14 tabs nitrofurantoin macrocrystal 100 mg 100 mg PO BID #10 caps 07/31/24 capsule metoclopramide HCl 10 mg tablet 10 mg PO Q6H PRN nausea and 09/05/24 (Reglan) vomiting #10 tabs ondansetron 4 mg disintegrating 4 mg PO Q8H PRN nausea and 06/05/25 tablet vomiting #10 tabs Allergies Allergy/AdvReac Type Severity Reaction Status Date / Time No Known Allergies Allergy Verified 09/09/24 11:49 Review of Systems 2 Review of Systems: Nausea vomiting Yes all other systems are reviewed and are negative [facility]LY [facility] Past Medical History Medical History Anxiety Diabetic gastroparesis DKA (diabetic ketoacidoses) Diabetes Surgical History History of Social History Social History Household Members: Children and Other Household Members Other:: Son's father Housing: Apartment Do you presently have visiting nurse or other home services: No Unable to assess alcohol history related to: Refusing to respond Alcohol intake: never Patient Tobacco Use Status: Former Tobacco user Tobacco use type: Cigarette e-Cigarette/Vaping Use: Never Used Second Hand Smoke Exposure: No Substance Use Type: Marijuana Advance Directives: No Advance Directives Information Provided: No service: No Current occupational status: unemployed Physical Exam ED Vital Signs: Vital Signs - 24 hr 09/09/24 11:45 09/09/24 14:18 09/09/24 17:58 Temperature 98.0 F 98.1 F 98.1 F Pulse Rate 110 H 90 90 Respiratory Rate 16 16 16 Blood Pressure 120/60 100/62 100/62 Pulse Oximetry 100 96 96 Oxygen Delivery Method Room Air Room Air Room Air BMI result Body Mass Index 17.0 Const General: cooperative, healthy appearing, comfortable, no acute distress, well developed, alert, awake and Physically active Orientation/consciousness: patient oriented x3 HENMT Head: Yes normal to inspection, Yes No palpable skull fracture present, Yes normocephalic and Yes atraumatic Eyes General: appearance normal, both eyes and all related structures Neck Neck: Yes normal visual inspection, Yes full ROM, Yes no lymphadenopathy, Yes no meningeal signs, Yes trachea midline, Yes supple, No anterior neck swelling and No tender Chest Chest palpation & inspection: normal inspection of the chest and normal palpation of entire chest wall Resp Effort & Inspection: normal respiratory effort and able to speak in complete sentences Auscultation: clear to auscultation bilaterally Cardio Jugular venous distension: no JVD Heart sounds: S1 normal heart sound present and S2 normal heart sound present GI Inspection: Yes normal to inspection Palpation (GI): Soft to palpation, not firm, nontender, no guarding and not rigid General: Yes no CVA tenderness Back/Spine/Pelvis Back: no CVA tenderness and No back tenderness Skin General skin exam: no rashes or lesions noted, elasticity normal and turgor normal Neuro General: patient oriented x3, gait normal, tone normal, moves all extremities, Normal light touch and pain sensation, no meningeal signs, no focal motor deficits, CN's II-XI intact bilaterally and normal sensation to monofilament Extrem General: Yes normal to inspection, Yes full ROM and Yes capillary refill normal Psych Appearance: grossly normal, well kempt and not disheveled Medications Administered Discontinued Medications Generic Name Dose Route Start Last Admin Trade Name Freq PRN Reason Stop Dose Admin Diphenhydramine HCl 50 mg 09/09/24 11:46 09/09/24 12:29 Diphenhydramine Hcl 50 Mg/Ml Vial IVPUSH 09/09/24 11:47 50 mg ONCE ONE Administration Haloperidol Lactate 5 mg 09/09/24 11:46 09/09/24 12:31 Haloperidol Lactate 5 Mg/Ml Vial IM 09/09/24 11:47 Not Given STAT STA Haloperidol Lactate 5 mg 09/09/24 16:34 09/09/24 16:53 Haloperidol Lactate 5 Mg/Ml Vial IM 09/09/24 16:35 5 mg STAT STA Administration Sodium Chloride 1,000 mls @ 999 mls/hr 09/09/24 12:00 09/09/24 13:32 Ns IV 09/09/24 13:00 Infused .Q1H1M STA Infusion Dextrose/Lactated Ringer's 1,000 mls @ 125 mls/hr 09/09/24 16:34 09/09/24 16:56 D5lr IVCONT 09/10/24 00:33 Not Given .Q8H STA Ketorolac Tromethamine 30 mg 09/09/24 15:49 09/09/24 15:54 Ketorolac Tromethamine 30 Mg/Ml Vial IVPUSH 09/09/24 15:50 30 mg ONCE ONE Administration Ondansetron HCl 4 mg 09/09/24 11:46 09/09/24 12:29 Ondansetron Hcl 4 Mg/2 Ml Vial IVPUSH 09/09/24 11:47 4 mg ONCE ONE Administration Ondansetron HCl 4 mg 09/09/24 15:42 09/09/24 15:54 Ondansetron Hcl 4 Mg/2 Ml Vial IVPUSH 09/09/24 15:43 4 mg ONCE ONE Administration Medical Decision Making Medical Decision Making [facility] Narrative: 38-year-old female history of gastroparesis, DKA, GERD nausea vomiting presents to ED for nausea vomiting without abdominal pain. Patient is seen here multiple times for similar presentation. Zofran, Haldol, Benadryl fluids ordered. EKG labs ordered due to history of diabetes 5:48pm: EKG negative STEMI. Patient two troponin negativ and crackers. T e. UA negative for UTI. Patient is slightly hyperglycemic. During visit patient has has insulin pump and on glucometer attached to insulin pump patient glucose fell to 85 patient was given orange jiuce and than improved 139. patient was given Haldol Zofran Benadryl for nausea or vomiting. patient would like to be discharged to go to different hospital. Patient does not want any other further evaluation. patient and mother explained worrisome signs and informed to return to the ED immediately. Patient informed to follow up with Gastroenterology. Abdomen is soft and benign. Patient does not want imaging. Patient is discharged with Zofran. not suspecting small bowel obstruction, ectopic , rhabdomyolysis, perforation, or any other life-threatening etiology. patient is not in DKA Differential Diagnosis Differential Diagnoses: The differential diagnosis associated with the presentation includes ( cyclic vomiting, gastroparesis, DKA) Admission/Observation Consideration of admission/observation: Escalation of care including admission/observation considered Lab Data 09/09/24 12:22 09/09/24 12:21 Labs: Lab Results 09/09/24 09/09/24 09/09/24 Range/Units 11:48 12:21 12:22 WBC 6.3 (4.8-10.8) X10*3/uL RBC 4.34 (4.20-5.50) X10*6/uL Hgb 14.2 (12.0-16.0) g/dl Hct 40.0 (37.0-47.0) % MCV 92.2 (80.0-98.0) fL MCH 32.7 (27.0-33.0) pg MCHC 35.5 H (31.0-35.0) g/dl RDW 12.2 (11.0-16.0) % Plt Count 205 (160-400) X10*3/uL MPV 9.9 (9.4-12.3) fL Immature Gran % (Auto) 0.3 (0.0-0.4) % Neut % (Auto) 77.9 H (45-73) % Lymph % (Auto) 16.7 L (20-40) % Cocke % (Auto) 4.3 (2-11) % Eos % (Auto) 0.3 (0-4) % Baso % (Auto) 0.5 (0-2) % Lymph # (Auto) 1.1 L (1.2-4.9) X10*3/uL Cocke # (Auto) 0.3 (0.1-1.2) X10*3/uL Eos # (Auto) 0.0 (0.0-0.4) X10*3/uL Baso # (Auto) 0.0 (0.0-0.2) X10*3/uL Abs Immat Gran (auto) 0.02 (0.00-0.03) X10*3/uL Absolute Neuts (auto) 4.9 (2.0-8.3) x10*3/uL Absolute Nucleated RBC 0.000 (0.0-0.012) X10*3/uL Nucleated RBC % (auto) 0.0 (0.0-0.2) /100WBC Sodium 138 (135-145) mmol/L Potassium 5.0 D (3.3-5.1) mmol/L Chloride 104 (96-108) mmol/L Carbon Dioxide 26 (22-29) mmol/L Anion Gap 13 (12-20) BUN 11 (9-16) mg/dL Creatinine 0.71 (0.5-1.4) mg/dL Estim Creat Clear Calc 68.5 Estimated GFR > 60 POC Glucose 250 H (60-115) mg/dL Random Glucose 280 H (60-115) mg/dL Calcium 9.7 D (8.4-10.2) mg/dL Total Bilirubin 0.7 (0.0-1.0) mg/dL AST 35 H (5-31) U/L ALT 16 (0-31) U/L Alkaline Phosphatase 80 (39-117) U/L Troponin I High Sens < 2.7 (<3.5-17.0) ng/L Total Protein 8.1 H (6.5-8.0) g/dL Albumin 4.7 (3.5-5.0) g/dL Lipase 13 (8-78) U/L Beta-Hydroxybutyrate 0.52 H (0.02-0.27) mmol/L Beta HCG, Quant < 2 mIU/mL Urine Color Urine Appearance Urine pH (5.0-9.0) Ur Specific [place] (1.005-1.025) Urine Protein (Neg-Trace) mg/dL Urine Glucose (UA) (Negative) mg/dL Urine Ketones (Negative) mg/dL Urine Blood (Negative) Urine Nitrite (Negative) Ur Leukocyte Esterase (Negative) Urine RBC (0-2) /HPF Urine WBC (0-5) /HPF Ur Squamous Epith Cells (0-2) /HPF Urine Bacteria (None Seen) Hyaline Casts (0-2) /LPF Urine Test (NEGATIVE) 09/09/24 09/09/24 Range/Units 14:35 15:48 WBC (4.8-10.8) X10*3/uL RBC (4.20-5.50) X10*6/uL Hgb (12.0-16.0) g/dl Hct (37.0-47.0) % MCV (80.0-98.0) fL MCH (27.0-33.0) pg MCHC (31.0-35.0) g/dl RDW (11.0-16.0) % Plt Count (160-400) X10*3/uL MPV (9.4-12.3) fL Immature Gran % (Auto) (0.0-0.4) % Neut % (Auto) (45-73) % Lymph % (Auto) (20-40) % Cocke % (Auto) (2-11) % Eos % (Auto) (0-4) % Baso % (Auto) (0-2) % Lymph # (Auto) (1.2-4.9) X10*3/uL [place]ke # (Auto) (0.1-1.2) X10*3/uL Eos # (Auto) (0.0-0.4) X10*3/uL Baso # (Auto) (0.0-0.2) X10*3/uL Abs Immat Gran (auto) (0.00-0.03) X10*3/uL Absolute Neuts (auto) (2.0-8.3) x10*3/uL Absolute Nucleated RBC (0.0-0.012) X10*3/uL Nucleated RBC % (auto) (0.0-0.2) /100WBC Sodium (135-145) mmol/L Potassium (3.3-5.1) mmol/L Chloride (96-108) mmol/L Carbon Dioxide (22-29) mmol/L Anion Gap (12-20) BUN (9-16) mg/dL Creatinine (0.5-1.4) mg/dL Estim Creat Clear Calc Estimated GFR POC Glucose (60-115) mg/dL Random Glucose (60-115) mg/dL Calcium (8.4-10.2) mg/dL Total Bilirubin (0.0-1.0) mg/dL AST (5-31) U/L ALT (0-31) U/L Alkaline Phosphatase (39-117) U/L Troponin I High Sens < 2.7 (<3.5-17.0) ng/L Total Protein (6.5-8.0) g/dL Albumin (3.5-5.0) g/dL Lipase (8-78) U/L Beta-Hydroxybutyrate (0.02-0.27) mmol/L Beta HCG, Quant mIU/mL Urine Color Yellow Urine Appearance Clear Urine pH 7.0 (5.0-9.0) Ur Specific [place] 1.025 (1.005-1.025) Urine Protein Negative (Neg-Trace) mg/dL Urine Glucose (UA) >=1000 H (Negative) mg/dL Urine Ketones 15 (Negative) mg/dL Urine Blood Negative (Negative) Urine Nitrite Negative (Negative) Ur Leukocyte Esterase Negative (Negative) Urine RBC 0-2 (0-2) /HPF Urine WBC 0-5 (0-5) /HPF Ur Squamous Epith Cells 0-2 (0-2) /HPF Urine Bacteria 2+ (None Seen) Hyaline Casts 0-2 (0-2) /LPF Urine Test NEGATIVE (NEGATIVE) Independent Interpretation I performed an independent interpretation of an: EKG ( sinus tach.) Independent Historian Clinical information obtained from an independent historian. History obtained from or confirmed by: Other ( patient) Prescription Management I considered prescription management with: Other ( so for) Chronic Conditions Patient?s care impacted by: Diabetes Discharge Plan Discharge Clinical Impression: Nausea and vomiting Qualifiers: Vomiting type: unspecified Qualified Code(s): R11.2 - Nausea with vomiting, unspecified Patient Disposition: Home, Self-Care Instructions: Acute Nausea and Vomiting (ED) Additional Instructions: Recommend follow-up with primary care provider. Return to the ED immediately for any intractable nausea, vomiting, headache, dizziness, fever, chills, abdominal pain, dysuria, hematuria, chest pain, shortness of breath, weakness, dizziness, or any other concerning symptoms. Prescriptions: New ondansetron 4 mg tablet,disintegrating 4 mg PO Q8H PRN (Reason: nausea and vomiting) Qty: 10 0RF No Action metoclopramide HCl [Reglan] 10 mg tablet 10 mg PO Q6H PRN (Reason: nausea and vomiting) Qty: 30 0RF insulin lispro 100 unit/mL insulin pen 3 - 6 unit subcut TIDAC insulin glargine [Lantus Solostar U-100 Insulin] 100 unit/mL (3 mL) insulin pen 15 unit subcut BEDTIME omeprazole 40 mg capsule,delayed release(DR/EC) 40 mg PO BID Qty: 60 0RF ondansetron 4 mg tablet,disintegrating 4 mg PO Q8H PRN (Reason: nausea and vomiting) Qty: 10 0RF lorazepam [Ativan] 1 mg tablet 1 mg PO BEDTIME PRN (Reason: anxiety) Qty: 14 0RF nitrofurantoin macrocrystal 100 mg capsule 100 mg PO BID Qty: 10 0RF Rx Instructions: must administer with a meal/food metoclopramide HCl [Reglan] 10 mg tablet 10 mg PO Q6H PRN (Reason: nausea and vomiting) Qty: 10 0RF metoclopramide HCl [Reglan] 10 mg tablet 10 mg PO Q6H PRN (Reason: nausea and vomiting) 21 Days Qty: 14 0RF ondansetron 4 mg tablet,disintegrating 4 mg PO Q6H PRN (Reason: nausea and vomiting) Qty: 14 0RF Stand Alone Forms: Work/School Release Interventions: ED Discharge Assessment Last Done: 09/09/24 17:58 Discharge Date/Time: 09/09/24 17:59 Print Language: Congolese
[2024-09-09 12:26] LABS: MANUAL DIFF FLAG NO
[2024-09-09 12:28] LABS: Basophils Percent Auto 0.5 % (0-2); Eosinophils Percent Auto 0.3 % (0-4); Hemoglobin 14.2 g/dl (12.0-16.0); Imm Gran Abs Auto 0.02 X10*3/uL (0.00-0.03); Imm Gran Pct Auto 0.3 % (0.0-0.4); Lymphocytes Absolute Auto 1.1 X10*3/uL (1.2-4.9); Lymphocytes Percent Auto 16.7 % (20-40); Mean Corpuscular HGB Conc 35.5 g/dl (31.0-35.0); Mean Corpuscular Hemoglobin 32.7 pg (27.0-33.0); Mean Corpuscular Volume 92.2 fL (80.0-98.0); Mean Platelet Volume 9.9 fL (9.4-12.3); Monocytes Absolute Auto 0.3 X10*3/uL (0.1-1.2); Monocytes Percent Auto 4.3 % (2-11); Neutrophils Absolute Auto 4.9 x10*3/uL (2.0-8.3); Neutrophils Percent Auto 77.9 % (45-73); Platelet Count 205 X10*3/uL (160-400); Red Blood Count 4.34 X10*6/uL (4.20-5.50); Red Cell Distribution Width 12.2 % (11.0-16.0); White Blood Count 6.3 X10*3/uL (4.8-10.8)
[2024-09-09] MEDS: ondansetron HCL 4 MG/2 ML VIAL IVPUSH ×2 (12:29→15:54)
[2024-09-09] MEDS: diphenhydrAMINE HCL 50 MG/ML VIAL IVPUSH (12:29)
[2024-09-09] MEDS: 0.9 % Sodium Chloride 1,000 ML 999 ML IV (12:31)
[2024-09-09 12:51] LABS: Troponin-I High Sensitivity < 2.7 ng/L (<3.5-17.0)
[2024-09-09 12:52] LABS: Alanine Aminotransferase 16 U/L (0-31); Albumin Level 4.7 g/dL (3.5-5.0); Alkaline Phosphatase 80 U/L (39-117); Anion Gap 13 (12-20); Aspartate Amino Transferase 35 U/L (5-31); Beta-Hydroxybutyrate 0.52 mmol/L (0.02-0.27); Bilirubin Total 0.7 mg/dL (0.0-1.0); Blood Urea Nitrogen 11 mg/dL (9-16); Calcium 9.7 mg/dL (8.4-10.2); Carbon Dioxide 26 mmol/L (22-29); Chloride 104 mmol/L (96-108); Creatinine Clr Calc Pharmacy 68.5; Estimated Glomerular Filt Rate > 60; Glucose Random 280 mg/dL (60-115); HCG Quantitative < 2 mIU/mL; Lipase 13 U/L (8-78); Sodium 138 mmol/L (135-145); Total Protein 8.1 g/dL (6.5-8.0)
[2024-09-09 14:18] VITALS: BP 100/62; PULSE 90; RESP 16; TEMP 36.7; O2SAT 96
[2024-09-09 14:48] LABS: Appearance Urine Clear; Color Urine Yellow; Glucose Urine UA >=1000 mg/dL (Negative); Leukocyte Esterase Urine Negative (Negative); Nitrite Urine Negative (Negative); Specific Gravity - Urine 1.025 (1.005-1.025); UMIC TRIGGER UACC YES; Urine Blood Negative (Negative); Urine Ketones 15 mg/dL (Negative); Urine Protein Negative (Neg-Trace)
[2024-09-09 14:50] LABS: UPreg QC Valid YES; Urine Pregnancy NEGATIVE (NEGATIVE)
[2024-09-09 14:54] LABS: Bacteria Urine 2+ (None Seen); Hyaline Casts Urine 0-2 /LPF (0-2); RBC Urine 0-2 /HPF (0-2); Squamous Epithelial Cell Urine 0-2 /HPF (0-2); WBC Urine 0-5 /HPF (0-5)
--- OUTSIDE RECORDS SUMMARY | 2024-09-09 15:42 | XMS_ITS | Clinical Summary ---
Author Organization [facility] ity Address [address] [place] [address] Care Team Providers Care Curb Machine Operator Name Role Phone Unavailable Primary Care Provider [...]
[2024-09-09] MEDS: Ketorolac Tromethamine 30 MG/ML VIAL IVPUSH (15:54)
[2024-09-09 16:19] LABS: Troponin-I High Sensitivity < 2.7 ng/L (<3.5-17.0)
--- NOTE | 2024-09-09 16:27 | MHC.EDTECH ---
patient observed putting fingers in her throat to make herself vomit. RIKY Goncalves notified.
[2024-09-09] MEDS: Haloperidol Lactate 5 MG/ML VIAL IM (16:53)
[2024-09-09 17:58] VITALS: BP 100/62; PULSE 90; RESP 16; TEMP 36.7; O2SAT 96
== END 2024-09-09 17:59 | disposition home or self-care (01) ==
PROVIDERS: Physician Assistant; Emergency Provider Emergency Medicine Emergency Medical Services
DX: R11.2 Nausea with vomiting, unspecified (principal); R19.7 Diarrhea, unspecified; F12.90 Cannabis use, unspecified, uncomplicated; E11.9 Type 2 diabetes mellitus without complications; R00.0 Tachycardia, unspecified; Z79.899 Other long term (current) drug therapy; Z87.891 Personal history of nicotine dependence; Z96.41 Presence of insulin pump (external) (internal); Z79.4 Long term (current) use of insulin
CPT/HCPCS: 36415; 80053; 81001; 81025; 82010; 82947; 83690; 84484; 84702; 85025; 93005; 96361; 96372; 96374; 96375; 96376; 99284; J1200; J1630; J1885; J2405

== ENCOUNTER → 2024-09-09 11:46 | Outpatient (BNV) | payer OTHER, SELFPAY | PROVIDERS: Emergency Provider Emergency Medicine Emergency Medical Services; Visit Provider Internal Medicine | DX: I25.2 Old myocardial infarction (principal); R00.0 Tachycardia, unspecified | CPT/HCPCS: 93010 ==

== ENCOUNTER 2024-09-18 12:04 | Emergency (ER) | payer OTHER, SELFPAY ==
[2024-09-18] VITALS (8 sets, daily range): BP systolic 108–123; BP diastolic 54–75; PULSE 74–110; RESP 12–18; TEMP -17.7–36.8; O2SAT 96–100; BMI 21.7
--- NOTE | ~2024-09-18 | CT_ITS ---
CLINICAL HISTORY: n v worsening abdominal pain CT abdomen and pelvis with contrast Comparison: None Findings: No consolidation or effusion. The liver, gallbladder, spleen, pancreas, kidneys and adrenal glands are normal in appearance. Portal vein is patent. There is a large portal systemic shunt extending from the portal splenic confluence to the left iliac vein. No lobulations of the contour of the liver. No biliary dilatation. No bowel obstruction, pneumoperitoneum, or pneumatosis. Question mild thickening of the gastric wall versus underdistention. Pelvic contents unremarkable. Normal appendix. Uterus and adnexa are unremarkable. Trace free fluid in the pelvis. No acute fracture. Urinary bladder is decompressed. IMPRESSION: 1. Question mild thickening of the gastric wall versus underdistention. 2. Incidental note of large portosystemic shunt without CT findings of cirrhosis. This document has been electronically signed by: Raad Flores MD on 09/18/2024 16:42:21
--- NOTE | 2024-09-18 12:12 | ECG_ITS ---
Test Reason : ABD PAIN Blood Pressure : */* mmHG Vent. Rate : 105 BPM Atrial Rate : 105 BPM P-R Int : 130 ms QRS Dur : 80 ms QT Int : 354 ms P-R-T Axes : 72 78 51 degrees QTcB Int : 467 ms Sinus tachycardia Septal infarct (cited on or before 25-Mar-2020) Abnormal ECG When compared with ECG of 09-Sep-2024 12:38, No significant change was found Referred By: Usha Zambrano Electronically Signed By: GABY DEL ROSARIO MD
--- NOTE | 2024-09-18 12:45 | ED.NAVMDI ---
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 She states she cannot eat. She gets meds in the ED and feels better then goes home and last night tried to eat rice and beans now has pain n/v/d. I asked her if she takes reglan before eating and she states I don't know MD elicited complaint: nausea, vomiting, diarrhea and abdominal pain Pertinent past history: cyclical vomiting Onset (ago): week(s) (2) Description of vomiting: watery Description of diarrhea: watery Associated nausea: Yes Associated abdominal pain: Yes Location of pain: diffuse Radiation: diffuse Pain consistency: constant Severity: moderate Quality: constant Exacerbating factors: eating and vomiting Relieving factors: none Context: other (same issues) Associated symptoms: loss of appetite, malaise, nausea/vomiting and weakness Related Data Home Medications ?Medication ?Instructions ?Recorded ?Confirmed insulin glargine 100 unit/mL (3 15 unit subcut BEDTIME 12/07/21 12/07/21 mL) subcutaneous pen (Lantus Solostar U-100 Insulin) insulin lispro 100 unit/mL 3 - 6 unit subcut TIDAC 12/07/21 12/07/21 subcutaneous pen Previous Rx's ?Medication ?Instructions ?Recorded metoclopramide HCl 10 mg tablet 10 mg PO Q6H PRN nausea and 12/07/21 (Reglan) vomiting #30 tabs omeprazole 40 mg capsule,delayed 40 mg PO BID #60 caps 12/12/21 release ondansetron 4 mg disintegrating 4 mg PO Q8H PRN nausea and 09/24/23 tablet vomiting #10 tabs lorazepam 1 mg tablet (Ativan) 1 mg PO BEDTIME PRN anxiety #14 09/26/23 tabs metoclopramide HCl 10 mg tablet 10 mg PO Q6H PRN nausea and 04/22/24 (Reglan) vomiting 3 weeks #14 tabs ondansetron 4 mg disintegrating 4 mg PO Q6H PRN nausea and 04/30/24 tablet vomiting #14 tabs nitrofurantoin macrocrystal 100 mg 100 mg PO BID #10 caps 07/31/24 capsule metoclopramide HCl 10 mg tablet 10 mg PO Q6H PRN nausea and 09/05/24 (Reglan) vomiting #10 tabs ondansetron 4 mg disintegrating 4 mg PO Q8H PRN nausea and 09/09/24 tablet vomiting #10 tabs Allergies Allergy/AdvReac Type Severity Reaction Status Date / Time No Known Allergies Allergy Verified 09/18/24 12:33 Review of Systems Review of Systems: Constitutional : No Weight loss, No Fever, No Chills ENT/Mouth : No sore throat, No Rhinorrhea Eyes: No Swelling, No Redness Cardiovascular : No Chest Pain, No SOB, NoEdema Respiratory : No Cough, No Sputum, No Wheezing Gastrointestinal : Positive Nausea, Positive Vomiting, positive Diarrhea, positive abdominal Pain, No Hematochezia, No Melena Genitourinary : No Dysuria, No Urinary Frequency, No Hematuria, No Urgency Musculoskeletal : No joint pain, No Myalgias, No Joint Swelling Skin : No Skin Lesions, No rash Neuro : No Weakness, No Numbness, No Dizziness, No Headache All other systems reviewed and are negative. Gastrointestinal: Gastrointestinal: Reports nausea PMFSH Past Medical History Attestation statement: The following information was validated with the patient. Source: old records reviewed Medical History Anxiety Diabetic gastroparesis DKA (diabetic ketoacidoses) Diabetes Surgical History History of Social History Social History Household Members: Children and Other Household Members Other:: Son's father Housing: Apartment Do you presently have visiting nurse or other home services: No Unable to assess alcohol history related to: Unknown Alcohol intake: never Patient Tobacco Use Status: Former Tobacco user Tobacco use type: Cigarette Smoked in Last 30 Days: No e-Cigarette/Vaping Use: Never Used Second Hand Smoke Exposure: No Use of substances other than those prescribed or required for medical reasons: No Substance Use Type: Marijuana Advance Directives: No Advance Directives Information Provided: Yes Do you have a plan to hurt others: No Plan Patient : No service: No Current occupational status: unemployed Physical Exam Vital Signs: Vital Signs: Last Vital Signs Temp 98 F 09/18/24 17:44 Pulse 74 09/18/24 17:44 Resp 18 09/18/24 17:44 BP 118/72 09/18/24 17:44 Pulse Ox 98 09/18/24 17:44 O2 Del Method Room Air 09/18/24 17:44 BMI result Body Mass Index 21.7 Medications Administered Discontinued Medications Generic Name Dose Route Start Last Admin Trade Name Freq PRN Reason Stop Dose Admin Diazepam 2.5 mg 09/18/24 12:10 09/18/24 12:49 Diazepam 10 Mg/2 Ml Cartridge IVPUSH 09/18/24 12:11 2.5 mg STAT STA Administration Droperidol 1.25 mg 09/18/24 12:10 09/18/24 12:48 Droperidol 5 Mg/2 Ml Vial IVPUSH 09/18/24 12:11 1.25 mg ONCE ONE Administration Lactated Ringer's 1,000 mls @ 999 mls/hr 09/18/24 12:10 09/18/24 15:03 Lr IV 09/18/24 13:10 Infused .Q1H1M ONE Infusion Magnesium Sulfate 2 gm in 50 mls @ 25 mls/hr 09/18/24 13:58 09/18/24 17:27 Magnesium Sulfate/H2o IV 09/18/24 15:57 Infused ONCE ONE Infusion Iohexol 85 ml 09/18/24 15:28 09/18/24 15:28 Iohexol 350 Mg/Ml 100 Ml Infus..Btl IV 09/18/24 15:29 85 ml ONCE ONE Administration Medical Decision Making Medical Decision Making MDM Narrative: 38 yo female with PMH of gastroparesis, IDDM uses pump 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 She has not had imaging since 2021 she has been in and out of the hospital ERs for the past two weeks. No admissions. at this time will obtain labs, EKG, CT scan for any acute issues, IVF and IV supportive medications. Close monitoring of her BS as well. Patient's CT scan showed large portosystemic shunt without CT scan finding of the cirrhosis patient's head CT scan in the past but never been told about these findings case discussed Dr. Kirk GI no acute treatment at this time follow up as outpatient likely incidental finding secondary to fibrosis of the portal vein/vascular malformation Differential Diagnosis Differential Diagnoses: The differential diagnosis associated with the presentation includes gastroparesis, dehydration, DKA, gastritis, pancreatitis Admission/Observation Consideration of admission/observation: Escalation of care including admission/observation considered Lab Data MDM Lab Attestation statement: I reviewed the patient's lab results. 09/18/24 13:23 09/18/24 13:23 Labs: Lab Results 09/18/24 09/18/24 Range/Units 13:23 15:21 WBC 4.9 (4.8-10.8) X10*3/uL RBC 3.59 L (4.20-5.50) X10*6/uL Hgb 11.7 L (12.0-16.0) g/dl Hct 32.7 L (37.0-47.0) % MCV 91.1 (80.0-98.0) fL MCH 32.6 (27.0-33.0) pg MCHC 35.8 H (31.0-35.0) g/dl RDW 12.3 (11.0-16.0) % Plt Count 167 (160-400) X10*3/uL MPV 9.8 (9.4-12.3) fL Immature Gran % (Auto) 0.4 (0.0-0.4) % Neut % (Auto) 81.1 H (45-73) % Lymph % (Auto) 13.0 L (20-40) % Davis % (Auto) 4.7 (2-11) % Eos % (Auto) 0.2 (0-4) % Baso % (Auto) 0.6 (0-2) % Lymph # (Auto) 0.6 L (1.2-4.9) X10*3/uL Davis # (Auto) 0.2 (0.1-1.2) X10*3/uL Eos # (Auto) 0.0 (0.0-0.4) X10*3/uL Baso # (Auto) 0.0 (0.0-0.2) X10*3/uL Abs Immat Gran (auto) 0.02 (0.00-0.03) X10*3/uL Absolute Neuts (auto) 4.0 (2.0-8.3) x10*3/uL Absolute Nucleated RBC 0.000 (0.0-0.012) X10*3/uL Nucleated RBC % (auto) 0.0 (0.0-0.2) /100WBC Sodium 138 (135-145) mmol/L Potassium 3.5 D (3.3-5.1) mmol/L Chloride 106 (96-108) mmol/L Carbon Dioxide 22 (22-29) mmol/L Anion Gap 14 (12-20) BUN 10 (9-16) mg/dL Creatinine 0.61 (0.5-1.4) mg/dL Estim Creat Clear Calc 93.4 Estimated GFR > 60 Random Glucose 311 H (60-115) mg/dL Calcium 8.2 L D (8.4-10.2) mg/dL Magnesium 1.4 L* (1.6-2.6) mg/dL Total Bilirubin 0.9 (0.0-1.0) mg/dL Direct Bilirubin 0.3 (0.0-0.5) mg/dL AST 20 (5-31) U/L ALT 10 (0-31) U/L Alkaline Phosphatase 60 (39-117) U/L Total Protein 5.9 L (6.5-8.0) g/dL Albumin 3.7 (3.5-5.0) g/dL Lipase 18 (8-78) U/L Urine Color Yellow Urine Appearance Clear Urine pH 6.0 (5.0-9.0) Ur Specific [place] 1.025 (1.005-1.025) Urine Protein Negative (Neg-Trace) mg/dL Urine Glucose (UA) >=1000 H (Negative) mg/dL Urine Ketones 15 (Negative) mg/dL Urine Blood Negative (Negative) Urine Nitrite Negative (Negative) Ur Leukocyte Esterase Negative (Negative) Urine RBC 0-2 (0-2) /HPF Urine WBC 0-5 (0-5) /HPF Ur Squamous Epith Cells 0-2 (0-2) /HPF Urine Bacteria None Seen (None Seen) Hyaline Casts 0-2 (0-2) /LPF Urine Opiates Screen Not Detected (Not Detect) Ur Buprenorphine Scrn Not Detected (Not Detect) ng/mL Ur Oxycodone Screen Not Detected (Not Detect) ng/mL Urine Methadone Screen Not Detected (Not Detect) ng/mL Urine Fentanyl Screen Not Detected (Not Detect) Ur Barbiturates Screen Not Detected (Not Detect) Ur Phencyclidine Scrn Not Detected (Not Detect) Ur Amphetamines Screen Not Detected (Not Detect) U Benzodiazepines Scrn Not Detected (Not Detect) Urine Cocaine Screen Not Detected (Not Detect) U Marijuana (THC) Screen POSITIVE H (Not Detect) Independent Interpretation I performed an independent interpretation of an: EKG and CT Scan Interpretation: Rate: 105 Rhythm: sinus tach [place]: normal Normal P waves. Normal MICKI. Normal QRS complex. ST T wave : no DIANNE, nonspecific changes qTC: 467 prior studies: no acute ischemia The study has been interpreted contemporaneously by me. . Radiology Impression Discussion of test interpretation with radiology: I have reviewed the radiologist's reading. Radiologist Impression: [place] [id number] CT Scan Report Signed Patient: Svetlana Traylor MR#: [id number] : 1985 Acct:[id number] Age/Sex: 38 / F ADM Date: 09/18/24 Loc: .ED Attending Dr: Ordering Physician: Usha Zambrano DO Date of Service: 09/18/24 Procedure(s): CT abdomen pelvis w IV con Accession Number(s): [id number] cc: Usha Zambrano DO; Physician,Unknown ~ Report Number: [id number]: Total DLP = 285.00 mGy-cm CLINICAL HISTORY: n v worsening abdominal pain CT abdomen and pelvis with contrast Comparison: None Findings: No consolidation or effusion. The liver, gallbladder, spleen, pancreas, kidneys and adrenal glands are normal in appearance. Portal vein is patent. There is a large portal systemic shunt extending from the portal splenic confluence to the left iliac vein. No lobulations of the contour of the liver. No biliary dilatation. No bowel obstruction, pneumoperitoneum, or pneumatosis. Question mild thickening of the gastric wall versus underdistention. Pelvic contents unremarkable. Normal appendix. Uterus and adnexa are unremarkable. Trace free fluid in the pelvis. No acute fracture. Urinary bladder is decompressed. IMPRESSION: 1. Question mild thickening of the gastric wall versus underdistention. 2. Incidental note of large portosystemic shunt without CT findings of cirrhosis. This document has been electronically signed by: Raad Flores MD on 09/18/2024 16:42:21 Independent Historian Clinical information obtained from an independent historian. History obtained from or confirmed by: EMS External Record Review External record reviewed: Inpatient record and Outpatient record Discharge Plan Discharge Clinical Impression: Hypomagnesemia, Cannabis-induced disorder Nausea and vomiting Qualifiers: Vomiting type: unspecified Qualified Code(s): R11.2 - Nausea with vomiting, unspecified Patient Disposition: Home, Self-Care Instructions: Acute Nausea and Vomiting (ED), Hypomagnesemia (ED) Additional Instructions: your labs were reassuring other than a low magnesium which we gave you medication for you test positive for marijuana this could be the cause of your symptoms please stop smoking and see if you feel better - it may take 4 weeks to get better. please follow up with your GI doctor. return for any worsening symptoms or concerns. 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 scan results as discussed Prescriptions: No Action metoclopramide HCl [Reglan] 10 mg tablet 10 mg PO Q6H PRN (Reason: nausea and vomiting) Qty: 30 0RF insulin lispro 100 unit/mL insulin pen 3 - 6 unit subcut TIDAC insulin glargine [Lantus Solostar U-100 Insulin] 100 unit/mL (3 mL) insulin pen 15 unit subcut BEDTIME omeprazole 40 mg capsule,delayed release(DR/EC) 40 mg PO BID Qty: 60 0RF ondansetron 4 mg tablet,disintegrating 4 mg PO Q8H PRN (Reason: nausea and vomiting) Qty: 10 0RF lorazepam [Ativan] 1 mg tablet 1 mg PO BEDTIME PRN (Reason: anxiety) Qty: 14 0RF nitrofurantoin macrocrystal 100 mg capsule 100 mg PO BID Qty: 10 0RF Rx Instructions: must administer with a meal/food metoclopramide HCl [Reglan] 10 mg tablet 10 mg PO Q6H PRN (Reason: nausea and vomiting) Qty: 10 0RF metoclopramide HCl [Reglan] 10 mg tablet 10 mg PO Q6H PRN (Reason: nausea and vomiting) 21 Days Qty: 14 0RF ondansetron 4 mg tablet,disintegrating 4 mg PO Q6H PRN (Reason: nausea and vomiting) Qty: 14 0RF ondansetron 4 mg tablet,disintegrating 4 mg PO Q8H PRN (Reason: nausea and vomiting) Qty: 10 0RF Print Language: Albanian
--- OUTSIDE RECORDS SUMMARY | 2024-09-18 12:47 | XMS_ITS | Clinical Summary ---
Author Organization [facility] ity Address [address] [place] [address] Care Team Providers Care Chemistry Technician Name Role Phone Unavailable Primary Care Provider [...]
[2024-09-18] MEDS: droPERidol 5 MG/2 ML VIAL 1.25 MG IVPUSH (12:48)
[2024-09-18] MEDS: diazePAM 10 MG/2 ML CARTRIDGE 2.5 MG IVPUSH (12:49)
[2024-09-18] MEDS: Lactated Ringers 1,000 ML 999 ML IV (12:50)
[2024-09-18 13:28] LABS: MANUAL DIFF FLAG NO
[2024-09-18 13:32] LABS: Basophils Percent Auto 0.6 % (0-2); Eosinophils Percent Auto 0.2 % (0-4); Hematocrit 32.7 % (37.0-47.0); Hemoglobin 11.7 g/dl (12.0-16.0); Imm Gran Abs Auto 0.02 X10*3/uL (0.00-0.03); Imm Gran Pct Auto 0.4 % (0.0-0.4); Lymphocytes Absolute Auto 0.6 X10*3/uL (1.2-4.9); Mean Corpuscular HGB Conc 35.8 g/dl (31.0-35.0); Mean Corpuscular Hemoglobin 32.6 pg (27.0-33.0); Mean Corpuscular Volume 91.1 fL (80.0-98.0); Mean Platelet Volume 9.8 fL (9.4-12.3); Monocytes Absolute Auto 0.2 X10*3/uL (0.1-1.2); Monocytes Percent Auto 4.7 % (2-11); Neutrophils Percent Auto 81.1 % (45-73); Platelet Count 167 X10*3/uL (160-400); Red Blood Count 3.59 X10*6/uL (4.20-5.50); Red Cell Distribution Width 12.3 % (11.0-16.0); White Blood Count 4.9 X10*3/uL (4.8-10.8)
[2024-09-18 13:57] LABS: Alanine Aminotransferase 10 U/L (0-31); Albumin Level 3.7 g/dL (3.5-5.0); Alkaline Phosphatase 60 U/L (39-117); Anion Gap 14 (12-20); Aspartate Amino Transferase 20 U/L (5-31); Bilirubin Direct 0.3 mg/dL (0.0-0.5); Bilirubin Total 0.9 mg/dL (0.0-1.0); Blood Urea Nitrogen 10 mg/dL (9-16); Calcium 8.2 mg/dL (8.4-10.2); Carbon Dioxide 22 mmol/L (22-29); Chloride 106 mmol/L (96-108); Creatinine Clr Calc Pharmacy 93.4; Estimated Glomerular Filt Rate > 60; Glucose Random 311 mg/dL (60-115); Lipase 18 U/L (8-78); Magnesium 1.4 mg/dL (1.6-2.6); Potassium 3.5 mmol/L (3.3-5.1); Sodium 138 mmol/L (135-145); Total Protein 5.9 g/dL (6.5-8.0)
--- NOTE | 2024-09-18 14:02 | PC.NURSE ---
38 F presents to ED with n/v and abdominal pain x 2 days, unable to keep food down. A+Ox4. RR even and unlabored. Pt states she smokes THC but no other drug use. Denies CP. Pt anxious, cooperative.
[2024-09-18] MEDS: Magnesium Sulfate/H2O 2 GM/50 ML PIGGYBACK IV (14:34)
--- NOTE | 2024-09-18 14:39 | PC.NURSE ---
Pt feeling better after medications, resting calmly and quietly with eyes closed, answering appropriately and responds to verbal stimuli.
[2024-09-18] MEDS: iohexoL 350 MG/ML 100 ML INFUS..BTL 85 ML IV (15:28)
[2024-09-18 15:30] LABS: Appearance Urine Clear; Color Urine Yellow; Glucose Urine UA >=1000 mg/dL (Negative); Leukocyte Esterase Urine Negative (Negative); Nitrite Urine Negative (Negative); Specific Gravity - Urine 1.025 (1.005-1.025); UMIC TRIGGER UACC YES; Urine Blood Negative (Negative); Urine Ketones 15 mg/dL (Negative); Urine Protein Negative (Neg-Trace)
[2024-09-18 15:35] LABS: Bacteria Urine None Seen (None Seen); Hyaline Casts Urine 0-2 /LPF (0-2); RBC Urine 0-2 /HPF (0-2); Squamous Epithelial Cell Urine 0-2 /HPF (0-2); WBC Urine 0-5 /HPF (0-5)
[2024-09-18 15:39] LABS: Amphetamine Screen Urine Not Detected (Not Detect); Barbiturates, Urine Not Detected (Not Detect); Benzodiazepines Screen Urine Not Detected (Not Detect); Buprenorphine Scr Not Detected (Not Detect); Cannabinoid Screen Urine POSITIVE (Not Detect); Cocaine Screen Urine Not Detected (Not Detect); Fentanyl, urine Not Detected (Not Detect); Methadone Screen, Urine Not Detected (Not Detect); Opiate Screen Urine Not Detected (Not Detect); Oxycodone Screen Urine Not Detected (Not Detect); Phencyclidine Screen Urine Not Detected (Not Detect)
== END 2024-09-18 18:29 | disposition home or self-care (01) ==
PROVIDERS: Emergency Medicine; Emergency Provider Internal Medicine
DX: R11.2 Nausea with vomiting, unspecified (principal); E83.42 Hypomagnesemia; F12.988 Cannabis use, unspecified with other cannabis-induced disorder; E11.9 Type 2 diabetes mellitus without complications; Z79.4 Long term (current) use of insulin; Z79.899 Other long term (current) drug therapy
CPT/HCPCS: 36415; 74177; 80048; 80076; 80307; 81001; 83690; 83735; 85025; 93005; 96361; 96365; 96366; 96375; 99284; 99285; J1790; J3360; J3475; J7120; Q9967

== ENCOUNTER → 2024-09-18 12:12 | Outpatient (BNV) | payer OTHER, SELFPAY | PROVIDERS: Emergency Provider Internal Medicine; Visit Provider Internal Medicine Cardiovascular Disease | DX: I25.2 Old myocardial infarction (principal); R00.0 Tachycardia, unspecified | CPT/HCPCS: 93010 ==

== ENCOUNTER → 2024-09-18 12:23 | Outpatient (BNV) | payer OTHER, SELFPAY | PROVIDERS: Emergency Provider Internal Medicine; Visit Provider Radiology Diagnostic Radiology | DX: R10.9 Unspecified abdominal pain (principal) | CPT/HCPCS: 74177 ==

== ENCOUNTER 2024-09-19 11:04 | Emergency (ER) | payer OTHER, SELFPAY ==
[2024-09-19 11:15] VITALS: BP 148/80; PULSE 94; O2SAT 99
--- NOTE | 2024-09-19 11:22 | ED_ITS ---
HPI - General Adult General Chief complaint: General Medical Stated complaint: WEAK,BS ISSUES/HIGH AND LOW PER EMS Time Seen by Provider: 09/19/24 11:12 Source: patient and EMS Mode of arrival: EMS Limitations: no limitations History of Present Illness ED Provider: CHRISTIANE KENDALL PA-C HPI narrative: 38 year old female with pmhx significant for IDDM, diabetic gastroparesis, DKA, anxiety presents to the ED today via EMS from home for evaluation of nausea, vomiting and abdominal pain since this morning. She was evaluated at our facility for same yesterday. Essentially had an unremarkable workup. She was advised to stop smoking marijuana and to follow up with GI outpatient. She was not discharged home with any medications. She returns today with continued symptoms. States that she has not smoked marijuana in 2-3 days. Denies any other illicit substance use. Denies EtOH consumption. Reports associated generalized weakness and malaise along with epigastric discomfort which began after multiple episodes of vomiting. She reports >10 episodes of vomiting today. In route to ED, EMS had administered Zofran however she is still dry heaving. States Zofran does not work . She tells me that her glucose monitor was reading 60 this morning. She began chugging soda. Related Data Home Medications ?Medication ?Instructions ?Recorded ?Confirmed insulin glargine 100 unit/mL (3 15 unit subcut BEDTIME 12/07/21 12/07/21 mL) subcutaneous pen (Lantus Solostar U-100 Insulin) insulin lispro 100 unit/mL 3 - 6 unit subcut TIDAC 12/07/21 12/07/21 subcutaneous pen Previous Rx's ?Medication ?Instructions ?Recorded metoclopramide HCl 10 mg tablet 10 mg PO Q6H PRN nausea and 12/07/21 (Reglan) vomiting #30 tabs omeprazole 40 mg capsule,delayed 40 mg PO BID #60 caps 12/12/21 release ondansetron 4 mg disintegrating 4 mg PO Q8H PRN nausea and 09/24/23 tablet vomiting #10 tabs lorazepam 1 mg tablet (Ativan) 1 mg PO BEDTIME PRN anxiety #14 09/26/23 tabs metoclopramide HCl 10 mg tablet 10 mg PO Q6H PRN nausea and 04/22/24 (Reglan) vomiting 3 weeks #14 tabs ondansetron 4 mg disintegrating 4 mg PO Q6H PRN nausea and 04/30/24 tablet vomiting #14 tabs nitrofurantoin macrocrystal 100 mg 100 mg PO BID #10 caps 07/31/24 capsule metoclopramide HCl 10 mg tablet 10 mg PO Q6H PRN nausea and 09/05/24 (Reglan) vomiting #10 tabs ondansetron 4 mg disintegrating 4 mg PO Q8H PRN nausea and 09/09/24 tablet vomiting #10 tabs metoclopramide HCl 10 mg tablet 10 mg PO Q6H PRN nausea and 09/19/24 (Reglan) vomiting #10 tabs Allergies Allergy/AdvReac Type Severity Reaction Status Date / Time No Known Allergies Allergy Verified 09/19/24 11:26 Review of Systems 2 Review of Systems: Constitutional: No fever, chills, fatigue, night sweats, weight changes ENT/Mouth: No ear pain, hearing loss, nasal congestion, sinus pain, rhinorrhea, sore throat Eyes: No eye pain, swelling, redness, vision changes, discharge Cardio: No chest pain, palpitations, [place], orthopnea, peripheral edema Pulm: No SOB, cough, sputum, wheezing, dyspnea, hemoptysis GI: No hematemesis, diarrhea, constipation, hematochezia, melena, +N/V/, +abd pain : No irregular bleeding, dysuria, frequency, urgency, hesitancy, hematuria, flank pain, urinary flow changes, urinary incontinence or retention MSK: No back pain, neck pain, joint pain, myalgias Skin: No lesions, rashes Neuro: No weakness, numbness, paresthesias, LOC, dizziness, headache Psych: No anxiety/panic, depression, SI/HI, AH/VH All other systems reviewed and are negative. [facility] Past Medical History Attestation statement: The following information was validated with the patient. Source: old records reviewed and nursing notes reviewed Medical History Anxiety Diabetic gastroparesis DKA (diabetic ketoacidoses) Diabetes Surgical History History of Social History Social History Household Members: Children and Other Household Members Other:: Son's father Housing: Apartment Do you presently have visiting nurse or other home services: No Unable to assess alcohol history related to: Unknown Alcohol intake: never Patient Tobacco Use Status: Former Tobacco user Tobacco use type: Cigarette Smoked in Last 30 Days: No e-Cigarette/Vaping Use: Never Used Second Hand Smoke Exposure: No Use of substances other than those prescribed or required for medical reasons: Yes Substance Use Type: Marijuana Advance Directives: No Advance Directives Information Provided: Yes Do you have a plan to hurt others: No Plan service: No Current occupational status: unemployed Physical Exam ED Vital Signs: Vital Signs - 24 hr 09/19/24 11:25 09/19/24 13:20 09/19/24 15:01 Temperature 97.8 F Pulse Rate 103 H 89 102 H Respiratory Rate 18 18 16 Blood Pressure 139/75 125/83 120/81 Pulse Oximetry 100 100 99 Oxygen Delivery Method Room Air Room Air Room Air 09/19/24 16:13 Temperature 98.5 F Pulse Rate 102 H Respiratory Rate 16 Blood Pressure 120/81 Pulse Oximetry 99 Oxygen Delivery Method Room Air BMI result Body Mass Index 18.0 tachycardic General: anxious appearing Skin: warm, dry, intact. No rashes or lesions. Head: Normocephalic, atraumatic. EENT: Hearing is intact b/l. Conjunctiva clear. Sclera is anicteric. PERRLA. EOM intact. Moist mucous membranes.? Neck: Supple without LAD Cardiac: Chest wall symmetric. RRR Lungs: Normal respiratory effort without accessory muscle use. CTA bilaterally Abdomen: soft, non-tender, non-distended. No rebound tenderness or guarding. Positive BS x4. Back: No midline spinous or paraspinal tenderness. No step off deformity. Ext: Upper and lower extremities atraumatic, without tenderness, deformity, swelling or erythema Neuro: AOx3. Normal speech. Ambulating with steady gait. Course Course Course Narrative: 1500 -- CBC without leukocytosis or left shift. Normocytic anemia, H and H stable when compared to priors. Chemistry without acute electrolyte abnormality requiring intervention. No SANIA. Random glucose 216 and POC 206. No anion gap. Beta hydroxy butyrate mildly elevated to 0.40 however improving from priors. I do not have concern for DKA. Urine without infection. Trace ketones. Urine toxicology obtained yesterday positive for THC, otherwise negative. Urine negative. > patient had imaging done yesterday. CT scan showed large portosystemic shunt without evidence of cirrhosis. Dr. Reagan RENTERIA was consulted, recommending no acute treatment at this time with outpatient follow-up as finding likely incidental secondary to fibrosis of the portal vein/vasculature malformation. > I do not feel that patient needs repeat imaging today > patient received Zofran in route from EMS, states that it did not help her. We trialed Reglan and Benadryl which helped symptoms temporarily and patient was sleeping comfortably. Upon waking up, had continued symptoms which have improved with droperidol and diazepam. I have suspicion for cannabinoid hyperemesis syndrome. > will PO trial 1600 -- Patient tolerating jello. Ambulating with steady gait to the bathroom. Symptoms have resolved w/ IV meds. Given unremarkable work up, I feel comfortable with discharge home at this time. Will d/c home with reglan. Patient has remained stable throughout ED visit today. Discussed worrisome signs and symptoms and when to return to the ED. All questions answered at this time. Patient is agreeable with disposition and stable for discharge. Medications Administered Discontinued Medications Generic Name Dose Route Start Last Admin Trade Name Eberq PRN Reason Stop Dose Admin Diazepam 2.5 mg 09/19/24 13:08 09/19/24 13:21 Diazepam 10 Mg/2 Ml Cartridge IVPUSH 09/19/24 13:09 2.5 mg STAT STA Administration Diphenhydramine HCl 50 mg 09/19/24 11:31 09/19/24 11:41 Diphenhydramine Hcl 50 Mg/Ml Vial IVPUSH 09/19/24 11:32 50 mg ONCE ONE Administration Droperidol 1.25 mg 09/19/24 13:08 09/19/24 13:21 Droperidol 5 Mg/2 Ml Vial IVPUSH 09/19/24 13:09 1.25 mg ONCE ONE Administration Lactated Ringer's 1,000 mls @ 999 mls/hr 09/19/24 11:32 09/19/24 12:42 Lr IV 09/19/24 12:32 Infused .Q1H1M ONE Infusion Metoclopramide HCl 10 mg 09/19/24 11:31 09/19/24 11:41 Metoclopramide Hcl 10 Mg/2 Ml Vial IVPUSH 09/19/24 11:32 10 mg ONCE ONE Administration Medical Decision Making Medical Decision Making [facility] Narrative: 38 year old female with pmhx significant for insulin dependent diabetes, diabetic gastroparesis, DKA, anxiety presents to the ED today via EMS from home for evaluation of nausea, vomiting and abdominal pain since this morning. Tachycardic on arrival, vitals otherwise WNL. She is anxious appearing, dry heaving. Her abdomen is soft, nondistended, nontender, no rebound tenderness or guarding. Differential diagnosis includes anemia, electrolyte abnormality, dehydration, DKA, HHS, hyperglycemia, gastroenteritis, gastroparesis, gastritis, viral syndrome, , cyclical vomiting, marijuana use. Unlikely acute abdomen. Plan for labs, EKG, IV fluids, nausea control, re-evaluation Differential Diagnosis Differential Diagnoses: The differential diagnosis associated with the presentation includes As above Admission/Observation Not indicated Lab Data [facility] Lab Attestation statement: I reviewed the patient's lab results. As above 09/19/24 11:35 09/19/24 11:35 Labs: Lab Results 09/19/24 09/19/24 09/19/24 Range/Units 11:23 11:35 11:41 WBC 4.6 L (4.8-10.8) X10*3/uL RBC 3.59 L (4.20-5.50) X10*6/uL Hgb 11.7 L (12.0-16.0) g/dl Hct 32.6 L (37.0-47.0) % MCV 90.8 (80.0-98.0) fL MCH 32.6 (27.0-33.0) pg MCHC 35.9 H (31.0-35.0) g/dl RDW 12.3 (11.0-16.0) % Plt Count 186 (160-400) X10*3/uL MPV 9.8 (9.4-12.3) fL Immature Gran % (Auto) 0.2 (0.0-0.4) % Neut % (Auto) 64.6 (45-73) % Lymph % (Auto) 26.5 (20-40) % [place] % (Auto) 7.8 (2-11) % Eos % (Auto) 0.2 (0-4) % Baso % (Auto) 0.7 (0-2) % Lymph # (Auto) 1.2 (1.2-4.9) X10*3/uL [place] # (Auto) 0.4 (0.1-1.2) X10*3/uL Eos # (Auto) 0.0 (0.0-0.4) X10*3/uL Baso # (Auto) 0.0 (0.0-0.2) X10*3/uL Abs Immat Gran (auto) 0.01 (0.00-0.03) X10*3/uL Absolute Neuts (auto) 3.0 (2.0-8.3) x10*3/uL Absolute Nucleated RBC 0.000 (0.0-0.012) X10*3/uL Nucleated RBC % (auto) 0.0 (0.0-0.2) /100WBC VBG pH 7.41 (7.32-7.43) VBG pCO2 43 mmHg VBG pO2 48 mmHg VBG HCO3 27 H (22-26) mmol/L VBG O2 Saturation 76.0 % VBG Base Excess 2.6 mmol/L Sodium 138 (135-145) mmol/L Potassium 3.4 (3.3-5.1) mmol/L Chloride 103 (96-108) mmol/L Carbon Dioxide 24 (22-29) mmol/L Anion Gap 14 (12-20) BUN 6 L (9-16) mg/dL Creatinine 0.63 (0.5-1.4) mg/dL Estim Creat Clear Calc 81.5 Estimated GFR > 60 POC Glucose 206 H (60-115) mg/dL Random Glucose 216 H (60-115) mg/dL Calcium 8.7 D (8.4-10.2) mg/dL Magnesium 1.8 (1.6-2.6) mg/dL Total Bilirubin 0.7 (0.0-1.0) mg/dL AST 23 (5-31) U/L ALT 9 (0-31) U/L Alkaline Phosphatase 59 (39-117) U/L Total Protein 6.0 L (6.5-8.0) g/dL Albumin 3.8 (3.5-5.0) g/dL Lipase 16 (8-78) U/L Beta-Hydroxybutyrate 0.40 H (0.02-0.27) mmol/L Urine Color Urine Appearance Urine pH (5.0-9.0) Ur Specific [place] (1.005-1.025) Urine Protein (Neg-Trace) mg/dL Urine Glucose (UA) (Negative) mg/dL Urine Ketones (Negative) mg/dL Urine Blood (Negative) Urine Nitrite (Negative) Ur Leukocyte Esterase (Negative) Urine RBC (0-2) /HPF Urine WBC (0-5) /HPF Ur Squamous Epith Cells (0-2) /HPF Urine Bacteria (None Seen) Hyaline Casts (0-2) /LPF Urine Test (NEGATIVE) 09/19/24 Range/Units 12:57 WBC (4.8-10.8) X10*3/uL RBC (4.20-5.50) X10*6/uL Hgb (12.0-16.0) g/dl Hct (37.0-47.0) % MCV (80.0-98.0) fL MCH (27.0-33.0) pg MCHC (31.0-35.0) g/dl RDW (11.0-16.0) % Plt Count (160-400) X10*3/uL MPV (9.4-12.3) fL Immature Gran % (Auto) (0.0-0.4) % Neut % (Auto) (45-73) % Lymph % (Auto) (20-40) % [place] % (Auto) (2-11) % Eos % (Auto) (0-4) % Baso % (Auto) (0-2) % Lymph # (Auto) (1.2-4.9) X10*3/uL [place] # (Auto) (0.1-1.2) X10*3/uL Eos # (Auto) (0.0-0.4) X10*3/uL Baso # (Auto) (0.0-0.2) X10*3/uL Abs Immat Gran (auto) (0.00-0.03) X10*3/uL Absolute Neuts (auto) (2.0-8.3) x10*3/uL Absolute Nucleated RBC (0.0-0.012) X10*3/uL Nucleated RBC % (auto) (0.0-0.2) /100WBC VBG pH (7.32-7.43) VBG pCO2 mmHg VBG pO2 mmHg VBG HCO3 (22-26) mmol/L VBG O2 Saturation % VBG Base Excess mmol/L Sodium (135-145) mmol/L Potassium (3.3-5.1) mmol/L Chloride (96-108) mmol/L Carbon Dioxide (22-29) mmol/L Anion Gap (12-20) BUN (9-16) mg/dL Creatinine (0.5-1.4) mg/dL Estim Creat Clear Calc Estimated GFR POC Glucose (60-115) mg/dL Random Glucose (60-115) mg/dL Calcium (8.4-10.2) mg/dL Magnesium (1.6-2.6) mg/dL Total Bilirubin (0.0-1.0) mg/dL AST (5-31) U/L ALT (0-31) U/L Alkaline Phosphatase (39-117) U/L Total Protein (6.5-8.0) g/dL Albumin (3.5-5.0) g/dL Lipase (8-78) U/L Beta-Hydroxybutyrate (0.02-0.27) mmol/L Urine Color Yellow Urine Appearance Clear Urine pH 6.5 (5.0-9.0) Ur Specific [place] 1.010 (1.005-1.025) Urine Protein Negative (Neg-Trace) mg/dL Urine Glucose (UA) >=1000 H (Negative) mg/dL Urine Ketones Trace (Negative) mg/dL Urine Blood Negative (Negative) Urine Nitrite Negative (Negative) Ur Leukocyte Esterase Negative (Negative) Urine RBC 0-2 (0-2) /HPF Urine WBC 0-5 (0-5) /HPF Ur Squamous Epith Cells 0-2 (0-2) /HPF Urine Bacteria None Seen (None Seen) Hyaline Casts 0-2 (0-2) /LPF Urine Test NEGATIVE (NEGATIVE) Independent Interpretation I performed an independent interpretation of an: EKG and CT Scan Interpretation: ct a/p 09/18/24 without bowel osbtruction or evidence of pancreatitis ekg showing sinus tachycardia, rate of 102 bpm, no acute ischemic changes or st elevations Radiology Impression Discussion of test interpretation with radiology: I have reviewed the radiologist's reading. Radiologist Impression: Date of Service: 09/18/24 Procedure(s): CT abdomen pelvis w IV con Accession Number(s): [id number] cc: Usha Zambrano DO; Physician,Unknown ~ Report Number: [id number]: Total DLP = 285.00 mGy-cm CLINICAL HISTORY: n v worsening abdominal pain CT abdomen and pelvis with contrast Comparison: None Findings: No consolidation or effusion. The liver, gallbladder, spleen, pancreas, kidneys and adrenal glands are normal in appearance. Portal vein is patent. There is a large portal systemic shunt extending from the portal splenic confluence to the left iliac vein. No lobulations of the contour of the liver. No biliary dilatation. No bowel obstruction, pneumoperitoneum, or pneumatosis. Question mild thickening of the gastric wall versus underdistention. Pelvic contents unremarkable. Normal appendix. Uterus and adnexa are unremarkable. Trace free fluid in the pelvis. No acute fracture. Urinary bladder is decompressed. IMPRESSION: 1. Question mild thickening of the gastric wall versus underdistention. 2. Incidental note of large portosystemic shunt without CT findings of cirrhosis. This document has been electronically signed by: Raad Flores MD on 09/18/2024 16:42:21 Independent Historian Clinical information obtained from an independent historian. History obtained from or confirmed by: EMS External Record Review External record reviewed: Inpatient record, Office record, Outpatient record, Prior outpatient labs and Prior outpatient radiology Prescription Management I considered prescription management with: Other (reglan) Chronic Conditions Patient?s care impacted by: Diabetes Social Determinants Patient?s care significantly limited by Social Determinants of Health including: Alcoholism and drug addiction in family and Other Social Determinant of Health Critical Care Time Critical Care Time Critical Care Time: Yes Total Critical Care Time: 31 Attestation: Critical care time in the amount of 31 minutes has been provided to the patient in terms of direct patient care, frequent reevaluation, review and interpretation of medical data and results, and management of potentially life- threatening conditions. This is all outside of any medical procedures. Discharge Plan Discharge Clinical Impression: Nausea and vomiting Qualifiers: Vomiting type: unspecified Qualified Code(s): R11.2 - Nausea with vomiting, unspecified Patient Disposition: Home, Self-Care Instructions: Acute Nausea and Vomiting (ED) Additional Instructions: Your work up today is reassuring. Your symptoms improved with fluids and nausea medication. I am sending Reglan to your pharmacy for you to take as needed for nausea/vomiting. Follow up with your outpatient providers. Continue to abstain from marijuana use as this can worsen symptoms. Although you have not smoked marijuana in a few days, symptoms can last up to 4 weeks. Prescriptions: New metoclopramide HCl [Reglan] 10 mg tablet 10 mg PO Q6H PRN (Reason: nausea and vomiting) Qty: 10 0RF No Action metoclopramide HCl [Reglan] 10 mg tablet 10 mg PO Q6H PRN (Reason: nausea and vomiting) Qty: 30 0RF insulin lispro 100 unit/mL insulin pen 3 - 6 unit subcut TIDAC insulin glargine [Lantus Solostar U-100 Insulin] 100 unit/mL (3 mL) insulin pen 15 unit subcut BEDTIME omeprazole 40 mg capsule,delayed release(DR/EC) 40 mg PO BID Qty: 60 0RF ondansetron 4 mg tablet,disintegrating 4 mg PO Q8H PRN (Reason: nausea and vomiting) Qty: 10 0RF lorazepam [Ativan] 1 mg tablet 1 mg PO BEDTIME PRN (Reason: anxiety) Qty: 14 0RF nitrofurantoin macrocrystal 100 mg capsule 100 mg PO BID Qty: 10 0RF Rx Instructions: must administer with a meal/food metoclopramide HCl [Reglan] 10 mg tablet 10 mg PO Q6H PRN (Reason: nausea and vomiting) Qty: 10 0RF metoclopramide HCl [Reglan] 10 mg tablet 10 mg PO Q6H PRN (Reason: nausea and vomiting) 21 Days Qty: 14 0RF ondansetron 4 mg tablet,disintegrating 4 mg PO Q6H PRN (Reason: nausea and vomiting) Qty: 14 0RF ondansetron 4 mg tablet,disintegrating 4 mg PO Q8H PRN (Reason: nausea and vomiting) Qty: 10 0RF Referrals: Physician,Unknown J [Primary Care Provider] - Interventions: ED Discharge Assessment Last Done: 09/19/24 16:13 Discharge Date/Time: 09/19/24 16:14 Print Language: [place]
[2024-09-19 11:25] VITALS: BP 139/75; PULSE 103; RESP 18; TEMP 36.6; O2SAT 100; BMI 18.0
[2024-09-19 11:29] LABS: Glucose, Whole Blood 206 mg/dL (60-115)
--- NOTE | 2024-09-19 11:30 | ECG_ITS ---
Test Reason : ABD PAIN Blood Pressure : */* mmHG Vent. Rate : 102 BPM Atrial Rate : 102 BPM P-R Int : 142 ms QRS Dur : 92 ms QT Int : 342 ms P-R-T Axes : 57 56 64 degrees QTcB Int : 445 ms Sinus tachycardia Septal infarct (cited on or before 25-Mar-2020) Abnormal ECG When compared with ECG of 18-Sep-2024 12:24, No significant change was found Referred By: Destiny Vazquez Electronically Signed By: James Lozano
[2024-09-19] MEDS: Metoclopramide HCl 10 MG/2 ML VIAL IVPUSH (11:41)
[2024-09-19] MEDS: Lactated Ringers 1,000 ML 999 ML IV (11:41)
[2024-09-19] MEDS: diphenhydrAMINE HCL 50 MG/ML VIAL IVPUSH (11:41)
[2024-09-19 11:42] LABS: MANUAL DIFF FLAG NO
[2024-09-19 11:45] LABS: VBG Base Excess 2.6 mmol/L; VBG HCO3 27 mmol/L (22-26); VBG pCO2 43 mmHg; VBG pH 7.41 (7.32-7.43); VBG pO2 48 mmHg
[2024-09-19 11:46] LABS: Venous Blood Gas Refer to POC result
[2024-09-19 11:48] LABS: Basophils Percent Auto 0.7 % (0-2); Eosinophils Percent Auto 0.2 % (0-4); Hematocrit 32.6 % (37.0-47.0); Hemoglobin 11.7 g/dl (12.0-16.0); Imm Gran Abs Auto 0.01 X10*3/uL (0.00-0.03); Imm Gran Pct Auto 0.2 % (0.0-0.4); Lymphocytes Absolute Auto 1.2 X10*3/uL (1.2-4.9); Lymphocytes Percent Auto 26.5 % (20-40); Mean Corpuscular HGB Conc 35.9 g/dl (31.0-35.0); Mean Corpuscular Hemoglobin 32.6 pg (27.0-33.0); Mean Corpuscular Volume 90.8 fL (80.0-98.0); Mean Platelet Volume 9.8 fL (9.4-12.3); Monocytes Absolute Auto 0.4 X10*3/uL (0.1-1.2); Monocytes Percent Auto 7.8 % (2-11); Neutrophils Percent Auto 64.6 % (45-73); Platelet Count 186 X10*3/uL (160-400); Red Blood Count 3.59 X10*6/uL (4.20-5.50); Red Cell Distribution Width 12.3 % (11.0-16.0); White Blood Count 4.6 X10*3/uL (4.8-10.8)
[2024-09-19 11:58] LABS: Alanine Aminotransferase 9 U/L (0-31); Albumin Level 3.8 g/dL (3.5-5.0); Alkaline Phosphatase 59 U/L (39-117); Anion Gap 14 (12-20); Aspartate Amino Transferase 23 U/L (5-31); Bilirubin Total 0.7 mg/dL (0.0-1.0); Blood Urea Nitrogen 6 mg/dL (9-16); Calcium 8.7 mg/dL (8.4-10.2); Carbon Dioxide 24 mmol/L (22-29); Chloride 103 mmol/L (96-108); Creatinine Clr Calc Pharmacy 81.5; Estimated Glomerular Filt Rate > 60; Glucose Random 216 mg/dL (60-115); Lipase 16 U/L (8-78); Magnesium 1.8 mg/dL (1.6-2.6); Potassium 3.4 mmol/L (3.3-5.1); Sodium 138 mmol/L (135-145)
[2024-09-19 13:16] LABS: Appearance Urine Clear; Color Urine Yellow; Glucose Urine UA >=1000 mg/dL (Negative); Leukocyte Esterase Urine Negative (Negative); Nitrite Urine Negative (Negative); PH 6.5 (5.0-9.0); UMIC TRIGGER UACC YES; Urine Blood Negative (Negative); Urine Ketones Trace mg/dL (Negative); Urine Protein Negative (Neg-Trace)
[2024-09-19 13:17] LABS: UPreg QC Valid YES; Urine Pregnancy NEGATIVE (NEGATIVE)
[2024-09-19 13:20] VITALS: BP 125/83; PULSE 89; RESP 18; O2SAT 100
[2024-09-19 13:21] LABS: Bacteria Urine None Seen (None Seen); Hyaline Casts Urine 0-2 /LPF (0-2); RBC Urine 0-2 /HPF (0-2); Squamous Epithelial Cell Urine 0-2 /HPF (0-2); WBC Urine 0-5 /HPF (0-5)
[2024-09-19] MEDS: droPERidol 5 MG/2 ML VIAL 1.25 MG IVPUSH (13:21)
[2024-09-19] MEDS: diazePAM 10 MG/2 ML CARTRIDGE 2.5 MG IVPUSH (13:21)
[2024-09-19 15:01] VITALS: BP 120/81; PULSE 102; RESP 16; O2SAT 99
[2024-09-19 16:13] VITALS: BP 120/81; PULSE 102; RESP 16; TEMP 36.9; O2SAT 99
== END 2024-09-19 16:14 | disposition home or self-care (01) ==
PROVIDERS: Physician Assistant Medical; Emergency Provider Emergency Medicine
DX: R11.2 Nausea with vomiting, unspecified (principal); F12.90 Cannabis use, unspecified, uncomplicated; E11.9 Type 2 diabetes mellitus without complications; Z79.4 Long term (current) use of insulin
CPT/HCPCS: 36415; 80053; 81001; 81025; 82010; 82803; 82947; 83690; 83735; 85025; 93005; 96361; 96374; 96375; 99284; 99285; J1200; J1790; J2765; J3360; J7120

== ENCOUNTER → 2024-09-19 11:30 | Outpatient (BNV) | payer OTHER, SELFPAY | PROVIDERS: Emergency Provider Emergency Medicine; Visit Provider Internal Medicine Cardiovascular Disease | DX: I25.2 Old myocardial infarction (principal); R00.0 Tachycardia, unspecified | CPT/HCPCS: 93010 ==

== ENCOUNTER 2024-12-31 09:24 | Observation (INO) | payer OTHER, SELFPAY ==
--- NOTE | ~2024-12-31 | CT_ITS ---
EXAMINATION: CT ABDOMEN PELVIS WITH IV CONTRAST HISTORY: recent procedure for gastroparesis, abd pain, N/V COMPARISON: Comparison is made with the prior examination dated 09/18/2024. TECHNIQUE: CT scan of the abdomen and pelvis was performed following administration of 85 mL Omnipaque 350 using standard departmental protocol. Coronal and sagittal reformatted images were generated and reviewed. Oral contrast material was not administered at the request of the referring physician. This CT exam was performed with one or more of the following dose reduction techniques: automated exposure control, adjustment of the mA and/or kV according to patient size, use of iterative reconstruction technique. DLP: 268 mGy-cm FINDINGS: LOWER CHEST: The visualized lung bases are clear. There is no pleural effusion. CARDIOVASCULATURE: The heart is normal in size. There is no pericardial effusion. LIVER: The liver is normal in size and contour. No liver mass is identified. The hepatic and portal veins are patent. GALLBLADDER / BILE DUCTS: The gallbladder is unremarkable. There is no intra or extrahepatic biliary ductal dilatation. SPLEEN: The spleen is normal in size. No focal splenic lesion is identified. PANCREAS: The pancreas is unremarkable in appearance. ADRENAL GLANDS: Within normal limits. KIDNEYS/RETROPERITONEUM: No renal calculi are identified. There is no hydronephrosis. No renal masses are identified. LYMPH NODES: No abdominal or pelvic lymphadenopathy. VASCULATURE: The abdominal aorta is normal in caliber. Again seen is a large portosystemic shunt with a vessel extending from the rupinder oh splenic confluence of the left common iliac vein. MESENTERY/PERITONEUM: No free fluid. No masses. There is no free intraperitoneal gas. STOMACH: There is a small hiatal hernia. There is marked thickening of the body of the stomach. SMALL BOWEL: The small bowel is normal in caliber. COLON: The colon is unremarkable. APPENDIX: Normal. URINARY BLADDER/PELVIC ORGANS: The urinary bladder is collapsed, limiting evaluation. The uterus and ovaries are unremarkable. BONES / SOFT TISSUES: No suspicious bony or soft tissue abnormalities. CT/CT abdomen pelvis w IV con IMPRESSION: 1. Small hiatal hernia. Marked thickening of the body of the stomach. Upper endoscopy or upper GI series is recommended for further evaluation. 2. Large portosystemic shunt without change. Electronically signed by: Victor Manuel Cortez MD 12/31/2024 01:47 PM EDT RP
[2024-12-31 09:33] VITALS: BP 111/64; BP 132/78; PULSE 103; PULSE 110; RESP 18; TEMP 37; O2SAT 100; O2SAT 99; BMI 16.2
--- NOTE | 2024-12-31 10:41 | ED_ITS ---
HPI - General Adult General Chief complaint: Nausea/Vomiting/Diarrhea Stated complaint: Abd pain h/o gastroparesis n/v x 4 days Time Seen by Provider: 12/31/24 10:37 Source: patient, EMS, RN notes reviewed and old records reviewed Mode of arrival: EMS Limitations: no limitations History of Present Illness ED Provider: ZAK La HPI narrative: 39-year-old female with medical history of T1DM, gastroparesis, anxiety,Presents to the ED due to 4 days of abdominal pain with nausea and vomiting. Patient states she moved her bowels this morning had a large soft bowel movement. Patient states she is passing flatus. Patient states nausea and abdominal pain was worse today prompting her to come to the ED. Patient states she has a perioral endoscopic myotomy done at [facility] 1 month ago for esophageal achalasia. MD complaint: abd pain, nausea, vomiting Related Data Home Medications ?Medication ?Instructions ?Recorded ?Confirmed insulin glargine 100 unit/mL (3 15 unit subcut BEDTIME 12/07/21 12/07/21 mL) subcutaneous pen (Lantus Solostar U-100 Insulin) insulin lispro 100 unit/mL 3 - 6 unit subcut TIDAC 05/2912/07/21 subcutaneous pen Previous Rx's ?Medication ?Instructions ?Recorded metoclopramide HCl 10 mg tablet 10 mg PO Q6H PRN nause a and 12/07/21 (Reglan) vomiting #30 tabs omeprazole 40 mg capsule,delayed 40 mg PO BID #60 caps 12/12/21 release ondansetron 4 mg disintegrating 4 mg PO Q8H PRN nausea and 09/24/23 tablet vomiting #10 tabs lorazepam 1 mg tablet (Ativan) 1 mg PO BEDTIME PRN anx iety #14 09/26/23 tabs metoclopramide HCl 10 mg tablet 10 mg PO Q6H PRN nause a and 04/22/24 (Reglan) vomiting 3 weeks #14 tabs ondansetron 4 mg disintegrating 4 mg PO Q6H PRN nausea and 04/30/24 tablet vomiting #14 tabs nitrofurantoin macrocrystal 100 mg 100 mg PO BID #10 c aps 07/31/24 capsule metoclopramide HCl 10 mg tablet 10 mg PO Q6H PRN nause a and 09/05/24 (Reglan) vomiting #10 tabs ondansetron 4 mg disintegrating 4 mg PO Q8H PRN nausea and 09/09/24 tablet vomiting #10 tabs metoclopramide HCl 10 mg tablet 10 mg PO Q6H PRN nause a and 09/19/24 (Reglan) vomiting #10 tabs Allergies Allergy/AdvReac Type Severity Reaction Status Date / Time No Known Allergies Allergy Verified 12/31/24 09:37 Review of Systems 2 Review of Systems: CONST: Negative for fever, body aches and chills. HENT: Negative for neck pain/stiffness, headache, congestion, sore throat, swelling. EYES: Negative for discharge/pain or vision changes. RESP: Negative for cough/hemoptysis and shortness of breath. CV: Negative chest pain, difficulty breathing, palpitations. ABD: POS diffuse abd pain, nausea, vomiting. : Negative increase frequency, dysuria, blood in urine or stool. MUSC: Negative for muscle aches, edema. SKIN: Negative rash, lesions/sores. NEURO: Negative headache, dizziness, weakness. Yes all other systems are reviewed and are negative [facility] Past Medical History Attestation statement: The following information was validated with the patient. Source: old records reviewed and nursing notes reviewed Medical History Anxiety Diabetic gastroparesis DKA (diabetic ketoacidoses) Diabetes Surgical History History of Social History Social History Household Members: Children and Other Household Members Other:: Son's father Housing: Apartment Do you presently have visiting nurse or other home services: No Alcohol intake: never Patient Tobacco Use Status: Former Tobacco user Tobacco use type: Cigarette e-Cigarette/Vaping Use: Never Used Second Hand Smoke Exposure: No Substance Use Type: Marijuana Advance Directives: No Advance Directives Information Provided: Yes Do you have a plan to hurt others: No Plan Patient : No service: No Current occupational status: unemployed Physical Exam ED Vital Signs: Vital Signs - 24 hr 12/31/24 09:33 12/31/24 11:59 12/31/24 14:00 Temperature 98.6 F 98.5 F Pulse Rate 110 H 110 H 108 H Respiratory Rate 18 16 18 Blood Pressure 111/64 104/62 126/86 Pulse Oximetry 100 97 97 Oxygen Delivery Method Room Air Room Air Room Air 12/31/24 16:49 Temperature 98.4 F Pulse Rate 98 Respiratory Rate 16 Blood Pressure 110/63 Pulse Oximetry 96 Oxygen Delivery Method Room Air BMI result Body Mass Index 16.2 GENERAL APPEARANCE: ?AxOx4, no acute distress. HEENT: ?NC, AT. MMM. EOMI, clear conjunctiva, oropharynx clear. NECK: ?Supple without lymphadenopathy.? No stiffness or restricted ROM. HEART:? tachycardic rate and regular rhythm, normal S1/S2, no m/r/g LUNGS:? CTAB, moving air well. No crackles or wheezes are heard. ABDOMEN: ?Soft, Nondistended, nonrigid, TTP over diffuse abdomen, no overlying skin changes BACK: No CVAT, no obvious deformity. EXTREMITIES: ?Without cyanosis, clubbing or edema. NEUROLOGICAL: ?Grossly nonfocal. Alert and oriented, moving all 4 extremities. Observed to ambulate with normal gait. Skin: ?Warm and dry without any rash. Medications Administered Discontinued Medications Generic Name Dose Route Start Last Admin Trade Name Freq PRN Reason Stop Dose Admin Diazepam 2.5 mg 12/31/24 10:41 12/31/24 10:47 Diazepam 10 Mg/2 Ml Cartridge IVPUSH 12/31/24 10:42 2.5 mg STAT STA Administration Diazepam 2.5 mg 12/31/24 13:43 12/31/24 13:49 Diazepam 10 Mg/2 Ml Cartridge IVPUSH 12/31/24 13:44 2.5 mg STAT STA Administration Hydromorphone HCl 1 mg 12/31/24 14:23 12/31/24 14:28 Hydromorphone Hcl 1 Mg/Ml Syringe IVPUSH 12/31/24 14:24 1 mg ONCE ONE Administration Protocol Lactated Ringer's 1,000 mls @ 999 mls/hr 12/31/24 10:41 12/31/24 12:13 Lr IV 12/31/24 11:41 Infused .Q1H1M ONE Infusion Lactated Ringer's 1,000 mls @ 999 mls/hr 12/31/24 14:23 12/31/24 16:00 Lr IV 12/31/24 15:23 Infused .Q1H1M ONE Infusion Insulin Human Regular 5 unit 12/31/24 14:23 12/31/24 14:31 Insulin Regular, Human 100 Unit/Ml 10 Ml Vial IVPUSH 12/31/24 14:24 5 unit ONCE ONE Administration Iohexol 100 ml 12/31/24 13:35 12/31/24 13:36 Iohexol 350 Mg/Ml 100 Ml Infus..Btl IV 12/31/24 13:36 85 ml ONCE ONE Administration Ondansetron HCl 4 mg 12/31/24 10:41 12/31/24 10:47 Ondansetron Hcl 4 Mg/2 Ml Vial IVPUSH 12/31/24 10:42 4 mg ONCE ONE Administration Ondansetron HCl 4 mg 12/31/24 13:34 12/31/24 13:38 Ondansetron Hcl 4 Mg/2 Ml Vial IVPUSH 12/31/24 13:35 4 mg ONCE ONE Administration Medical Decision Making Medical Decision Making MDM Narrative: 39-year-old female with medical history of T1DM, gastroparesis, anxiety,Presents to the ED due to 4 days of abdominal pain with nausea and vomiting, moved bowels this morning with soft stool, passing flatus. Reports pain and vomiting was worsening this morning. Recent Perioral endoscopic myotomy done at [facility] 1 month ago. Labs without leukocytosis/leukopenia, normocytic anemia with hemoglobin of 11.7, hematocrit of 33.7, hyperkalemia of 5.2, elevated glucose at 364. Obtained EKG due to hyperkalemia without EKG reveals sinus tachycardia without ST-elevation/depression, or hyper T-waves due to hyperkalemia. CT abdomen pelvis reveals small hiatal hernia, with marked thickening of the body of the stomach, is recommending an upper endoscopy and or upper GI series. I reached out to Dr. Dawson who stated if patient could tolerate PO she could be discharged with outpatient follow up. Patient medicated with 2 L IV fluid, 4 mg IV Zofran x2, 2.5 mg Valium x2, 5 units of regular insulin IV with minimal improvement of abdominal pain and nausea, POC glucose now 266, potassium now WNL at 4.4. I PO challenged patient who ate a cracker and some gingerale with persistent abdominal pain. I reached out to Hospitalist Dr. An who will admit to medicine for intractibale nausea and vomiting. Differential Diagnosis Differential Diagnoses: The differential diagnosis associated with the presentation includes DKA Small bowel obstruction Gastroparesis Electrolyte abnormality Admission/Observation Consideration of admission/observation: Escalation of care including admission/observation considered Lab Data MDM Lab Attestation statement: I reviewed the patient's lab results. 12/31/24 11:24 12/31/24 17:06 Labs: Lab Results 12/31/24 12/31/24 12/31/24 Range/Units 11:24 14:50 17:06 WBC 4.8 (4.8-10.8) X10*3/uL RBC 3.60 L (4.20-5.50) X10*6/uL Hgb 11.7 L (12.0-16.0) g/dl Hct 33.7 L (37.0-47.0) % MCV 93.6 (80.0-98.0) fL MCH 32.5 (27.0-33.0) pg MCHC 34.7 (31.0-35.0) g/dl RDW 11.9 (11.0-16.0) % Plt Count 170 (160-400) X10*3/uL MPV 10.2 (9.4-12.3) fL Immature Gran % (Auto) 0.4 (0.0-0.4) % Neut % (Auto) 80.6 H (45-73) % Lymph % (Auto) 14.3 L (20-40) % Cavalier % (Auto) 3.9 (2-11) % Eos % (Auto) 0.2 (0-4) % Baso % (Auto) 0.6 (0-2) % Lymph # (Auto) 0.7 L (1.2-4.9) X10*3/uL [place]ier # (Auto) 0.2 (0.1-1.2) X10*3/uL Eos # (Auto) 0.0 (0.0-0.4) X10*3/uL Baso # (Auto) 0.0 (0.0-0.2) X10*3/uL Abs Immat Gran (auto) 0.02 (0.00-0.03) X10*3/uL Absolute Neuts (auto) 3.9 (2.0-8.3) x10*3/uL Absolute Nucleated RBC 0.000 (0.0-0.012) X10*3/uL Nucleated RBC % (auto) 0.0 (0.0-0.2) /100WBC Sodium 141 141 (135-145) mmol/L Potassium 5.2 H D 4.4 (3.3-5.1) mmol/L Chloride 109 H 107 (96-108) mmol/L Carbon Dioxide 22 25 (22-29) mmol/L Anion Gap 15 13 (12-20) BUN 9 10 (9-16) mg/dL Creatinine 0.63 0.60 (0.5-1.4) mg/dL Estim Creat Clear Calc 80.0 84.0 Estimated GFR > 60 > 60 POC Glucose 266 H (60-115) mg/dL Random Glucose 364 H* 229 H (60-115) mg/dL Calcium 8.8 8.9 (8.4-10.2) mg/dL Total Bilirubin 0.8 1.4 H (0.0-1.0) mg/dL AST 21 20 (5-31) U/L ALT 8 6 (0-31) U/L Alkaline Phosphatase 67 72 (39-117) U/L Total Protein 6.0 L 6.3 L (6.5-8.0) g/dL Albumin 3.7 4.0 (3.5-5.0) g/dL Lipase 11 (8-78) U/L Independent Interpretation I performed an independent interpretation of an: EKG Interpretation: I personally interpreted the EKG which reveals sinus tachycardia without specific ST elevation/depression, hyper peaked T-waves due to hyperkalemia Vent. Rate : 107 BPM Atrial Rate : 107 BPM P-R Int : 134 ms QRS Dur : 82 ms QT Int : 358 ms P-R-T Axes : 71 78 63 degrees QTcB Int : 477 ms Sinus tachycardia Septal infarct (cited on or before 25-Mar-2020) Abnormal ECG When compared with ECG of 19-Sep-2024 11:48, No significant change was found Radiology Impression Discussion of test interpretation with radiology: I have reviewed the radiologist's reading. Radiologist Impression: CT abdomen and pelvis FINDINGS: LOWER CHEST: The visualized lung bases are clear. There is no pleural effusion. CARDIOVASCULATURE: The heart is normal in size. There is no pericardial effusion. LIVER: The liver is normal in size and contour. No liver mass is identified. The hepatic and portal veins are patent. GALLBLADDER / BILE DUCTS: The gallbladder is unremarkable. There is no intra or extrahepatic biliary ductal dilatation. SPLEEN: The spleen is normal in size. No focal splenic lesion is identified. PANCREAS: The pancreas is unremarkable in appearance. ADRENAL GLANDS: Within normal limits. KIDNEYS/RETROPERITONEUM: No renal calculi are identified. There is no hydronephrosis. No renal masses are identified. LYMPH NODES: No abdominal or pelvic lymphadenopathy. VASCULATURE: The abdominal aorta is normal in caliber. Again seen is a large portosystemic shunt with a vessel extending from the rupinder oh splenic confluence of the left common iliac vein. MESENTERY/PERITONEUM: No free fluid. No masses. There is no free intraperitoneal gas. STOMACH: There is a small hiatal hernia. There is marked thickening of the body of the stomach. SMALL BOWEL: The small bowel is normal in caliber. COLON: The colon is unremarkable. APPENDIX: Normal. URINARY BLADDER/PELVIC ORGANS: The urinary bladder is collapsed, limiting evaluation. The uterus and ovaries are unremarkable. BONES / SOFT TISSUES: No suspicious bony or soft tissue abnormalities. CT/CT abdomen pelvis w IV con IMPRESSION: 1. Small hiatal hernia. Marked thickening of the body of the stomach. Upper endoscopy or upper GI series is recommended for further evaluation. 2. Large portosystemic shunt without change. Electronically signed by: Victor Manuel Cortez MD 12/31/2024 01:47 PM EDT Dictated By: Victor Manuel Cortez MD Signed By: <Electronically signed by Victor Manuel Cortez MD in OV> 12/31/24 2847 External Record Review External record reviewed: Inpatient record, Office record and Outpatient record Chronic Conditions Patient?s care impacted by: Diabetes (Type 1 ) and Other (gastroparesis, anxiety) Discharge Plan Discharge Patient Disposition: Admitted As Inpatient Print Language: Kittitian
[2024-12-31] MEDS: Lactated Ringers 1,000 ML 999 ML IV ×2 (10:46→14:28)
[2024-12-31] MEDS: diazePAM 10 MG/2 ML CARTRIDGE 2.5 MG IVPUSH ×2 (10:47→13:49)
--- NOTE | 2024-12-31 11:10 | HO.NURTONUR ---
Pt comes to ED today with c/o severe n/v x4 days. Pt reports Hx gastroparesis with recent surgical procedure (1 month ago) to correct this. She states she has not had a BM since her surgery and is due for a follow up visit next week. Pt arrives via EMS with active vomiting and significant agitation. Pt is A&Ox3 with the inability to remain still. VSS, afebrile. Recurrent vomiting and 2 episodes of explosive diarrhea. Pts oral mucosa is dry and she appears to be severely dehydrated. Intermittent episodes of severe diaphoresis noted. Pt is a difficult stick d/t inaility to tolerated remaining still and degree of dehydration. 20g to LAC placed by RIKY Ferguson and failed attempts by this RN. IV access wrapped with gauze for extra securement. Pt medicated per MAR and Pt is more calm and cooperative at this time. Redraw of blood work pending at this time. Awaiting ED provider/additional orders.
--- OUTSIDE RECORDS SUMMARY | 2024-12-31 11:15 | XMS_ITS | Clinical Summary ---
Author Organization [facility] ity Address [address] [place] [address] Care Team Providers Care Nut Chopper Name Role Phone Unavailable Primary Care Provider Unavailabl e Social History Tobacco Use Types Packs/Day Years Used Date Smoking Tobacco: Never Assessed Comments Unknown Sex and Gender Information Value Date Recorded Sex Assigned at Not on file Legal Sex Female 3:42 PM EDT Gender Identity Not on file Sexual Orientation Not on file Plan of Treatment Health Maintenance Due Date Last Done Comments Breast Cancer Screening 1984 DTaP,Tdap,and Td Vaccines (1 - Tdap) 10/21/2003 Hepatitis B Vaccines (1 of 3 - 19+ 3-dose series) 10/21/2003 Cervical Cancer Screening: P ap Smear 2005 HIV Screening 01/15/2024 Hepatitis C Screening 01/15/2024 Social Influencers of Health Screening 01/15/2024 Depression Screening 04/07/2024 COVID-19 Vaccine (1 - 2023-2 5 season) 2024 Influenza Vaccine (#1) 2024 RSV Immunization Adult Patie nts (1 - 1-dose 75+ series) 10/21/2059 HIB Vaccines Aged Out No longer eligi [...] on patient's age to complete this topic Pneumococcal Vaccine: Pediat rics (0 to 5 Years) and At-Risk Patients (6 to 49 Years) Aged Out No longer eligible b ased on patient's age to complete this topic RSV Immunization Patients Un ariela 20 months Aged Out No longer eligible b ased on patient's age to complete this topic Varicella Vaccines Aged Out No longer eligible based on patient's age to complete this topic
[2024-12-31 11:34] LABS: Hematocrit 33.7 % (37.0-47.0); Hemoglobin 11.7 g/dl (12.0-16.0); Imm Gran Abs Auto 0.02 X10*3/uL (0.00-0.03); Imm Gran Pct Auto 0.4 % (0.0-0.4); Lymphocytes Absolute Auto 0.7 X10*3/uL (1.2-4.9); Mean Corpuscular HGB Conc 34.7 g/dl (31.0-35.0); Mean Corpuscular Hemoglobin 32.5 pg (27.0-33.0); Mean Corpuscular Volume 93.6 fL (80.0-98.0); NRBC Abs Auto 0.000 X10*3/uL (0.0-0.012); NRBC Pct Auto 0.0 /100WBC (0.0-0.2); Platelet Count 170 X10*3/uL (160-400); Red Blood Count 3.60 X10*6/uL (4.20-5.50); White Blood Count 4.8 X10*3/uL (4.8-10.8)
[2024-12-31 11:58] LABS: Alanine Aminotransferase 8 U/L (0-31); Albumin Level 3.7 g/dL (3.5-5.0); Alkaline Phosphatase 67 U/L (39-117); Anion Gap 15 (12-20); Aspartate Amino Transferase 21 U/L (5-31); Blood Urea Nitrogen 9 mg/dL (9-16); Calcium 8.8 mg/dL (8.4-10.2); Carbon Dioxide 22 mmol/L (22-29); Chloride 109 mmol/L (96-108); Creatinine Clr Calc Pharmacy 80.0; Estimated Glomerular Filt Rate > 60; Lipase 11 U/L (8-78); Potassium 5.2 mmol/L (3.3-5.1); Sodium 141 mmol/L (135-145); Total Protein 6.0 g/dL (6.5-8.0)
[2024-12-31 11:59] VITALS: BP 104/62; PULSE 110; RESP 16; O2SAT 97
[2024-12-31] MEDS: iohexoL 350 MG/ML 100 ML INFUS..BTL IV (13:36)
[2024-12-31 14:00] VITALS: BP 126/86; PULSE 108; RESP 18; TEMP 36.9; O2SAT 97
--- NOTE | 2024-12-31 14:21 | ECG_ITS ---
Test Reason : N/V Blood Pressure : */* mmHG Vent. Rate : 107 BPM Atrial Rate : 107 BPM P-R Int : 134 ms QRS Dur : 82 ms QT Int : 358 ms P-R-T Axes : 71 78 63 degrees QTcB Int : 477 ms Sinus tachycardia Septal infarct (cited on or before 25-Mar-2020) Abnormal ECG When compared with ECG of 19-Sep-2024 11:48, No significant change was found Referred By: Kaden La Electronically Signed By: James Lozano
[2024-12-31 14:53] LABS: Glucose, Whole Blood 266 mg/dL (60-115)
[2024-12-31 16:49] VITALS: BP 110/63; PULSE 98; RESP 16; TEMP 36.9; O2SAT 96
[2024-12-31 17:32] LABS: Alanine Aminotransferase 6 U/L (0-31); Albumin Level 4.0 g/dL (3.5-5.0); Alkaline Phosphatase 72 U/L (39-117); Anion Gap 13 (12-20); Aspartate Amino Transferase 20 U/L (5-31); Blood Urea Nitrogen 10 mg/dL (9-16); Calcium 8.9 mg/dL (8.4-10.2); Carbon Dioxide 25 mmol/L (22-29); Chloride 107 mmol/L (96-108); Creatinine Clr Calc Pharmacy 84.0; Estimated Glomerular Filt Rate > 60; Potassium 4.4 mmol/L (3.3-5.1); Sodium 141 mmol/L (135-145); Total Protein 6.3 g/dL (6.5-8.0)
[2024-12-31 18:10] VITALS: BP 118/72; PULSE 124; RESP 16; TEMP 36.9; O2SAT 100
--- NOTE | 2024-12-31 18:19 | P.HPHOSP_ITS ---
History of Present Illness Date of Service: 12/31/24 Chief Complaint: n/v 39F PMH DMI, gastroparesis s/p GPOEM 11/2024, mood disorder, ptsd, congenital portosystemic shunt presented with n/v. Symptoms began about 4 days prior to presentation. Similar to previous episodes, unable to keep any food or liquids down. Came to ED as concerned for hypoglycemia and dehydration. In ED CT abdomen with no acute finding. but unable to tolerate po. Review of Systems 2 Review of Systems: Yes all other systems are reviewed and are negative [facility] Medical History Anxiety Diabetic gastroparesis DKA (diabetic ketoacidoses) Diabetes Surgical History History of Social History Household Members: Children and Other Household Members Other:: Son's father Housing: Apartment Do you presently have visiting nurse or other home services: No Alcohol intake: never Patient Tobacco Use Status: Former Tobacco user Tobacco use type: Cigarette e-Cigarette/Vaping Use: Never Used Second Hand Smoke Exposure: No Substance Use Type: Marijuana Advance Directives: No Advance Directives Information Provided: Yes Do you have a plan to hurt others: No Plan Patient : No service: No Current occupational status: unemployed Meds Allergies Allergy/AdvReac Type Severity Reaction Status Date / Time No Known Allergies Allergy Verified 12/31/24 09:37 Active Medications: Current Medications Dextrose (Dextrose 50 % 25 Gm/50 Ml Syringe) 25 gm IVPUSH ONCE PRN PRN Reason: per Hypoglycemia Standing Ord. Dextrose (Dextrose 50 % 25 Gm/50 Ml Syringe) 25 gm IVPUSH Q15M PRN; Protocol PRN Reason: per Hypoglycemia Standing Ord. Enoxaparin Sodium (Enoxaparin Sodium 40 Mg/0.4 Ml Syringe) 40 mg SUBCUT Q24H KWAKU Glucose (Glucose Gel 15 Gm Gel..Gram.) 15 gm PO Q15M PRN; Protocol PRN Reason: per Hypoglycemia Standing Ord. Lactated Ringer's (Lr) 1,000 mls @ 80 mls/hr IVCONT .[id number] KWAKU Insulin Human Lispro (Insulin Lispro 100 Unit/Ml 3 Ml Vial) 0 [facility]; Protocol Metoclopramide HCl (Metoclopramide Hcl 10 Mg/2 Ml Vial) 10 mg IVPUSH QIDACHS [facility] Home Medications ?Medication ?Instructions ?Recorded ?Confirmed ?Last Taken ?Type insulin glargine 100 unit/mL (3 15 unit subcut BEDTIME 12/07/21 12/07/21 Unknown History mL) subcutaneous pen (Lantus Solostar U-100 Insulin) insulin lispro 100 unit/mL 3 - 6 unit subcut TIDAC 05/2912/07/21 Unknown History subcutaneous pen Physical Exam 2 Vital Signs and Narrative: Vital Signs: Last Vital Signs Temp 98.4 F 12/31/24 18:10 Pulse 124 H 12/31/24 18:10 Resp 16 12/31/24 18:10 BP 118/72 12/31/24 18:10 Pulse Ox 100 12/31/24 18:10 O2 Del Method Room Air 12/31/24 18:10 BMI result Body Mass Index 16.2 General: AO X 3, no acute distress Resp: CTA bilateral, no accessory muscles used CVS: S1,S2,RRR GI: soft, non tender, non distended Neuro: motor grossly intact, alert Psych: appropriate affect, appropriate insight Results Labs 12/31/24 11:24 12/31/24 17:06 Labs: Laboratory Results - last 24 hr 12/31/24 12/31/24 12/31/24 11:24 14:50 17:06 MCV 93.6 MCH 32.5 MCHC 34.7 RDW 11.9 Plt Count 170 MPV 10.2 Immature Gran % (Auto) 0.4 Neut % (Auto) 80.6 H Lymph % (Auto) 14.3 L [place] % (Auto) 3.9 Eos % (Auto) 0.2 Baso % (Auto) 0.6 Lymph # (Auto) 0.7 L [place] # (Auto) 0.2 Eos # (Auto) 0.0 Baso # (Auto) 0.0 Abs Immat Gran (auto) 0.02 Absolute Neuts (auto) 3.9 Absolute Nucleated RBC 0.000 Nucleated RBC % (auto) 0.0 Anion Gap 15 13 Estim Creat Clear Calc 80.0 84.0 Estimated GFR > 60 > 60 POC Glucose 266 H Random Glucose 364 H* 229 H Calcium 8.8 8.9 Total Bilirubin 0.8 1.4 H AST 21 20 ALT 8 6 Alkaline Phosphatase 67 72 Total Protein 6.0 L 6.3 L Albumin 3.7 4.0 Lipase 11 Imaging Radiologist's Impressions: Impressions Abdomen/Pelvis CT 12/31/24 13:27 IMPRESSION: 1. Small hiatal hernia. Marked thickening of the body of the stomach. Upper endoscopy or upper GI series is recommended for further evaluation. 2. Large portosystemic shunt without change. Electronically signed by: Victor Manuel Cortez MD 12/31/2024 01:47 PM EDT RP Assessment and Plan (1) Nausea and vomiting: Qualifiers: Vomiting type: unspecified Qualified Code(s): R11.2 - Nausea with vomiting, unspecified Status: Acute Plan 39F PMH DMI, gastroparesis s/p GPOEM 11/2024, mood disorder, ptsd, congenital portosystemic shunt presented with n/v Diabetes type 1 with gastroparesis and acute recurrent intractable nausea and vomitting ivf, reglan, advance diet as tolerated likely cannibas contributing, recommend discontinuing dvt prophylaxis- lovenox full code Quality Stroke Does the patient have a stroke diagnosis?: No VTE Prior VTE?: No VTE Risk Level:: Medical - moderate - high VTE Device Contraindication: Treatment Not Indicated VTE Drug Contraindication: N/A - Med Ordered
[2024-12-31] MEDS: Lactated Ringers 1,000 ML 80 ML IVCONT (18:47)
--- NOTE | 2024-12-31 19:08 | PHA.MEDREC ---
Addendum entered by Gi Paredes RPh 12/31/24 19:50: MED REC REVIEWED BY [facility] Per Anderson, patient also had the insulin pump disconnected, doesn't know for how long and just reconnected it right before talking to Anderson. Original Note: Pharmacy Consult ? Medication Reconciliation Pharmacy has completed the medication reconciliation. Spoke with pt and she confirmed her medications. Pt states she has not been taking any of her stomach or constipation medications in about 1 month due to getting confused on what she should be taking. Pt confirmed she started the Metrondiazole on 12/28, she confirmed her Lantus 14 units at bedtime and and confirmed she also has an insulin ILet Pump and states she injects up to 60 units of Insulin Lispro into it daily; pt not sure how much she injected last.
--- NOTE | 2024-12-31 19:53 | PC.NURSE ---
upon entering room to introduce myself pt spoke over t/w stating she wanted a liquid diet and received a hamburger, diabetic diet is ordered by MD. pt specifically requesting chicken broth. let patient know kitchen is closed at this time but will attempt to reach out to other units to see if chicken broth is available. pt got upset with this RN as she stated she had let previous staff/MD know of her request. this RN apologized on their behalf and left to speak with caddy/caddie supervisor/Coal Washer Tender/MT/MS which all stated there is no chicken broth available. upon entering room to let patient know of this patient stated I can't speak to you. I need a manager of digital, cutting supervisor or someone more important than you. caddy/caddie supervisor notified.
--- NOTE | 2024-12-31 20:30 | PC.NURSE ---
Late entry for 2155 insole taper received a phone call on the main line from this patient who made herself known and explained how she asked for a liquid diet over 2 hours ago and always gets a liquid diet when she comes into the ED due to her stomach issues. This RN went to bedside to continue this conversation with the patient. The pt was awake and alert, without distress note. she was pleasant and this RN apologized for the inconvenience. Stated that although we did not have any chicken broth or packets for chicken broth in the ed an attempt would be made to contact other floors to see if there were any options there. Unfortunately after calling both [facility] and [facility] there were packets or broth options available for the patient at that time
[2024-12-31 20:38] VITALS: BMI 19.0
[2024-12-31 20:48] VITALS: BP 120/78; PULSE 98; RESP 18; TEMP 36.8; O2SAT 100
[2024-12-31 20:58] LABS: Glucose, Whole Blood 187 mg/dL (60-115)
[2024-12-31] MEDS: Insulin Glargine,Hum.rec.anlog 100 UNIT/ML 10 ML VIAL 10 UNIT SUBCUT (21:49)
[2025-01-01 02:15] LABS: Glucose, Whole Blood 93 mg/dL (60-115)
[2025-01-01 02:36] LABS: Glucose, Whole Blood 108 mg/dL (60-115)
[2025-01-01 03:04] VITALS: BP 99/56; PULSE 96; RESP 17; TEMP 36.6; O2SAT 98
[2025-01-01 06:32] LABS: Hematocrit 29.8 % (37.0-47.0); Hemoglobin 10.5 g/dl (12.0-16.0); Mean Corpuscular HGB Conc 35.2 g/dl (31.0-35.0); Mean Corpuscular Hemoglobin 32.3 pg (27.0-33.0); Mean Corpuscular Volume 91.7 fL (80.0-98.0); NRBC Abs Auto 0.000 X10*3/uL (0.0-0.012); NRBC Pct Auto 0.0 /100WBC (0.0-0.2); Platelet Count 153 X10*3/uL (160-400); Red Blood Count 3.25 X10*6/uL (4.20-5.50); White Blood Count 6.4 X10*3/uL (4.8-10.8)
[2025-01-01 06:55] LABS: Anion Gap 8 (12-20); Blood Urea Nitrogen 7 mg/dL (9-16); Calcium 8.1 mg/dL (8.4-10.2); Carbon Dioxide 25 mmol/L (22-29); Chloride 109 mmol/L (96-108); Creatinine Clr Calc Pharmacy 104.1; Estimated Glomerular Filt Rate > 60; Magnesium 1.6 mg/dL (1.6-2.6); Potassium 3.4 mmol/L (3.3-5.1); Sodium 139 mmol/L (135-145)
[2025-01-01 07:42] VITALS: BP 102/58; PULSE 93; RESP 16; TEMP 36.8; O2SAT 96
[2025-01-01] MEDS: Lactated Ringers 1,000 ML 80 ML IVCONT (07:43)
[2025-01-01] MEDS: Potassium Chloride ER 20 MEQ TAB.ER.PRT 40 MEQ PO (07:44)
[2025-01-01] MEDS: Magnesium Sulfate/H2O 2 GM/50 ML PIGGYBACK IV (07:44)
[2025-01-01 07:48] LABS: Glucose, Whole Blood 115 mg/dL (60-115)
--- NOTE | 2025-01-01 08:45 | PM.DS ---
DS: Providers Provider Date of Service: 01/01/25 Date of admission: 12/31/24 18:05 Date of discharge: 01/01/25 Primary care physician: Matthieu Mendoza MD DS: Diagnosis Discharge Diagnosis (1) Nausea and vomiting: Status: Acute DS: Summary Hospital Course Hospital Course: from initial hpi: 39F PMH DMI, gastroparesis s/p GPOEM 11/2024, mood disorder, ptsd, congenital portosystemic shunt presented with n/v. Symptoms began about 4 days prior to presentation. Similar to previous episodes, unable to keep any food or liquids down. Came to ED as concerned for hypoglycemia and dehydration. In ED CT abdomen with no acute finding. but unable to tolerate po. hospital course: Patient was admitted for type 1 diabetes with gastroparesis and acute recurrent intractable nausea and vomiting also contributed to by cannabis hyperemesis. Was treated with IV fluids, Reglan. Diet was advanced and patient is now tolerating. She is advised to abstain from cannabis and to continue prokinetic and eat small frequent meals. Time Attestation Discharge Coordination Time (in mins): 32 Quality: Safe Use of Opioids Does Pt have an Active Cancer Diagnosis on the Problem List?: No Quality: Stroke Does the patient have a stroke diagnosis?: No Physical Exam Exam: Exam: General: AO X 3, no acute distress Resp: CTA bilateral, no accessory muscles used CVS: S1,S2,RRR GI: soft, non tender, non distended Neuro: motor grossly intact, alert Psych: appropriate affect, appropriate insight Vital Signs: Vital Signs: Last Vital Signs Temp 98.3 F 01/01/25 07:42 Pulse 93 01/01/25 07:42 Resp 16 01/01/25 07:42 BP 102/58 L 01/01/25 07:42 Pulse Ox 96 01/01/25 07:42 O2 Del Method Room Air 01/01/25 07:42 BMI result Body Mass Index 19.0 DS: Data Data Completed and Pending Completed studies during hospitalization [Text1]: Procedures Excision of Duodenum, Via Natural or Artificial Opening Endoscopic, Diagnostic (12/07/21) Excision of Esophagogastric Junction, Via Natural or Artificial Opening Endoscopic, Diagnostic (12/07/21) Excision of Upper Esophagus, Via Natural or Artificial Opening Endoscopic, Diagnostic (12/07/21) Labs on day of discharge: Laboratory Results - last 24 hr 12/31/24 12/31/24 12/31/24 11:24 14:50 17:06 WBC 4.8 RBC 3.60 L Hgb 11.7 L Hct 33.7 L MCV 93.6 MCH 32.5 MCHC 34.7 RDW 11.9 Plt Count 170 MPV 10.2 Immature Gran % (Auto) 0.4 Neut % (Auto) 80.6 H Lymph % (Auto) 14.3 L [place] % (Auto) 3.9 Eos % (Auto) 0.2 Baso % (Auto) 0.6 Lymph # (Auto) 0.7 L [place] # (Auto) 0.2 Eos # (Auto) 0.0 Baso # (Auto) 0.0 Abs Immat Gran (auto) 0.02 Absolute Neuts (auto) 3.9 Absolute Nucleated RBC 0.000 Nucleated RBC % (auto) 0.0 Sodium 141 141 Potassium 5.2 H D 4.4 Chloride 109 H 107 Carbon Dioxide 22 25 Anion Gap 15 13 BUN 9 10 Creatinine 0.63 0.60 Estim Creat Clear Calc 80.0 84.0 Estimated GFR > 60 > 60 POC Glucose 266 H Random Glucose 364 H* 229 H Calcium 8.8 8.9 Magnesium Total Bilirubin 0.8 1.4 H AST 21 20 ALT 8 6 Alkaline Phosphatase 67 72 Total Protein 6.0 L 6.3 L Albumin 3.7 4.0 Lipase 11 12/31/24 01/01/25 01/01/25 20:44 02:08 02:31 WBC RBC Hgb Hct MCV MCH MCHC RDW Plt Count MPV Immature Gran % (Auto) Neut % (Auto) Lymph % (Auto) [place] % (Auto) Eos % (Auto) Baso % (Auto) Lymph # (Auto) [place] # (Auto) Eos # (Auto) Baso # (Auto) Abs Immat Gran (auto) Absolute Neuts (auto) Absolute Nucleated RBC Nucleated RBC % (auto) Sodium Potassium Chloride Carbon Dioxide Anion Gap BUN Creatinine Estim Creat Clear Calc Estimated GFR POC Glucose 187 H 93 108 Random Glucose Calcium Magnesium Total Bilirubin AST ALT Alkaline Phosphatase Total Protein Albumin Lipase 01/01/25 01/01/25 06:15 07:41 WBC 6.4 RBC 3.25 L Hgb 10.5 L Hct 29.8 L MCV 91.7 MCH 32.3 MCHC 35.2 H RDW 11.9 Plt Count 153 L MPV 9.7 Immature Gran % (Auto) Neut % (Auto) Lymph % (Auto) [place] % (Auto) Eos % (Auto) Baso % (Auto) Lymph # (Auto) [place] # (Auto) Eos # (Auto) Baso # (Auto) Abs Immat Gran (auto) Absolute Neuts (auto) Absolute Nucleated RBC 0.000 Nucleated RBC % (auto) 0.0 Sodium 139 Potassium 3.4 D Chloride 109 H Carbon Dioxide 25 Anion Gap 8 L BUN 7 L Creatinine 0.57 Estim Creat Clear Calc 104.1 Estimated GFR > 60 POC Glucose 115 Random Glucose 136 H Calcium 8.1 L D Magnesium 1.6 Total Bilirubin AST ALT Alkaline Phosphatase Total Protein Albumin Lipase Discharge Plan Discharge Anticipated Discharge Date/Time: 01/01/25 08:44 Patient Disposition: Home, Self-Care Discharge Diagnosis: gastroparesis and cannibas associated hyperemesis Referrals: Matthieu Mendoza MD [Primary Care Provider, Medical] - 1 Week Discharge Medications: Continued insulin glargine [Lantus Solostar U-100 Insulin] 100 unit/mL (3 mL) insulin pen 14 unit subcut BEDTIME promethazine 12.5 mg tablet 12.5 mg PO Q6H PRN (Reason: motion sickness) metronidazole 500 mg tablet 500 mg PO Q12H selenium sulfide 2.5 % lotion 1 appl topical DAILY PRN (Reason: Dry/Itchy Skin) (DME) insulin admin supplies Insulin Pen SUBCUT Rx Instructions: iLet insulin pump (up to 60 units daily) insulin lispro 100 unit/mL solution See Rx Instructions .ROUTE .COMPLEX Rx Instructions: INJECT UP TO 60 UNITS PER DAY VIA INSULIN PUMP Diet: Diabetic diet Activity on Discharge: As tolerated Stand Alone Forms: Patient Portal Discharge page Print Language: Frisian Care Plan Goals: avoid emesis Health Concerns: cannibas hyperemesis and gastroparesis Plan of Treatment: stop marijuana continue prokinetics, small frequent meals Assessment: see above
--- NOTE | 2025-01-01 10:47 | MHC.CM.PN ---
PT LIVES AT HOME WITH HER CHILDREN AND IS INDEPENDENT WITH CARE SHE DISCHARGED HOME TODAY WITH NO SERVICES VIA PRIVATE TRANSPORT
== END 2025-01-01 10:06 | disposition home or self-care (01) ==
LOC: HO.ED 18:10 → HO.EDOVER 18:11 → HO.S3 19:32
PROVIDERS: Internal Medicine; Admitting Provider Internal Medicine; Emergency Provider Emergency Medicine Emergency Medical Services; PCP Internal Medicine; Visit Provider Internal Medicine
PROC: 0DJ08ZZ Inspection of Upper Intestinal Tract, Via Natural or Artificial Opening Endoscopic (ICD-10-PCS; CPT 43235; principal; 2025-01-02 10:10)
DX: R11.2 Nausea with vomiting, unspecified (principal); R19.7 Diarrhea, unspecified; R10.9 Unspecified abdominal pain; E10.9 Type 1 diabetes mellitus without complications; Z87.891 Personal history of nicotine dependence; E10.43 Type 1 diabetes mellitus with diabetic autonomic (poly)neuropathy; K31.84 Gastroparesis; Z79.4 Long term (current) use of insulin; K44.9 Diaphragmatic hernia without obstruction or gangrene; R94.31 Abnormal electrocardiogram [ECG] [EKG]; F39 Unspecified mood [affective] disorder; Z79.899 Other long term (current) drug therapy; Z98.890 Other specified postprocedural states; F12.90 Cannabis use, unspecified, uncomplicated; Z71.3 Dietary counseling and surveillance
CPT/HCPCS: 36415; 74177; 80048; 80053; 82947; 83690; 83735; 85025; 85027; 93005; 96361; 96365; 96366; 96375; 96376; 99221; 99285; J1171; J2405; J2765; J3360; J3475; J7120; Q9967

== ENCOUNTER → 2024-12-31 12:23 | Outpatient (BNV) | payer OTHER, SELFPAY | PROVIDERS: Emergency Provider Emergency Medicine Emergency Medical Services; PCP Internal Medicine; Visit Provider Radiology Diagnostic Radiology | DX: K44.9 Diaphragmatic hernia without obstruction or gangrene (principal); Z96.89 Presence of other specified functional implants | CPT/HCPCS: 74177 ==

== ENCOUNTER → 2024-12-31 14:21 | Outpatient (BNV) | payer OTHER, SELFPAY | PROVIDERS: Admitting Provider Internal Medicine; Emergency Provider Emergency Medicine Emergency Medical Services; PCP Internal Medicine; Visit Provider Internal Medicine Cardiovascular Disease | DX: I25.2 Old myocardial infarction (principal); R00.0 Tachycardia, unspecified | CPT/HCPCS: 93010 ==

== ENCOUNTER → 2024-12-31 18:05 | Outpatient (BNV) | payer OTHER, SELFPAY | PROVIDERS: Admitting Provider Internal Medicine; Emergency Provider Emergency Medicine Emergency Medical Services; PCP Internal Medicine; Visit Provider Internal Medicine | DX: R11.2 Nausea with vomiting, unspecified (principal) | CPT/HCPCS: 99223 ==

== ENCOUNTER 2025-01-05 11:52 | Emergency (ER) | payer OTHER, SELFPAY ==
[2025-01-05 12:08] VITALS: BP 119/74; BP 140/71; PULSE 101; PULSE 97; RESP 16; TEMP 36.8; O2SAT 100; O2SAT 98; BMI 19.0
--- NOTE | 2025-01-05 12:46 | ED.GENADULT ---
HPI - General Adult General Chief complaint: Abdominal Pain Stated complaint: ABD PAIN, N/V X3D PER EMS Time Seen by Provider: 01/05/25 12:30 Source: patient Mode of arrival: ambulatory Limitations: no limitations History of Present Illness ED Provider: CHRISTIANE KENDALL PA-C HPI narrative: 39 year old female with pmhx significant for IDDM, diabetic gastroparesis, DKA, and anxiety presents to the ED due to persistent nausea/vomiting. Patient reports feeling nauseous upon waking this morning and vomited around 0800. Now endorsing diffuse abdominal pain. States this is typical for her as she has gastroparesis however typically has to go to the emergency department if symptoms persist over 4 hours. She was recently admitted to our facility for same and discharged on 01/01. She did not eat anything this morning however has been able to tolerate fluids. She reports contacting EMS. She was administered Zofran in route to ED which improved her nausea. Reports constipation at baseline. Last BM a few days ago. Passing flatus. Denies hematemesis, hematchezia, melena. Denies EtOH consumption. Endorses daily marijuana use. Denies previous abdominal surgeries. Related Data Home Medications ?Medication ?Instructions ?Recorded ?Confirmed insulin glargine 100 unit/mL (3 14 unit subcut BEDTIME 12/07/21 12/31/24 mL) subcutaneous pen (Lantus Solostar U-100 Insulin) insulin admin supplies 12/31/24 12/31/24 insulin lispro 100 unit/mL See Rx Instructions .Route .COMPLEX 12/31/24 12/31/24 subcutaneous solution metronidazole 500 mg tablet 500 mg PO Q12H 12/31/24 12/31/24 promethazine 12.5 mg tablet 12.5 mg PO Q6H PRN motion sickness 12/31/24 12/31/24 selenium sulfide 2.5 % lotion 1 appl topical DAILY PRN Dry/Itchy 12/31/24 12/31/24 Skin Previous Rx's ?Medication ?Instructions ?Recorded metoclopramide HCl 10 mg tablet 10 mg PO Q6H PRN nausea and 01/05/25 (Reglan) vomiting #20 tabs Allergies Allergy/AdvReac Type Severity Reaction Status Date / Time No Known Allergies Allergy Verified 01/05/25 12:10 Review of Systems Review of Systems: Yes all other systems are reviewed and are negative PMFSH Past Medical History Attestation statement: The following information was validated with the patient. Source: old records reviewed and nursing notes reviewed Medical History Anxiety Diabetic gastroparesis DKA (diabetic ketoacidoses) Diabetes Surgical History History of Social History Social History Household Members: Children Household Members Other:: son Housing: House Do you presently have visiting nurse or other home services: No Alcohol intake: never Patient Tobacco Use Status: Current someday Tobacco user Tobacco use type: Cigarette e-Cigarette/Vaping Use: Never Used Second Hand Smoke Exposure: No Substance Use Type: Marijuana Advance Directives: No Advance Directives Information Provided: Yes Do you have a plan to hurt others: No Plan service: No Current occupational status: unemployed Physical Exam ED Vital Signs: Vital Signs - 24 hr 01/05/25 12:08 Temperature 98.3 F Pulse Rate 97 Respiratory Rate 16 Blood Pressure 140/71 H Pulse Oximetry 100 Oxygen Delivery Method Room Air BMI result Body Mass Index 19.0 Hypertensive General: Well appearing, in no acute distress. Skin: Warm, dry, intact. No rashes or lesions. Head: Normocephalic, atraumatic. EENT: Hearing is intact b/l. Conjunctiva clear. PERRLA. EOM intact. Moist mucous membranes.? Neck: Supple without LAD Cardiac: Chest wall symmetric. RRR Lungs: Normal respiratory effort without accessory muscle use. CTA bilaterally Abdomen: Soft, non-tender, non-distended. No rebound tenderness or guarding. Positive BS x4. Back: No midline spinous or paraspinal tenderness. No step off deformity. Ext: Upper and lower extremities atraumatic, without tenderness, deformity, swelling or erythema Neuro: AOx3. Normal speech. Ambulating with steady gait Course Course Course Narrative: 1501 -- CBC showing slight leukopenia to 4.7, no left shift. H&H stable. Chemistry without acute electrolyte abnormality requiring intervention. Random glucose 319. Liver function and lipase WNL. > patient has received Reglan/Benadryl with improvement in symptoms. She is tolerating p.o., states she feels much better. She has also received a L of IV fluids. I do not feel as though imaging of her abdomen is warranted at this time as her symptoms are consistent with gastroparesis. She feels comfortable being discharged home at this time. Will send Reglan to pharmacy for nausea/vomiting. Advised to discontinue marijuana use as this can worsen her symptoms. Patient has remained stable throughout ED visit today. Discussed worrisome signs and symptoms and when to return to the ED. All questions answered at this time. Patient is agreeable with disposition and stable for discharge. Medications Administered Discontinued Medications Generic Name Dose Route Start Last Admin Trade Name Freq PRN Reason Stop Dose Admin Diphenhydramine HCl 25 mg 01/05/25 12:46 01/05/25 12:58 Diphenhydramine Hcl 50 Mg/Ml Vial IVPUSH 01/05/25 12:47 25 mg ONCE ONE Administration Sodium Chloride 1,000 mls @ 999 mls/hr 01/05/25 13:00 01/05/25 15:15 Ns IV 01/05/25 14:00 Infused .Q1H1M KWAKU Infusion Metoclopramide HCl 10 mg 01/05/25 12:46 01/05/25 12:58 Metoclopramide Hcl 10 Mg/2 Ml Vial IVPUSH 01/05/25 12:47 10 mg ONCE ONE Administration Medical Decision Making Medical Decision Making [facility] Narrative: 39 year old female with pmhx significant for IDDM, diabetic gastroparesis, DKA, and anxiety presents to the ED due to persistent nausea/vomiting. Signs stable. Afebrile. she is uncomfortable appearing however in NAD. on exam, abdomen is soft, nondistended, nontender to palpation, no rebound tenderness or guarding. Active bowel sounds throughout. No CVAT. Differential diagnosis includes anemia, electrolyte abnormality, dehydration, gastritis, gastroenteritis, gastroparesis, hyperglycemia, DKA, HHS, cyclical vomiting syndrome Plan for labs, IV medications and fluids. Will hold on any imaging at this time as abdominal exam is benign. Differential Diagnosis Differential Diagnoses: The differential diagnosis associated with the presentation includes as above. Admission/Observation not indicated Lab Data [facility] Lab Attestation statement: I reviewed the patient's lab results. as above 01/05/25 12:57 01/05/25 12:57 Labs: Lab Results 01/05/25 Range/Units 12:57 WBC 4.7 L (4.8-10.8) X10*3/uL RBC 4.09 L D (4.20-5.50) X10*6/uL Hgb 13.1 D (12.0-16.0) g/dl Hct 38.1 D (37.0-47.0) % MCV 93.2 (80.0-98.0) fL MCH 32.0 (27.0-33.0) pg MCHC 34.4 (31.0-35.0) g/dl RDW 12.0 (11.0-16.0) % Plt Count 171 (160-400) X10*3/uL MPV 10.3 (9.4-12.3) fL Immature Gran % (Auto) 0.4 (0.0-0.4) % Neut % (Auto) 78.0 H (45-73) % Lymph % (Auto) 16.6 L (20-40) % [place] % (Auto) 3.9 (2-11) % Eos % (Auto) 0.2 (0-4) % Baso % (Auto) 0.9 (0-2) % Lymph # (Auto) 0.8 L (1.2-4.9) X10*3/uL [place] # (Auto) 0.2 (0.1-1.2) X10*3/uL Eos # (Auto) 0.0 (0.0-0.4) X10*3/uL Baso # (Auto) 0.0 (0.0-0.2) X10*3/uL Abs Immat Gran (auto) 0.02 (0.00-0.03) X10*3/uL Absolute Neuts (auto) 3.6 (2.0-8.3) x10*3/uL Absolute Nucleated RBC 0.000 (0.0-0.012) X10*3/uL Nucleated RBC % (auto) 0.0 (0.0-0.2) /100WBC Sodium 137 (135-145) mmol/L Potassium 4.5 D (3.3-5.1) mmol/L Chloride 107 (96-108) mmol/L Carbon Dioxide 22 (22-29) mmol/L Anion Gap 13 (12-20) BUN 10 (9-16) mg/dL Creatinine 0.58 (0.5-1.4) mg/dL Estim Creat Clear Calc 93.0 Estimated GFR > 60 Random Glucose 319 H (60-115) mg/dL Calcium 8.9 D (8.4-10.2) mg/dL Magnesium 1.8 (1.6-2.6) mg/dL Total Bilirubin 0.6 (0.0-1.0) mg/dL AST 26 (5-31) U/L ALT 20 (0-31) U/L Alkaline Phosphatase 74 (39-117) U/L Total Protein 6.5 (6.5-8.0) g/dL Albumin 4.1 (3.5-5.0) g/dL Lipase 10 (8-78) U/L Independent Historian Clinical information obtained from an independent historian. History obtained from or confirmed by: EMS External Record Review External record reviewed: Inpatient record Prescription Management I considered prescription management with: Other (reglan) Chronic Conditions Patient?s care impacted by: Diabetes Social Determinants Patient?s care significantly limited by Social Determinants of Health including: Other Social Determinant of Health Critical Care Time Critical Care Time Critical Care Time: No Discharge Plan Discharge Clinical Impression: Nausea and vomiting Patient Disposition: Home, Self-Care Instructions: Acute Nausea and Vomiting (ED) Additional Instructions: Your work up today is reassuring. Your symptoms improved with fluids and nausea medication. You are tolerating food intake. I am sending Reglan to your pharmacy for you to take as needed for nausea/vomiting. Follow up with your outpatient providers. Continue to abstain from marijuana use as this can worsen symptoms. Although you have not smoked marijuana in a few days, symptoms can last up to 4 weeks. Prescriptions: New metoclopramide HCl [Reglan] 10 mg tablet 10 mg PO Q6H PRN (Reason: nausea and vomiting) Qty: 20 0RF No Action insulin glargine [Lantus Solostar U-100 Insulin] 100 unit/mL (3 mL) insulin pen 14 unit subcut BEDTIME promethazine 12.5 mg tablet 12.5 mg PO Q6H PRN (Reason: motion sickness) metronidazole 500 mg tablet 500 mg PO Q12H selenium sulfide 2.5 % lotion 1 appl topical DAILY PRN (Reason: Dry/Itchy Skin) (DME) insulin admin supplies Insulin Pen SUBCUT Rx Instructions: iLet insulin pump (up to 60 units daily) insulin lispro 100 unit/mL solution See Rx Instructions .ROUTE .COMPLEX Rx Instructions: INJECT UP TO 60 UNITS PER DAY VIA INSULIN PUMP Referrals: Physician,Nafisa J [Primary Care Provider, Medical] Interventions: ED Discharge Assessment Last Done: 01/05/25 15:15 Discharge Date/Time: 01/05/25 15:18 Print Language: Kazakh
[2025-01-05 13:01] LABS: MANUAL DIFF FLAG NO
[2025-01-05 13:05] LABS: Hematocrit 38.1 % (37.0-47.0); Hemoglobin 13.1 g/dl (12.0-16.0); Imm Gran Abs Auto 0.02 X10*3/uL (0.00-0.03); Imm Gran Pct Auto 0.4 % (0.0-0.4); Lymphocytes Absolute Auto 0.8 X10*3/uL (1.2-4.9); Mean Corpuscular HGB Conc 34.4 g/dl (31.0-35.0); Mean Corpuscular Hemoglobin 32.0 pg (27.0-33.0); Mean Corpuscular Volume 93.2 fL (80.0-98.0); NRBC Abs Auto 0.000 X10*3/uL (0.0-0.012); NRBC Pct Auto 0.0 /100WBC (0.0-0.2); Platelet Count 171 X10*3/uL (160-400); Red Blood Count 4.09 X10*6/uL (4.20-5.50); White Blood Count 4.7 X10*3/uL (4.8-10.8)
[2025-01-05 13:18] LABS: Alanine Aminotransferase 20 U/L (0-31); Albumin Level 4.1 g/dL (3.5-5.0); Alkaline Phosphatase 74 U/L (39-117); Anion Gap 13 (12-20); Aspartate Amino Transferase 26 U/L (5-31); Blood Urea Nitrogen 10 mg/dL (9-16); Calcium 8.9 mg/dL (8.4-10.2); Carbon Dioxide 22 mmol/L (22-29); Chloride 107 mmol/L (96-108); Creatinine Clr Calc Pharmacy 93.0; Estimated Glomerular Filt Rate > 60; Lipase 10 U/L (8-78); Magnesium 1.8 mg/dL (1.6-2.6); Potassium 4.5 mmol/L (3.3-5.1); Sodium 137 mmol/L (135-145); Total Protein 6.5 g/dL (6.5-8.0)
--- OUTSIDE RECORDS SUMMARY | 2025-01-05 13:51 | XMS_ITS | Clinical Summary ---
Author Organization [facility] ity Address [address] [place] [address] Care Team Providers Care Eggs Inspector Name Role Phone Unavailable Primary Care Provider [...]
[2025-01-05 15:15] VITALS: BP 101/72; PULSE 106; RESP 16; TEMP 36.8; O2SAT 97
== END 2025-01-05 15:18 | disposition home or self-care (01) ==
PROVIDERS: Physician Assistant Medical; Emergency Provider Emergency Medicine
DX: R11.2 Nausea with vomiting, unspecified (principal); E11.9 Type 2 diabetes mellitus without complications; Z79.4 Long term (current) use of insulin
CPT/HCPCS: 36415; 80053; 83690; 83735; 85025; 96361; 96374; 96375; 99283; 99284; J1200; J2765

== ENCOUNTER 2025-03-02 16:05 | Emergency (ER) | payer OTHER, SELFPAY ==
--- NOTE | 2025-03-02 | ECG_ITS ---
Test Reason : ABD PAIN Blood Pressure : */* mmHG Vent. Rate : 99 BPM Atrial Rate : 99 BPM P-R Int : 124 ms QRS Dur : 84 ms QT Int : 360 ms P-R-T Axes : 69 62 58 degrees QTcB Int : 462 ms Normal sinus rhythm Septal infarct (cited on or before 25-Mar-2020) Abnormal ECG When compared with ECG of 31-Dec-2024 14:38, No significant change was found Referred By: Generic ED Physician Electronically Signed By: James Lozano
[2025-03-02 16:12] VITALS: BP 114/63; PULSE 95; RESP 17; TEMP 36.8; O2SAT 99
[2025-03-02 16:13] VITALS: BP 106/64; PULSE 77; O2SAT 98; BMI 18.5
[2025-03-02 16:19] LABS: Glucose, Whole Blood 247 mg/dL (60-115)
[2025-03-02 16:30] LABS: MANUAL DIFF FLAG NO
--- NOTE | 2025-03-02 16:40 | ED.GENADULT ---
[facility] - General Adult General Chief complaint: Nausea/Vomiting/Diarrhea Stated complaint: ABD PAIN VOMITING X 2 WEEKS Time Seen by Provider: 03/02/25 16:38 Source: patient Mode of arrival: ambulatory Limitations: no limitations History of Present Illness ED Provider: Dr. Gomez [facility] narrative: This is a 39-year-old female presented hospital today for evaluation of epigastric abdominal pain of that radiates to the back. Patient is also complaining of nausea vomiting. Has not been eating or drinking much for the past 2 weeks. She does have history of diabetes with gastroparesis. Denies any dysuria. Related Data Home Medications ?Medication ?Instructions ?Recorded ?Confirmed insulin glargine 100 unit/mL (3 14 unit subcut BEDTIME 12/07/21 12/31/24 mL) subcutaneous pen (Lantus Solostar U-100 Insulin) insulin admin supplies 12/31/24 12/31/24 insulin lispro 100 unit/mL See Rx Instructions .Route .COMPLEX 12/31/24 12/31/24 subcutaneous solution metronidazole 500 mg tablet 500 mg PO Q12H 12/31/24 12/31/24 promethazine 12.5 mg tablet 12.5 mg PO Q6H PRN motion sickness 12/31/24 12/31/24 selenium sulfide 2.5 % lotion 1 appl topical DAILY PRN Dry/Itchy 12/31/24 12/31/24 Skin Previous Rx's ?Medication ?Instructions ?Recorded metoclopramide HCl 10 mg tablet 10 mg PO Q6H PRN nausea and 01/05/25 (Reglan) vomiting #20 tabs omeprazole 20 mg capsule,delayed 20 mg PO DAILY 30 days #30 caps 03/02/25 release ondansetron 4 mg disintegrating 4 mg PO Q8H PRN nausea and 03/02/25 tablet vomiting #14 tabs Allergies Allergy/AdvReac Type Severity Reaction Status Date / Time No Known Allergies Allergy Verified 03/02/25 16:13 Review of Systems Review of Systems: Pertinent review of systems as mentioned in [facility]. All other system otherwise negative. [facility] Past Medical History [facility] Narrative: Medical history as mentioned in [facility] Medical History Anxiety Diabetic gastroparesis DKA (diabetic ketoacidoses) Diabetes Surgical History History of Social History Social History Household Members: Children Household Members Other:: son Housing: House Do you presently have visiting nurse or other home services: No Alcohol intake: never Patient Tobacco Use Status: Current someday Tobacco user Tobacco use type: Cigarette Smoked in Last 30 Days: No e-Cigarette/Vaping Use: Never Used Second Hand Smoke Exposure: No Use of substances other than those prescribed or required for medical reasons: No Substance Use Type: Marijuana Advance Directives: No Advance Directives Information Provided: No Do you have a plan to hurt others: No Plan Patient : No service: No Current occupational status: unemployed Physical Exam ED Exam Exam: General: Appears to be nauseous Head: Normacephalic, atraumatic ENT: oral mucosa dry, neck supple, no tracheal deviation Cardiovascular: regular rate, regular rhythm, no murmurs, rubbing, gallops Respiratory: CTAB, no wheeze, rales, rhonchi Gastrointestinal: Soft, epigastric tenderness on palpation Skin: Warm and dry Psychiatric: Appropriate mood and thoughts Vital Signs: Vital Signs - 24 hr 03/02/25 16:12 Temperature 98.3 F Pulse Rate 95 Respiratory Rate 17 Blood Pressure 114/63 Pulse Oximetry 99 Oxygen Delivery Method Room Air BMI result Body Mass Index 18.5 Medications Administered Discontinued Medications Generic Name Dose Route Start Last Admin Trade Name Freq PRN Reason Stop Dose Admin Diphenhydramine HCl 25 mg 03/02/25 17:28 03/02/25 17:55 Diphenhydramine Hcl 50 Mg/Ml Vial IVPUSH 03/02/25 17:29 25 mg ONCE ONE Administration Lactated Ringer's 1,000 mls @ 999 mls/hr 03/02/25 17:30 03/02/25 17:55 Lr IV 03/02/25 18:30 999 mls/hr .Q1H1M KWAKU Administration Metoclopramide HCl 10 mg 03/02/25 17:28 03/02/25 17:55 Metoclopramide Hcl 10 Mg/2 Ml Vial IVPUSH 03/02/25 17:29 10 mg ONCE ONE Administration Morphine Sulfate 4 mg 03/02/25 17:28 03/02/25 17:55 Morphine Sulfate 4 Mg/Ml Cartridge IVPUSH 03/02/25 17:29 4 mg ONCE ONE Administration Protocol Medical Decision Making Medical Decision Making [facility] Narrative: 39-year-old female history of type 1 diabetes gastroparesis presented hospital today for epigastric abdominal pain we will persistent nausea and vomiting for the past 2 weeks. I did review patient's chart from previous visit appears that Reglan and Benadryl did assist with her symptoms previously. We will plan to give her some IV Reglan and IV Benadryl. IV fluid will be given to the patient as well. Abdominal lab work will be obtained for the patient. We will plan to reassess patient afterward. This may be her gastroparesis. No leukocytosis. Chemistry no significant abnormality aside from hyperglycemia of sugar 277. No sign of UTI. Patient stated she is feeling better at this time after medication. We will plan to discharge patient with a course of omeprazole to take and Zofran take as needed. Patient agreeable to this plan. All questions were addressed. Differential Diagnosis Differential Diagnoses: The differential diagnosis associated with the presentation includes Gastritis, gastroparesis, nausea, vomiting Lab Data [facility] Lab Attestation statement: I reviewed the patient's lab results. 03/02/25 16:24 03/02/25 16:24 Labs: Lab Results 03/02/25 03/02/25 03/02/25 Range/Units 16:15 16:24 17:44 WBC 5.8 (4.8-10.8) X10*3/uL RBC 4.00 L (4.20-5.50) X10*6/uL Hgb 12.9 (12.0-16.0) g/dl Hct 36.8 L (37.0-47.0) % MCV 92.0 (80.0-98.0) fL MCH 32.3 (27.0-33.0) pg MCHC 35.1 H (31.0-35.0) g/dl RDW 12.3 (11.0-16.0) % Plt Count 196 (160-400) X10*3/uL MPV 10.1 (9.4-12.3) fL Immature Gran % (Auto) 0.3 (0.0-0.4) % Neut % (Auto) 68.1 (45-73) % Lymph % (Auto) 24.9 (20-40) % Rosebud % (Auto) 6.0 (2-11) % Eos % (Auto) 0.2 (0-4) % Baso % (Auto) 0.5 (0-2) % Lymph # (Auto) 1.5 (1.2-4.9) X10*3/uL Rosebud # (Auto) 0.4 (0.1-1.2) X10*3/uL Eos # (Auto) 0.0 (0.0-0.4) X10*3/uL Baso # (Auto) 0.0 (0.0-0.2) X10*3/uL Abs Immat Gran (auto) 0.02 (0.00-0.03) X10*3/uL Absolute Neuts (auto) 4.0 (2.0-8.3) x10*3/uL Absolute Nucleated RBC 0.000 (0.0-0.012) X10*3/uL Nucleated RBC % (auto) 0.0 (0.0-0.2) /100WBC Sodium 139 (135-145) mmol/L Potassium 3.6 (3.3-5.1) mmol/L Chloride 106 (96-108) mmol/L Carbon Dioxide 25 (22-29) mmol/L Anion Gap 12 (12-20) BUN 15 (9-16) mg/dL Creatinine 0.70 (0.5-1.4) mg/dL Estim Creat Clear Calc 77.4 Estimated GFR > 60 POC Glucose 247 H (60-115) mg/dL Random Glucose 277 H (60-115) mg/dL Calcium 9.0 (8.4-10.2) mg/dL Magnesium 1.9 (1.6-2.6) mg/dL Total Bilirubin 1.1 H (0.0-1.0) mg/dL Direct Bilirubin 0.3 (0.0-0.5) mg/dL AST 24 (5-31) U/L ALT 11 (0-31) U/L Alkaline Phosphatase 80 (39-117) U/L Troponin I High Sens < 2.7 (<3.5-17.0) ng/L Total Protein 6.7 (6.5-8.0) g/dL Albumin 4.2 (3.5-5.0) g/dL Lipase 13 (8-78) U/L Urine Color Yellow Urine Appearance Clear Urine pH 6.0 (5.0-9.0) Ur Specific Sanderson >= 1.030 H (1.005-1.025) Urine Protein Trace (Neg-Trace) mg/dL Urine Glucose (UA) >=1000 H (Negative) mg/dL Urine Ketones 40 (Negative) mg/dL Urine Blood Negative (Negative) Urine Nitrite Negative (Negative) Ur Leukocyte Esterase Negative (Negative) Urine RBC 0-2 (0-2) /HPF Urine WBC 0-5 (0-5) /HPF Ur Squamous Epith Cells 3-5 (0-2) /HPF Urine Bacteria None Seen (None Seen) Hyaline Casts 0-2 (0-2) /LPF Influenza Type A (PCR) NEGATIVE (Negative) Influenza Type B (PCR) NEGATIVE (Negative) RSV RNA Qual (PCR) NEGATIVE (Negative) SARS-CoV-2 RNA (RT-PCR) NEGATIVE (Negative) Chronic Conditions Patient?s care impacted by: Diabetes Discharge Plan Discharge Clinical Impression: Diabetic gastroparesis Patient Disposition: Home, Self-Care Instructions: Gastroparesis (ED) Additional Instructions: eat small meals, I will start you on some omeprazole as antiacid. Prescriptions: New omeprazole 20 mg capsule,delayed release(DR/EC) 20 mg PO DAILY 30 Days Qty: 30 0RF ondansetron 4 mg tablet,disintegrating 4 mg PO Q8H PRN (Reason: nausea and vomiting) Qty: 14 0RF No Action insulin glargine [Lantus Solostar U-100 Insulin] 100 unit/mL (3 mL) insulin pen 14 unit subcut BEDTIME metoclopramide HCl [Reglan] 10 mg tablet 10 mg PO Q6H PRN (Reason: nausea and vomiting) Qty: 20 0RF promethazine 12.5 mg tablet 12.5 mg PO Q6H PRN (Reason: motion sickness) metronidazole 500 mg tablet 500 mg PO Q12H selenium sulfide 2.5 % lotion 1 appl topical DAILY PRN (Reason: Dry/Itchy Skin) (DME) insulin admin supplies Insulin Pen SUBCUT Rx Instructions: iLet insulin pump (up to 60 units daily) insulin lispro 100 unit/mL solution See Rx Instructions .ROUTE .COMPLEX Rx Instructions: INJECT UP TO 60 UNITS PER DAY VIA INSULIN PUMP Referrals: [facility] [Provider Group, Gastroenterology] Print Language: Sinhala
[2025-03-02 16:43] LABS: Hematocrit 36.8 % (37.0-47.0); Hemoglobin 12.9 g/dl (12.0-16.0); Imm Gran Abs Auto 0.02 X10*3/uL (0.00-0.03); Imm Gran Pct Auto 0.3 % (0.0-0.4); Lymphocytes Absolute Auto 1.5 X10*3/uL (1.2-4.9); Mean Corpuscular HGB Conc 35.1 g/dl (31.0-35.0); Mean Corpuscular Hemoglobin 32.3 pg (27.0-33.0); Mean Corpuscular Volume 92.0 fL (80.0-98.0); NRBC Abs Auto 0.000 X10*3/uL (0.0-0.012); NRBC Pct Auto 0.0 /100WBC (0.0-0.2); Platelet Count 196 X10*3/uL (160-400); Red Blood Count 4.00 X10*6/uL (4.20-5.50); White Blood Count 5.8 X10*3/uL (4.8-10.8)
[2025-03-02 16:48] LABS: Alanine Aminotransferase 11 U/L (0-31); Albumin Level 4.2 g/dL (3.5-5.0); Alkaline Phosphatase 80 U/L (39-117); Anion Gap 12 (12-20); Aspartate Amino Transferase 24 U/L (5-31); Blood Urea Nitrogen 15 mg/dL (9-16); Calcium 9.0 mg/dL (8.4-10.2); Carbon Dioxide 25 mmol/L (22-29); Chloride 106 mmol/L (96-108); Creatinine Clr Calc Pharmacy 77.4; Estimated Glomerular Filt Rate > 60; Lipase 13 U/L (8-78); Magnesium 1.9 mg/dL (1.6-2.6); Potassium 3.6 mmol/L (3.3-5.1); Sodium 139 mmol/L (135-145); Total Protein 6.7 g/dL (6.5-8.0)
[2025-03-02 16:54] LABS: Troponin-I High Sensitivity < 2.7 ng/L (<3.5-17.0)
[2025-03-02 17:52] LABS: Appearance Urine Clear; Glucose Urine UA >=1000 mg/dL (Negative); PH 6.0 (5.0-9.0); Specific Gravity - Urine >= 1.030 (1.005-1.025); UMIC TRIGGER UACC YES
[2025-03-02] MEDS: Lactated Ringers 1,000 ML 999 ML IV (17:55)
--- OUTSIDE RECORDS SUMMARY | 2025-03-02 17:58 | XMS_ITS | Clinical Summary ---
Author Organization [facility] ity Address [address] [place] [address] Care Team Providers Care Wallpaper Printer Name Role Phone Unavailable Primary Care Provider [...] Cervical Cancer Screening: P ap Smear 2005 HPV Vaccines (1 - 3-dose SCD M series) 10/21/2011 HIV Screening 01/15/2024 Hepatitis C Screening 01/15/2024 Social Influencers of Health Screening 01/15/2024 Depression Screening 04/07/2024 COVID-19 Vaccine (1 - 2024-2 6 season) 2024 Influenza Vaccine (#1) 2024 RSV [...]
[2025-03-02 18:25] LABS: Resp Syncy Virus RNA Qual PCR NEGATIVE (Negative); SARS COV2 PCR INHOUSE NEGATIVE (Negative)
[2025-03-02 19:47] VITALS: BP 125/66; PULSE 102; RESP 16; TEMP 36.8; O2SAT 98
[2025-03-02 19:50] VITALS: BP 125/66; PULSE 102; RESP 16; TEMP 36.8; O2SAT 98
== END 2025-03-02 19:51 | disposition home or self-care (01) ==
PROVIDERS: Emergency Provider Student in an Organized Health Care Education/Training Program
DX: E10.43 Type 1 diabetes mellitus with diabetic autonomic (poly)neuropathy (principal); K31.84 Gastroparesis; R11.2 Nausea with vomiting, unspecified; R19.7 Diarrhea, unspecified; R10.9 Unspecified abdominal pain; Z03.818 Encounter for observation for suspected exposure to other biological agents ruled out; R94.31 Abnormal electrocardiogram [ECG] [EKG]; Z79.4 Long term (current) use of insulin
CPT/HCPCS: 36415; 80053; 81001; 82248; 82947; 83690; 83735; 84484; 85025; 87637; 93005; 96361; 96374; 96375; 99284; 99285; J1200; J2270; J2765; J7120

== ENCOUNTER → 2025-03-02 16:43 | Outpatient (BNV) | payer OTHER, SELFPAY | PROVIDERS: Emergency Provider Student in an Organized Health Care Education/Training Program; Visit Provider Internal Medicine Cardiovascular Disease | DX: I25.2 Old myocardial infarction (principal) | CPT/HCPCS: 93010 ==

== ENCOUNTER 2025-03-04 13:29 | Emergency (ER) | payer OTHER, SELFPAY ==
--- NOTE | ~2025-03-04 | CT_ITS ---
CLINICAL HISTORY: abd pain CT abdomen and pelvis with contrast Comparison: CT/SR - CT ABDOMEN PELVIS WITH IV CONTRAST - 12/31/24 13:27 EDT Findings: The lung bases are clear. The gallbladder and solid organs are within normal limits. No renal stones. No bowel obstruction, pneumoperitoneum, or pneumatosis. Heterogeneous enhancement and mural thickening of the cervix. The appendix is within normal limits. No acute fracture. IMPRESSION: 1. Heterogeneous enhancement and mural thickening of the cervix; PID can not be excluded. Clinical correlation suggested. This document has been electronically signed by: Del Mascorro MD on 03/04/2025 18:12:50
[2025-03-04 13:37] VITALS: BP 138/78; PULSE 100; O2SAT 98
--- NOTE | 2025-03-04 13:37 | ECG_ITS ---
Test Reason : ABD PAIN Blood Pressure : */* mmHG Vent. Rate : 109 BPM Atrial Rate : 109 BPM P-R Int : 138 ms QRS Dur : 84 ms QT Int : 336 ms P-R-T Axes : 73 80 46 degrees QTcB Int : 452 ms Sinus tachycardia Septal infarct (cited on or before 25-Mar-2020) Abnormal ECG When compared with ECG of 02-Mar-2025 16:43, No significant change was found Referred By: Yoselyn Luu Electronically Signed By: CRYSTAL PALMER
[2025-03-04 13:39] VITALS: BP 137/77; PULSE 99; RESP 16; TEMP 36.7; O2SAT 100; BMI 20.4
--- OUTSIDE RECORDS SUMMARY | 2025-03-04 14:10 | XMS_ITS | Clinical Summary ---
Author Organization [facility] ity Address [address] [place] [address] Care Team Providers Care Mannequin Molder Name Role Phone Unavailable Primary Care Provider [...]
[2025-03-04 14:24] LABS: MANUAL DIFF FLAG NO
[2025-03-04 14:25] LABS: Hematocrit 38.3 % (37.0-47.0); Hemoglobin 13.4 g/dl (12.0-16.0); Imm Gran Abs Auto 0.02 X10*3/uL (0.00-0.03); Imm Gran Pct Auto 0.5 % (0.0-0.4); Lymphocytes Absolute Auto 1.0 X10*3/uL (1.2-4.9); Mean Corpuscular HGB Conc 35.0 g/dl (31.0-35.0); Mean Corpuscular Hemoglobin 32.3 pg (27.0-33.0); Mean Corpuscular Volume 92.3 fL (80.0-98.0); NRBC Abs Auto 0.000 X10*3/uL (0.0-0.012); NRBC Pct Auto 0.0 /100WBC (0.0-0.2); Platelet Count 185 X10*3/uL (160-400); Red Blood Count 4.15 X10*6/uL (4.20-5.50); White Blood Count 4.2 X10*3/uL (4.8-10.8)
[2025-03-04 14:28] LABS: Venous Blood Gas Refer to POC result
--- NOTE | 2025-03-04 14:28 | ED_ITS ---
HPI - Nausea/Vomiting/Diarrhea General Chief complaint: Nausea/Vomiting/Diarrhea Stated complaint: N/V/dizzy x 4 hours Time Seen by Provider: 03/04/25 13:47 Source: patient and EMS Mode of arrival: EMS Limitations: no limitations History of Present Illness ED Provider: MERARY Polanco HPI Narrative: Chief Complaint: ?I?ve been puking for hours.? History of Present Illness: Patient presents to the ED reporting several hours of persistent vomiting and ongoing nausea. She states she is unable to tolerate food and reports, I can't poop. Yesterday she ?ate a lot for giving? and feels she is ?paying for it? now. She has type 1 diabetes mellitus and usually self-administers insulin; however, she ?didn?t get enough today.? Capillary blood glucose at home today was ?around 300.? She has a history of diabetic ketoacidosis (DKA). Symptoms have been worsening over the last few hours. Related Data Home Medications ?Medication ?Instructions ?Recorded ?Confirmed insulin glargine 100 unit/mL (3 14 unit subcut BEDTIME 12/07/21 12/31/24 mL) subcutaneous pen (Lantus Solostar U-100 Insulin) insulin admin supplies 12/31/24 12/31/24 insulin lispro 100 unit/mL See Rx Instructions .Route .COMPLEX 12/31/24 12/31/24 subcutaneous solution metronidazole 500 mg tablet 500 mg PO Q12H 12/31/24 promethazine 12.5 mg tablet 12.5 mg PO Q6H PRN motion sickness 12/31/24 12/31/24 selenium sulfide 2.5 % lotion 1 appl topical DAILY PRN Dry/Itchy 12/31/24 12/31/24 Skin Previous Rx's ?Medication ?Instructions ?Recorded metoclopramide HCl 10 mg tablet 10 mg PO Q6H PRN nause a and 01/05/25 (Reglan) vomiting #20 tabs omeprazole 20 mg capsule,delayed 20 mg PO DAILY 30 day s #30 caps 03/02/25 release ondansetron 4 mg disintegrating 4 mg PO Q8H PRN nausea and 03/02/25 tablet vomiting #14 tabs Allergies Allergy/AdvReac Type Severity Reaction Status Date / Time No Known Allergies Allergy Verified 03/04/25 13:40 Review of Systems 2 Review of Systems: Review of Systems: ? Gastrointestinal: Positive for nausea and vomiting; negative for bowel movement today. ? Constitutional: Reports feeling uncomfortable. Yes all other systems are reviewed and are negative PMFSH Past Medical History Attestation statement: The following information was validated with the patient. Source: old records reviewed and nursing notes reviewed Medical History Anxiety Diabetic gastroparesis DKA (diabetic ketoacidoses) Diabetes Surgical History History of Social History Social History Household Members: Children Household Members Other:: son Housing: House Do you presently have visiting nurse or other home services: No Alcohol intake: never Patient Tobacco Use Status: Current someday Tobacco user Tobacco use type: Cigarette e-Cigarette/Vaping Use: Never Used Second Hand Smoke Exposure: No Substance Use Type: Marijuana Advance Directives: No Advance Directives Information Provided: Yes service: No Current occupational status: unemployed Physical Exam 2 Exam: Exam: Appearance: Alert.? Oriented X3.? Appears uncomfortable but no signs of cardiopulmonary distress Head: Normocephalic, atraumatic, no step-offs or deformities Eyes: Pupils equal, round and reactive to light.? Neck: Normal inspection.? Neck supple.? CVS: Normal heart rate and rhythm.? Pulses normal.? Respiratory: No respiratory distress.? Breath sounds normal.? Abdomen: Soft and diffusely tender.? Skin: Skin warm and dry.? Normal skin color.? Normal skin turgor.? Extremities: No lower extremity edema.? No calf ttp. 5/5 strength to bilateral upper and lower extremities Back: No midline tenderness, no C-spine tenderness, full range of motion, no CVA tenderness bilaterally Neuro: Oriented X 3.? No motor deficit.? No sensory deficit. CN 2-12 intact Vital Signs: Vital Signs: Last Vital Signs Temp 98.1 F 03/04/25 17:07 Pulse 107 H 03/04/25 17:07 Resp 16 03/04/25 17:07 BP 124/75 03/04/25 17:07 Pulse Ox 100 03/04/25 17:07 O2 Del Method Room Air 03/04/25 17:07 BMI result Body Mass Index 20.4 vss Course Reevaluation(s) Reevaluation #1: Patient's CBC with leukopenia appears to be around baseline. Chemistry no acute findings however patient's glucose elevated 372, IV fluids as well as insulin ordered. Beta hydroxybutyrate elevated 1.11, patient does not have an elevated anion gap or acidosis making DKA unlikely. Nausea and vomiting improved however abdominal discomfort still present she has been seen here recently there was no abdominal imaging will order at this time. I suspect patient will require admission for intractable nausea and vomiting. Sign out to my colleague Bryan Time: 16:43 Reevaluation #2: Patient received in sign-out at change of shift pending re-evaluation and CT scan of the abdomen pelvis. The patient reports feeling much better, she was able to drink water and then was given a dinner tray which she was able to tolerate. Her CT scan shows questionable PID with enhancement of the cervix. I discussed this with the patient. 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 She denies any abnormal vaginal discharge, denies any pelvic pain. She reports that she was tested for sexually transmitted infections within the last 2 months and reported that everything was normal. I recommended a pelvic examination and raised concern for PID and the patient declines. I advised her to return for any fevers, worsening lower abdominal pain, pelvic discharge. The patient is requesting discharge at this time given that she is able tolerate p.o. she can safely be discharged Time: 18:21 Medications Administered Discontinued Medications Generic Name Dose Route Start Last Admin Trade Name Toribio PRN Reason Stop Dose Admin Diphenhydramine HCl 25 mg 03/04/25 14:25 03/04/25 14:34 Diphenhydramine Hcl 50 Mg/Ml Vial IVPUSH 03/04/25 14:26 25 mg ONCE ONE Administration Sodium Chloride 1,000 mls @ 999 mls/hr 03/04/25 14:30 03/04/25 15:47 Ns IV 03/04/25 15:30 Infused .Q1H1M KWAKU Infusion Sodium Chloride 1,000 mls @ 999 mls/hr 03/04/25 15:30 03/04/25 16:53 Ns IV 03/04/25 16:30 Infused .Q1H1M KWAKU Infusion Insulin Human Regular 5 unit 03/04/25 15:28 03/04/25 15:52 Insulin Regular, Human 100 Unit/Ml 10 Ml Vial IVPUSH 03/04/25 15:29 5 unit ONCE ONE Administration Iohexol 100 ml 03/04/25 17:39 03/04/25 17:41 Iohexol 350 Mg/Ml 100 Ml Infus..Btl IV 03/04/25 17:40 85 ml ONCE ONE Administration Metoclopramide HCl 10 mg 03/04/25 14:25 03/04/25 14:34 Metoclopramide Hcl 10 Mg/2 Ml Vial IVPUSH 03/04/25 14:26 10 mg ONCE ONE Administration Morphine Sulfate 4 mg 03/04/25 14:25 03/04/25 14:34 Morphine Sulfate 4 Mg/Ml Cartridge IVPUSH 03/04/25 14:26 4 mg ONCE ONE Administration Protocol Medical Decision Making Medical Decision Making [facility] Narrative: 1429 Type 1 diabetic patient with acute nausea and vomiting after overeating, hyperglycemia (~300 mg/dL), inadequate insulin dosing today, and history of DKA. Differential includes diabetic gastroparesis, diabetic ketoacidosis, and hyperosmolar hyperglycemic state (HHS). Problem #1: Nausea and Vomiting Assessment: Acute onset over several hours, currently persistent; likely multifactorial related to recent overeating and underlying diabetic complications. Plan: * Administer antiemetic medications (ordered) for symptomatic relief. Problem #2: Hyperglycemia / Rule Out DKA vs HHS Assessment: Home glucose ~300 mg/dL, inadequate insulin dose today, history of DKA; needs evaluation for metabolic derangement. Plan: * Obtain CBC, CMP, VBG, beta-hydroxybutyrate, and urinalysis to assess for DKA/HHS. * Insulin management to be determined after lab results. Differential Diagnosis Differential Diagnoses: The differential diagnosis associated with the presentation includes Differential Diagnosis * Diabetic ketoacidosis (DKA): History of type 1 diabetes, prior DKA episodes, current hyperglycemia (~300 mg/dL), inadequate insulin dosing, and acute onset of nausea/vomiting raise concern for DKA. * Hyperosmolar hyperglycemic state (HHS): Marked hyperglycemia and vomiting could also indicate HHS, though less common in type 1 diabetics; included due to significant hyperglycemia and dehydration risk. * Diabetic gastroparesis: History of diabetes and symptoms of nausea, vomiting, and inability to tolerate food after overeating are consistent with gastroparesis. * Acute gastroenteritis: Acute onset of nausea and vomiting could be due to infectious causes, especially following a large meal. * Medication-induced nausea/vomiting: Consideration given to possible side effects from medications, though no specific agent identified in history. * Other causes of acute nausea/vomiting (e.g., viral illness, food poisoning, bowel obstruction): Broad differential includes other gastrointestinal or infectious etiologies given acute presentation and inability to have a bowel movement. Admission/Observation Consideration of admission/observation: Escalation of care including admission/observation considered (likely ) Lab Data 03/04/25 14:17 03/04/25 14:18 Labs: Lab Results 03/04/25 03/04/25 03/04/25 Range/Units 14:17 14:18 14:26 WBC 4.2 L (4.8-10.8) X10*3/uL RBC 4.15 L (4.20-5.50) X10*6/uL Hgb 13.4 (12.0-16.0) g/dl Hct 38.3 (37.0-47.0) % MCV 92.3 (80.0-98.0) fL MCH 32.3 (27.0-33.0) pg MCHC 35.0 (31.0-35.0) g/dl RDW 12.1 (11.0-16.0) % Plt Count 185 (160-400) X10*3/uL MPV 10.1 (9.4-12.3) fL Immature Gran % (Auto) 0.5 H (0.0-0.4) % Neut % (Auto) 67.9 (45-73) % Lymph % (Auto) 23.3 (20-40) % [place] % (Auto) 7.1 (2-11) % Eos % (Auto) 0.5 (0-4) % Baso % (Auto) 0.7 (0-2) % Lymph # (Auto) 1.0 L (1.2-4.9) X10*3/uL [place] # (Auto) 0.3 (0.1-1.2) X10*3/uL Eos # (Auto) 0.0 (0.0-0.4) X10*3/uL Baso # (Auto) 0.0 (0.0-0.2) X10*3/uL Abs Immat Gran (auto) 0.02 (0.00-0.03) X10*3/uL Absolute Neuts (auto) 2.9 (2.0-8.3) x10*3/uL Absolute Nucleated RBC 0.000 (0.0-0.012) X10*3/uL Nucleated RBC % (auto) 0.0 (0.0-0.2) /100WBC VBG pH 7.35 (7.32-7.43) VBG pCO2 40 mmHg VBG pO2 62 mmHg VBG HCO3 22 (22-26) mmol/L VBG O2 Saturation 90.0 % VBG Base Excess -2.4 mmol/L Sodium 137 (135-145) mmol/L Potassium 4.2 (3.3-5.1) mmol/L Chloride 106 (96-108) mmol/L Carbon Dioxide 21 L (22-29) mmol/L Anion Gap 14 (12-20) BUN 12 (9-16) mg/dL Creatinine 0.68 (0.5-1.4) mg/dL Estim Creat Clear Calc 90.5 Estimated GFR > 60 POC Glucose (60-115) mg/dL Random Glucose 372 H* (60-115) mg/dL Calcium 8.9 (8.4-10.2) mg/dL Magnesium 1.8 (1.6-2.6) mg/dL Total Bilirubin 0.7 (0.0-1.0) mg/dL AST 24 (5-31) U/L ALT 10 (0-31) U/L Alkaline Phosphatase 82 (39-117) U/L Troponin I High Sens < 2.7 (<3.5-17.0) ng/L Total Protein 6.8 (6.5-8.0) g/dL Albumin 4.3 (3.5-5.0) g/dL Beta-Hydroxybutyrate 1.11 H (0.02-0.27) mmol/L 03/04/25 03/04/25 Range/Units 15:50 17:01 WBC (4.8-10.8) X10*3/uL RBC (4.20-5.50) X10*6/uL Hgb (12.0-16.0) g/dl Hct (37.0-47.0) % MCV (80.0-98.0) fL MCH (27.0-33.0) pg MCHC (31.0-35.0) g/dl RDW (11.0-16.0) % Plt Count (160-400) X10*3/uL MPV (9.4-12.3) fL Immature Gran % (Auto) (0.0-0.4) % Neut % (Auto) (45-73) % Lymph % (Auto) (20-40) % [place] % (Auto) (2-11) % Eos % (Auto) (0-4) % Baso % (Auto) (0-2) % Lymph # (Auto) (1.2-4.9) X10*3/uL [place] # (Auto) (0.1-1.2) X10*3/uL Eos # (Auto) (0.0-0.4) X10*3/uL Baso # (Auto) (0.0-0.2) X10*3/uL Abs Immat Gran (auto) (0.00-0.03) X10*3/uL Absolute Neuts (auto) (2.0-8.3) x10*3/uL Absolute Nucleated RBC (0.0-0.012) X10*3/uL Nucleated RBC % (auto) (0.0-0.2) /100WBC VBG pH (7.32-7.43) VBG pCO2 mmHg VBG pO2 mmHg VBG HCO3 (22-26) mmol/L VBG O2 Saturation % VBG Base Excess mmol/L Sodium (135-145) mmol/L Potassium (3.3-5.1) mmol/L Chloride (96-108) mmol/L Carbon Dioxide (22-29) mmol/L Anion Gap (12-20) BUN (9-16) mg/dL Creatinine (0.5-1.4) mg/dL Estim Creat Clear Calc Estimated GFR POC Glucose 297 H 196 H (60-115) mg/dL Random Glucose (60-115) mg/dL Calcium (8.4-10.2) mg/dL Magnesium (1.6-2.6) mg/dL Total Bilirubin (0.0-1.0) mg/dL AST (5-31) U/L ALT (0-31) U/L Alkaline Phosphatase (39-117) U/L Troponin I High Sens (<3.5-17.0) ng/L Total Protein (6.5-8.0) g/dL Albumin (3.5-5.0) g/dL Beta-Hydroxybutyrate (0.02-0.27) mmol/L Radiology Impression Discussion of test interpretation with radiology: I have reviewed the radiologist's reading. Radiologist Impression: CT abdomen and pelvis with contrast Comparison: CT/SR - CT ABDOMEN PELVIS WITH IV CONTRAST - 12/31/24 13:27 EDT Findings: The lung bases are clear. The gallbladder and solid organs are within normal limits. No renal stones. No bowel obstruction, pneumoperitoneum, or pneumatosis. Heterogeneous enhancement and mural thickening of the cervix. The appendix is within normal limits. No acute fracture. IMPRESSION: 1. Heterogeneous enhancement and mural thickening of the cervix; PID can not be excluded. Clinical correlation suggested. This document has been electronically signed by: Del Mascorro MD on 03/04/2025 18:12:50 Critical Care Time Critical Care Time Critical Care Time: Yes Total Critical Care Time: 45 Attestation: I attest to this time spent taking care of the patient, obtaining history, physical, reviewing labs, imaging, treatment of patients condition +/- specialist/hospitalist consult +/- procedure Discharge Plan Discharge Clinical Impression: Hyperglycemia, Diabetic gastroparesis Patient Disposition: Home, Self-Care Instructions: Gastroparesis (ED) Additional Instructions: Your workup in the ER today was reassuring. Your glucose was elevated to almost 400. Your blood work was otherwise reassuring. Your CT scan showed enhancement of the cervix which could be concerning for PID but may be related to your chronic infection Return to the ER if you develop any fevers, severe pelvic pain. Follow up with your outpatient providers Prescriptions: No Action insulin glargine [Lantus Solostar U-100 Insulin] 100 unit/mL (3 mL) insulin pen 14 unit subcut BEDTIME metoclopramide HCl [Reglan] 10 mg tablet 10 mg PO Q6H PRN (Reason: nausea and vomiting) Qty: 20 0RF omeprazole 20 mg capsule,delayed release(DR/EC) 20 mg PO DAILY 30 Days Qty: 30 0RF ondansetron 4 mg tablet,disintegrating 4 mg PO Q8H PRN (Reason: nausea and vomiting) Qty: 14 0RF promethazine 12.5 mg tablet 12.5 mg PO Q6H PRN (Reason: motion sickness) metronidazole 500 mg tablet 500 mg PO Q12H selenium sulfide 2.5 % lotion 1 appl topical DAILY PRN (Reason: Dry/Itchy Skin) (DME) insulin admin supplies Insulin Pen SUBCUT Rx Instructions: iLet insulin pump (up to 60 units daily) insulin lispro 100 unit/mL solution See Rx Instructions .ROUTE .COMPLEX Rx Instructions: INJECT UP TO 60 UNITS PER DAY VIA INSULIN PUMP Print Language: Malaysian
[2025-03-04 14:30] LABS: VBG HCO3 22 mmol/L (22-26); VBG O2 % Saturation 90.0 %
[2025-03-04 14:47] LABS: Alanine Aminotransferase 10 U/L (0-31); Albumin Level 4.3 g/dL (3.5-5.0); Alkaline Phosphatase 82 U/L (39-117); Anion Gap 14 (12-20); Aspartate Amino Transferase 24 U/L (5-31); Blood Urea Nitrogen 12 mg/dL (9-16); Calcium 8.9 mg/dL (8.4-10.2); Carbon Dioxide 21 mmol/L (22-29); Chloride 106 mmol/L (96-108); Creatinine Clr Calc Pharmacy 90.5; Estimated Glomerular Filt Rate > 60; Magnesium 1.8 mg/dL (1.6-2.6); Potassium 4.2 mmol/L (3.3-5.1); Sodium 137 mmol/L (135-145); Total Protein 6.8 g/dL (6.5-8.0)
[2025-03-04 14:53] LABS: Troponin-I High Sensitivity < 2.7 ng/L (<3.5-17.0)
[2025-03-04 15:54] LABS: Glucose, Whole Blood 297 mg/dL (60-115)
[2025-03-04 16:33] VITALS: RESP 17
[2025-03-04 17:06] LABS: Glucose, Whole Blood 196 mg/dL (60-115)
[2025-03-04 17:07] VITALS: BP 124/75; PULSE 107; RESP 16; TEMP 36.7; O2SAT 100
[2025-03-04] MEDS: iohexoL 350 MG/ML 100 ML INFUS..BTL IV (17:41)
[2025-03-04 18:26] VITALS: BP 124/75; PULSE 107; RESP 16; TEMP 36.7; O2SAT 100
[2025-03-04 18:29] LABS: Appearance Urine Clear; Glucose Urine UA >=1000 mg/dL (Negative); PH 6.5 (5.0-9.0); Specific Gravity - Urine >= 1.030 (1.005-1.025); UMIC TRIGGER UACC YES
== END 2025-03-04 18:30 | disposition home or self-care (01) ==
PROVIDERS: Physician Assistant; Physician Assistant Medical; Emergency Provider Emergency Medicine
DX: E11.43 Type 2 diabetes mellitus with diabetic autonomic (poly)neuropathy (principal); E11.65 Type 2 diabetes mellitus with hyperglycemia; K31.84 Gastroparesis; R11.2 Nausea with vomiting, unspecified; R42 Dizziness and giddiness; R10.22 Pelvic and perineal pain left side; Z79.4 Long term (current) use of insulin; Z79.899 Other long term (current) drug therapy
CPT/HCPCS: 36415; 74177; 80053; 81001; 82010; 82803; 82947; 83735; 84484; 85025; 93005; 96361; 96374; 96375; 99284; 99285; J1200; J2270; J2765; Q9967

== ENCOUNTER → 2025-03-04 13:37 | Outpatient (BNV) | payer OTHER, SELFPAY | PROVIDERS: Emergency Provider Emergency Medicine; Visit Provider Internal Medicine | DX: R00.0 Tachycardia, unspecified (principal); I25.2 Old myocardial infarction | CPT/HCPCS: 93010 ==

== ENCOUNTER → 2025-03-04 16:40 | Outpatient (BNV) | payer OTHER, SELFPAY | PROVIDERS: Emergency Provider Emergency Medicine; Visit Provider Radiology Diagnostic Radiology | DX: R10.9 Unspecified abdominal pain (principal); N88.4 Hypertrophic elongation of cervix uteri | CPT/HCPCS: 74177 ==

== ENCOUNTER 2025-04-02 16:39 | Emergency (ER) | payer OTHER, SELFPAY ==
[2025-04-02 16:46] VITALS: BP 116/75; PULSE 108; O2SAT 100
[2025-04-02 17:04] VITALS: BP 123/69; PULSE 100; RESP 18; TEMP 36.8; O2SAT 99; BMI 18.4
[2025-04-02 17:54] LABS: Strep A Nucleic Acid Negative (Negative)
[2025-04-02 18:30] LABS: Resp Syncy Virus RNA Qual PCR NEGATIVE (Negative); SARS COV2 PCR INHOUSE NEGATIVE (Negative)
[2025-04-02 18:58] LABS: Hematocrit 36.6 % (37.0-47.0); Hemoglobin 12.7 g/dl (12.0-16.0); Mean Corpuscular HGB Conc 34.7 g/dl (31.0-35.0); Mean Corpuscular Hemoglobin 32.1 pg (27.0-33.0); Mean Corpuscular Volume 92.4 fL (80.0-98.0); NRBC Abs Auto 0.000 X10*3/uL (0.0-0.012); NRBC Pct Auto 0.0 /100WBC (0.0-0.2); Platelet Count 185 X10*3/uL (160-400); Red Blood Count 3.96 X10*6/uL (4.20-5.50)
[2025-04-02 18:59] LABS: WBC ABN SCTR FOR CBC 1
[2025-04-02 19:21] LABS: Alanine Aminotransferase 14 U/L (0-31); Albumin Level 4.0 g/dL (3.5-5.0); Alkaline Phosphatase 99 U/L (39-117); Anion Gap 13 (12-20); Aspartate Amino Transferase 22 U/L (5-31); Blood Urea Nitrogen 12 mg/dL (9-16); Calcium 8.8 mg/dL (8.4-10.2); Carbon Dioxide 20 mmol/L (22-29); Chloride 108 mmol/L (96-108); Creatinine Clr Calc Pharmacy 91.5; Estimated Glomerular Filt Rate > 60; Lipase 10 U/L (8-78); Potassium 4.0 mmol/L (3.3-5.1); Sodium 137 mmol/L (135-145); Total Protein 6.5 g/dL (6.5-8.0)
[2025-04-02 19:22] LABS: Band Neutrophils Percent 5 % (3-5); Eosinophils Percent Manual 1 % (0-4); Lymphocytes Percent Manual 18 % (20-40); Monocytes Percent Manual 10 % (2-11); Neutrophils Percent Manual 66 % (45-73)
[2025-04-02 19:23] LABS: Burr Cells 3+ (>5) /OIF; RBC Morphology NOTED; Toxic Vacuolation PRESENT
[2025-04-02 19:24] LABS: Eosinophils Absolute Manual 0.1 X10*3/uL (0.0-0.4); Lymphocytes Absolute Manual 1.0 X10*3/uL (1.2-4.9); Monocytes Absolute Manual 0.5 X10*3/uL (0.1-1.2); Neutrophils Absolute Manual 3.8 X10*3/uL (2.0-8.3); White Blood Count 5.4 X10*3/uL (4.8-10.8)
--- OUTSIDE RECORDS SUMMARY | 2025-04-02 21:13 | XMS_ITS | Clinical Summary ---
Author Organization [facility] Address [address] [place] [address] [place] [address] Care Team Providers Care Manager Production Name Role Phone Unavailable Primary Care Provider [...]
--- NOTE | 2025-04-02 21:56 | ED_ITS ---
HPI - General Adult General Chief complaint: General Medical Stated complaint: vomiting, flu -like sx, BGL 298 Time Seen by Provider: 04/02/25 21:19 Source: patient Limitations: no limitations History of Present Illness ED Provider: Sylvia Carrasquillo PA-C HPI narrative: 39-year-old female with a history of diabetes, gastroparesis, who presents with viral syndrome over the past few days. Patient states her child tested positive for influenza, she was seen at urgent Care today tested negative. Associated sore throat, nasal congestion, dry repetitive cough, nausea vomiting generalized myalgias. Related Data Home Medications ?Medication ?Instructions ?Recorded ?Confirmed insulin glargine 100 unit/mL (3 14 unit subcut BEDTIME 12/07/21 12/31/24 mL) subcutaneous pen (Lantus Solostar U-100 Insulin) insulin admin supplies 12/31/24 12/31/24 insulin lispro 100 unit/mL See Rx Instructions .Route .COMPLEX 12/31/24 12/31/24 subcutaneous solution metronidazole 500 mg tablet 500 mg PO Q12H 12/31/24 promethazine 12.5 mg tablet 12.5 mg PO Q6H PRN motion sickness 12/31/24 12/31/24 selenium sulfide 2.5 % lotion 1 appl topical DAILY PRN Dry/Itchy 12/31/24 12/31/24 Skin Previous Rx's ?Medication ?Instructions ?Recorded metoclopramide HCl 10 mg tablet 10 mg PO Q6H PRN nause a and 01/05/25 (Reglan) vomiting #20 tabs omeprazole 20 mg capsule,delayed 20 mg PO DAILY 30 day s #30 caps 03/02/25 release ondansetron 4 mg disintegrating 4 mg PO Q8H PRN nausea and 03/02/25 tablet vomiting #14 tabs ketorolac 10 mg tablet 10 mg PO Q6H PRN pain #20 ta bs 04/02/25 metoclopramide HCl 10 mg tablet 10 mg PO Q6H PRN nause a and 04/02/25 vomiting #12 tabs Allergies Allergy/AdvReac Type Severity Reaction Status Date / Time No Known Allergies Allergy Verified 04/02/25 17:07 Review of Systems 2 Review of Systems: Yes all other systems are reviewed and are negative Constitutional: Constitutional: Reports fatigue, Denies fever(s) and Reports malaise ENT: Reports nasal congestion and Reports sore throat Cardiovascular: Cardiovascular: Denies chest pain and Denies dyspnea Respiratory: Respiratory: Reports cough, Denies dyspnea and Denies wheezing Gastrointestinal: Gastrointestinal: Denies abdominal pain, Reports nausea and Reports vomiting Musculoskeletal: Musculoskeletal: Reports myalgias Endocrine: Endocrine: Reports fatigue Allergic/Immunologic: Allergic/Immunologic: Denies wheezing PMFSH Past Medical History Attestation statement: The following information was validated with the patient. Medical History Anxiety Diabetic gastroparesis DKA (diabetic ketoacidoses) Diabetes Surgical History History of Social History Social History Household Members: Children Household Members Other:: son Housing: House Do you presently have visiting nurse or other home services: No Alcohol intake: never Patient Tobacco Use Status: Current someday Tobacco user Tobacco use type: Cigarette e-Cigarette/Vaping Use: Never Used Second Hand Smoke Exposure: No Substance Use Type: Marijuana Advance Directives: No Advance Directives Information Provided: No Do you have a plan to hurt others: No Plan service: No Current occupational status: unemployed Physical Exam ED Vital Signs: Vital Signs - 24 hr 04/02/25 17:04 Temperature 98.3 F Pulse Rate 100 Respiratory Rate 18 Blood Pressure 123/69 Pulse Oximetry 99 Oxygen Delivery Method Room Air BMI result Body Mass Index 18.4 Const Other: Alert Orientation/consciousness: patient oriented x3 HENMT Other: Opiate erythematous, no exudate uvula midline no trismus no drooling no sublingual fluctuance no swelling inferior to the jawline Resp Effort & Inspection: normal respiratory effort Cardio Other: Normal peripheral perfusion Skin Other: Warm dry no rash Neuro General: patient oriented x3, gait normal, no focal motor deficits and CN's II- XI intact bilaterally Psych Other: Cooperative Medications Administered Discontinued Medications Generic Name Dose Route Start Last Admin Trade Name Freq PRN Reason Stop Dose Admin Sodium Chloride 1,000 mls @ 999 mls/hr 04/02/25 21:30 04/02/25 21:35 Ns IV 04/02/25 22:30 999 mls/hr .Q1H1M KWAKU Administration Ketorolac Tromethamine 15 mg 04/02/25 21:57 04/02/25 22:07 Ketorolac Tromethamine 15 Mg/Ml Vial IVPUSH 04/02/25 21:58 15 mg ONCE ONE Administration Metoclopramide HCl 10 mg 04/02/25 21:28 04/02/25 21:38 Metoclopramide Hcl 10 Mg/2 Ml Vial IVPUSH 04/02/25 21:29 10 mg ONCE ONE Administration Medical Decision Making Medical Decision Making MDM Narrative: 39-year-old female with a history of diabetes, gastroparesis, who presents with viral syndrome over the past few days. Patient states her child tested positive for influenza, she was seen at urgent Care today tested negative. Associated sore throat, nasal congestion, dry repetitive cough, nausea vomiting generalized myalgias. Problem: Diabetes History: Per patient I have considered the following differential diagnoses: Viral syndrome, strep pharyngitis, RPA, CYBER INSTRUCTOR Plan: Screening labs including viral panel and strep screen obtained from triage, everything is negative. Given the patient fluid, Reglan and we will discharge with home care instructions. She has no exam findings consistent with a RPA or CYBER INSTRUCTOR. I have independently reviewed the following tests: Labs: Viral panel negative, strep screen negative, no leukocytosis, not anemic, not , no gap, blood sugar 282, no electrolyte abnormalities Differential Diagnosis Differential Diagnoses: The differential diagnosis associated with the presentation includes See MDM Admission/Observation Consideration of admission/observation: Escalation of care including admission/observation considered Not applicable Lab Data [facility] Lab Attestation statement: I reviewed the patient's lab results. 04/02/25 18:48 04/02/25 18:48 Labs: Lab Results 04/02/25 04/02/25 Range/Units 17:42 18:48 WBC 5.4 (4.8-10.8) X10*3/uL RBC 3.96 L (4.20-5.50) X10*6/uL Hgb 12.7 (12.0-16.0) g/dl Hct 36.6 L (37.0-47.0) % MCV 92.4 (80.0-98.0) fL MCH 32.1 (27.0-33.0) pg MCHC 34.7 (31.0-35.0) g/dl RDW 12.0 (11.0-16.0) % Plt Count 185 (160-400) X10*3/uL MPV 10.0 (9.4-12.3) fL Immature Gran % (Auto) Cancelled Neut % (Auto) Cancelled Lymph % (Auto) Cancelled Leslie % (Auto) Cancelled Eos % (Auto) Cancelled Baso % (Auto) Cancelled Lymph # (Auto) Cancelled Leslie # (Auto) Cancelled Eos # (Auto) Cancelled Baso # (Auto) Cancelled Abs Immat Gran (auto) Cancelled Absolute Neuts (auto) Cancelled Absolute Nucleated RBC 0.000 (0.0-0.012) X10*3/uL Nucleated RBC % (auto) 0.0 (0.0-0.2) /100WBC Neutrophils % (Manual) 66 (45-73) % Band Neutrophils % 5 (3-5) % Lymphocytes % (Manual) 18 L (20-40) % Monocytes % (Manual) 10 (2-11) % Eosinophils % (Manual) 1 (0-4) % Abs Neuts (Manual) 3.8 (2.0-8.3) X10*3/uL Lymphocytes # (Manual) 1.0 L (1.2-4.9) X10*3/uL Monocytes # (Manual) 0.5 (0.1-1.2) X10*3/uL Eosinophils # (Manual) 0.1 (0.0-0.4) X10*3/uL Toxic Vacuolation PRESENT Platelet Estimate NORMAL (NORMAL) Plt Morphology Comment NORMAL RBC Morphology NOTED Sherin Cells 3+ (>5) /OIF Sodium 137 (135-145) mmol/L Potassium 4.0 (3.3-5.1) mmol/L Chloride 108 (96-108) mmol/L Carbon Dioxide 20 L (22-29) mmol/L Anion Gap 13 (12-20) BUN 12 (9-16) mg/dL Creatinine 0.57 (0.5-1.4) mg/dL Estim Creat Clear Calc 91.5 Estimated GFR > 60 Random Glucose 282 H (60-115) mg/dL Calcium 8.8 (8.4-10.2) mg/dL Total Bilirubin 0.9 (0.0-1.0) mg/dL AST 22 (5-31) U/L ALT 14 (0-31) U/L Alkaline Phosphatase 99 (39-117) U/L Total Protein 6.5 (6.5-8.0) g/dL Albumin 4.0 (3.5-5.0) g/dL Lipase 10 (8-78) U/L Beta HCG, Quant < 2 mIU/mL Influenza Type A (PCR) NEGATIVE (Negative) Influenza Type B (PCR) NEGATIVE (Negative) RSV RNA Qual (PCR) NEGATIVE (Negative) SARS-CoV-2 RNA (RT-PCR) NEGATIVE (Negative) S. pyogenes GrpA TODD Negative (Negative) Discharge Plan Discharge Clinical Impression: Acute viral syndrome Patient Disposition: Home, Self-Care Instructions: Viral Syndrome (ED) Additional Instructions: All of your screening labs were normal, you were tested for influenza RSV and COVID, the viral panel was negative. You were tested for strep throat that was negative as well. You likely still have influenza given your child is sick with the same virus. See home care instructions. Use the metoclopramide as needed for nausea vomiting. Use the ketorolac as needed for body aches and/or fever. Follow up with your primary care as needed. Prescriptions: New ketorolac 10 mg tablet 10 mg PO Q6H PRN (Reason: pain) Qty: 20 0RF Rx Instructions: maximum total duration of 5 days from all oral, intranasal, or parenteral formulations, patient received an IV form of Toradol in the ED metoclopramide HCl 10 mg tablet 10 mg PO Q6H PRN (Reason: nausea and vomiting) Qty: 12 0RF No Action insulin glargine [Lantus Solostar U-100 Insulin] 100 unit/mL (3 mL) insulin pen 14 unit subcut BEDTIME metoclopramide HCl [Reglan] 10 mg tablet 10 mg PO Q6H PRN (Reason: nausea and vomiting) Qty: 20 0RF omeprazole 20 mg capsule,delayed release(DR/EC) 20 mg PO DAILY 30 Days Qty: 30 0RF ondansetron 4 mg tablet,disintegrating 4 mg PO Q8H PRN (Reason: nausea and vomiting) Qty: 14 0RF promethazine 12.5 mg tablet 12.5 mg PO Q6H PRN (Reason: motion sickness) metronidazole 500 mg tablet 500 mg PO Q12H selenium sulfide 2.5 % lotion 1 appl topical DAILY PRN (Reason: Dry/Itchy Skin) (DME) insulin admin supplies Insulin Pen SUBCUT Rx Instructions: iLet insulin pump (up to 60 units daily) insulin lispro 100 unit/mL solution See Rx Instructions .ROUTE .COMPLEX Rx Instructions: INJECT UP TO 60 UNITS PER DAY VIA INSULIN PUMP Print Language: Mexican
[2025-04-02 22:57] VITALS: BP 123/69; PULSE 100; RESP 18; TEMP 36.8; O2SAT 99
== END 2025-04-02 22:57 | disposition home or self-care (01) ==
PROVIDERS: Physician Assistant; Emergency Provider Emergency Medicine
DX: B34.9 Viral infection, unspecified (principal); J02.9 Acute pharyngitis, unspecified; R05.9 Cough, unspecified; E11.9 Type 2 diabetes mellitus without complications; F17.210 Nicotine dependence, cigarettes, uncomplicated; Z79.4 Long term (current) use of insulin; Z03.818 Encounter for observation for suspected exposure to other biological agents ruled out
CPT/HCPCS: 36415; 80053; 83690; 84702; 85007; 85027; 87637; 87651; 96361; 96374; 96375; 99283; 99284; J1885; J2765